=== PATIENT | female | born 1955 | race Caucasian/White ===

== ENCOUNTER 2019-11-25 15:51 | Outpatient (REF) | payer MEDICAID, SELFPAY ==
--- NOTE | 2019-11-25 | US_ITS ---
EXAMINATION: US THYROID CLINICAL INFORMATION: Nontoxic single thyroid nodule. COMPARISON: Ultrasound soft tissue head/neck thyroid dated 11/13/2018 and 09/05/2016. TECHNIQUE: Linear transducer shankar-scale and color Doppler examination with attention to the region of the thyroid. FINDINGS: SIZE: Measurements of the thyroid lobes and nodules are given in sagittal, anteroposterior and transverse dimensions respectively. Right Thyroid Lobe: 2.8 x 1.8 x 1.4 cm, volume 3.7 mL. Previously 3.2 x 1.9 x 1.2 cm, volume 3.9 mL. Parenchyma: The gland echotexture is heterogeneous. Thyroid vascularity is normal. Left Thyroid Lobe: 3.1 x 1.5 x 1.6 cm, volume 3.9 mL. Previously 3.2 x 1.4 x 1.2 cm, volume 2.9 mL. Parenchyma: The gland echotexture is heterogeneous. Thyroid vascularity is normal. Isthmus: 0.6 cm in maximum AP dimension. Previously 0.6 cm. RIGHT THYROID LOBE: No nodules. ISTHMUS: There is 1 nodule seen. 1. Location: Mid isthmus. Size: 0.7 x 0.5 x 0.7 cm. Previous: 0.7 x 0.7 x 0.6 cm. Nodule characteristics: Heterogeneous, irregular shaped with intranodular flow. LEFT THYROID LOBE: No nodules. NODES: No lymphadenopathy is seen in the tissue surrounding the thyroid gland. IMPRESSION: Heterogenous irregular-shaped subcentimeter nodule in the isthmus. The rest of the thyroid ultrasound is unremarkable.
== END 2019-11-25 15:52 | disposition home or self-care (01) ==
LOC: HO.US 15:51
PROVIDERS: Visit Provider Emergency Medicine
DX: E04.1 Nontoxic single thyroid nodule (principal)
CPT/HCPCS: 76536

== ENCOUNTER 2019-12-23 13:51 | Outpatient (REF) | payer MEDICAID, SELFPAY ==
--- NOTE | 2019-12-23 13:58 | XR_ITS ---
EXAMINATION: XR LUMBOSACRAL SPINE CLINICAL INFORMATION: Lumbago with sciatica, right side. COMPARISON: Radiographs lumbar spine 08/30/2018 TECHNIQUE: Three views of the lumbosacral spine. FINDINGS: There is normal lumbar segmentation with 5 nonrib-bearing lumbar vertebrae of normal height and normal lumbar lordosis. There is no lumbar vertebral compression, spondylolisthesis, or destructive process. Accentuated superior endplate concavity T12 is stable. There is scattered multilevel mild lumbar vertebral body spurring again noted. No interval disc narrowing. The SI joints and visualized sacrum are unremarkable. There is a benign calcification again seen left hemipelvis. XR/XR lumbar spine 2-3V IMPRESSION: 1. No acute bony abnormality. 2. Mild superior endplate concavity T12 stable from prior exam 08/30/2018.
== END 2019-12-23 13:52 | disposition home or self-care (01) ==
LOC: HO.XRAY 13:51
PROVIDERS: Absent Provider Emergency Medicine; PCP Emergency Medicine; Referring Provider Emergency Medicine; Visit Provider Nurse Practitioner Family
DX: M54.41 Lumbago with sciatica, right side (principal)
CPT/HCPCS: 72100

== ENCOUNTER → 2019-12-24 13:24 | Outpatient (BNVA) | payer MEDICAID, SELFPAY | PROVIDERS: PCP Emergency Medicine; Visit Provider Nurse Practitioner Family | DX: Z76.89 Persons encountering health services in other specified circumstances (principal) ==

== ENCOUNTER → 2020-01-15 13:27 | Outpatient (BNVA) | payer MEDICAID, SELFPAY | PROVIDERS: Visit Provider Obstetrics & Gynecology | DX: Z76.89 Persons encountering health services in other specified circumstances (principal) ==

== ENCOUNTER 2020-04-16 18:52 | Outpatient (REF) | payer MEDICAID, SELFPAY ==
--- NOTE | ~2020-04-16 | MR_ITS ---
EXAMINATION: MR LUMBAR SPINE WITHOUT CONTRAST CLINICAL INFORMATION: Long history of chronic back pain. COMPARISON: X-ray dated 12/23/2019 TECHNIQUE: MRI of the lumbar spine was obtained using routine sequences without contrast. Slightly limited study with motion artifacts. FINDINGS: VERTEBRAL BODIES AND PARASPINAL STRUCTURES: The marrow signal is within normal limits. There are no compression fractures or subluxations. Superior endplate Schmorl's node deformity evident at the L5 level with mild concavity. No marrow or soft tissue edema is seen. The paraspinal soft tissues appear normal. The imaged bony pelvis is unremarkable. CONUS MEDULLARIS AND CAUDA EQUINA: Normal, terminating at the level of L1-L2. No lower cord signal abnormality is seen. The cauda equina nerve roots are normal. SPINAL LEVELS: L1-L2: No significant disc pathology. Patent central canal and foramina. L2-L3: No disc abnormality. No central canal stenosis or foraminal narrowing. L3-L4: No disc pathology evident. Mild anterior endplate spurring. Patent central canal and foramina. L4-L5: No disc abnormality. Very mild facet arthropathy without foraminal encroachment. L5-S1: No disc abnormality. Very mild facet arthropathy. No central canal stenosis or foraminal narrowing. MR/MR lumbar spine wo con IMPRESSION: Very mild spondylitic changes. No focal disc protrusion, central canal stenosis, or foraminal narrowing.
== END 2020-04-16 18:53 | disposition home or self-care (01) ==
LOC: HO.MRI 18:52
PROVIDERS: Visit Provider Nurse Practitioner Family
DX: G89.29 Other chronic pain (principal); M54.5 Low back pain; Z91.81 History of falling
CPT/HCPCS: 72148

== ENCOUNTER → 2020-06-14 12:20 | Outpatient (BNVA) | payer MEDICAID, SELFPAY | PROVIDERS: PCP Nurse Practitioner Family; Visit Provider Internal Medicine | DX: R07.2 Precordial pain (principal); E11.8 Type 2 diabetes mellitus with unspecified complications; E78.5 Hyperlipidemia, unspecified; Z79.899 Other long term (current) drug therapy | CPT/HCPCS: 93005; 99212 ==

== ENCOUNTER → 2020-06-22 15:17 | Outpatient (BNVA) | payer MEDICAID, SELFPAY | PROVIDERS: PCP Nurse Practitioner Family; Visit Provider Nurse Practitioner Family | DX: R14.0 Abdominal distension (gaseous) (principal); K21.9 Gastro-esophageal reflux disease without esophagitis; K59.00 Constipation, unspecified | CPT/HCPCS: 99212 ==

== ENCOUNTER 2020-06-29 14:00 | Outpatient (RCR) | payer MEDICAID, SELFPAY | END 2020-07-06 08:00 | disposition home or self-care (01) | LOC: HO.PT 14:00 | PROVIDERS: PCP Nurse Practitioner Family; Visit Provider Nurse Practitioner Family | DX: M54.5 Low back pain (principal) | CPT/HCPCS: 97110; 97112; 97162 ==

== ENCOUNTER → 2020-07-26 14:24 | Outpatient (BNVA) | payer MEDICARE, MEDICAID, SELFPAY | PROVIDERS: PCP Nurse Practitioner Family; Visit Provider Nurse Practitioner Family | DX: Z13.89 Encounter for screening for other disorder (principal) | CPT/HCPCS: Q3014 ==

== ENCOUNTER 2020-09-03 13:10 | Outpatient (REF) | payer MEDICARE, MEDICAID, SELFPAY ==
--- NOTE | ~2020-09-03 | MM_ITS ---
EXAMINATION: MM DIAGNOSTIC DIGITAL BREAST TOMOSYNTHESIS, BILATERAL CLINICAL INFORMATION: Due for yearly. Also follow-up probable benign asymmetric density central 3:30 o'clock mid right breast. The lifetime risk of breast cancer based on the Tyrer-Cuzick Model is 5%. COMPARISON: Mammography: 08/22/2019, 11/22/2018, 05/16/2018 (BI-RADS 0), 05/07/2017, 05/02/2016, 03/23/2015; targeted right breast ultrasound 05/22/2018. TECHNIQUE: Digital breast tomosynthesis is performed in both the craniocaudal and mediolateral oblique views along with computer-aided detection (CAD). Synthesized 2D images are generated from the tomosynthesis. FINDINGS: There are scattered areas of fibroglandular density (ACR BI-RADS breast composition Category b). Parenchymal pattern is similar to prior studies. There is no developing density or interval mass or architectural abnormality. No abnormal calcifications. Small asymmetric density for follow-up appears stable since 2016. No increasing size or attenuation. The axilla and skin contours are unremarkable. Results are provided to the patient at time of visit by the technologist. MM/MM tomosynthesis diagnostic BI IMPRESSION: No mammographic evidence of malignancy. ASSESSMENT: BI-RADS 2: Benign RECOMMENDATION: Routine annual mammography screening. This patient's information was entered into a reminder system with a target due date for their next mammogram.
== END 2020-09-03 13:11 | disposition home or self-care (01) ==
LOC: HO.MAMMO 13:10
PROVIDERS: Visit Provider Advanced Practice Midwife
DX: N63.14 Unspecified lump in the right breast, lower inner quadrant (principal)
CPT/HCPCS: 77062; 77066

== ENCOUNTER → 2020-10-28 08:51 | Outpatient (BNVA) | payer OTHER, SELFPAY | PROVIDERS: PCP Internal Medicine; Referring Provider Internal Medicine; Visit Provider Surgery | DX: K62.89 Other specified diseases of anus and rectum (principal) | CPT/HCPCS: 46600; 99202 ==

== ENCOUNTER 2021-03-02 09:04 | Outpatient (REF) | payer OTHER, MEDICAID, SELFPAY ==
[2021-03-04 21:51] LABS: HPV mRNA E6/E7 rflx Not Detected (Not Detected)
== END 2021-03-02 09:05 | disposition home or self-care (01) ==
LOC: HO.LAB 09:04
PROVIDERS: PCP Internal Medicine; Visit Provider Obstetrics & Gynecology
DX: Z01.419 Encounter for gynecological examination (general) (routine) without abnormal findings (principal); N95.1 Menopausal and female climacteric states
CPT/HCPCS: 87624; 88142

== ENCOUNTER 2021-03-16 08:42 | Outpatient (REF) | payer OTHER, MEDICAID, SELFPAY ==
--- NOTE | ~2021-03-16 | MM_ITS ---
EXAMINATION: BONE DENSITOMETRY CLINICAL INDICATION: Osteoporosis. COMPARISON: None (current study represents initial baseline exam). TECHNIQUE: Using a [employer] DXA System (software version: 13.1) manufactured by [employer] to u, dual-energy x-ray absorptiometry was performed of the lumbar spine and left hip. The images are of good technical quality. Summary results are attached. FINDINGS: AP SPINE L1-L4: BMD 0.929 g/cm2, Z-score -0.7, T-score -2.1, osteopenia. LEFT FEMUR, NECK: BMD 0.823 g/cm2, Z-score -0.2, T-score -1.5, osteopenia. LEFT FEMUR, TOTAL: BMD 0.894 g/cm2, Z-score 0.2, T-score -0.9, normal. IDENTIFIED RISK FACTORS: Recurrent falls, glucocorticoids (chronic), menopause. HISTORY OF FRACTURE: None listed. MEDICATIONS: Vitamin D. MM/XR DEXA axial skeleton IMPRESSION: 1. DIAGNOSIS: Osteopenia based on the lowest T-score value of -2.1 in the lumbar spine applying World Health Organization criteria. 2. 10-YEAR FRACTURE RISK PREDICTION, FRAX: Major osteoporotic fracture (clinical spine, forearm, hip or shoulder) 8.0%. Hip fracture 1.0%. 3. Treatment Recommendations: NOF guidelines recommend consideration for treatment in postmenopausal women and men age 50 and older presenting with the following: -A hip or vertebral (clinical or morphometric) fracture. -T-score less than or equal to -2.5 at the femoral neck or spine after appropriate evaluation to exclude secondary causes. -Low bone mass at the hip or spine and a 10-year fracture probability by FRAX of greater than or equal to 3% for hip fracture or greater than or equal to 20% for major osteoporotic fracture based on the [place] adapted WHO algorithm. 4. Other Recommendations: All treatment decisions require clinical judgment and consideration of individual patient factors, including patient preferences, comorbidities, previous drug use, risk factors not captured in the FRAX model (e.g. frailty, falls, vitamin D deficiency, increased bone turnover, interval significant decline in bone density) and possible under or overestimation of fracture risk by FRAX. Additional medical evaluation for secondary cause of low bone mineral density may be appropriate. FUTURE SCAN RECOMMENDATION: People with diagnosed cases of osteoporosis or at high risk for fracture should have regular bone mineral density tests. For patients eligible for Medicare, routine testing is allowed once every 2 years. The testing frequency can be increased to one year for patients who have rapidly progressing disease, those who are receiving or discontinuing medical therapy to restore bone mass, or have additional risk factors.
== END 2021-03-16 08:43 | disposition home or self-care (01) ==
LOC: HO.MAMMO 08:42
PROVIDERS: Visit Provider Obstetrics & Gynecology
DX: Z13.820 Encounter for screening for osteoporosis (principal); N95.1 Menopausal and female climacteric states; Z79.899 Other long term (current) drug therapy
CPT/HCPCS: 77080

== ENCOUNTER 2021-06-02 14:50 | Outpatient (REF) | payer OTHER, MEDICAID, SELFPAY ==
--- NOTE | ~2021-06-02 | XR_ITS ---
EXAMINATION: XR CHEST CLINICAL INFORMATION: Other general symptoms and signs COMPARISON: 07/05/2016 TECHNIQUE: 2 views of the chest were obtained. FINDINGS: The lungs are well expanded. There is no focal consolidation, edema, or effusion. Mild bronchial wall thickening noted. No pneumothorax. The cardiomediastinal silhouette is within normal limits. No acute osseous abnormality. XR/XR chest 2V IMPRESSION: No dense consolidation. Bronchial wall thickening can be seen with a small airways process such as asthma or atypical/viral infection.
== END 2021-06-02 14:51 | disposition home or self-care (01) ==
LOC: HO.XRAY 14:50
PROVIDERS: PCP Internal Medicine; Visit Provider Emergency Medicine
DX: R68.89 Other general symptoms and signs (principal)
CPT/HCPCS: 71046

== ENCOUNTER → 2021-06-15 12:21 | Outpatient (BNVA) | payer OTHER, MEDICAID, SELFPAY | PROVIDERS: PCP Internal Medicine; Referring Provider Internal Medicine; Visit Provider Internal Medicine | DX: R07.2 Precordial pain (principal); E78.5 Hyperlipidemia, unspecified; E11.8 Type 2 diabetes mellitus with unspecified complications | CPT/HCPCS: 93005 ==

== ENCOUNTER 2021-09-06 10:57 | Outpatient (REF) | payer OTHER, MEDICAID, SELFPAY ==
--- NOTE | ~2021-09-06 | MM_ITS ---
EXAMINATION: MM SCREENING DIGITAL BREAST TOMOSYNTHESIS, BILATERAL CLINICAL INFORMATION: Screening. Asymptomatic. The lifetime risk of breast cancer based on the Tyrer-Cuzick Model is 5%. COMPARISON: Mammography: 09/03/2020, 08/22/2019, 11/22/2018, 05/16/2018 TECHNIQUE: Digital breast tomosynthesis is performed in both the craniocaudal and mediolateral oblique views along with computer-aided detection (CAD). Synthesized 2D images are generated from the tomosynthesis. FINDINGS: There are scattered areas of fibroglandular density (ACR BI-RADS breast composition Category b). There are no significant masses, abnormal calcifications, or other abnormalities. There is no developing density or interval architectural changes. No significant change from prior studies. MM/MM tomosynthesis screening BI IMPRESSION: No mammographic evidence of malignancy. ASSESSMENT: BI-RADS 1: Negative RECOMMENDATION: Routine annual mammography screening. This patient's information was entered into a reminder system with a target due date for their next mammogram.
== END 2021-09-06 10:58 | disposition home or self-care (01) ==
LOC: HO.MAMMO 10:57
PROVIDERS: PCP Internal Medicine; Visit Provider Internal Medicine
DX: Z12.31 Encounter for screening mammogram for malignant neoplasm of breast (principal)
CPT/HCPCS: 77063; 77067

== ENCOUNTER 2021-09-11 10:54 | Emergency (ER) | payer OTHER, MEDICAID, SELFPAY ==
[2021-09-11 12:28] VITALS: BP 131/45; PULSE 72; RESP 18; TEMP 36.5; O2SAT 95; BMI 31.5
--- NOTE | 2021-09-11 17:42 | ED.SKABFB ---
HPI - Skin/Abscess/Foreign Bdy General Chief complaint: Skin/Abscess/Foreign Body Stated complaint: rash on R arm Time Seen by Provider: 09/11/21 17:42 History of Present Illness HPI narrative: Patient complains of rash on arms and legs for the past couple days getting more itchy, no trouble breathing no difficulty swallowing no swelling in the throat Related Data Home Medications Medication Instructions Recorded Confirmed amitriptyline 50 mg tablet 50 mg PO BEDTIME 12/24/19 06/15/21 atorvastatin 20 mg tablet 20 mg PO DAILY 12/24/19 06/15/21 buspirone 5 mg tablet 5 mg PO BID 12/24/19 06/15/21 phenyleph-shark liver 1 appl [place] DAILY 10/28/20 06/15/21 [id number] rectal cream cholecalciferol (vitamin D3) 25 25 mcg PO DAILY 06/15/21 06/15/21 mcg (1,000 unit) chewable tablet (Vitamin D3) dapagliflozin 5 mg tablet (Farxiga) 5 mg PO QAM 06/15/21 06/15/21 fluticasone propionate 50 1 - 2 spray intranasal DAILY PRN 06/15/21 06/15/21 mcg/actuation nasal spray,suspension levothyroxine 25 mcg tablet 25 mcg PO DAILY 06/15/21 06/15/21 metformin 500 mg tablet,extended 1,000 mg PO BID 06/15/21 06/15/21 release 24 hr mirtazapine 7.5 mg tablet 7.5 mg PO BEDTIME 06/15/21 06/15/21 pantoprazole 40 mg tablet,delayed 40 mg PO DAILY 06/15/21 06/15/21 release trazodone 50 mg tablet 50 mg PO BEDTIME 06/15/21 06/15/21 venlafaxine 75 mg tablet 75 mg PO DAILY 06/15/21 06/15/21 Previous Rx's Medication Instructions Recorded docusate sodium 100 mg capsule 100 mg PO DAILY 30 days #30 caps 07/26/20 methylcellulose (laxative) 500 mg 500 mg PO DAILY #30 tabs 07/26/20 tablet (Citrucel) simethicone 125 mg capsule 125 mg PO BID-QID PRN abdominal 07/26/20 distention #120 caps hydrocortisone acetate 25 mg 25 mg [place] BID #24 ea 10/28/20 rectal suppository (Anusol-HC) psyllium husk (with sugar) 3.4 1 tbsp PO DAILY #575 grams 10/28/20 gram/12 gram oral powder (Metamucil (with sugar)) hydrocortisone 2.5 % topical cream 1 appl topical BID PRN rash #30 09/11/21 grams loratadine 10 mg tablet (Claritin) 10 mg PO DAILY PRN Itchy rash #10 09/11/21 tabs prednisone 20 mg tablet 40 mg PO DAILY 2 days #4 tabs 09/11/21 Allergies Allergy/AdvReac Type Severity Reaction Status Date / Time aspirin [ASPIRIN] Allergy Mild UPSET Verified 06/15/21 12:47 STOMACH trazodone AdvReac Unknown tiredness Verified 06/15/21 12:47 Review of Systems Review of Systems: Positive for itchy rash on arms and legs Negatives are no fever no chills no dizziness or weakness no fainting no feeling faint no headache no sore throat no difficulty breathing or swallowing no swelling of lips tongue or throat, no wheezing no vomiting Yes all other systems are reviewed and are negative PMFSH Past Medical History Source: nursing notes reviewed Medical History Anal pain Constipation Depression with anxiety Diverticulosis GERD (gastroesophageal reflux disease) Hiatal hernia Hx of thyroid cyst Hypercholesteremia Hypothyroidism Insomnia Internal hemorrhoids Other and unspecified hyperlipidemia Type 2 diabetes mellitus with unspecified complications Surgical History H/O tubal ligation History of appendectomy History of History of colonoscopy Hx of shoulder surgery Family History Family History Father History of heart attack Mother History of heart attack Social History Social History Alcohol intake: never Patient Tobacco Use Status: Never used Tobacco Advance Directives: No Advance Directives Information Provided: No Physical Exam Vital Signs: Vital Signs: Last Vital Signs Temp 97.7 F 09/11/21 12:28 Pulse 72 09/11/21 12:28 Resp 18 09/11/21 12:28 BP 131/45 L 09/11/21 12:28 Pulse Ox 95 09/11/21 12:28 O2 Del Method 09/11/21 12:28 BMI result Body Mass Index 31.5 General appearance comfortable no distress Eyes no redness or discharge The nose no congestion The pharynx is clear with no swelling of lips tongue or uvula no swelling in the throat, mucous membranes moist Neck is supple Chest clear to auscultation bilateral with full symmetric equal breath sounds Heart no murmur Extremities full range of motion x4 Skin there is a raised red rash on both elbows and forearms as well as both lower legs Course Course Course Narrative: Rash may be poison garrison or some other contact dermatitis There is no sign of any dangerous allergic reaction Discharge Plan Discharge Clinical Impression: Contact dermatitis Patient Disposition: Home, Self-Care Additional Instructions: Rash may be from contact with something you are allergic to possibly poison garrison Use medications as directed Follow with her doctor if needed Return any time if worse Prescriptions: New prednisone 20 mg tablet 40 mg PO DAILY 2 Days Qty: 4 0RF hydrocortisone 2.5 % cream 1 appl topical BID PRN (Reason: rash) Qty: 30 0RF loratadine [Claritin] 10 mg tablet 10 mg PO DAILY PRN (Reason: Itchy rash) Qty: 10 0RF No Action phenyleph-shark [id number] Cream 1 appl NJ DAILY hydrocortisone acetate [Anusol-HC] 25 mg suppository 25 mg NJ BID Qty: 24 0RF Metamucil (with sugar) 3.4 gram/12 gram powder 1 tbsp PO DAILY Qty: 575 2RF atorvastatin 20 mg tablet 20 mg PO DAILY amitriptyline 50 mg tablet 50 mg PO BEDTIME buspirone 5 mg tablet 5 mg PO BID Farxiga 5 mg tablet 5 mg PO QAM metformin 500 mg tablet extended release 24 hr 1,000 mg PO BID levothyroxine 25 mcg tablet 25 mcg PO DAILY venlafaxine 75 mg tablet 75 mg PO DAILY fluticasone propionate 50 mcg/actuation spray,suspension 1 - 2 spray intranasal DAILY PRN mirtazapine 7.5 mg tablet 7.5 mg PO BEDTIME pantoprazole 40 mg tablet,delayed release (DR/EC) 40 mg PO DAILY cholecalciferol (vitamin D3) [Vitamin D3] 25 mcg (1,000 unit) tablet,chewable 25 mcg PO DAILY trazodone 50 mg tablet 50 mg PO BEDTIME docusate sodium 100 mg capsule 100 mg PO DAILY 30 Days Qty: 30 1RF Citrucel 500 mg tablet 500 mg PO DAILY Qty: 30 2RF simethicone 125 mg capsule 125 mg PO BID-QID PRN (Reason: abdominal distention) Qty: 120 3RF
== END 2021-09-11 18:11 | disposition home or self-care (01) ==
PROVIDERS: Emergency Provider Student in an Organized Health Care Education/Training Program; PCP Internal Medicine
DX: L25.9 Unspecified contact dermatitis, unspecified cause (principal)
CPT/HCPCS: 99282; 99283

== ENCOUNTER 2022-03-15 10:00 | Outpatient (REF) | payer MEDICARE, SELFPAY ==
[2022-03-15 10:15] LABS: MANUAL DIFF FLAG NO
[2022-03-15 10:43] LABS: Eosinophils Percent Auto 0.2 % (0-4); Hematocrit 39.5 % (37.0-47.0); Hemoglobin 12.8 g/dl (12.0-16.0); Imm Gran Abs Auto 0.02 X10*3/uL (0.00-0.03); Imm Gran Pct Auto 0.3 % (0.0-0.4); Lymphocytes Absolute Auto 2.9 X10*3/uL (1.2-4.9); Mean Corpuscular HGB Conc 32.4 g/dl (31.0-35.0); Mean Corpuscular Hemoglobin 26.6 pg (27.0-33.0); Mean Corpuscular Volume 82.1 fL (80.0-98.0); Mean Platelet Volume 9.2 fL (9.4-12.3); Monocytes Absolute Auto 0.5 X10*3/uL (0.1-1.2); Monocytes Percent Auto 8.4 % (2-11); Neutrophils Absolute Auto 2.8 x10*3/uL (2.0-8.3); Neutrophils Percent Auto 45.1 % (45-73); Platelet Count 286 X10*3/uL (160-400); Red Blood Count 4.81 X10*6/uL (4.20-5.50); Red Cell Distribution Width 12.8 % (11.0-16.0); White Blood Count 6.2 X10*3/uL (4.8-10.8)
[2022-03-15 12:28] LABS: Appearance Urine Clear; Color Urine Yellow; Glucose Urine UA Negative (Negative); Leukocyte Esterase Urine Negative (Negative); Nitrite Urine Negative (Negative); Urine Blood Negative (Negative); Urine Ketones Negative (Negative); Urine Protein Negative (Neg-Trace)
[2022-03-15 13:48] LABS: Creatinine Urine 81.13 mg/dL; Microalbum/Creatinine Ratio Ur 6.1 ug/mg cr
[2022-03-15 14:55] LABS: Alanine Aminotransferase 22 U/L (0-31); Albumin Level 4.3 g/dL (3.5-5.0); Alkaline Phosphatase 82 U/L (39-117); Anion Gap 19 (12-20); Aspartate Amino Transferase 20 U/L (5-31); Bilirubin Total 0.3 mg/dL (0.0-1.0); Blood Urea Nitrogen 16 mg/dL (9-16); Calcium 9.1 mg/dL (8.4-10.2); Carbon Dioxide 20 mmol/L (22-29); Chloride 104 mmol/L (96-108); Cholesterol 140 mg/dL; Estimated Glomerular Filt Rate > 60; Glucose Fasting 127 mg/dL (60-99); HDL Cholesterol 54 mg/dL; LDL Cholesterol Calculated 70 mg/dl; Potassium 4.2 mmol/L (3.3-5.1); Sodium 139 mmol/L (135-145); Total Protein 6.8 g/dL (6.5-8.0); Triglycerides 83 mg/dL
[2022-03-15 15:01] LABS: Free T4 (Free Thyroxine) 0.91 ng/dL (0.71-1.85); Vitamin D 25-OH Total 47.4 ng/mL (>30)
== END 2022-03-15 10:01 | disposition home or self-care (01) ==
LOC: HO.LAB 10:00
PROVIDERS: PCP Internal Medicine; Visit Provider Internal Medicine
DX: E55.9 Vitamin D deficiency, unspecified (principal); R30.0 Dysuria; E03.9 Hypothyroidism, unspecified; E78.00 Pure hypercholesterolemia, unspecified; E11.9 Type 2 diabetes mellitus without complications; I10 Essential (primary) hypertension
CPT/HCPCS: 36415; 80053; 80061; 81003; 82043; 82306; 84439; 84443; 85025

== ENCOUNTER 2022-05-22 15:38 | Outpatient (REF) | payer MEDICARE, SELFPAY ==
[2022-05-22 16:00] LABS: Appearance Urine Clear; Color Urine Yellow; Glucose Urine UA >=1000 mg/dL (Negative); Leukocyte Esterase Urine Negative (Negative); Nitrite Urine Negative (Negative); PH 5.5 (5.0-9.0); Specific Gravity - Urine >= 1.030 (1.005-1.025); UMIC TRIGGER UACC YES; Urine Blood Negative (Negative); Urine Ketones Negative (Negative); Urine Protein Negative (Neg-Trace)
[2022-05-22 16:52] LABS: Bacteria Urine Trace (None Seen); Hyaline Casts Urine 0-2 /LPF (0-2); RBC Urine 0-2 /HPF (0-2); Squamous Epithelial Cell Urine 0-2 /HPF (0-2); WBC Urine 0-5 /HPF (0-5)
== END 2022-05-22 15:39 | disposition home or self-care (01) ==
LOC: HO.LNP 15:38
PROVIDERS: Visit Provider Internal Medicine
DX: R39.9 Unspecified symptoms and signs involving the genitourinary system (principal)
CPT/HCPCS: 81001; 81003

== ENCOUNTER → 2022-05-31 10:21 | Outpatient (BNVA) | payer MEDICARE, SELFPAY | PROVIDERS: PCP Internal Medicine; Visit Provider Obstetrics & Gynecology ==

== ENCOUNTER 2022-06-15 14:20 | Outpatient (REF) | payer MEDICARE, SELFPAY ==
[2022-06-15 16:38] LABS: Urine Cytology See Pathology rpt
== END 2022-06-15 14:21 | disposition home or self-care (01) ==
LOC: HO.LNP 14:20
PROVIDERS: PCP Internal Medicine; Visit Provider Nurse Practitioner Family
DX: R31.29 Other microscopic hematuria (principal); N32.81 Overactive bladder; R35.1 Nocturia; R39.89 Other symptoms and signs involving the genitourinary system; R32 Unspecified urinary incontinence; R30.0 Dysuria
CPT/HCPCS: 51798; 88112; 99202

== ENCOUNTER 2022-07-06 14:53 | Outpatient (REF) | payer MEDICARE, SELFPAY ==
--- NOTE | ~2022-07-06 | US_ITS ---
EXAMINATION: US RETROPERITONEAL LIMITED (RENAL ONLY) CLINICAL INFORMATION: Frequency of micturition. COMPARISON: X-ray abdomen 09/22/2016. TECHNIQUE: Real-time imaging of the kidneys. FINDINGS: RIGHT KIDNEY: 9.6 x 4.1 x 5.2 cm (SAG x AP x TRV). The kidney is normal in size, contour, and echogenicity. Renal cortical thickness is normal. No calculi or focal parenchymal lesions. No hydronephrosis. LEFT KIDNEY: 9.7 x 4.5 x 4.9 cm (SAG x AP x TRV). The kidney is normal in size, contour, and echogenicity. Renal cortical thickness is normal. No calculi or focal parenchymal lesions. No hydronephrosis. US/US renal BI IMPRESSION: Normal renal ultrasound.
[2022-07-06 16:26] LABS: Appearance Urine Clear; Color Urine Yellow; Glucose Urine UA >=1000 mg/dL (Negative); Leukocyte Esterase Urine Negative (Negative); Nitrite Urine Negative (Negative); Specific Gravity - Urine >= 1.030 (1.005-1.025); UMIC TRIGGER UACC YES; Urine Blood Negative (Negative); Urine Ketones Negative (Negative); Urine Protein Negative (Neg-Trace)
[2022-07-06 16:31] LABS: Bacteria Urine None Seen (None Seen); Hyaline Casts Urine 0-2 /LPF (0-2); RBC Urine 0-2 /HPF (0-2); Squamous Epithelial Cell Urine 0-2 /HPF (0-2); WBC Urine 0-5 /HPF (0-5)
[2022-07-06 18:25] LABS: Creatinine Urine 91.55 mg/dL; Microalbumin Urine < 5.0 mg/L
== END 2022-07-06 14:54 | disposition home or self-care (01) ==
LOC: HO.US 14:53
PROVIDERS: Internal Medicine; Visit Provider Nurse Practitioner Family
DX: E11.9 Type 2 diabetes mellitus without complications (principal); R35.0 Frequency of micturition; R31.29 Other microscopic hematuria; R35.1 Nocturia; R39.89 Other symptoms and signs involving the genitourinary system; R30.0 Dysuria
CPT/HCPCS: 76775; 81001; 82043

== ENCOUNTER 2022-08-07 16:11 | Outpatient (REF) | payer MEDICARE, SELFPAY | END 2022-08-07 16:12 | disposition home or self-care (01) | LOC: HO.US 16:11 | PROVIDERS: PCP Internal Medicine; Visit Provider Nurse Practitioner Family | DX: R35.0 Frequency of micturition (principal); R31.29 Other microscopic hematuria; R35.1 Nocturia | CPT/HCPCS: 76857 ==

== ENCOUNTER 2022-08-18 13:27 | Outpatient (AMB) | payer MEDICARE, SELFPAY ==
--- NOTE | 2022-08-18 13:28 | A.OFFVIS_ITS ---
Intake Intake Visit Reasons: Micro hematuria- follow up/US/PVR(SET) Intake Note: Patient is present for follow up urinary incontinence/ultrasound (imaging 07/06 & 08/07) Urology Medications: Oxybutynin Blood Thinner: none PVR: 0ml's Photographic Plate Maker Required: Yes Photographic Plate Maker Name: [email or web address] Accompanied by: Self / Same As Patient Allergies aspirin [ASPIRIN] Allergy (Mild, Verified 08/18/22 14:04) UPSET STOMACH trazodone Adverse Reaction (Unknown, Verified 08/18/22 14:04) tiredness Medication List - Last Reconciled 08/18/22 by RENATO Antunez acetaminophen (Tylenol Extra Strength) 500 mg PO Q6-8H PRN amitriptyline 50 mg PO BEDTIME atorvastatin 20 mg PO DAILY blood sugar diagnostic (FreeStyle Lite Strips) As directed once a day blood sugar diagnostic (OneTouch Ultra Test strips) As directed once a day blood-glucose meter (FreeStyle Lite Meter kit) As directed blood-glucose meter (OneTouch Ultra2 Meter) As directed once a day buspirone 5 mg PO BID cholecalciferol (vitamin D3) (Vitamin D3) 25 mcg PO DAILY clotrimazole-betamethasone 1-0.05 % 1 appl topical BID 5 days dapagliflozin propanediol (Farxiga) 5 mg PO QAM docusate sodium 100 mg PO DAILY 30 days fluticasone propionate 50 mcg/actuation 1 - 2 sprays intranasal DAILY PRN hydrocortisone 2.5% 1 appl topical BID PRN hydrocortisone acetate (Anusol-HC) 25 mg MI BID hydroxyzine pamoate 25 mg PO DAILY PRN ibuprofen 600 mg PO TID PRN 30 days lancets (FreeStyle Lancets) As directed once a day lancets (OneTouch UltraSoft 2 Lancet) As directed levothyroxine 25 mcg PO DAILY loratadine (Claritin) 10 mg PO DAILY PRN melatonin 0 mg PO metformin ER 1,000 mg PO BID mirtazapine 7.5 mg PO BEDTIME oxybutynin chloride ER 10 mg PO DAILY 30 days pantoprazole 40 mg PO DAILY phenyleph-shark yaf-wvoy-oaf 1 appl MI DAILY polyethylene glycol 3350 grams PO psyllium husk (with sugar) 3.4 gram/12 gram (Metamucil (with sugar)) 1 tbsp PO DAILY simethicone 125 mg PO BID-QID PRN simethicone 180 mg PO TID venlafaxine 75 mg PO DAILY venlafaxine ER 75 mg PO DAILY HPI HPI Comments History of Present Illness Details Saadia is a pleasant 67 year old Indonesian speaking patient of Dr. Leonard. She has a past medical history of acquired hypothyroidism, constipation, depression, anxiety, diabetes mellitus, hypercholesterolemia, and vitamin d deficiency. She presents to the office today for follow-up. Of note, patient was seen approximately 2 months ago as a new patient for urinary issues at which time a retroperitoneal ultrasound was ordered and the patient has was started on 10 mg of oxybutynin. Recent retroperitoneal ultrasound results reviewed with the patient today. Bilateral kidneys with no calculi, lesions, and or hydronephrosis noted. The bladder is normal well distended. Prevoid bladder volume is approximately 140 mL. Postvoid bladder volume is approximately 15 mL. When asked she reports some improvement urinary symptoms on 10 mg of oxybutynin daily. She does continue to endorse nocturia up to 4 times per night however does endorse to drinking fluids up unitl/prior to bed. She otherwise denies incontinence, hematuria, foul-smelling urine, changes to urinary stream, flank pain, fever, and or chills. In office urinalysis with microscopic hematuria otherwise within normal limits. Urine cytology from last office visit 06/15/22 negative for high-grade urothelial carcinoma. PVR 0 mL. When asked she reports to be drinking fluids up to/prior to bed. She reports drinking tea at 22:00. Discussed affects of tea/caffeine on urinary symptoms/bladder as well as on nocturia. Discussed limiting fluids 3-4 hours prior to bed to assist with nocturia. Discussed lifestyle modifications up as well as future in office cystoscopy if symptoms persist and/or worsen. [facility] Medical History Acquired hypothyroidism Allergic rhinitis Anal pain Anxiety Constipation Constipation Depression Depression with anxiety Diabetes mellitus Diverticulosis GERD (gastroesophageal reflux disease) Hiatal hernia Hx of thyroid cyst Hypercholesteremia Hypothyroidism Insomnia Insomnia Internal hemorrhoids Internal hemorrhoids Obesity (BMI 30-39.9) Other and unspecified hyperlipidemia Pure hypercholesterolemia Type 2 diabetes mellitus with unspecified complications Vitamin D deficiency Surgical History H/O tubal ligation History of appendectomy History of History of colonoscopy Hx of shoulder surgery Family History Father History of heart attack Mother History of heart attack Sister Breast cancer Social History Housing: Apartment Alcohol intake: never Patient Tobacco Use Status: Never used Tobacco e-Cigarette/Vaping Use: Never Used service: No Cognitive needs: No Hearing needs: No Vision needs: Yes Female Reproductive History Menstrual Age of Menarche: 13 Review of Systems Const Reports as per HPI Eyes Reports no additional complaints ENT Reports no additional complaints Card Reports no additional complaints Resp Reports no additional complaints GI Reports as per HPI Reports as per HPI Neuro Reports no additional complaints Psych Reports as per HPI Endo Reports as per HPI Gatiot/Lymph Reports no additional complaints Aller/Immun Reports no additional complaints Physical Exam Const General: cooperative, healthy appearing, comfortable, no acute distress, well developed, alert and awake Orientation/consciousness: patient oriented x3 Limitations: no limitations HEENT Head: Yes normal to inspection, Yes normocephalic and Yes atraumatic Ears: hearing grossly normal bilaterally Eyes General: appearance normal, both eyes and all related structures Neck Neck: Yes normal visual inspection and Yes trachea midline Chest Chest palpation & inspection: normal inspection of the chest Resp Effort & Inspection: normal respiratory effort and able to speak in complete sentences Cardio Rate: regular rate GI Inspection: Yes normal to inspection General: Yes no CVA tenderness Back/Spine/Pelvis Back: no CVA tenderness Skin General skin exam: no rashes or lesions noted Neuro General: patient oriented x3 Extrem General: Yes normal to inspection Psych Appearance: grossly normal and well kempt Mental Status: mental status grossly normal Speech and movement: Normal speech and movement present and Clear speech present Affect: normal affect Attitude: cooperative Thought process: Normal thought process present Thought content: Normal thought content present Insight: Fair insight present (Psych) Judgement: Fair judgement present (Psych) Office Procedures Post Void Residual Post Residual Void Post Void Residual (PVR): 0 07133-[id number] Void Residual by ultrasound Results AMB Urinalysis, Automated UA Leukoctes 0 Javier/uL Last Edit by Darryl Cerrato on 08/18/22 13:51 UA Nitrite Last Edit by Darryl Cerrato on 08/18/22 13:51 UA Urobilinogen 0.2 mg/dL Last Edit by Chachae Blossom on 08/18/22 13:51 UA Protein 15 mg/dL Last Edit by Darryl Cerrato on 08/18/22 13:51 UA pH 6.0 Last Edit by Darryl Cerrato on 08/18/22 13:51 UA Blood 10 Amor/uL Last Edit by Darryl Cerrato on 08/18/22 13:51 UA Specific Milner 1.025 Last Edit by [employer] Blossom on 08/18/22 13:51 UA Ketone Negative Last Edit by [employer] on 08/18/22 13:51 UA Bilirubin 0 mg/dL Last Edit by Darryl Cerrato on 08/18/22 13:51 UA Glucose 0 mg/dL Last Edit by Darryl Cerrato on 08/18/22 13:51 Results Reviewed Results Reviewed: Laboratory Last Values Urine pH (Auto) 6.0 08/18/22 13:35 Specific Milner (Auto) 1.025 08/18/22 13:35 Urine Protein (Auto) 15 mg/dL 08/18/22 13:35 Glucose (UA)(Auto) 0 mg/dL 08/18/22 13:35 Urine Ketones (Auto) Negative 08/18/22 13:35 Urine Blood (Auto) 10 Amor/uL 08/18/22 13:35 Urine Bilirubin (Auto) 0 mg/dL 08/18/22 13:35 Urine Urobilinogen (Auto) 0.2 mg/dL 08/18/22 13:35 Leukocyte Esterase (Auto) 0 Javier/uL 08/18/22 13:35 Date of Service: 07/06/22 EXAMINATION: US RETROPERITONEAL LIMITED (RENAL ONLY) CLINICAL INFORMATION: Frequency of micturition. COMPARISON: X-ray abdomen 09/22/2016. TECHNIQUE: Real-time imaging of the kidneys.? FINDINGS: RIGHT KIDNEY: 9.6 x 4.1 x 5.2 cm (SAG x AP x TRV). The kidney is normal in size, contour, and echogenicity. Renal cortical thickness is normal. No calculi or focal parenchymal lesions. No hydronephrosis. LEFT KIDNEY: 9.7 x 4.5 x 4.9 cm (SAG x AP x TRV). The kidney is normal in size, contour, and echogenicity. Renal cortical thickness is normal. No calculi or focal parenchymal lesions. No hydronephrosis. IMPRESSION: Normal renal ultrasound. Date of Service: 08/07/22 EXAMINATION: US PELVIS LIMITED (BLADDER) CLINICAL INFORMATION: Microhematuria. COMPARISON: Ultrasound retroperitoneal limited (renal only) 07/06/2022. X-ray abdomen KUB 09/22/2016. TECHNIQUE: Real-time imaging of the bladder. FINDINGS: BLADDER: Well distended and normal. Bilateral ureteral jets are demonstrated. Prevoid bladder volume is 142 mL. Postvoid bladder volume is 14.7 mL. IMPRESSION: Small post void residual. Assessment & Plan Assessment & Plan (1) Microhematuria: Code(s): R31.29 - Other microscopic hematuria (2) Urinary frequency: Code(s): R35.0 - Frequency of micturition (3) Nocturia: Code(s): R35.1 - Nocturia Plan In office urinalysis results reviewed with the patient today Previous urine cytology results reviewed with the patient today; as noted above. Recent retroperitoneal ultrasound results reviewed with the patient today; as noted above. Continue oxybutynin 10 mg daily as discussed and prescribed. Discussed at length importance of limiting fluids 3-4 hours prior to bed to assist with decreasing episodes of nocturia. Discussed near future in office cystoscopy if symptoms persist and/or worsen. Discussed bladder triggers/irritants Discuss trial of Estrace cream Follow-up in 6 months; if not sooner with any questions, concerns, and or issues. Orders: Orders AMB Urinalysis Automated 08/18/22 Z13.9 - Encounter for screening, unspecified AMB Post Void Residual by ultrasound 08/18/22 R35.0 - Frequency of micturition Patient Instructions: The patient had an opportunity to ask questions regarding the treatment plan. All questions were answered. Physical exam, labs, and imaging were discussed and reviewed in detail. As well as risks, benefits, and discussion of treatment choices. No major barriers to understanding were identified. The patient expressed understanding and agreement with the above treatment plan. The patient was made aware they should contact our office by phone for worsening of their current condition, the appearance of new symptoms, or with any questions or concerns. Compliance is encouraged with any medications and follow up testing that is ordered. It is a privilege to be allowed the opportunity to participate in? your urological care.? Again, if you have any questions or concerns If you have any questions or concerns please do not hesitate to contact me. The office is [phone]. This note is constructed using voice recognition software. While every effort has been made to ensure accuracy process chemist errors may have been included. Yours sincerely, RENATO Antunez Coding Level of Care Code Est Pt Level 3 (78763) Diagnoses Microhematuria R31.29 Urinary frequency R35.0 Nocturia R35.1 CPT Codes Post Residual Void - PVR CPT Code: 08306-Rlja Void Residual by ultrasound ([id number])
== END 2022-08-18 14:05 | disposition home or self-care (01) ==
PROVIDERS: PCP Internal Medicine; Visit Provider Nurse Practitioner Family
DX: R31.29 Other microscopic hematuria (principal); R35.0 Frequency of micturition; R35.1 Nocturia
CPT/HCPCS: 99213

== ENCOUNTER → 2022-08-18 13:27 | Outpatient (BNVA) | payer MEDICARE, SELFPAY | PROVIDERS: PCP Internal Medicine; Visit Provider Nurse Practitioner Family | DX: R31.29 Other microscopic hematuria (principal); R35.0 Frequency of micturition; R35.1 Nocturia | CPT/HCPCS: 51798; 99212 ==

== ENCOUNTER 2022-09-12 10:59 | Outpatient (REF) | payer MEDICARE, SELFPAY ==
--- NOTE | ~2022-09-12 | MM_ITS ---
EXAMINATION: MM SCREENING DIGITAL BREAST TOMOSYNTHESIS, BILATERAL CLINICAL INFORMATION: Screening. Asymptomatic. The lifetime risk of breast cancer based on the Tyrer-Cuzick Model is 4.6%. COMPARISON: Mammography: 09/24/2021, 09/03/2020, 08/22/2019, and dating back to 2017. TECHNIQUE: Digital breast tomosynthesis is performed in both the craniocaudal and mediolateral oblique views along with computer-aided detection (CAD). Synthesized 2D images are generated from the tomosynthesis. FINDINGS: There are scattered areas of fibroglandular density (ACR BI-RADS breast composition Category b). There are no suspicious masses, suspicious grouped calcifications, or areas of architectural distortion. The parenchymal pattern is stable from prior exams. There are no skin changes. MM/MM tomosynthesis screening BI IMPRESSION: No mammographic evidence of malignancy. ASSESSMENT: BI-RADS BI-RADS 1 - Negative RECOMMENDATION: Routine annual mammography screening. 1 year F/U This examination should not preclude the clinical evaluation of a suspicious palpable abnormality. This patient's information was entered into a reminder system with a target due date for their next mammogram.
== END 2022-09-12 11:00 | disposition home or self-care (01) ==
LOC: HO.MAMMO 10:59
PROVIDERS: PCP Internal Medicine; Visit Provider Internal Medicine
DX: Z12.31 Encounter for screening mammogram for malignant neoplasm of breast (principal)
CPT/HCPCS: 77063; 77067

== ENCOUNTER → 2022-09-12 11:30 | Outpatient (BNV) | payer MEDICARE, SELFPAY | PROVIDERS: PCP Internal Medicine; Visit Provider Radiology Diagnostic Radiology | DX: Z12.31 Encounter for screening mammogram for malignant neoplasm of breast (principal) | CPT/HCPCS: 77063; 77067 ==

== ENCOUNTER 2022-09-15 15:56 | Outpatient (AMB) | payer MEDICARE, SELFPAY ==
[2022-09-15 15:58] VITALS: BP 118/80; PULSE 78; O2SAT 97
--- NOTE | 2022-09-15 15:58 | A.OFFPC_ITS ---
Vital Signs 09/15/22 15:58 Height 4 ft 11 in Weight 148 lb 8 oz BMI 30.0 BP 118/80 Blood Pressure Location Lt brachial Position Sitting Pulse 78 Pulse Source Pulse Oximeter Pulse Oximetry (%) 97 Oxygen Delivery Method Room Air Intake Visit Reasons: DM, GERD, hyperlipidemia, hypothyroidism Manual Plate Filler Required: No Accompanied by: Self / Same As Patient Allergies aspirin [ASPIRIN] Allergy (Mild, Verified 09/15/22 16:28) UPSET STOMACH trazodone Adverse Reaction (Unknown, Verified 09/15/22 16:28) tiredness Medication List - Last Reconciled 09/15/22 by Ramírez Leonard MD acetaminophen (Tylenol Extra Strength) 500 mg PO Q6-8H PRN amitriptyline 50 mg PO BEDTIME atorvastatin 20 mg PO DAILY [BATH MAT As directed] blood sugar diagnostic (FreeStyle Lite Strips) As directed once a day blood sugar diagnostic (OneTouch Ultra Test strips) As directed once a day blood-glucose meter (FreeStyle Lite Meter kit) As directed blood-glucose meter (iSironaTouch Ultra2 Meter) As directed once a day buspirone 5 mg PO BID cholecalciferol (vitamin D3) (Vitamin D3) 25 mcg PO DAILY clotrimazole-betamethasone 1-0.05 % 1 appl topical BID 5 days dapagliflozin propanediol (Farxiga) 5 mg PO QAM [DISPOSABLE WIPES (3 packages a month) As directed] docusate sodium 100 mg PO DAILY 30 days fluticasone propionate 50 mcg/actuation 1 - 2 sprays intranasal DAILY PRN [HAND HELD SHOWER HEAD As directed] hydrocortisone 2.5% 1 appl topical BID PRN hydrocortisone acetate (Anusol-HC) 25 mg GA BID hydroxyzine pamoate 25 mg PO DAILY PRN ibuprofen 600 mg PO TID PRN 30 days lancets (FreeStyle Lancets) As directed once a day lancets (iSironaTouch UltraSoft 2 Lancet) As directed levothyroxine 25 mcg PO DAILY loratadine (Claritin) 10 mg PO DAILY PRN melatonin 0 mg PO metformin ER 1,000 mg PO BID mirtazapine 7.5 mg PO BEDTIME oxybutynin chloride ER 10 mg PO DAILY 30 days [PANTILINERS (3 / day) As directed] pantoprazole 40 mg PO DAILY phenyleph-shark [id number] 1 appl GA DAILY polyethylene glycol 3350 grams PO psyllium husk (with sugar) 3.4 gram/12 gram (Metamucil (with sugar)) 1 tbsp PO DAILY simethicone 125 mg PO BID-QID PRN simethicone 180 mg PO TID venlafaxine 75 mg PO DAILY venlafaxine ER 75 mg PO DAILY [WASHABLE BED PADS (2 per month) As directed] Tobacco use date assessed: 09/15/22 Fall risk assessment: No Falls in past year Last assessed Fall Risk: 09/15/22 Dental Screening Dental Screen Date: 09/15/22 Did you have a dental visit in the last 12 months?: Yes Did you have a dental problem in the last 6 months where you did not have access to dental care?: No Was dental information given to patient?: Patient has dentist HPI DM, GERD, hyperlipidemia, hypothyroidism HPI Details Patient comes in today for her follow up visit States that she is still experiencing a lot of heartburns often irregardless of whether she is eating/drinking or not; states that her reflux symptoms sometimes go all the way up into her throat Was seen by Dr. Arellano a couple of months ago and she is now scheduled for EGD and colonoscopy with Dr. Arellano on 09/26/22 for further evaluation She denies any headaches or dizziness Denies any exertional chest pains or SOB No nausea/vomiting, no abdominal pains but relates (+) frequent bloating sensation and epigastric discomfort No change in bowel habits noted Patient again did not get her follow up labs done prior to her visit today - states that she got her labs done after we saw her at her last visit but the last time she got some labs done was back in March 2022 Adds that she has a Hx of thyroid nodule and would like to get a follow up US done as she has not had one done in over a year [facility] Medical History Acquired hypothyroidism Allergic rhinitis Anal pain Anxiety Constipation Constipation Depression Depression with anxiety Diabetes mellitus Diverticulosis GERD (gastroesophageal reflux disease) Hiatal hernia Hx of thyroid cyst Hypercholesteremia Hypothyroidism Insomnia Insomnia Internal hemorrhoids Internal hemorrhoids Obesity (BMI 30-39.9) Other and unspecified hyperlipidemia Pure hypercholesterolemia Type 2 diabetes mellitus with unspecified complications Vitamin D deficiency Surgical History H/O tubal ligation History of appendectomy History of History of colonoscopy Hx of shoulder surgery Family History Father History of heart attack Mother History of heart attack Sister Breast cancer Social History Housing: Apartment Alcohol intake: never Patient Tobacco Use Status: Never used Tobacco e-Cigarette/Vaping Use: Never Used service: No Cognitive needs: No Hearing needs: No Vision needs: Yes Female Reproductive History Menstrual Age of Menarche: 13 Questionnaire PHQ-9 Over the last 2 weeks, how often have you been bothered by any of the following problems? 1. Little interest or pleasure in doing things: not at all 2. Feeling down, depressed, or hopeless: not at all 3. Trouble falling or staying asleep, or sleeping too much: not at all 4. Feeling tired or having little energy: not at all 5. Poor appetite or overeating: not at all 6. Feeling bad about yourself - or that you are a failure or have let yourself or your family down: not at all 7. Trouble concentrating on things, such as reading the newspaper or watching television: not at all 8. Moving or speaking so slowly that other people could have noticed. Or the opposite - being so fidgety or restless that you have been moving around a lot more than usual: not at all 9. Thoughts that you would be better off or of hurting yourself in some way: not at all Total score: 0 Depression Screening Interpretation: Negative 46029 - PHQ-9 Billing: Yes Source: Developed by Drs. Francois Rick, Chaya Villareal, Mj He and colleagues, with an educational nereida from [employer]. Thrive Questionnaire Date Thrive assessed: 09/15/22 I am a: Patient What is your living situation today?: I have a steady place to live Within the past 12 months, did the food you bought not last and you didn't have the money to get more?: Never true Within the past 12 months, did you worry whether your food would run out before you got money to buy more?: Never true Do you have trouble paying for medicines?: No Do you have trouble getting transportation to medical appointments?: No Do you have trouble paying your heating and electricity bill?: No Do you have trouble taking care of your child, family member or friend?: No Do you have trouble with day-to-day activities such as bathing, preparing meals, shopping, managing finances, etc.?: No Are you currently unemployed and looking for a job?: No Are you interested in more education?: No Currently or been in a relationship where the following occur: no concerns reported AUDIT C Alcohol Use Questionnaire (AUDIT-C) 1. How often do you have a drink containing alcohol?: Never 2. How many drinks containing alcohol do you have on a typical day when you are drinking?: 1 or 2 3. How often do you have six or more drinks on one occasion?: Never Total Score: 0 Score Reviewed/Action Taken: Yes JAIDA-7 AMB Questionnaire JAIDA-7 Date JAIDA - 7 assessed: 09/15/22 Feeling nervous, anxious, or on edge: 0 = Not at all Not being able to stop or control worryin = Not at all Worrying too much about different things: 0 = Not at all Trouble relaxin = Not at all Being so restless that it is hard to sit still: 0 = Not at all Becoming easily annoyed or irritable: 0 = Not at all Feeling afraid as if something awful might happen: 0 = Not at all Total JAIDA-7 score (0-4 normal; 5-9 mild; 10-14 moderate; 15-21 severe): 0 Source: Developed by Drs. Francois Rick, Chaya Villareal, Mj He and colleagues, with an educational nereida from [employer]. Review of Systems Const Denies chills, Reports fatigue, Denies fever(s) and Denies headache(s) ENT Denies dysphagia, Denies dizziness, Denies otalgia, Denies headache(s), Denies neck pain, Denies odynophagia and Denies sore throat Card Denies chest pain, Denies palpitations and Denies dyspnea Resp Denies cough and Denies dyspnea GI Denies abdominal pain, Reports belching, Reports bloating (frequent abdominal gas), Denies constipation, Denies dysphagia, Reports dyspepsia, Reports heartburn (increasing in frequency), Denies diarrhea, Denies nausea, Denies odynophagia and Denies vomiting Denies urinary frequency, Denies difficulty voiding, Reports nocturia and Denies dysuria Musc Denies neck pain Neuro Denies dizziness and Denies headache(s) Endo Reports fatigue and Denies palpitations Physical exam (Primary Care) Vital Signs: Last Vital Signs Pulse 78 09/15/22 15:58 BP 118/80 09/15/22 15:58 Pulse Ox 97 09/15/22 15:58 Oxygen Delivery Method Room Air 09/15/22 15:58 BMI result Body Mass Index 30.0 Tobacco/Smoking Status: Tobacco use Status Tobacco use date assessed 09/15/22 09/15/22 16:06 Patient Tobacco Use Status Never used Tobacco 09/15/22 16:06 e-Cigarette/Vaping Use Never Used 09/15/22 16:06 PHQ-9: PHQ-9 Score PHQ-9: Total score 0 09/15/22 16:30 Depression Screening Interpretation: Negative Thrive Assessment: Date of Thrive Assessment Date Thrive assessed 09/15/22 09/15/22 16:06 Currently or been in a relationship where the following occur: no concerns reported Const General: no acute distress and alert HENMT Ears: TM's normal bilaterally and EAC's normal Throat: Yes posterior oropharynx normal and Yes tonsils normal (no TP congestion) Neck Neck: Yes no lymphadenopathy and Yes supple Thyroid: solitary palpable nodule on the right (small, non-tender) Resp Auscultation: clear to auscultation bilaterally, no rales and no wheezes Cardio Rate: regular rate Rhythm: regular rhythm Heart sounds: no murmurs GI Palpation (GI): Soft to palpation and nontender Auscultation: normal bowel sounds Skin Rashes: no rashes Extrem General: Yes no clubbing, cyanosis or edema Results AMB Hemoglobin A1c AMB Hemoglobin A1c 7.9 % Last Edit by Sally Arellano on 09/15/22 16:41 Assessment and Plan Assessment & Plan (1) Diabetes mellitus: Code(s): E11.9 - Type 2 diabetes mellitus without complications Qualifiers: Diabetes mellitus type: type 2 Diabetes mellitus longterm insulin use: without longterm use Diabetes mellitus complication status: without complication Qualified Code(s): E11.9 - Type 2 diabetes mellitus without complications Plan: In-office HgbA1c done today is at 7.9% (was at 8.0% a few months ago) - goal is <7.0% Reinforced diabetic diet Continue Metformin ER 1000 mg BID and Farxiga 5 mg Q AM for now Discussed that her recent increased GI symptoms are most likely impacting her diet and in turn keeping her from able to get her diabetes control improved lately but advised that once her GI symptoms are resolved and her diabetes control still does not improve, then we will need to make some changes /adjustments to her current diabetic regimen (2) Pure hypercholesterolemia: Code(s): E78.00 - Pure hypercholesterolemia, unspecified Plan: Was again NOT able to get her follow up labs done prior to her visit today; patient is advised to get these done CHRISTOPH - lab orders are printed out and handed to patient to help REMIND her so she would no longer have any reason to forget to do her labs Reinforced low cholesterol diet Continue Atorvastatin 20 mg QD Will recheck her labs and fasting lipids in 3 months for follow up (3) Acquired hypothyroidism: Code(s): E03.9 - Hypothyroidism, unspecified Plan: Continue Levothyroxine 25 mcg QD Will recheck TFTs CHRISTOPH for follow up (4) Right thyroid nodule: Code(s): E04.1 - Nontoxic single thyroid nodule Plan: Per request, will send her for repeat thyroid US for follow up (was last done in 2019) (5) Vitamin D deficiency: Code(s): E55.9 - Vitamin D deficiency, unspecified Plan: Continue Vitamin D3 1000 units QD Will recheck her Vitamin D level for follow up (6) Constipation: Code(s): K59.00 - Constipation, unspecified Qualifiers: Constipation type: unspecified constipation type Qualified Code(s): K59.00 - Constipation, unspecified Plan: Reinforced increased oral fluids and dietary fiber Continue Citrucel 500 mg QD, Colace 100 mg QD PRN and Metamucil PRN (7) GERD (gastroesophageal reflux disease): Code(s): K21.9 - Gastro-esophageal reflux disease without esophagitis Qualifiers: Esophagitis presence: without esophagitis Qualified Code(s): K21.9 - Gastro-esophageal reflux disease without esophagitis Plan: Patient relates increased GERD symptoms lately - see HPI Reinforced dietary restrictions Continue Pantoprazole 40 mg QD for now She is scheduled for EGD and colonoscopy with Dr. Arellano in a couple of weeks on 09/26/22 for further evaluation of her recent GI symptoms (8) Allergic rhinitis: Code(s): J30.9 - Allergic rhinitis, unspecified Qualifiers: Allergic rhinitis trigger: unspecified Allergic rhinitis seasonality: unspecified Qualified Code(s): J30.9 - Allergic rhinitis, unspecified Plan: Continue Loratadine 10 mg QD PRN and Fluticasone 50 mcg nasal spray QD PRN (9) Internal hemorrhoids: Code(s): K64.8 - Other hemorrhoids Plan: Continue Anusol HC supp 25 mg BID PRN Reminded to take her stool softeners regular to help avoid getting constipated, which can aggravate her hemorrhoids (10) Insomnia: Code(s): G47.00 - Insomnia, unspecified Qualifiers: Insomnia type: unspecified Qualified Code(s): G47.00 - Insomnia, unspecified Plan: Sleep hygiene reinforced Continue Trazodone 50 mg Q HS PRN (11) Anxiety: Code(s): F41.9 - Anxiety disorder, unspecified Plan: Continue Buspirone 5 mg BID; is also on Venlafaxine (12) Depression: Code(s): F32.A - Depression, unspecified Qualifiers: Depression Type: major depressive disorder Major depression recurrence: recurrent Active/Remission status: currently active Major depression episode severity: unspecified Qualified Code(s): F33.9 - Major depressive disorder, recurrent, unspecified Plan: Continue Venlafaxine 75 mg QD, Amitriptyline 50 mg Q HS and Mirtazapine 7.5 mg Q HS Follow up with psychiatry as scheduled (13) Obesity (BMI 30-39.9): Code(s): E66.9 - Obesity, unspecified Plan: Reinforced diet/exercise as tolerated/lose weight Plan Follow up in 3 months Orders: Orders US thyroid Today E04.1 - Nontoxic single thyroid nodule AMB Hemoglobin A1c Today E11.8 - Type 2 diabetes mellitus with unspecified complications Comprehensive [place]. Panel Fast 3 Months E78.00 - Pure hypercholesterolemia, unspecified Hemoglobin A1c 3 Months E11.9 - Type 2 diabetes mellitus without complications Lipid Panel 3 Months E78.00 - Pure hypercholesterolemia, unspecified TSH reflex Free T4 3 Months E78.00 - Pure hypercholesterolemia, unspecified Vitamin D 25-OH Total 3 Months E55.9 - Vitamin D deficiency, unspecified Microalbumin, Random (w Creat) 3 Months E11.9 - Type 2 diabetes mellitus without complications Complete Blood Count Auto Diff 3 Months I10 - Essential (primary) hypertension UA CC w/rflx Micro + Cult 3 Months R30.0 - Dysuria Coding Level of Care Code Est Pt Level 4 (03863) Diagnoses Diabetes mellitus E11.9 Diabetes mellitus type: type 2 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 Diabetes mellitus complication status: without complication Pure hypercholesterolemia E78.00 Acquired hypothyroidism E03.9 Right thyroid nodule E04.1 Vitamin D deficiency E55.9 Constipation K59.00 Constipation type: unspecified constipation type GERD (gastroesophageal reflux disease) K21.9 Esophagitis presence: without esophagitis Allergic rhinitis J30.9 Allergic rhinitis trigger: unspecified Allergic rhinitis seasonality: unspecified Internal hemorrhoids K64.8 Insomnia G47.00 Insomnia type: unspecified Anxiety F41.9 Depression F33.9 Depression Type: major depressive disorder Major depression recurrence: recurrent Active/Remission status: currently active Major depression episode severity: unspecified Obesity (BMI 30-39.9) E66.9
--- OUTSIDE RECORDS SUMMARY | 2022-09-15 15:58 | XMS_ITS ---
Author Name Tan Arellano Jr Address [address] [place] [address] Organization [facility] Address [address] [place] [address] Care Team Providers Care Maintenance Technician 2Nd Shift Name Role Phone Tan Arellano Jr Unavailable [phone] PROBLEMS Type Condition ICD9-CM Code NCL00-YB Code Onset Dates Condition Status SNOMED Code Problem Colon cancer screening Z12.11 Active 287725742 Problem Gastroesophageal reflux disease without esophagitis K21.9 Active 70918259 5 Problem Intestinal gas excretion R14.3 Active [id number] ALLERGIES Substance Reaction Event Type Date Status Aspirin Unknown Drug Allergy Jul, Active ENCOUNTERS Encounter Location Date Diagnosis [facility] [address] [place] [id number] Jul, [facility] [address] [place] [phone] Jul, Gastroesophageal reflux disease without esophagitis K21.9 ; Colon cancer screening Z12.11 and Intestinal gas excretion R14.3 [facility] [address] [place] [phone] June, [facility] [address] [place] [phone] Nov, [facility] [address] [place] [phone] Nov, IMMUNIZATIONS No Known Immunizations SOCIAL HISTORY Qualifiers Date Never Smoker REASON FOR REFERRAL FUNCTIONAL STATUS PLAN OF CARE Activity Details VITAL SIGNS Weight 145 lbs 2022-07-17 Height 60 in 2022-07-17 BMI 28.32 kg/m2 2022-07-17 Temperature 97.8 degrees Fahrenheit Blood pressure systolic 000 mm Hg Blood pressure diastolic 00 mm Hg 2022-07 MEDICATIONS Medication Instructions Dosage Frequency Start Date End Date Duration Status Mirtazapine 7.5 MG 30 Active Levothyroxine Sodium 25 MCG 90 Active OneTouch Delica Plus [id number] - 50 Act tyesha hydrOXYzine HCl 25 MG TAKE 1 TO 2 TABLETS BY MOUTH AT BEDTIME NEEDED for SLEEP 30 Active OneTouch Ultra - TEST BLOOD SUGAR TWICE DAILY 50 Active Ibuprofen 600 MG TAKE 1 TABLET BY MOUTH THREE TIMES DAILY NEEDED FOR PAIN 30 Active D 1000 25 MCG (1000 UT) CHEW AND SWALLOW 1 TABLET BY MOUTH ONCE DAILY Diagnosis Unavailable 90 Active traZODone HCl 50 MG TAKE 1 TABLET BY MOUTH AT BEDTIME 30 Active Dulcolax (colon prep) 5 MG Orally two tablets twice a day for one day take at 3:00 p.m and 7:00p.m. Jul, 1 day Active Simethicone Ultra Strength 180 MG 30 Active MiraLax (colon prep) 8.3 ounce ((238) grams orally begin at 5:00 p.m. the day before the procedure mixed with Gatorade or Crystal Light 14 Jul, 2022 1 day Active Acetaminophen Extra Strength 500 MG 15 Active Venlafaxine HCl ER 75 MG 30 Active metFORMIN HCl ER 500 MG TAKE 2 TABLETS BY MOUTH TWICE DAILY WITH MEALS Diagnosis Unavailable 90 Active Melatonin 5 MG 30 A ctive OneTouch Ultra 2 w/Device USE TEST BLOOD SUGAR ONCE DAILY DIRECTED Diagnosis Unavailable 28 Active Atorvastatin Calcium 20 MG 90 Active Pantoprazole Sodium 40 MG TAKE 1 TABLET BY MOUTH EVERY DAY 90 Active hydrOXYzine Pamoate 25 MG 30 Active MiraLax (colon prep) 17 GM/SCOOP Orally begin at 5:00 p.m. the day before the procedure mixed with Gatorade or Crystal Light Jul, 1 day Active Clotrimazole-Bet amethasone 1-0.05 % 14 Active PROCEDURES Procedure Date Ordered Result Body Site DOC RSN FOR NOT SCREEN/REC F/U HBP July 17, 2022 Pt scrn tbco id as non user July 17, 2022 DOC MEDS VERIFIED W/PT OR RE July 17, 2022 COLORECTAL CA SCREEN DOC REV July 17, 2022 RESULTS No Results REASON FOR VISIT gerd,screening, bowel prep, Patient presents today for gas, gerd, new [employer] [place], Patient presents today for GERD, Dr. Lopez in not in network for her ins. Insurance Providers Health Insurance Type Health Plan Insurance Address Health Plan Insurance Phone Health Plan Insurance Name Health Plan Coverage Dates Member ID Patient Relationship to Subscriber Patient Address Patient Phone Patient Name Patient Date of Subscriber ID Subscriber Name Subscriber Date of Group No [facility] [address] [address] [facility] [address] [facility] self ANA LISBET [id number] MEDICAID OF [facility] [address] [facility] [id number] MEDICAID OF [facility] ANA LISBET [id number] MEDICARE OF [place] [address] [facility] [address] MEDICARE OF [facility] ANA LISBET [id number] [facility] [place] [address] Attn Claims Angelina VARGAS [id number] [facility] [place] self ANA LISBET [id number]
== END 2022-09-15 16:40 | disposition home or self-care (01) ==
LOC: HO.HMGH 15:56
PROVIDERS: PCP Internal Medicine; Visit Provider Internal Medicine
DX: E11.9 Type 2 diabetes mellitus without complications (principal); E03.9 Hypothyroidism, unspecified; E04.1 Nontoxic single thyroid nodule; E55.9 Vitamin D deficiency, unspecified; E78.00 Pure hypercholesterolemia, unspecified; K59.00 Constipation, unspecified; K21.9 Gastro-esophageal reflux disease without esophagitis; J30.9 Allergic rhinitis, unspecified; K64.8 Other hemorrhoids; G47.00 Insomnia, unspecified; F41.9 Anxiety disorder, unspecified; F33.9 Major depressive disorder, recurrent, unspecified
CPT/HCPCS: 83036; 99214

== ENCOUNTER 2022-09-19 09:59 | Outpatient (REF) | payer MEDICARE, SELFPAY ==
[2022-09-19 10:11] LABS: MANUAL DIFF FLAG NO
[2022-09-19 10:19] LABS: Basophils Percent Auto 0.2 % (0-2); Eosinophils Percent Auto 0.2 % (0-4); Hematocrit 40.3 % (37.0-47.0); Hemoglobin 13.1 g/dl (12.0-16.0); Imm Gran Abs Auto 0.01 X10*3/uL (0.00-0.03); Imm Gran Pct Auto 0.2 % (0.0-0.4); Lymphocytes Absolute Auto 2.6 X10*3/uL (1.2-4.9); Lymphocytes Percent Auto 47.3 % (20-40); Mean Corpuscular HGB Conc 32.5 g/dl (31.0-35.0); Mean Corpuscular Hemoglobin 26.6 pg (27.0-33.0); Mean Corpuscular Volume 81.7 fL (80.0-98.0); Mean Platelet Volume 9.3 fL (9.4-12.3); Monocytes Absolute Auto 0.5 X10*3/uL (0.1-1.2); Monocytes Percent Auto 8.6 % (2-11); Neutrophils Absolute Auto 2.4 x10*3/uL (2.0-8.3); Neutrophils Percent Auto 43.5 % (45-73); Platelet Count 251 X10*3/uL (160-400); Red Blood Count 4.93 X10*6/uL (4.20-5.50); Red Cell Distribution Width 12.8 % (11.0-16.0); White Blood Count 5.5 X10*3/uL (4.8-10.8)
[2022-09-19 10:28] LABS: Estimated Average Glucose 169 mg/dL; Hemoglobin A1c % 7.5 %
[2022-09-19 11:03] LABS: Alanine Aminotransferase 24 U/L (0-31); Albumin Level 4.4 g/dL (3.5-5.0); Alkaline Phosphatase 67 U/L (39-117); Anion Gap 13 (12-20); Aspartate Amino Transferase 20 U/L (5-31); Bilirubin Total 0.3 mg/dL (0.0-1.0); Blood Urea Nitrogen 17 mg/dL (9-16); Carbon Dioxide 26 mmol/L (22-29); Chloride 104 mmol/L (96-108); Cholesterol 144 mg/dL; Estimated Glomerular Filt Rate > 60; Glucose Fasting 123 mg/dL (60-99); HDL Cholesterol 56 mg/dL; LDL Cholesterol Calculated 71 mg/dl; Potassium 3.9 mmol/L (3.3-5.1); Sodium 139 mmol/L (135-145); Total Protein 7.4 g/dL (6.5-8.0); Triglycerides 86 mg/dL
[2022-09-19 11:27] LABS: Free T4 (Free Thyroxine) 0.88 ng/dL (0.71-1.85); Vitamin D 25-OH Total 64.2 ng/mL (>30)
== END 2022-09-19 10:00 | disposition home or self-care (01) ==
LOC: HO.LAB 09:59
PROVIDERS: PCP Internal Medicine; Visit Provider Internal Medicine
DX: E03.9 Hypothyroidism, unspecified (principal); E55.9 Vitamin D deficiency, unspecified; I10 Essential (primary) hypertension; E11.9 Type 2 diabetes mellitus without complications; E78.00 Pure hypercholesterolemia, unspecified
CPT/HCPCS: 36415; 80053; 80061; 82306; 83036; 84439; 84443; 85025

== ENCOUNTER 2022-09-21 13:59 | Outpatient (REF) | payer OTHER, SELFPAY ==
--- NOTE | ~2022-09-21 | US_ITS ---
EXAMINATION: US THYROID CLINICAL INFORMATION: Nontoxic single thyroid nodule. COMPARISON: Ultrasound thyroid 11/25/2019 and 11/13/2018. TECHNIQUE: Linear transducer shankar-scale and color Doppler examination with attention to the region of the thyroid. FINDINGS: SIZE: Measurements of the thyroid lobes and nodules are given in sagittal, anteroposterior and transverse dimensions respectively. Right Thyroid Lobe: 3.1 x 2.0 x 1.3 cm, volume 3.9 mL. Previously 2.8 x 1.8 x 1.4 cm, volume 3.7 mL. Parenchyma: The gland echotexture is heterogeneous. Thyroid vascularity is normal. Left Thyroid Lobe: 3.5 x 1.5 x 1.3 cm, volume 3.5 mL. Previously 3.1 x 1.5 x 1.6 cm, volume 3.9 mL. Parenchyma: The gland echotexture is heterogeneous. Thyroid vascularity is normal. Isthmus: 0.5 cm in maximum AP dimension. Previously 0.6 cm. No focal thyroid nodule is seen. NODES: No lymphadenopathy is seen in the tissue surrounding the thyroid gland. US/US thyroid IMPRESSION: 1. There is heterogeneous thyroid echotexture, which can be associated with thyroiditis. 2. No thyroid nodule is presently appreciated.. ACR TI-RADS RECOMMENDATION REFERENCE: Ultrasound-guided fine-needle aspiration, follow up ultrasound, no further followup. * TR1 (0 point) and TR2 (2 points): No FNA or followup * TR3 (3 points): FNA if more than or equal to 2.5 cm in maximum dimension, follow up ultrasound in 1, 3 and 5 years if 1.5 to 2.4 cm in maximum dimension. * TR4 (4-6 points): FNA if more than or equal to 1.5 cm in maximum dimension, follow up ultrasound in 1, 2, 3 and 5 years if 1 to 1.4 cm in maximum dimension. * TR5 (more than or equal to 7 points): FNA if more than or equal to 1 cm in maximum dimension, follow up ultrasound every year for 5 years if 0.5 to 0.9 cm in maximum dimension. * TR3, TR4 or TR5 nodules that are below the size threshold for follow up receive no followup.
== END 2022-09-21 14:00 | disposition home or self-care (01) ==
LOC: HO.US 13:59
PROVIDERS: PCP Internal Medicine; Visit Provider Internal Medicine
DX: E04.1 Nontoxic single thyroid nodule (principal)
CPT/HCPCS: 76536

== ENCOUNTER 2022-12-05 07:08 | Day surgery (SDC) | payer OTHER, SELFPAY ==
--- NOTE | 2022-10-16 11:43 | P.CONAN_ITS ---
HPI - Anesthesia Eval Consult details Narrative: 67yo F for Upper Endoscopy and Colonoscopy [facility] Active Problems Active Problems: All Active Problems (Updated 10/16/22 @ 11:14 by Brittany Rothman, RN) Right thyroid nodule (Acute) Sensation of pressure in bladder area (Acute) Nocturia (Acute) Microhematuria (Acute) Urinary frequency (Acute) Colon cancer screening (Acute) Skin candidiasis (Acute) Urine incontinence (Acute) Depression (Acute) GERD (gastroesophageal reflux disease) (Acute) Abdominal bloating (Acute) Menopausal state (Acute) Precordial chest pain (Acute) Well woman exam (Acute) Obesity (BMI 30-39.9) (Acute) Anxiety (Acute) Insomnia (Acute) Internal hemorrhoids (Acute) Allergic rhinitis (Acute) Constipation (Acute) Vitamin D deficiency (Acute) Acquired hypothyroidism (Acute) Pure hypercholesterolemia (Acute) Diabetes mellitus (Acute) Anal pain (Acute) Other and unspecified hyperlipidemia (Acute) Type 2 diabetes mellitus with unspecified complications (Acute) Past Medical History Medical History (Updated 10/16/22 @ 11:14 by Brittany Rothman RN) Obesity (BMI 30-39.9) Anxiety Insomnia Internal hemorrhoids Allergic rhinitis Constipation Vitamin D deficiency Acquired hypothyroidism Pure hypercholesterolemia Anal pain Other and unspecified hyperlipidemia Type 2 diabetes mellitus with unspecified complications Hx of thyroid cyst Hiatal hernia Diverticulosis Depression with anxiety Hypothyroidism GERD (gastroesophageal reflux disease) Family History Family History Father History of heart attack Mother History of heart attack Sister Breast cancer Surgical History Surgical History H/O tubal ligation History of History of appendectomy Hx of shoulder surgery History of colonoscopy Social History Social History Housing: Apartment Alcohol intake: never Patient Tobacco Use Status: Never used Tobacco e-Cigarette/Vaping Use: Never Used service: No Cognitive needs: No Hearing needs: No Vision needs: Yes Meds Allergies Allergy/AdvReac Type Severity Reaction Status Date / Time aspirin [ASPIRIN] Allergy Mild UPSET Verified 09/15/22 16:28 STOMACH trazodone AdvReac Unknown tiredness Verified 09/15/22 16:28 Home Medications Medication Instructions Recorded Confirmed Last Taken Type atorvastatin 20 mg tablet 20 mg PO DAILY 12/24/19 09/15/22 Unknown History phenyleph-shark liver 1 appl [place] DAILY 10/28/20 09/15/22 Unknown History [id number] rectal cream cholecalciferol (vitamin D3) 25 25 mcg PO DAILY 06/15/21 09/15/22 Unknown History mcg (1,000 unit) chewable tablet (Vitamin D3) fluticasone propionate 50 1 - 2 spray intranasal DAILY PRN 06/15/21 09/15/22 Unknown History mcg/actuation nasal spray,suspension levothyroxine 25 mcg tablet 25 mcg PO DAILY 06/15/21 09/15/22 Unknown History metformin 500 mg tablet,extended 1,000 mg PO BID 06/15/21 09/15/22 Unknown History release 24 hr mirtazapine 7.5 mg tablet 7.5 mg PO BEDTIME 06/15/21 09/15/22 Unknown History hydroxyzine pamoate 25 mg capsule 25 mg PO BEDTIME PRN Insomnia 08/18/22 09/15/22 Unknown History melatonin 5 mg tablet 0 mg PO 08/18/22 09/15/22 Unknown History polyethylene glycol 3350 17 g PO 08/18/22 09/15/22 Unknown History gram/dose oral powder simethicone 180 mg capsule 180 mg PO TID 08/18/22 09/15/22 Unknown History venlafaxine 75 mg capsule,extended 75 mg PO DAILY 08/18/22 09/15/22 Unknown History release 24 hr Exam Exam Date and Time: October 16, 2022 1143 Pertinent Lab Results Pertinent Lab Results: Laboratory Tests 09/19/22 10:10 WBC 5.5 Hgb 13.1 Hct 40.3 Plt Count 251 Sodium 139 Potassium 3.9 Chloride 104 Carbon Dioxide 26 BUN 17 H Creatinine 0.78 Assessment and Plan Assessment Anesthesia Assessment: Chart Reviewed
[2022-12-01 09:52] VITALS: BMI 30.1
[2022-12-05 07:30] VITALS: BP 121/58; PULSE 69; RESP 17; TEMP 36.4; O2SAT 97; BMI 29.1
[2022-12-05 07:41] LABS: Glucose, Whole Blood 139 mg/dL (60-115)
[2022-12-05] MEDS: Lactated Ringers 1,000 ML 100 ML IVCONT (07:48)
--- NOTE | 2022-12-05 08:13 | P.HPSUR_ITS ---
Pre-Procedural Eval Section A Date of Service: 12/05/22 Section B Chief Complaint: reflux disease,screening Details of Present Illness: see H&P no changes Relevant Family History (Specify if Yes): No Relevant Social History: None Present Medications: see Short Stay Collaborative assessment Medical History: No relevant PMH History of Previous Operations: No relevant previous surgery Allergies: Allergies Allergy/AdvReac Type Severity Reaction Status Date / Time aspirin [ASPIRIN] Allergy Mild UPSET Verified 09/15/22 16:28 STOMACH trazodone AdvReac Intermediate tiredness Verified 12/01/22 09:52 Review of Systems Sugical H&P ROS: Negative: Constitution, Cardiovascular, Respiratory, Neurological, Psychiatric, Hem-Onc, Allergic/Immunologic, Gastrointestinal, Genitourinary, Musculoskeletal, Integumentary, Endocrine and Eyes/E ars/Nose/Throat Exam Surgical H&P Exam: Normal: HEENT, Normal: Heart, Normal: Lungs, Normal: Extremities, Normal: Abdomen, Normal: Skin and Normal: Neurological Plan Diagnosis/Plan: Unchanged I have reviewed the history and physical and performed a pertinent physical examination on my patient. No changes have occurred unless specified. Time Spent With Patient Time: Total time managing care of this patient today ____ minutes.
--- NOTE | 2022-12-05 08:25 | P.CONAN_ITS ---
Documented by User: Yi Shrestha NP 12/04/22 09:37 HPI - Anesthesia Eval Consult details Narrative: 67yo F for Upper Endoscopy and Colonoscopy PMF Active Problems Active Problems: All Active Problems (Updated 10/16/22 @ 11:14 by Brittany Rothman, RN) Right thyroid nodule (Acute) Sensation of pressure in bladder area (Acute) Nocturia (Acute) Microhematuria (Acute) Urinary frequency (Acute) Colon cancer screening (Acute) Skin candidiasis (Acute) Urine incontinence (Acute) Depression (Acute) GERD (gastroesophageal reflux disease) (Acute) Abdominal bloating (Acute) Menopausal state (Acute) Precordial chest pain (Acute) Well woman exam (Acute) Obesity (BMI 30-39.9) (Acute) Anxiety (Acute) Insomnia (Acute) Internal hemorrhoids (Acute) Allergic rhinitis (Acute) Constipation (Acute) Vitamin D deficiency (Acute) Acquired hypothyroidism (Acute) Pure hypercholesterolemia (Acute) Diabetes mellitus (Acute) Anal pain (Acute) Other and unspecified hyperlipidemia (Acute) Type 2 diabetes mellitus with unspecified complications (Acute) Past Medical History Medical History (Updated 10/16/22 @ 11:14 by Brittany Rothman, RADHA) Obesity (BMI 30-39.9) Anxiety Insomnia Internal hemorrhoids Allergic rhinitis Constipation Vitamin D deficiency Acquired hypothyroidism Pure hypercholesterolemia Anal pain Other and unspecified hyperlipidemia Type 2 diabetes mellitus with unspecified complications Hx of thyroid cyst Hiatal hernia Diverticulosis Depression with anxiety Hypothyroidism GERD (gastroesophageal reflux disease) Family History Family History Father History of heart attack Mother History of heart attack Sister Breast cancer Surgical History Surgical History H/O tubal ligation History of History of appendectomy Hx of shoulder surgery History of colonoscopy Social History Social History Housing: Apartment Alcohol intake: never Patient Tobacco Use Status: Never used Tobacco e-Cigarette/Vaping Use: Never Used Use of substances other than those prescribed or required for medical reasons: No Are you DNR?: No Advance Directives: No Advance Directives Information Provided: Yes Recently lost weight without trying: No Nutrition Risks: No Nutritional Risk Patient : No service: No Cognitive needs: No Hearing needs: No Vision needs: Yes Meds Allergies Allergy/AdvReac Type Severity Reaction Status Date / Time aspirin [ASPIRIN] Allergy Mild UPSET Verified 09/15/22 16:28 STOMACH trazodone AdvReac Intermediate tiredness Verified 12/01/22 09:52 Home Medications Medication Instructions Recorded Confirmed Last Taken Type atorvastatin 20 mg tablet 20 mg PO DAILY 12/24/19 12/01/22 Unknown History phenyleph-shark liver 1 appl [place] DAILY 10/28/20 12/01/22 Unknown History [id number]-[id number]-[id number] rectal cream cholecalciferol (vitamin D3) 25 25 mcg PO DAILY 06/15/21 12/01/22 Unknown History mcg (1,000 unit) chewable tablet (Vitamin D3) fluticasone propionate 50 1 - 2 spray intranasal DAILY PRN 06/15/21 12/01/22 Unknown History mcg/actuation nasal Nasal Congestion spray,suspension levothyroxine 25 mcg tablet 25 mcg PO DAILY 06/15/21 12/01/22 Unknown History mirtazapine 7.5 mg tablet 7.5 mg PO BEDTIME 06/15/21 12/01/22 Unknown History hydroxyzine pamoate 25 mg capsule 25 mg PO BEDTIME PRN Insomnia 08/18/22 12/01/22 Unknown History melatonin 5 mg tablet 5 mg PO BEDTIME 08/18/22 12/01/22 Unknown History polyethylene glycol 3350 17 17 g PO DAILY 08/18/22 12/01/22 Unknown History gram/dose oral powder simethicone 180 mg capsule 180 mg PO TID 08/18/22 12/01/22 Unknown History venlafaxine 75 mg capsule,extended 75 mg PO DAILY 08/18/22 12/01/22 Unknown History release 24 hr amitriptyline 50 mg tablet 50 mg PO BEDTIME 12/01/22 12/01/22 Unknown History dapagliflozin propanediol 5 mg 5 mg PO QAM 12/01/22 12/01/22 Unknown History tablet (Farxiga) Exam Exam Date and Time: December 04, 2022 0936 Height,Weight and Vital Signs: Height 4 ft 11 in Weight 67.585 kg Pertinent Lab Results Pertinent Lab Results: Laboratory Tests 09/19/22 10:10 WBC 5.5 Hgb 13.1 Hct 40.3 Plt Count 251 Sodium 139 Potassium 3.9 Chloride 104 Carbon Dioxide 26 BUN 17 H Creatinine 0.78 Assessment and Plan Assessment Anesthesia Assessment: Chart Reviewed Documented by User: Brittany Cid DO 12/05/22 08:26 [facility] Past Medical History Medical History (Updated 10/16/22 @ 11:14 by Brittany Rothman RN) Obesity (BMI 30-39.9) Anxiety Insomnia Internal hemorrhoids Allergic rhinitis Constipation Vitamin D deficiency Acquired hypothyroidism Pure hypercholesterolemia Anal pain Other and unspecified hyperlipidemia Type 2 diabetes mellitus with unspecified complications Hx of thyroid cyst Hiatal hernia Diverticulosis Depression with anxiety Hypothyroidism GERD (gastroesophageal reflux disease) Family History Family History Father History of heart attack Mother History of heart attack Sister Breast cancer Surgical History Surgical History H/O tubal ligation History of History of appendectomy Hx of shoulder surgery History of colonoscopy History of Problems with Anesthesia: No Social History Social History Housing: Apartment Alcohol intake: never Patient Tobacco Use Status: Never used Tobacco e-Cigarette/Vaping Use: Never Used Use of substances other than those prescribed or required for medical reasons: No Are you DNR?: No Advance Directives: No Advance Directives Information Provided: Yes Recently lost weight without trying: No Nutrition Risks: No Nutritional Risk Patient : No service: No Cognitive needs: No Hearing needs: No Vision needs: Yes Meds Allergies Allergy/AdvReac Type Severity Reaction Status Date / Time aspirin [ASPIRIN] Allergy Mild UPSET Verified 09/15/22 16:28 STOMACH trazodone AdvReac Intermediate tiredness Verified 12/01/22 09:52 Home Medications Medication Instructions Recorded Confirmed Last Taken Type atorvastatin 20 mg tablet 20 mg PO DAILY 12/24/19 12/01/22 Unknown History phenyleph-shark liver 1 appl [place] DAILY 10/28/20 12/01/22 Unknown History lgo-caxvro-rts rectal cream cholecalciferol (vitamin D3) 25 25 mcg PO DAILY 06/15/21 12/01/22 Unknown History mcg (1,000 unit) chewable tablet (Vitamin D3) fluticasone propionate 50 1 - 2 spray intranasal DAILY PRN 06/15/21 12/01/22 Unk nown History mcg/actuation nasal Nasal Congestion spray,suspension levothyroxine 25 mcg tablet 25 mcg PO DAILY 06/15/21 12/01/22 Unknown History mirtazapine 7.5 mg tablet 7.5 mg PO BEDTIME 06/15/21 12/01/22 Unknown History hydroxyzine pamoate 25 mg capsule 25 mg PO BEDTIME PRN Insomnia 08/18/22 12/01/22 Unknown History melatonin 5 mg tablet 5 mg PO BEDTIME 08/18/22 12/01/22 Unknown History polyethylene glycol 3350 17 17 g PO DAILY 08/18/22 12/01/22 Unknown History gram/dose oral powder simethicone 180 mg capsule 180 mg PO TID 08/18/22 12/01/22 Unknown History venlafaxine 75 mg capsule,extended 75 mg PO DAILY 08/18/22 12/01/22 Unknown History release 24 hr amitriptyline 50 mg tablet 50 mg PO BEDTIME 12/01/22 12/01/22 Unknown History dapagliflozin propanediol 5 mg 5 mg PO QAM 12/01/22 12/01/22 Unknown History tablet (Farxiga) Exam Exam Date and Time: December 05, 2022 0820 Height,Weight and Vital Signs: Height 4 ft 11 in Weight 67.585 kg Vital Signs Temperature 97.6 F 12/05/22 07:30 Pulse Rate 69 12/05/22 07:30 Respiratory Rate 17 12/05/22 07:30 Blood Pressure 121/58 L 12/05/22 07:30 Pulse Oximetry 97 12/05/22 07:30 Oxygen Delivery Method Room Air 12/05/22 07:30 Temperature 97.6 F 12/05/22 07:30 Pulse Rate 69 12/05/22 07:30 Respiratory Rate 17 12/05/22 07:30 Blood Pressure 121/58 L 12/05/22 07:30 Pulse Oximetry 97 12/05/22 07:30 Oxygen Delivery Method Room Air 12/05/22 07:30 Airway Mallampati Class: II TM Dist: <=3cm Neck ROM: Full Partial: Upper Heart: S1S2 Lungs: CTAB Assessment and Plan Assessment Anesthesia Assessment: Anesthesia Plan Discussed and Chart Reviewed Final Anesthetic Review History of Problems with Anesthesia: No NPO: Yes ASA Class: II Final Preanesthetic Review: No Changes in Pt Med Stat, Meds/Allgs Chart Reviewed, Consent Obtained/Reviewed and Anes Risks/Benef Reviewed Patient Risk: Low Procedure Risk: Low Anesthetic Plan Anesthetic Plan: MAC: and Agree w/ Assess. and Plan Disposition: Standard PACU
[2022-12-05 09:05] VITALS: BP 160/78; PULSE 95; RESP 23; TEMP 36.7; O2SAT 96
[2022-12-05 09:20] VITALS: BP 117/74; PULSE 73; RESP 16; TEMP 36.7; O2SAT 96
--- NOTE | 2022-12-05 09:35 | OP_ITS ---
DATE OF SERVICE: 12/05/2022 SURGEON: Tan Arellano MD INDICATIONS: 1. Gastroesophageal reflux disease. 2. Colon cancer screening. PREOPERATIVE DIAGNOSIS: POSTOPERATIVE DIAGNOSIS: PROCEDURE PERFORMED: Upper endoscopy with biopsy, colonoscopy to the terminal ileum. ESTIMATED BLOOD LOSS: COMPLICATIONS: ANESTHESIA: Monitored anesthesia care. ASSISTANTS: SPECIMENS: DESCRIPTION OF PROCEDURE: A history and physical was performed. The risks and benefits of the procedure were explained to the patient. Informed consent was obtained. The patient was placed in the left lateral decubitus position. The Olympus video gastroscope was introduced into the esophagus, stomach, and duodenum. Examination was performed. The scope was removed. She tolerated the procedure well, and was repositioned for colonoscopy. Digital rectal exam was performed and was found to be normal. The Olympus pediatric video colonoscope was introduced into the rectum and advanced to the cecum. The cecum was identified by transillumination, palpation, and identification of ileocecal valve. Examination was performed. The scope was removed. She tolerated both procedures well and was returned to the recovery area in stable condition. FINDINGS: Upper endoscopy: 1. Esophagus: The esophagus was normal. There was no esophagitis. The EG junction was slightly irregular. This was biopsied. 2. Stomach: The stomach showed no evidence of masses or ulcers. The antrum was nodular. This was biopsied. 3. Duodenum: The bulb and second portion were normal. Random second portion biopsies were obtained. Colonoscopy: The terminal ileum was normal. The visualized colonic mucosa was normal. The quality of the prep was good. No polyps were identified. There was scattered diverticulosis throughout the colon. Retroflexed examination was normal. IMPRESSION: 1. Gastroesophageal reflux disease. 2. Normal upper endoscopy. 3. Normal colonoscopy. RECOMMENDATION: 1. Follow up the biopsy results. 2. Repeat colonoscopy is recommended in 10 years for average risk individuals. MD LIZETH Stephens/[place]ON[place] / [id number]
== END 2022-12-05 10:25 | disposition home or self-care (01) ==
PROVIDERS: PCP Internal Medicine; Visit Provider Internal Medicine Gastroenterology
PROC: (CPT 43239; principal; 2022-12-05 08:10)
DX: Z12.11 Encounter for screening for malignant neoplasm of colon (principal); K57.30 Diverticulosis of large intestine without perforation or abscess without bleeding; R14.3 Flatulence; K21.9 Gastro-esophageal reflux disease without esophagitis; E03.9 Hypothyroidism, unspecified; J30.9 Allergic rhinitis, unspecified; F41.8 Other specified anxiety disorders; E78.5 Hyperlipidemia, unspecified; E55.9 Vitamin D deficiency, unspecified; E11.9 Type 2 diabetes mellitus without complications; Z79.84 Long term (current) use of oral hypoglycemic drugs; Z79.1 Long term (current) use of non-steroidal anti-inflammatories (NSAID); Z79.51 Long term (current) use of inhaled steroids; Z79.899 Other long term (current) drug therapy; Z88.8 Allergy status to other drugs, medicaments and biological substances
CPT/HCPCS: 43239; G0121; 82947; 88305; 88342; J2371

== ENCOUNTER 2022-12-18 09:54 | Outpatient (AMB) | payer MEDICARE, SELFPAY ==
[2022-12-18 09:58] VITALS: BP 118/80; PULSE 73; O2SAT 96; BMI 30.1
--- NOTE | 2022-12-18 09:58 | A.OFFPC_ITS ---
Vital Signs 12/18/22 09:58 Height 4 ft 11 in Weight 149 lb 4 oz BMI 30.1 BP 118/80 Blood Pressure Location Lt brachial Position Sitting Pulse 73 Pulse Source Pulse Oximeter Pulse Oximetry (%) 96 Oxygen Delivery Method Room Air Intake Visit Reasons: DM, GERD, hyperlipidemia, thyroid nodule Account Administrator Required: No Accompanied by: Self / Same As Patient Allergies aspirin [ASPIRIN] Allergy (Mild, Verified 12/18/22 11:06) UPSET STOMACH trazodone Adverse Reaction (Intermediate, Verified 12/18/22 11:06) tiredness Medication List - Last Reconciled 12/18/22 by Ramírez Leonard MD acetaminophen (Tylenol Extra Strength) 500 mg PO Q6-8H PRN amitriptyline 50 mg PO BEDTIME atorvastatin 20 mg PO DAILY [BATH MAT As directed] blood sugar diagnostic (FreeStyle Lite Strips) As directed once a day blood sugar diagnostic (OneTouch Ultra Test strips) As directed once a day blood-glucose meter (FreeStyle Lite Meter kit) As directed blood-glucose meter (OneTouch Ultra2 Meter) As directed once a day cholecalciferol (vitamin D3) (Vitamin D3) 25 mcg PO DAILY clotrimazole-betamethasone 1-0.05 % 1 appl topical BID 5 days dapagliflozin propanediol (Farxiga) 5 mg PO QAM [DISPOSABLE WIPES (3 packages a month) As directed] fluticasone propionate 50 mcg/actuation 1 - 2 sprays intranasal DAILY PRN [HAND HELD SHOWER HEAD As directed] hydrocortisone 2.5% 1 appl topical BID PRN hydrocortisone acetate (Anusol-HC) 25 mg [place] BID hydroxyzine pamoate 25 mg PO BEDTIME PRN ibuprofen 600 mg PO TID PRN 30 days lancets (FreeStyle Lancets) As directed once a day lancets (OneTouch UltraSoft 2 Lancet) As directed levothyroxine 25 mcg PO DAILY loratadine (Claritin) 10 mg PO DAILY PRN melatonin 5 mg PO BEDTIME metformin ER 1,000 mg (2 x 500 mg) PO BID 30 days mirtazapine 7.5 mg PO BEDTIME oxybutynin chloride ER 10 mg PO DAILY 30 days [PANTILINERS (3 / day) As directed] pantoprazole 40 mg PO DAILY phenyleph-shark [id number] 1 appl [place] DAILY polyethylene glycol 3350 17 grams PO DAILY psyllium husk (with sugar) 3.4 gram/12 gram (Metamucil (with sugar)) 1 tbsp PO DAILY simethicone 180 mg PO TID venlafaxine ER 75 mg PO DAILY [WASHABLE BED PADS (2 per month) As directed] Tobacco use date assessed: 12/18/22 Fall risk assessment: No Falls in past year Last assessed Fall Risk: 12/18/22 Dental Screening Dental Screen Date: 12/18/22 Did you have a dental visit in the last 12 months?: Yes Did you have a dental problem in the last 6 months where you did not have access to dental care?: No Was dental information given to patient?: Patient has dentist HPI DM, GERD, hyperlipidemia, thyroid nodule HPI Details Patient comes in today for her follow up visit States that she feels okay She denies any headaches or dizziness Denies any chest pains, no SOB No nausea/vomiting, no abdominal pain No change in bowel habits noted States that she has been experiencing increased pain over the lateral side of her right foot for at least a couple of weeks now and that the pain feels worse when she is walking and putting her weight on her feet Does not recall any recent injury or trauma to her right foot Had her repeat colonoscopy with Dr. Arellano done a couple of weeks ago; also had EGD done - was advised that she will need repeat colonoscopy in 10 years (2032) Was again NOT able to get her follow up labs done prior to her visit today although she did get her labs done back in September 2022 AFTER her last appointment [facility] Medical History Obesity (BMI 30-39.9) Anxiety Insomnia Internal hemorrhoids Allergic rhinitis Constipation Vitamin D deficiency Acquired hypothyroidism Pure hypercholesterolemia Anal pain Other and unspecified hyperlipidemia Type 2 diabetes mellitus with unspecified complications Hx of thyroid cyst Hiatal hernia Diverticulosis Depression with anxiety Hypothyroidism GERD (gastroesophageal reflux disease) Surgical History H/O tubal ligation History of History of appendectomy Hx of shoulder surgery History of colonoscopy Family History Father History of heart attack Mother History of heart attack Sister Breast cancer Social History Housing: Apartment Alcohol intake: never Patient Tobacco Use Status: Never used Tobacco e-Cigarette/Vaping Use: Never Used service: No Cognitive needs: No Hearing needs: No Vision needs: Yes Female Reproductive History Menstrual Age of Menarche: 13 Questionnaire PHQ-9 Over the last 2 weeks, how often have you been bothered by any of the following problems? 1. Little interest or pleasure in doing things: not at all 2. Feeling down, depressed, or hopeless: not at all 3. Trouble falling or staying asleep, or sleeping too much: not at all 4. Feeling tired or having little energy: not at all 5. Poor appetite or overeating: not at all 6. Feeling bad about yourself - or that you are a failure or have let yourself or your family down: not at all 7. Trouble concentrating on things, such as reading the newspaper or watching television: not at all 8. Moving or speaking so slowly that other people could have noticed. Or the opposite - being so fidgety or restless that you have been moving around a lot more than usual: not at all 9. Thoughts that you would be better off or of hurting yourself in some way: not at all Total score: 0 Depression Screening Interpretation: Negative Depression Screening Done: Yes 60265 - PHQ-9 Billing: Yes Source: Developed by Drs. Francois Rick, Chaya Villareal, Mj He and colleagues, with an educational nereida from [employer]. Thrive Questionnaire Date Thrive assessed: 12/18/22 I am a: Patient What is your living situation today?: I have a steady place to live Within the past 12 months, did the food you bought not last and you didn't have the money to get more?: Never true Within the past 12 months, did you worry whether your food would run out before you got money to buy more?: Never true Do you have trouble paying for medicines?: No Do you have trouble getting transportation to medical appointments?: No Do you have trouble paying your heating and electricity bill?: No Do you have trouble taking care of your child, family member or friend?: No Do you have trouble with day-to-day activities such as bathing, preparing meals, shopping, managing finances, etc.?: No Are you currently unemployed and looking for a job?: No Are you interested in more education?: No Please select the resources that you would like help with: None Currently or been in a relationship where the following occur: no concerns reported AUDIT C Alcohol Use Questionnaire (AUDIT-C) 1. How often do you have a drink containing alcohol?: Never 2. How many drinks containing alcohol do you have on a typical day when you are drinking?: 1 or 2 3. How often do you have six or more drinks on one occasion?: Never Total Score: 0 Score Reviewed/Action Taken: Yes JAIDA-7 AMB Questionnaire JAIDA-7 Date JAIDA - 7 assessed: 12/18/22 Feeling nervous, anxious, or on edge: 0 = Not at all Not being able to stop or control worryin = Not at all Worrying too much about different things: 0 = Not at all Trouble relaxin = Not at all Being so restless that it is hard to sit still: 0 = Not at all Becoming easily annoyed or irritable: 0 = Not at all Feeling afraid as if something awful might happen: 0 = Not at all Total JAIDA-7 score (0-4 normal; 5-9 mild; 10-14 moderate; 15-21 severe): 0 Source: Developed by Drs. Francois Rick, Chaya Villareal, Mj He and colleagues, with an educational nereida from [employer]. Review of Systems Const Denies fatigue, Denies fever(s) and Denies headache(s) ENT Denies dysphagia, Denies dizziness, Denies otalgia, Denies headache(s), Denies neck pain, Denies odynophagia and Denies sore throat Card Denies chest pain, Denies palpitations and Denies dyspnea Resp Denies chest congestion, Denies cough and Denies dyspnea GI Denies abdominal pain, Denies constipation, Denies dysphagia, Reports heartburn (occasionally), Denies diarrhea, Denies nausea, Denies odynophagia and Denies vomiting Denies urinary frequency, Denies difficulty voiding, Reports nocturia, Denies dysuria and Denies urinary urgency Musc Details: (+) right foot pain - see HPI Denies neck pain Skin/Breast Denies rash Neuro Denies dizziness and Denies headache(s) Endo Denies fatigue and Denies palpitations Physical exam (Primary Care) Vital Signs: Last Vital Signs Pulse 73 12/18/22 09:58 BP 118/80 12/18/22 09:58 Pulse Ox 96 12/18/22 09:58 Oxygen Delivery Method Room Air 12/18/22 09:58 BMI result Body Mass Index 30.1 Tobacco/Smoking Status: Tobacco use Status Tobacco use date assessed 12/18/22 12/18/22 09:59 Patient Tobacco Use Status Never used Tobacco 12/18/22 09:59 e-Cigarette/Vaping Use Never Used 12/18/22 09:59 PHQ-9: PHQ-9 Score PHQ-9: Total score 0 12/18/22 10:35 Depression Screening Interpretation: Negative Thrive Assessment: Date of Thrive Assessment Date Thrive assessed 12/18/22 12/18/22 09:59 Currently or been in a relationship where the following occur: no concerns reported Const General: no acute distress and alert HENMT Ears: TM's normal bilaterally and EAC's normal Throat: Yes posterior oropharynx normal and Yes tonsils normal (no TP congestion) Neck Neck: Yes no lymphadenopathy and Yes supple Thyroid: solitary palpable nodule on the right (small, non-tender) Resp Auscultation: clear to auscultation bilaterally, no rales and no wheezes Cardio Rate: regular rate Rhythm: regular rhythm Heart sounds: no murmurs GI Palpation (GI): Soft to palpation and nontender Auscultation: normal bowel sounds Back/Spine/Pelvis Thoracic/Lumbar Spine: No lumbar spinal tenderness Skin Rashes: no rashes Extrem General: Yes no clubbing, cyanosis or edema Right lower extremity: foot Details: tenderness Location: of the lateral foot Results AMB Hemoglobin A1c AMB Hemoglobin A1c 8.0 % Last Edit by Sally Arellano on 12/18/22 10:37 Results Reviewed Results Reviewed: Laboratory Last Values Hgb A1c (Clinic) 8.0 % (4.0-6.0) H 12/18/22 10:36 Laboratory Tests 09/19/22 09/19/22 12/18/22 10:10 10:10 10:36 WBC 5.5 Hgb 13.1 Hct 40.3 Plt Count 251 Sodium 139 Potassium 3.9 Creatinine 0.78 Estimated GFR > 60 Hgb A1c (Clinic) 8.0 H Hemoglobin A1c % 7.5 Calcium 9.0 AST 20 ALT 24 Triglycerides 86 Cholesterol 144 LDL Cholesterol, Calc 71 HDL Cholesterol 56 25-OH Vitamin D Total 64.2 TSH 3.70 Free T4 0.88 Assessment and Plan Assessment & Plan (1) Diabetes mellitus: Code(s): E11.9 - Type 2 diabetes mellitus without complications Qualifiers: Diabetes mellitus type: type 2 Diabetes mellitus correction insulin use: without correction use Diabetes mellitus complication status: without complication Qualified Code(s): E11.9 - Type 2 diabetes mellitus without complications Plan: In-office HgbA1c done today is at 8.0% (was at 7.9% a few months ago) - goal is <7.0% Reinforced diabetic diet - admits that she still eats a lot of rice in her diet Continue Metformin ER 1000 mg BID and Farxiga 5 mg Q AM - states that she was also out of Farxiga for a couple of weeks and just got back on that recently Have advised that IF her numbers do not improve much over the next few months, we will need to consider increasing the dose of her Farxiga and also start her additionally on more meds for her diabetes as necessary OR refer her again to endocrinology for further evaluation and management Patient currently does not appear to be motivated enough in trying to do better to improve her health - will refer her to dietitian for nutrition counseling and help (2) Pure hypercholesterolemia: Code(s): E78.00 - Pure hypercholesterolemia, unspecified Plan: She is again NOT able to get her follow up labs done prior to her visit today (even though we made a point of printing out her lab orders 3 months ago and indicated on the orders in [place] that she needs to get these done before her appointment and handed the orders to patient to help remind her about this, which apparently was pointless and was an exercise in futility), but she states that she did get her previous labs done back in September 2022 a few days after her last appt Reinforced low cholesterol diet Continue Atorvastatin 20 mg QD Will recheck her labs and fasting lipids in 3 months for follow up - have again IMPLORED patient to get these done BEFORE she comes in for her next appointment (3) Acquired hypothyroidism: Code(s): E03.9 - Hypothyroidism, unspecified Plan: Continue Levothyroxine 25 mcg QD Will continue to monitor her TFTs regularly (4) Right thyroid nodule: Code(s): E04.1 - Nontoxic single thyroid nodule Plan: Per request, she was sent for repeat thyroid US for follow up (was last done in 2019) - US was done back in September 2022, which revealed NO thyroid nodule (5) Vitamin D deficiency: Code(s): E55.9 - Vitamin D deficiency, unspecified Plan: Continue Vitamin D3 1000 units QD (6) Constipation: Code(s): K59.00 - Constipation, unspecified Qualifiers: Constipation type: unspecified constipation type Qualified Code(s): K59.00 - Constipation, unspecified Plan: Reinforced increased oral fluids and dietary fiber Continue Citrucel 500 mg QD, Colace 100 mg QD PRN and Metamucil PRN (7) GERD (gastroesophageal reflux disease): Code(s): K21.9 - Gastro-esophageal reflux disease without esophagitis Qualifiers: Esophagitis presence: without esophagitis Qualified Code(s): K21.9 - Gastro-esophageal reflux disease without esophagitis Plan: Reinforced dietary restrictions Continue Pantoprazole 40 mg QD EGD done a couple of weeks ago revealed (+) moderate reactive changes in the gastric antral mucosa with minimal chronic inactive gastritis; she was negative for H. pylori, intestinal metaplasia and dysplasia (8) Allergic rhinitis: Code(s): J30.9 - Allergic rhinitis, unspecified Qualifiers: Allergic rhinitis trigger: unspecified Allergic rhinitis seasonality: unspecified Qualified Code(s): J30.9 - Allergic rhinitis, unspecified Plan: Continue Loratadine 10 mg QD PRN and Fluticasone 50 mcg nasal spray QD PRN (9) Right foot pain: Code(s): M79.671 - Pain in right foot Plan: Will send her for x-rays of the right foot for further evaluation (10) Internal hemorrhoids: Code(s): K64.8 - Other hemorrhoids Plan: Continue Anusol HC supp 25 mg BID PRN Reminded to take her stool softeners regular to help avoid getting constipated, which can aggravate her hemorrhoids (11) Insomnia: Code(s): G47.00 - Insomnia, unspecified Qualifiers: Insomnia type: unspecified Qualified Code(s): G47.00 - Insomnia, unspecified Plan: Sleep hygiene reinforced Continue Trazodone 50 mg Q HS PRN (12) Anxiety: Code(s): F41.9 - Anxiety disorder, unspecified Plan: Continue Buspirone 5 mg BID; is also on Venlafaxine (13) Depression: Code(s): F32.A - Depression, unspecified Qualifiers: Depression Type: major depressive disorder Major depression recurrence: recurrent Active/Remission status: currently active Major depression episode severity: unspecified Qualified Code(s): F33.9 - Major depressive disorder, recurrent, unspecified Plan: Continue Venlafaxine 75 mg QD, Amitriptyline 50 mg Q HS and Mirtazapine 7.5 mg Q HS Follow up with psychiatry as scheduled (14) Obesity (BMI 30-39.9): Code(s): E66.9 - Obesity, unspecified Plan: Reinforced diet/exercise as tolerated/lose weight Plan Declined flu vaccine today Follow up in 3 months Orders: Orders AMB Hemoglobin A1c Today Z13.9 - Encounter for screening, unspecified XR foot RT min 3V Today M79.671 - Pain in right foot Free T4 (Free Thyroxine) 3 Months E03.9 - Hypothyroidism, unspecified UA CC w/rflx Micro + Cult 3 Months R30.0 - Dysuria Complete Blood Count Auto Diff 3 Months I10 - Essential (primary) hypertension Lipid Panel 3 Months E78.00 - Pure hypercholesterolemia, unspecified Comprehensive [place]. Panel Fast 3 Months E78.00 - Pure hypercholesterolemia, unspecified Microalbumin, Random (w Creat) 3 Months E11.9 - Type 2 diabetes mellitus without complications Hemoglobin A1c 3 Months E11.9 - Type 2 diabetes mellitus without complications Thyroid Stimulating Hormone 3 Months E03.9 - Hypothyroidism, unspecified Vitamin D 25-OH Total 3 Months E55.9 - Vitamin D deficiency, unspecified Referrals Nutrition/Dietitian Referral E11.9 - Type 2 diabetes mellitus without complications, E78.00 - Pure hypercholesterolemia, unspecified Medications: Changed From dapagliflozin propanediol (Farxiga) 5 mg PO QAM To Farxiga (dapagliflozin propanediol) 5 mg PO QAM 90 days 90 tabs 1RF NS Coding Level of Care Code Est Pt Level 4 (87278) Diagnoses Type 2 diabetes mellitus without complication, without long-term current use of insulin E11.9 Diabetes mellitus type: type 2 Diabetes mellitus correction insulin use: without correction use Diabetes mellitus complication status: without complication Pure hypercholesterolemia E78.00 Acquired hypothyroidism E03.9 Right thyroid nodule E04.1 Vitamin D deficiency E55.9 Constipation, unspecified constipation type K59.00 Constipation type: unspecified constipation type Gastroesophageal reflux disease without esophagitis K21.9 Esophagitis presence: without esophagitis Allergic rhinitis, unspecified seasonality, unspecified trigger J30.9 Allergic rhinitis trigger: unspecified Allergic rhinitis seasonality: unspecified Right foot pain M79.671 Internal hemorrhoids K64.8 Insomnia, unspecified type G47.00 Insomnia type: unspecified Anxiety F41.9 Episode of recurrent major depressive disorder, unspecified depression episode severity F33.9 Depression Type: major depressive disorder Major depression recurrence: recurrent Active/Remission status: currently active Major depression episode severity: unspecified Obesity (BMI 30-39.9) E66.9
== END 2022-12-18 11:31 | disposition home or self-care (01) ==
PROVIDERS: PCP Internal Medicine; Visit Provider Internal Medicine
DX: E11.9 Type 2 diabetes mellitus without complications (principal)
CPT/HCPCS: 83036; 99214

== ENCOUNTER 2023-01-19 14:07 | Outpatient (AMB) | payer OTHER, SELFPAY ==
[2023-01-19 14:13] VITALS: BP 110/58; PULSE 72; BMI 29.9
--- NOTE | 2023-01-19 14:13 | A.OFFVIS_ITS ---
Intake Vital Signs 01/19/23 14:13 Height 4 ft 11 in Weight 148 lb 2.41 oz BMI 29.9 BP 110/58 L Blood Pressure Location Lt brachial Position Sitting Pulse 72 Intake Visit Reasons: overdue follow up Intake Note: f/up pt been feeling palpitations Development Coordinator Required: Yes Development Coordinator Name: Mirtha [id number] Accompanied by: Self / Same As Patient Allergies aspirin [ASPIRIN] Allergy (Mild, Verified 01/19/23 14:26) UPSET STOMACH trazodone Adverse Reaction (Intermediate, Verified 01/19/23 14:26) tiredness Medication List - Last Reconciled 01/19/23 by Kristal Steele NP acetaminophen (Tylenol Extra Strength) 500 mg PO Q6-8H PRN amitriptyline 50 mg PO BEDTIME atorvastatin 20 mg PO DAILY [BATH MAT As directed] blood sugar diagnostic (FreeStyle Lite Strips) As directed once a day blood sugar diagnostic (OneTouch Ultra Test strips) As directed once a day blood-glucose meter (FreeStyle Lite Meter kit) As directed blood-glucose meter (OneTouch Ultra2 Meter) As directed once a day cholecalciferol (vitamin D3) (Vitamin D3) 25 mcg PO DAILY [DISPOSABLE WIPES (3 packages a month) As directed] [HAND HELD SHOWER HEAD As directed] hydrocortisone 2.5% 1 appl topical BID PRN ibuprofen 600 mg PO TID PRN 30 days lancets (FreeStyle Lancets) As directed once a day lancets (OneTouch UltraSoft 2 Lancet) As directed levothyroxine 25 mcg PO DAILY metformin ER 1,000 mg (2 x 500 mg) PO BID 30 days [PANTILINERS (3 / day) As directed] pantoprazole 40 mg PO DAILY simethicone 180 mg PO TID venlafaxine ER 75 mg PO DAILY [WASHABLE BED PADS (2 per month) As directed] HPI HPI Comments History of Present Illness Details 67-year-old female presents today for a follow-up. 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 She states she gets a stabbing pain in her chest that makes it difficult to swallow, short of breath, and she becomes dizzy. She notices it most at night.She had a GI work-up and the provider encouraged her to come here for further work-up. She has a medical history of type two diabetes and hypercholesterolemia. [facility] Medical History Obesity (BMI 30-39.9) Anxiety Insomnia Internal hemorrhoids Allergic rhinitis Constipation Vitamin D deficiency Acquired hypothyroidism Pure hypercholesterolemia Anal pain Other and unspecified hyperlipidemia Type 2 diabetes mellitus with unspecified complications Hx of thyroid cyst Hiatal hernia Diverticulosis Depression with anxiety Hypothyroidism GERD (gastroesophageal reflux disease) Surgical History H/O tubal ligation History of History of appendectomy Hx of shoulder surgery History of colonoscopy Family History Father History of heart attack Mother History of heart attack Sister Breast cancer Social History Housing: Apartment Alcohol intake: never Patient Tobacco Use Status: Never used Tobacco e-Cigarette/Vaping Use: Never Used service: No Cognitive needs: No Hearing needs: No Vision needs: Yes Female Reproductive History Menstrual Age of Menarche: 13 Physical Exam Vital Signs: Last Vital Signs Pulse 72 01/19/23 14:13 BP 110/58 L 01/19/23 14:13 BMI result Body Mass Index 29.9 Const General: healthy appearing and no acute distress Orientation/consciousness: patient oriented x3 HEENT Head: Yes normal to inspection Eyes General: appearance normal, both eyes and all related structures Neck Neck: Yes normal visual inspection Chest Chest palpation & inspection: normal inspection of the chest Resp Effort & Inspection: normal respiratory effort Auscultation: clear to auscultation bilaterally Cardio Jugular venous distension: no JVD Palpation: normal PMI Rate: regular rate Rhythm: regular rhythm Heart sounds: S1 normal heart sound present, S2 normal heart sound present, no click, no gallops, no murmurs and no rubs GI Inspection: Yes normal to inspection Palpation (GI): Soft to palpation Skin General skin exam: no rashes or lesions noted Neuro General: patient oriented x3 Extrem General: Yes normal to inspection Psych Appearance: grossly normal Office Procedures EKG Details: EKG today normal sinus rhythm. rate 72 bpm. QRS 86ms. QTc 448ms. [id number], Complete Assessment & Plan Assessment & Plan (1) Type 2 diabetes mellitus with unspecified complications: Code(s): E11.8 - Type 2 diabetes mellitus with unspecified complications (2) Chest pain: Code(s): R07.9 - Chest pain, unspecified (3) Family history of heart attack: Code(s): Z82.49 - Family history of ischemic heart disease and other diseases of the circulatory system Plan Will get echocardiogram and stress test due to risk factors such as diabetes, hypercholesterolemia, and family history of heart attack in both parents. ED care if needed for symptoms. Will follow-up with Dr. Mcgovern. Orders: Orders NM cardiolite stress test Today R07.9 - Chest pain, unspecified CA echo stress exercise Today R07.9 - Chest pain, unspecified, Z82.49 - Family history of ischemic heart disease and other diseases of the circulatory system CA echo transthoracic complete Today R07.9 - Chest pain, unspecified, Z82.49 - Family history of ischemic heart disease and other diseases of the circulatory system Coding Level of Care Code Est Pt Level 3 (64226) Diagnoses Type 2 diabetes mellitus with unspecified complications E11.8 Chest pain R07.9 Family history of heart attack Z82.49 CPT Codes EKG - CPT: [id number], Complete ([id number])
== END 2023-01-19 14:54 | disposition home or self-care (01) ==
PROVIDERS: PCP Internal Medicine; Visit Provider Nurse Practitioner
DX: E11.8 Type 2 diabetes mellitus with unspecified complications (principal); R07.9 Chest pain, unspecified; Z82.49 Family history of ischemic heart disease and other diseases of the circulatory system
CPT/HCPCS: 93010; 99213

== ENCOUNTER → 2023-01-19 14:07 | Outpatient (BNVA) | payer OTHER, SELFPAY | PROVIDERS: PCP Internal Medicine; Visit Provider Nurse Practitioner | DX: E11.8 Type 2 diabetes mellitus with unspecified complications (principal); R07.9 Chest pain, unspecified; Z82.49 Family history of ischemic heart disease and other diseases of the circulatory system | CPT/HCPCS: 93005; 99212 ==

== ENCOUNTER → 2023-03-13 08:00 | Outpatient (REF) | payer OTHER, SELFPAY ==
--- NOTE | ~2023-03-13 | NM_ITS ---
Lexiscan Myocardial perfusion study Indication: Chest pain, assess for coronary disease and ischemia Technique: The patient was brought in for a Lexiscan perfusion study on 03/13/2023 and was injected 0.4 mg of Lexiscan intravenously. Within a minute of this injection 25 mCi of sestamibi was given intravenously. Images were obtained using the SPECT gamma camera interlaced with the gating device. Images were obtained in supine position. Resting perfusion study was performed on 03/14/2023. Patient was administered 25 mCi of sestamibi intravenously at rest. Images were then obtained in supine position. Images were processed with the software and compared side to side in short axis, horizontal long axis and vertical long axis views. Total DLP 77mGy-cm. Findings: Raw acquisition reviewed. The stress perfusion study showed no significant perfusion abnormality. Both uncorrected as well as CT attenuation corrected images were reviewed. The gated study shows normal LV systolic function with calculated LVEF of 53%. Visually appears higher. LV cavity is normal in size. The gated study shows normal wall thickening and contraction of segments. Resting study shows no significant perfusion abnormality. Gating at rest reveals normal wall motion with ejection fraction at 72%. The findings are consistent with no clear evidence of any ischemia or infarction. NM/NM cardiolite stress test Impression: 1. Myocardial perfusion imaging study shows normal myocardial perfusion. 2. Gated LVEF is 72% during rest; appears similar during stress. 3. Transient ischemic dilatation not present. EKG component of the test reported separately.
--- NOTE | 2023-03-13 08:03 | CA_ITS ---
Acquisition Time: 2023-03-13 09:08:09 Total Exercise Time: 00:06:45 Test Indications: CP Medications: SEE H Protocol: TERA Max HR: 120 BPM 78% of Pred: 153 BPM Max BP: 150/060 mmHG Max Work Load: 7.9 METS Exercise stress test exercise 6 min 45 sec of Tera proptocol achieving 78% MPHR with request to stop due to it beng too fast and fatigued, without anginal symptoms, with isolated PACs, with normotensive response to exercise, withdownsloping leads 1, 2, V3-V6. Test changed to Lexiscan injection due to unable to achieve target heart rate due to fatigue, Pharmacoloigical strss test with Lexiscan injection while sitting and kicking her legs, without angnial symptoms, without arrhythmias, with normotensive response to injection, with downsloping leads 1, 2, V3-V6. Aminophylline 75mg IVP given to reverse Lexiscan. Nuclear images pending. Test reviewed with Dr. Mcgovern. Referred By: Kristal Steele Overread By: Kristal Steele
--- NOTE | 2023-03-13 08:03 | CA_ITS ---
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 The calculated ejection fraction is 65% by biplane method. - No obvious valvular pathology seen on this study. Findings Left Ventricle Normal left ventricular cavity size. There is normal left ventricular wall thickness. The left ventricular systolic function is normal. The calculated ejection fraction is 65% by biplane method. There is no evidence of regional wall motion abnormalities. Diastolic function is normal for age. Right Ventricle Normal right ventricular cavity size and systolic function. Atria Both atria are normal in size. Aortic Valve There is a normal trileaflet aortic valve. There is no aortic valve stenosis. There is no aortic valve regurgitation. Mitral Valve The mitral valve appears normal. There is no mitral valve regurgitation. There is no mitral valve stenosis. Pulmonic Valve The pulmonic valve is likely normal. Tricuspid Valve Normal tricuspid valve structure. There is trace tricuspid valve regurgitation. There is no evidence of pulmonary hypertension. Great Vessels The asc aorta is normal in size. Venous The inferior vena cava is normal in size and collapses greater than 50% with inspiration. Pericardium/Pleural There is no evidence of pericardial effusion. Prior Study Comparison No significant change compared to prior study dated: 01/12/2017. Recommendations, Care & Conclusions No obvious valvular pathology seen on this study. Measurements 2D Linear Measurements IVSd: 0.84 0.6-0.9/0.6-1.0 cm LVIDd: 4.30 3.9-5.3/4.2-5.9 cm LVIDd Index: 2.61 2.4-3.2/2.2-3.1 cm/m2 LVIDs: 2.48 2.0-3.6 cm LVPWd: 0.84 0.7-1.1 cm Ao Root: 2.80 2.1-3.5 cm LA Diam: 3.30 2.7-3.8/3.0-4.0 cm LAIDs Index: 2.00 1.5-2.3 cm/m2 LV Mass: 138.82 67-162/88-224 g LV Mass Index: 84.13 43-95/49-115 g/m2 LVOT Diam: 2.00 3.0+(-)1.3 cm 2D Systolic Function EF 4C: 62.60 >55% EF 2C: 63.60 >55% EF BiP: 64.50 >55% Mitral Valve MV Pk E: 0.76 MV PK A: 0.76 MV Decel Time: 183.00 E/A: 1.00 E'Lateral: 10.10 E'Medial: 5.11 E/E' Med: 14.90 E/E' Lat: 7.60 PHT: 54.00 MVA PHT: 4.07 Decel [place]: 4.17 Aortic Valve AoV Pk Stas: 1.58 AoV Mn Stas: 1.06 AoV VTI: 0.43 AoV Pk Grad: 10.00 Aov Mn Grad: 5.00 REGI Cont.VTI: 1.91 LVOT LVOT Pk Stas: 1.11 LVOT Mn Stas: 0.66 LVOT VTI: 0.26 LVOT Pk Grad: 5.00 LVOT Mn Grad: 2.00 LVOT Diam: 2.00 LVOT Area: 3.14 Diastolic Function MV Pk E: 0.76 MV Pk A: 0.76 E/A: 1.00 E'Medial: 5.11 E/E' Med: 14.90 E' Laterial: 10.10 E/E' Lat: 7.60 Right Ventricle TAPSE (mm): 30.00 TVS' Stas: 12.00 Tricuspid Valve TR Pk Stas: 2.09 TR Pk Grad: 17.00 RA Press: 3.00 RVSP: 20.00 Great Vessels Aorta Ao Root-2D: 2.80 2.0-3.7 cm Ao Asc: 2.80 2.1-3.4 cm Pulmonary Valve PV Pk Stas: 1.05 Peak PV Grad: 4.00 Updated in Other Vendor System with Status of Final Nick Mcgovern MD electronically signed on 03/15/2023 10:05:23 AM with status of Final
== END ==
LOC: HO.CARD 08:00
PROVIDERS: PCP Internal Medicine; Visit Provider Nurse Practitioner
DX: R07.9 Chest pain, unspecified (principal); Z82.49 Family history of ischemic heart disease and other diseases of the circulatory system
CPT/HCPCS: 78452; 93017; 93306; A9500; J0280; J2785

== ENCOUNTER → 2023-03-13 09:36 | Outpatient (BNV) | payer OTHER, SELFPAY | PROVIDERS: PCP Internal Medicine; Visit Provider Internal Medicine | DX: R07.9 Chest pain, unspecified (principal) | CPT/HCPCS: 78452; 93016; 93018; 93306 ==

== ENCOUNTER 2023-03-16 07:57 | Outpatient (REF) | payer OTHER, SELFPAY ==
[2023-03-16 08:09] LABS: MANUAL DIFF FLAG NO
[2023-03-16 08:37] LABS: Eosinophils Percent Auto 0.2 % (0-4); Hematocrit 41.1 % (37.0-47.0); Hemoglobin 13.4 g/dl (12.0-16.0); Imm Gran Abs Auto 0.01 X10*3/uL (0.00-0.03); Imm Gran Pct Auto 0.2 % (0.0-0.4); Lymphocytes Absolute Auto 2.9 X10*3/uL (1.2-4.9); Lymphocytes Percent Auto 48.8 % (20-40); Mean Corpuscular HGB Conc 32.6 g/dl (31.0-35.0); Mean Corpuscular Hemoglobin 26.7 pg (27.0-33.0); Mean Platelet Volume 9.3 fL (9.4-12.3); Monocytes Absolute Auto 0.5 X10*3/uL (0.1-1.2); Monocytes Percent Auto 8.3 % (2-11); Neutrophils Absolute Auto 2.5 x10*3/uL (2.0-8.3); Neutrophils Percent Auto 42.5 % (45-73); Platelet Count 252 X10*3/uL (160-400); Red Blood Count 5.01 X10*6/uL (4.20-5.50); Red Cell Distribution Width 13.2 % (11.0-16.0); White Blood Count 5.9 X10*3/uL (4.8-10.8)
[2023-03-16 08:46] LABS: Appearance Urine Clear; Color Urine Yellow; Glucose Urine UA Negative (Negative); Leukocyte Esterase Urine Trace (Negative); Nitrite Urine Negative (Negative); PH 5.5 (5.0-9.0); UMIC TRIGGER UACC YES; Urine Blood Negative (Negative); Urine Ketones Negative (Negative); Urine Protein Negative (Neg-Trace)
[2023-03-16 08:51] LABS: Bacteria Urine None Seen (None Seen); Hyaline Casts Urine 0-2 /LPF (0-2); RBC Urine 0-2 /HPF (0-2); WBC Urine 0-5 /HPF (0-5)
[2023-03-16 09:04] LABS: Estimated Average Glucose 146 mg/dL; Hemoglobin A1c % 6.7 % (<6.0)
[2023-03-16 09:12] LABS: Creatinine Urine 114.23 mg/dL; Microalbum/Creatinine Ratio Ur 6.1 ug/mg cr (<30)
[2023-03-16 09:18] LABS: Alanine Aminotransferase 19 U/L (0-31); Albumin Level 4.4 g/dL (3.5-5.0); Alkaline Phosphatase 79 U/L (39-117); Anion Gap 13 (12-20); Aspartate Amino Transferase 18 U/L (5-31); Bilirubin Total 0.2 mg/dL (0.0-1.0); Blood Urea Nitrogen 17 mg/dL (9-16); Calcium 9.3 mg/dL (8.4-10.2); Carbon Dioxide 26 mmol/L (22-29); Chloride 105 mmol/L (96-108); Cholesterol 140 mg/dL (<200); Estimated Glomerular Filt Rate > 60; Glucose Fasting 111 mg/dL (60-99); HDL Cholesterol 65 mg/dL (>40); LDL Cholesterol Calculated 64 mg/dL (<100); Potassium 4.4 mmol/L (3.3-5.1); Sodium 140 mmol/L (135-145); Total Protein 7.2 g/dL (6.5-8.0); Triglycerides 59 mg/dL (<150)
[2023-03-16 09:34] LABS: Free T4 (Free Thyroxine) 0.99 ng/dL (0.71-1.85); TSH reflex Free T4 4.21 uIU/mL (0.32-4.0); Thyroid Stimulating Hormone 4.21 uIU/mL (0.32-4.0); Vitamin D 25-OH Total 49.1 ng/mL (>30)
== END 2023-03-16 07:58 | disposition home or self-care (01) ==
LOC: HO.LAB 07:57
PROVIDERS: PCP Internal Medicine; Visit Provider Internal Medicine
DX: E11.9 Type 2 diabetes mellitus without complications (principal); I10 Essential (primary) hypertension; E78.00 Pure hypercholesterolemia, unspecified; R30.0 Dysuria; R39.9 Unspecified symptoms and signs involving the genitourinary system; E55.9 Vitamin D deficiency, unspecified
CPT/HCPCS: 36415; 80053; 80061; 81001; 82043; 82306; 82570; 83036; 84439; 84443; 85025

== ENCOUNTER 2023-03-20 13:53 | Outpatient (AMB) | payer OTHER, SELFPAY ==
[2023-03-20 13:55] VITALS: BP 102/64; PULSE 80; O2SAT 96; BMI 29.0
--- NOTE | 2023-03-20 13:55 | A.OFFPC_ITS ---
Vital Signs 03/20/23 13:55 Height 4 ft 11 in Weight 143 lb 6 oz BMI 29.0 BP 102/64 Blood Pressure Location Lt brachial Position Sitting Pulse 80 Pulse Source Pulse Oximeter Pulse Oximetry (%) 96 Oxygen Delivery Method Room Air Intake Visit Reasons: 3mth f/u Lab Associate Required: No Accompanied by: Self / Same As Patient Allergies aspirin [ASPIRIN] Allergy (Mild, Verified 03/20/23 14:31) UPSET STOMACH trazodone Adverse Reaction (Intermediate, Verified 03/20/23 14:31) tiredness Medication List - Last Reconciled 03/20/23 by Ramírez Leonard MD acetaminophen (Tylenol Extra Strength) 500 mg PO Q6-8H PRN amitriptyline 50 mg PO BEDTIME atorvastatin 20 mg PO DAILY [BATH MAT As directed] blood sugar diagnostic (FreeStyle Lite Strips) As directed once a day blood sugar diagnostic (OneTouch Ultra Test strips) As directed once a day blood-glucose meter (FreeStyle Lite Meter kit) As directed blood-glucose meter (OneTouch Ultra2 Meter) As directed once a day cholecalciferol (vitamin D3) (Vitamin D3) 25 mcg PO DAILY [DISPOSABLE WIPES (3 packages a month) As directed] [HAND HELD SHOWER HEAD As directed] hydrocortisone 2.5% 1 appl topical BID PRN ibuprofen 600 mg PO TID PRN 30 days lancets (FreeStyle Lancets) As directed once a day lancets (OneTouch UltraSoft 2 Lancet) As directed levothyroxine 25 mcg PO DAILY metformin ER 1,000 mg (2 x 500 mg) PO BID 30 days [PANTILINERS (3 / day) As directed] pantoprazole 40 mg PO DAILY simethicone 180 mg PO TID venlafaxine ER 75 mg PO DAILY [WASHABLE BED PADS (2 per month) As directed] Tobacco use date assessed: 03/20/23 Fall risk assessment: No Falls in past year Last assessed Fall Risk: 03/20/23 Dental Screening Dental Screen Date: 03/20/23 Did you have a dental visit in the last 12 months?: Yes Did you have a dental problem in the last 6 months where you did not have access to dental care?: No Was dental information given to patient?: Patient has dentist HPI 3mth f/u HPI Details Patient comes in today for her follow up visit States that she feels okay She denies any headaches or dizziness Denies any chest pains, no SOB No nausea/vomiting, no abdominal pain No change in bowel habits noted Adds that she has a raised skin lesion on her right cheek that she has had for years now and would like to have it removed - lesion is not itchy or painful Had her follow up labs finally done a few days ago - to discuss her results [facility] Medical History Overweight (BMI 25.0-29.9) Obesity (BMI 30-39.9) Anxiety Insomnia Internal hemorrhoids Allergic rhinitis Constipation Vitamin D deficiency Acquired hypothyroidism Pure hypercholesterolemia Anal pain Other and unspecified hyperlipidemia Type 2 diabetes mellitus with unspecified complications Hx of thyroid cyst Hiatal hernia Diverticulosis Depression with anxiety Hypothyroidism GERD (gastroesophageal reflux disease) Surgical History H/O tubal ligation History of History of appendectomy Hx of shoulder surgery History of colonoscopy Family History Father History of heart attack Mother History of heart attack Sister Breast cancer Social History Housing: Apartment Alcohol intake: never Patient Tobacco Use Status: Never used Tobacco e-Cigarette/Vaping Use: Never Used service: No Cognitive needs: No Hearing needs: No Vision needs: Yes Female Reproductive History Menstrual Age of Menarche: 13 Questionnaire PHQ-9 Over the last 2 weeks, how often have you been bothered by any of the following problems? 1. Little interest or pleasure in doing things: not at all 2. Feeling down, depressed, or hopeless: not at all 3. Trouble falling or staying asleep, or sleeping too much: not at all 4. Feeling tired or having little energy: not at all 5. Poor appetite or overeating: not at all 6. Feeling bad about yourself - or that you are a failure or have let yourself or your family down: not at all 7. Trouble concentrating on things, such as reading the newspaper or watching television: not at all 8. Moving or speaking so slowly that other people could have noticed. Or the opposite - being so fidgety or restless that you have been moving around a lot more than usual: not at all 9. Thoughts that you would be better off or of hurting yourself in some way: not at all Total score: 0 Depression Screening Interpretation: Negative Depression Screening Done: Yes 01100 - PHQ-9 Billing: Yes Source: Developed by Drs. Francois Rick, Chaya Villareal, Mj He and colleagues, with an educational nereida from [employer]. Thrive Questionnaire Date Thrive assessed: 03/20/23 I am a: Patient What is your living situation today?: I have a steady place to live Within the past 12 months, did the food you bought not last and you didn't have the money to get more?: Never true Within the past 12 months, did you worry whether your food would run out before you got money to buy more?: Never true Do you have trouble paying for medicines?: No Do you have trouble getting transportation to medical appointments?: No Do you have trouble paying your heating and electricity bill?: No Do you have trouble taking care of your child, family member or friend?: No Do you have trouble with day-to-day activities such as bathing, preparing meals, shopping, managing finances, etc.?: No Are you currently unemployed and looking for a job?: No Are you interested in more education?: No Please select the resources that you would like help with: None Currently or been in a relationship where the following occur: no concerns reported THRIVE Score: 0 AUDIT C Alcohol Use Questionnaire (AUDIT-C) 1. How often do you have a drink containing alcohol?: Never 2. How many drinks containing alcohol do you have on a typical day when you are drinking?: 1 or 2 3. How often do you have six or more drinks on one occasion?: Never Total Score: 0 Score Reviewed/Action Taken: Yes JAIDA-7 AMB Questionnaire JAIDA-7 Date JAIDA - 7 assessed: 03/20/23 Feeling nervous, anxious, or on edge: 0 = Not at all Not being able to stop or control worryin = Not at all Worrying too much about different things: 0 = Not at all Trouble relaxin = Not at all Being so restless that it is hard to sit still: 0 = Not at all Becoming easily annoyed or irritable: 0 = Not at all Feeling afraid as if something awful might happen: 0 = Not at all Total JAIDA-7 score (0-4 normal; 5-9 mild; 10-14 moderate; 15-21 severe): 0 Source: Developed by Drs. Francois Rick, Chaya Villareal, Mj He and colleagues, with an educational nereida from [employer]. Review of Systems Const Denies fatigue, Denies fever(s) and Denies headache(s) ENT Denies dysphagia, Denies dizziness, Denies otalgia, Denies headache(s), Denies neck pain, Denies odynophagia and Denies sore throat Card Denies chest pain, Denies palpitations and Denies dyspnea Resp Denies chest congestion, Denies cough and Denies dyspnea GI Denies abdominal pain, Denies constipation, Denies dysphagia, Reports heartburn (occasionally), Denies diarrhea, Denies nausea, Denies odynophagia and Denies vomiting Denies urinary frequency, Denies difficulty voiding, Reports nocturia, Denies dysuria and Denies urinary urgency Musc Denies neck pain Skin/Breast Details: (+) raised skin lesion on the face Denies rash Neuro Denies dizziness and Denies headache(s) Endo Denies fatigue and Denies palpitations Physical exam (Primary Care) Vital Signs: Last Vital Signs Pulse 80 03/20/23 13:55 BP 102/64 03/20/23 13:55 Pulse Ox 96 03/20/23 13:55 Oxygen Delivery Method Room Air 03/20/23 13:55 BMI result Body Mass Index 29.0 Tobacco/Smoking Status: Tobacco use Status Tobacco use date assessed 03/20/23 03/20/23 13:59 Patient Tobacco Use Status Never used Tobacco 03/20/23 13:59 e-Cigarette/Vaping Use Never Used 03/20/23 13:59 PHQ-9: PHQ-9 Score PHQ-9: Total score 0 03/20/23 14:34 Depression Screening Interpretation: Negative Thrive Assessment: Date of Thrive Assessment Date Thrive assessed 03/20/23 03/20/23 13:59 Currently or been in a relationship where the following occur: no concerns reported Const General: no acute distress and alert HENMT Ears: TM's normal bilaterally and EAC's normal Throat: Yes posterior oropharynx normal and Yes tonsils normal (no TP congestion) Neck Neck: Yes no lymphadenopathy and Yes supple Thyroid: solitary palpable nodule on the right (small, non-tender) Resp Auscultation: clear to auscultation bilaterally, no rales and no wheezes Cardio Rate: regular rate Rhythm: regular rhythm Heart sounds: no murmurs GI Palpation (GI): Soft to palpation and nontender Auscultation: normal bowel sounds Back/Spine/Pelvis Thoracic/Lumbar Spine: No lumbar spinal tenderness Skin Other: (+) small, raised skin lesion on the right side of the face/cheek Rashes: no rashes Extrem General: Yes no clubbing, cyanosis or edema Results Reviewed Results Reviewed: Laboratory Tests 12/18/22 03/16/23 03/16/23 10:36 08:06 08:06 WBC Hgb Hct Plt Count Sodium Potassium Creatinine Estimated GFR Fasting Glucose Hgb A1c (Clinic) 8.0 H Hemoglobin A1c % Calcium AST ALT Albumin Triglycerides Cholesterol LDL Cholesterol, Calc HDL Cholesterol 25-OH Vitamin D Total TSH Free T4 Ur Specific [place] 1.020 Urine Protein Negative Urine Glucose (UA) Negative Urine Blood Negative Urine Nitrite Negative Ur Leukocyte Esterase Trace H Microalb/Creat Ratio 6.1 03/16/23 03/16/23 08:07 08:07 WBC 5.9 Hgb 13.4 Hct 41.1 Plt Count 252 Sodium 140 Potassium 4.4 Creatinine 0.78 Estimated GFR > 60 Fasting Glucose 111 H Hgb A1c (Clinic) Hemoglobin A1c % 6.7 H Calcium 9.3 AST 18 ALT 19 Albumin 4.4 Triglycerides 59 Cholesterol 140 LDL Cholesterol, Calc 64 HDL Cholesterol 65 25-OH Vitamin D Total 49.1 TSH 4.21 H Free T4 0.99 Ur Specific [place] Urine Protein Urine Glucose (UA) Urine Blood Urine Nitrite Ur Leukocyte Esterase Microalb/Creat Ratio Assessment and Plan Assessment & Plan (1) Diabetes mellitus: Code(s): E11.9 - Type 2 diabetes mellitus without complications Qualifiers: Diabetes mellitus complication status: without complication Diabetes mellitus alf insulin use: without alf use Diabetes mellitus type: type 2 Qualified Code(s): E11.9 - Type 2 diabetes mellitus without complications Plan: HgbA1c was at 6.7% on her labs done a few days ago iIn-office HgbA1c was at 8.0% a few months ago) - goal is <7.0% Reinforced diabetic diet Continue Metformin ER 1000 mg BID; she was also supposed to be on Farxiga 5 mg Q AM but her prescription log shows that this has not been refilled in a while now so it is unclear at this time if patient is still taking this - have advised her to bring in all of her meds with her at her next visit for us to review and update her med list properly Follow up with discharge coordinator as scheduled (2) Pure hypercholesterolemia: Code(s): E78.00 - Pure hypercholesterolemia, unspecified Plan: Results of her labs done a few days ago reviewed and discussed with patient Reinforced low cholesterol diet Continue Atorvastatin 20 mg QD Will recheck her labs and fasting lipids in 3 months for follow up (3) Acquired hypothyroidism: Code(s): E03.9 - Hypothyroidism, unspecified Plan: Continue Levothyroxine 25 mcg QD Will continue to monitor her TFTs regularly (4) Right thyroid nodule: Code(s): E04.1 - Nontoxic single thyroid nodule Plan: Repeat thyroid US was done last year in September 2022, which revealed NO thyroid nodule (5) Vitamin D deficiency: Code(s): E55.9 - Vitamin D deficiency, unspecified Plan: Continue Vitamin D3 1000 units QD (6) GERD (gastroesophageal reflux disease): Code(s): K21.9 - Gastro-esophageal reflux disease without esophagitis Qualifiers: Esophagitis presence: without esophagitis Qualified Code(s): K21.9 - Gastro-esophageal reflux disease without esophagitis Plan: Reinforced dietary restrictions Continue Pantoprazole 40 mg QD EGD done a few months ago revealed (+) moderate reactive changes in the gastric antral mucosa with minimal chronic inactive gastritis; she was negative for H. pylori, intestinal metaplasia and dysplasia (7) Constipation: Code(s): K59.00 - Constipation, unspecified Qualifiers: Constipation type: unspecified constipation type Qualified Code(s): K59.00 - Constipation, unspecified Plan: Reinforced increased oral fluids and dietary fiber Continue Citrucel 500 mg QD, Colace 100 mg QD PRN and Metamucil PRN (8) Allergic rhinitis: Code(s): J30.9 - Allergic rhinitis, unspecified Qualifiers: Allergic rhinitis seasonality: unspecified Allergic rhinitis trigger: unspecified Qualified Code(s): J30.9 - Allergic rhinitis, unspecified Plan: Continue Loratadine 10 mg QD PRN and Fluticasone 50 mcg nasal spray QD PRN (9) Skin lesion of face: Code(s): L98.9 - Disorder of the skin and subcutaneous tissue, unspecified Plan: Per request, will refer her to dermatology for further evaluation and consideration for excision of the raised skin lesion on her face/cheek (10) Insomnia: Code(s): G47.00 - Insomnia, unspecified Qualifiers: Insomnia type: unspecified Qualified Code(s): G47.00 - Insomnia, unspecified Plan: Sleep hygiene reinforced Continue Amitriptyline 50 mg Q HS PRN (has taken Trazodone in the past) (11) Anxiety: Code(s): F41.9 - Anxiety disorder, unspecified Plan: Continue Venlafaxine 75 mg QD (12) Depression: Code(s): F32.A - Depression, unspecified Qualifiers: Active/Remission status: currently active Depression Type: major depressive disorder Major depression episode severity: unspecified Major depression recurrence: recurrent Qualified Code(s): F33.9 - Major depressive disorder, recurrent, unspecified Plan: Continue Venlafaxine 75 mg QD and Amitriptyline 50 mg Q HS; she was also on Mirtazapine 7.5 mg Q HS in the past but appears to have self-discontinued this some time ago Follow up with psychiatry as scheduled (13) Overweight (BMI 25.0-29.9): Code(s): E66.3 - Overweight Plan: Reinforced diet/exercise as tolerated/lose weight Plan Follow up in 3 months Orders: Orders Hemoglobin A1c 06/16/23 E11.9 - Type 2 diabetes mellitus without complications Complete Blood Count Auto Diff 06/16/23 D64.9 - Anemia, unspecified Comprehensive [place]. Panel Fast 06/16/23 E78.00 - Pure hypercholesterolemia, unspecified Free T4 (Free Thyroxine) 06/16/23 E03.9 - Hypothyroidism, unspecified Microalbumin, Random (w Creat) 06/16/23 E11.9 - Type 2 diabetes mellitus without complications Thyroid Stimulating Hormone 06/16/23 E03.9 - Hypothyroidism, unspecified UA CC w/rflx Micro + Cult 06/16/23 R30.0 - Dysuria Vitamin D 25-OH Total 06/16/23 E55.9 - Vitamin D deficiency, unspecified Lipid Panel 06/16/23 E78.00 - Pure hypercholesterolemia, unspecified Referrals Dermatology Referral L98.9 - Disorder of the skin and subcutaneous tissue, unspecified Coding Level of Care Code Est Pt Level 4 (76420) Diagnoses Type 2 diabetes mellitus without complication, without long-term current use of insulin E11.9 Diabetes mellitus complication status: without complication Diabetes mellitus alf insulin use: without long term care administrator use Diabetes mellitus type: type 2 Pure hypercholesterolemia E78.00 Acquired hypothyroidism E03.9 Right thyroid nodule E04.1 Vitamin D deficiency E55.9 Gastroesophageal reflux disease without esophagitis K21.9 Esophagitis presence: without esophagitis Constipation, unspecified constipation type K59.00 Constipation type: unspecified constipation type Allergic rhinitis, unspecified seasonality, unspecified trigger J30.9 Allergic rhinitis seasonality: unspecified Allergic rhinitis trigger: unspecified Skin lesion of face L98.9 Insomnia, unspecified type G47.00 Insomnia type: unspecified Anxiety F41.9 Episode of recurrent major depressive disorder, unspecified depression episode severity F33.9 Active/Remission status: currently active Depression Type: major depressive disorder Major depression episode severity: unspecified Major depression recurrence: recurrent Overweight (BMI 25.0-29.9) E66.3
== END 2023-03-20 14:37 | disposition home or self-care (01) ==
PROVIDERS: PCP Internal Medicine; Visit Provider Internal Medicine
DX: E11.9 Type 2 diabetes mellitus without complications (principal); F33.9 Major depressive disorder, recurrent, unspecified; E78.00 Pure hypercholesterolemia, unspecified; E03.9 Hypothyroidism, unspecified; E04.1 Nontoxic single thyroid nodule; E55.9 Vitamin D deficiency, unspecified; K21.9 Gastro-esophageal reflux disease without esophagitis; K59.00 Constipation, unspecified; J30.9 Allergic rhinitis, unspecified; L98.9 Disorder of the skin and subcutaneous tissue, unspecified; G47.00 Insomnia, unspecified; F41.9 Anxiety disorder, unspecified
CPT/HCPCS: 99214

== ENCOUNTER 2023-03-22 14:06 | Outpatient (AMB) | payer OTHER, SELFPAY ==
[2023-03-22 14:09] VITALS: BP 120/72; PULSE 76; BMI 29.1
--- NOTE | 2023-03-22 14:09 | MHC.OFFVIS ---
Intake Vital Signs 03/22/23 14:09 Height 4 ft 11 in Weight 144 lb 2.917 oz BMI 29.1 BP 120/72 Blood Pressure Location Lt brachial Position Sitting Pulse 76 Pulse Source Pulse Oximeter Intake Visit Reasons: follow up testing Intake Note: pt its its the office today for a f/up after testing echo/ stress/ pt state that she its doing fine. Customer Success Representative Required: Yes Customer Success Representative Name: Hina [email or web address] Accompanied by: Self / Same As Patient Allergies aspirin [ASPIRIN] Allergy (Mild, Verified 03/20/23 14:31) UPSET STOMACH trazodone Adverse Reaction (Intermediate, Verified 03/20/23 14:31) tiredness Medication List - Last Reconciled 03/22/23 by Kristal Steele NP acetaminophen (Tylenol Extra Strength) 500 mg PO Q6-8H PRN amitriptyline 50 mg PO BEDTIME atorvastatin 20 mg PO DAILY [BATH MAT As directed] blood sugar diagnostic (FreeStyle Lite Strips) As directed once a day blood sugar diagnostic (OneTouch Ultra Test strips) As directed once a day blood-glucose meter (FreeStyle Lite Meter kit) As directed blood-glucose meter (OneTouch Ultra2 Meter) As directed once a day cholecalciferol (vitamin D3) (Vitamin D3) 25 mcg PO DAILY [DISPOSABLE WIPES (3 packages a month) As directed] [HAND HELD SHOWER HEAD As directed] hydrocortisone 2.5% 1 appl topical BID PRN ibuprofen 600 mg PO TID PRN 30 days lancets (FreeStyle Lancets) As directed once a day lancets (OneTouch UltraSoft 2 Lancet) As directed levothyroxine 25 mcg PO DAILY metformin ER 1,000 mg (2 x 500 mg) PO BID 30 days [PANTILINERS (3 / day) As directed] pantoprazole 40 mg PO DAILY simethicone 180 mg PO TID venlafaxine ER 75 mg PO DAILY [WASHABLE BED PADS (2 per month) As directed] HPI HPI Comments History of Present Illness Details 67-year-old female presents today for a follow-up after testin. Certified delivery and installation subcontractor used. She states the stabbing pain in her chest has resolved but she still has difficulty to swallow sometimes. She notices it most at night. She has a medical history of type two diabetes and hypercholesterolemia. [facility] Medical History Obesity (BMI 30-39.9) Anxiety Insomnia Internal hemorrhoids Allergic rhinitis Constipation Vitamin D deficiency Acquired hypothyroidism Pure hypercholesterolemia Anal pain Other and unspecified hyperlipidemia Type 2 diabetes mellitus with unspecified complications Hx of thyroid cyst Hiatal hernia Diverticulosis Depression with anxiety Hypothyroidism GERD (gastroesophageal reflux disease) Surgical History H/O tubal ligation History of History of appendectomy Hx of shoulder surgery History of colonoscopy Family History Father History of heart attack Mother History of heart attack Sister Breast cancer Social History Housing: Apartment Alcohol intake: never Patient Tobacco Use Status: Never used Tobacco e-Cigarette/Vaping Use: Never Used service: No Cognitive needs: No Hearing needs: No Vision needs: Yes Female Reproductive History Menstrual Age of Menarche: 13 Review of Systems Const Denies chills, Denies fatigue, Denies fever(s), Denies frequent falls, Denies weakness, Denies weight gain and Denies weight loss ENT Denies dizziness Card Denies chest pain, Denies leg edema, Denies lightheadedness, Denies palpitations, Denies dyspnea and Denies dyspnea on exertion Resp Denies cough, Denies dyspnea and Denies dyspnea on exertion GI Denies hematochezia Musc Denies abnormal gait, Denies muscle weakness, Denies numbness, Denies radiating pain into limb and Denies tingling Neuro Denies abnormal gait, Denies dizziness, Denies frequent falls, Denies numbness, Denies tingling and Denies weakness Endo Denies fatigue and Denies palpitations Physical Exam Vital Signs: Last Vital Signs Pulse 76 03/22/23 14:09 BP 120/72 03/22/23 14:09 BMI result Body Mass Index 29.1 Const General: healthy appearing and no acute distress Orientation/consciousness: patient oriented x3 HEENT Head: Yes normal to inspection Eyes General: appearance normal, both eyes and all related structures Neck Neck: Yes normal visual inspection Chest Chest palpation & inspection: normal inspection of the chest Resp Effort & Inspection: normal respiratory effort Auscultation: clear to auscultation bilaterally Cardio Jugular venous distension: no JVD Palpation: normal PMI Rate: regular rate Rhythm: regular rhythm Heart sounds: S1 normal heart sound present, S2 normal heart sound present, no click, no gallops, no murmurs and no rubs GI Inspection: Yes normal to inspection Palpation (GI): Soft to palpation Skin General skin exam: no rashes or lesions noted Neuro General: patient oriented x3 Extrem General: Yes normal to inspection Psych Appearance: grossly normal Results Reviewed Results Reviewed: NM/NM cardiolite stress test Impression: 1. Myocardial perfusion imaging study shows normal myocardial perfusion. 2. Gated LVEF is 72% during rest; appears similar during stress. 3. Transient ischemic dilatation not present. Assessment & Plan Assessment & Plan (1) Chest pain: Code(s): R07.9 - Chest pain, unspecified Plan: Myocardial testing showed normal perfusion. Stabbing chest pain has resolved since last appointment. Echocardiogram showed EF 65%, with no significant changes from 2017 study. (2) Difficulty swallowing: Code(s): R13.10 - Dysphagia, unspecified Plan: She is going to talk to her PCP regarding difficulty swallowing symptoms. Coding Level of Care Code Est Pt Level 3 (96747) Diagnoses Chest pain R07.9 Difficulty swallowing R13.10
== END 2023-03-22 14:35 | disposition home or self-care (01) ==
PROVIDERS: PCP Internal Medicine; Visit Provider Nurse Practitioner
DX: R07.9 Chest pain, unspecified (principal); R13.10 Dysphagia, unspecified
CPT/HCPCS: 99213

== ENCOUNTER → 2023-03-22 14:06 | Outpatient (BNVA) | payer OTHER, SELFPAY | PROVIDERS: PCP Internal Medicine; Visit Provider Nurse Practitioner | DX: R07.9 Chest pain, unspecified (principal); R13.10 Dysphagia, unspecified | CPT/HCPCS: 99212 ==

== ENCOUNTER 2023-04-25 11:27 | Outpatient (REF) | payer OTHER, SELFPAY ==
[2023-04-25 11:50] LABS: MANUAL DIFF FLAG NO
[2023-04-25 12:35] LABS: Eosinophils Percent Auto 0.2 % (0-4); Hematocrit 38.6 % (37.0-47.0); Hemoglobin 12.5 g/dl (12.0-16.0); Imm Gran Abs Auto 0.01 X10*3/uL (0.00-0.03); Imm Gran Pct Auto 0.2 % (0.0-0.4); Lymphocytes Absolute Auto 2.5 X10*3/uL (1.2-4.9); Mean Corpuscular HGB Conc 32.4 g/dl (31.0-35.0); Mean Corpuscular Hemoglobin 26.9 pg (27.0-33.0); Mean Platelet Volume 9.3 fL (9.4-12.3); Monocytes Absolute Auto 0.4 X10*3/uL (0.1-1.2); Monocytes Percent Auto 7.1 % (2-11); Neutrophils Absolute Auto 2.3 x10*3/uL (2.0-8.3); Neutrophils Percent Auto 44.5 % (45-73); Platelet Count 244 X10*3/uL (160-400); Red Blood Count 4.65 X10*6/uL (4.20-5.50); White Blood Count 5.1 X10*3/uL (4.8-10.8)
[2023-04-25 12:43] LABS: Estimated Average Glucose 146 mg/dL; Hemoglobin A1c % 6.7 % (<6.0)
[2023-04-25 13:03] LABS: Appearance Urine Clear; Color Urine Yellow; Glucose Urine UA Negative (Negative); Leukocyte Esterase Urine Negative (Negative); Nitrite Urine Negative (Negative); Urine Blood Negative (Negative); Urine Ketones Negative (Negative); Urine Protein Negative (Neg-Trace)
[2023-04-25 13:25] LABS: Alanine Aminotransferase 20 U/L (0-31); Albumin Level 4.2 g/dL (3.5-5.0); Alkaline Phosphatase 64 U/L (39-117); Anion Gap 14 (12-20); Aspartate Amino Transferase 22 U/L (5-31); Bilirubin Total 0.2 mg/dL (0.0-1.0); Blood Urea Nitrogen 17 mg/dL (9-16); Calcium 9.1 mg/dL (8.4-10.2); Carbon Dioxide 25 mmol/L (22-29); Chloride 106 mmol/L (96-108); Cholesterol 146 mg/dL (<200); Estimated Glomerular Filt Rate > 60; Glucose Fasting 117 mg/dL (60-99); HDL Cholesterol 61 mg/dL (>40); LDL Cholesterol Calculated 59 mg/dL (<100); Potassium 4.4 mmol/L (3.3-5.1); Sodium 141 mmol/L (135-145); Total Protein 7.2 g/dL (6.5-8.0); Triglycerides 130 mg/dL (<150)
[2023-04-25 13:34] LABS: Syphilis Screen Nonreactive (Nonreactive)
[2023-04-25 13:35] LABS: Microalbumin Urine < 5.0 mg/L
[2023-04-25 13:38] LABS: HBS Num1 > 1000.00 mIU/mL (0-7.99); HBc Num1 5.14 S/CO (0.00-0.79); HBsAGNum1 0.32 S/CO (0.00-0.99); HIV AB/AG Nonreactive (Nonreactive); HIV Num 1 0.08 S/CO (0.00-0.99); Hepatitis B Surface Antigen Negative (Negative); ~Hepatitis B Surface Antibody REACTIVE (Nonreactive); ~Hepatitis C Antibody Nonreactive (Nonreactive)
[2023-04-25 13:42] LABS: Vitamin D 25-OH Total 44.3 ng/mL (>30)
[2023-04-25 14:48] LABS: HBc Num2 5.07 S/CO; HBc Num3 4.86 S/CO; Hepatitis B Core Antibody Reactive (Nonreactive)
== END 2023-04-25 11:28 | disposition home or self-care (01) ==
LOC: HO.LAB 11:27
PROVIDERS: PCP Internal Medicine; Visit Provider Internal Medicine
DX: Z11.4 Encounter for screening for human immunodeficiency virus [HIV] (principal); I10 Essential (primary) hypertension; E78.00 Pure hypercholesterolemia, unspecified; E11.9 Type 2 diabetes mellitus without complications; E55.9 Vitamin D deficiency, unspecified; R30.0 Dysuria; Z20.2 Contact with and (suspected) exposure to infections with a predominantly sexual mode of transmission
CPT/HCPCS: 36415; 80053; 80061; 81003; 82043; 82306; 82570; 83036; 85025; 86704; 86706; 86780; 86803; 87340; 87389

== ENCOUNTER 2023-06-20 10:39 | Outpatient (REF) | payer OTHER, SELFPAY ==
[2023-06-20 11:04] LABS: MANUAL DIFF FLAG NO
[2023-06-20 11:15] LABS: Eosinophils Percent Auto 0.2 % (0-4); Hematocrit 40.2 % (37.0-47.0); Hemoglobin 13.1 g/dl (12.0-16.0); Imm Gran Abs Auto 0.01 X10*3/uL (0.00-0.03); Imm Gran Pct Auto 0.2 % (0.0-0.4); Lymphocytes Absolute Auto 2.4 X10*3/uL (1.2-4.9); Lymphocytes Percent Auto 44.5 % (20-40); Mean Corpuscular HGB Conc 32.6 g/dl (31.0-35.0); Mean Corpuscular Hemoglobin 26.7 pg (27.0-33.0); Mean Platelet Volume 9.1 fL (9.4-12.3); Monocytes Absolute Auto 0.4 X10*3/uL (0.1-1.2); Monocytes Percent Auto 7.7 % (2-11); Neutrophils Absolute Auto 2.5 x10*3/uL (2.0-8.3); Neutrophils Percent Auto 47.4 % (45-73); Platelet Count 246 X10*3/uL (160-400); Red Cell Distribution Width 13.6 % (11.0-16.0); White Blood Count 5.3 X10*3/uL (4.8-10.8)
[2023-06-20 11:22] LABS: Estimated Average Glucose 151 mg/dL; Hemoglobin A1c % 6.9 % (<6.0)
[2023-06-20 11:39] LABS: Appearance Urine Clear; Color Urine Yellow; Glucose Urine UA Negative (Negative); Leukocyte Esterase Urine Negative (Negative); Nitrite Urine Negative (Negative); PH 6.5 (5.0-9.0); Urine Blood Negative (Negative); Urine Ketones Negative (Negative); Urine Protein Negative (Neg-Trace)
[2023-06-20 12:05] LABS: Alanine Aminotransferase 18 U/L (0-31); Albumin Level 4.3 g/dL (3.5-5.0); Alkaline Phosphatase 64 U/L (39-117); Anion Gap 15 (12-20); Aspartate Amino Transferase 16 U/L (5-31); Bilirubin Total 0.3 mg/dL (0.0-1.0); Blood Urea Nitrogen 14 mg/dL (9-16); Calcium 9.3 mg/dL (8.4-10.2); Carbon Dioxide 25 mmol/L (22-29); Chloride 104 mmol/L (96-108); Cholesterol 154 mg/dL (<200); Estimated Glomerular Filt Rate > 60; Glucose Fasting 116 mg/dL (60-99); HDL Cholesterol 67 mg/dL (>40); LDL Cholesterol Calculated 72 mg/dL (<100); Sodium 140 mmol/L (135-145); Total Protein 7.1 g/dL (6.5-8.0); Triglycerides 78 mg/dL (<150)
[2023-06-20 12:17] LABS: Creatinine Urine 113.18 mg/dL; Microalbum/Creatinine Ratio Ur 6.1 ug/mg cr (<30)
[2023-06-20 12:30] LABS: Free T4 (Free Thyroxine) 0.91 ng/dL (0.71-1.85)
== END 2023-06-20 10:40 | disposition home or self-care (01) ==
LOC: HO.LAB 10:39
PROVIDERS: PCP Internal Medicine; Visit Provider Internal Medicine
DX: R30.0 Dysuria (principal); D64.9 Anemia, unspecified; E78.00 Pure hypercholesterolemia, unspecified; E03.9 Hypothyroidism, unspecified; E11.9 Type 2 diabetes mellitus without complications; E55.9 Vitamin D deficiency, unspecified
CPT/HCPCS: 36415; 80053; 80061; 81003; 82043; 82306; 82570; 83036; 84439; 84443; 85025

== ENCOUNTER 2023-06-22 14:51 | Outpatient (AMB) | payer OTHER, SELFPAY ==
[2023-06-22 14:53] VITALS: BP 130/76; PULSE 67; O2SAT 98; BMI 29.3
--- NOTE | 2023-06-22 14:53 | MHC.PC.OV ---
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 Tape Control Required: Yes Riveting Machine Operator Tape Control Language: Tajik Buyer Assistant: Not Required per policy Accompanied by: Self / Same As Patient Allergies aspirin [ASPIRIN] Allergy (Mild, Verified 06/22/23 15:34) UPSET STOMACH trazodone Adverse Reaction (Intermediate, Verified 06/22/23 15:34) tiredness Medication List - Last Reconciled 06/22/23 by Ramírez Leonard MD acetaminophen (Tylenol Extra Strength) 500 mg PO Q6-8H PRN amitriptyline 50 mg PO BEDTIME atorvastatin 20 mg PO DAILY [BATH MAT As directed] blood sugar diagnostic (FreeStyle Lite Strips) As directed once a day blood sugar diagnostic (OneTouch Ultra Test strips) As directed once a day blood-glucose meter (FreeStyle Lite Meter kit) As directed blood-glucose meter (OneTouch Ultra2 Meter) As directed once a day cholecalciferol (vitamin D3) (Vitamin D3) 25 mcg PO DAILY [DISPOSABLE WIPES (3 packages a month) As directed] [HAND HELD SHOWER HEAD As directed] hydrocortisone 2.5% 1 appl topical BID PRN ibuprofen 600 mg PO TID PRN 30 days lancets (FreeStyle Lancets) As directed once a day lancets (OneTouch UltraSoft 2 Lancet) As directed levothyroxine 25 mcg PO DAILY metformin ER 1,000 mg (2 x 500 mg) PO BID 30 days [PANTILINERS (3 / day) As directed] pantoprazole 40 mg PO DAILY simethicone 180 mg PO TID venlafaxine ER 75 mg PO DAILY [WASHABLE BED PADS (2 per month) As directed] Tobacco use date assessed: 03/20/23 Fall risk assessment: No Falls in past year Last assessed Fall Risk: 06/22/23 Dental Screening Dental Screen Date: 03/20/23 HPI 3mth f/u HPI Details Patient comes in today for her follow up visit States that she feels okay but has been experiencing recurrent pain and spasms over the middle of her back for the past couple of weeks now Recalls that she was lifting something heavy a couple of week ago just before her back pain started acting up and thinks that she may have hurt her back in the process She denies any headaches or dizziness Denies any chest pains, no SOB No nausea/vomiting, no abdominal pain No change in bowel habits noted Had her follow up labs done a couple of days ago - to discuss her results [facility] Medical History Overweight (BMI 25.0-29.9) Obesity (BMI 30-39.9) Anxiety Insomnia Internal hemorrhoids Allergic rhinitis Constipation Vitamin D deficiency Acquired hypothyroidism Pure hypercholesterolemia Anal pain Other and unspecified hyperlipidemia Type 2 diabetes mellitus with unspecified complications Hx of thyroid cyst Hiatal hernia Diverticulosis Depression with anxiety Hypothyroidism GERD (gastroesophageal reflux disease) Surgical History H/O tubal ligation History of History of appendectomy Hx of shoulder surgery History of colonoscopy Family History Father History of heart attack Mother History of heart attack Sister Breast cancer Social History Housing: Apartment Alcohol intake: never Patient Tobacco Use Status: Never used Tobacco e-Cigarette/Vaping Use: Never Used service: No Cognitive needs: No Hearing needs: No Vision needs: Yes Female Reproductive History Menstrual Age of Menarche: 13 Questionnaire Thrive Questionnaire Date Thrive assessed: 03/20/23 JAIDA-7 AMB Questionnaire JAIDA-7 Date JAIDA - 7 assessed: 03/20/23 Source: Developed by Drs. Francois Rick, Chaya Villareal, Mj He and colleagues, with an educational nereiad from [employer]. Review of Systems Const Denies fatigue, Denies fever(s) and Denies headache(s) ENT Denies dysphagia, Denies dizziness, Denies otalgia, Denies headache(s), Denies neck pain, Denies odynophagia and Denies sore throat Card Denies chest pain, Denies rapid heart rate, Denies palpitations and Denies dyspnea Resp Denies chest congestion, Denies cough and Denies dyspnea GI Denies abdominal pain, Denies constipation, Denies dysphagia, Denies diarrhea, Denies nausea, Denies odynophagia and Denies vomiting Denies urinary frequency, Reports nocturia, Denies dysuria and Denies urinary urgency Musc Reports back pain (over the mid-thoracic area (see HPI)) and Denies neck pain Skin/Breast Denies rash Neuro Denies dizziness and Denies headache(s) Endo Denies fatigue and Denies palpitations Physical exam (Primary Care) Vital Signs: Last Vital Signs Pulse 67 06/22/23 14:53 BP 130/76 06/22/23 14:53 Pulse Ox 98 06/22/23 14:53 Oxygen Delivery Method Room Air 06/22/23 14:53 BMI result Body Mass Index 29.3 Tobacco/Smoking Status: Tobacco use Status Tobacco use date assessed 03/20/23 06/22/23 14:53 Patient Tobacco Use Status Never used Tobacco 06/22/23 14:53 e-Cigarette/Vaping Use Never Used 06/22/23 14:53 Thrive Assessment: Date of Thrive Assessment Date Thrive assessed 03/20/23 06/22/23 14:53 Const General: no acute distress and alert HENMT Ears: TM's normal bilaterally and EAC's normal Throat: Yes posterior oropharynx normal and Yes tonsils normal (no TP congestion) Neck Neck: Yes no lymphadenopathy and Yes supple Thyroid: Thyroid normal Resp Auscultation: clear to auscultation bilaterally, no rales and no wheezes Cardio Rate: regular rate Rhythm: regular rhythm Heart sounds: no murmurs GI Palpation (GI): Soft to palpation and nontender Auscultation: normal bowel sounds General: Yes no CVA tenderness Back/Spine/Pelvis Back: no CVA tenderness Thoracic/Lumbar Spine: paraspinal muscle tenderness bilaterally in the mid thoracic and in the lower thoracic and No lumbar spinal tenderness Skin Rashes: no rashes Extrem General: Yes no clubbing, cyanosis or edema Results Reviewed Results Reviewed: Laboratory Tests 06/20/23 06/20/23 11:02 11:03 WBC 5.3 Hgb 13.1 Hct 40.2 Plt Count 246 Sodium 140 Potassium 4.0 Creatinine 0.68 Estimated GFR > 60 Fasting Glucose 116 H Hemoglobin A1c % 6.9 H Calcium 9.3 AST 16 ALT 18 Triglycerides 78 Cholesterol 154 LDL Cholesterol, Calc 72 HDL Cholesterol 67 25-OH Vitamin D Total 48.0 TSH 1.90 Free T4 0.91 Ur Specific [place] 1.020 Urine Protein Negative Urine Glucose (UA) Negative Urine Blood Negative Urine Nitrite Negative Ur Leukocyte Esterase Negative Assessment and Plan Assessment & Plan (1) Diabetes mellitus: Code(s): E11.9 - Type 2 diabetes mellitus without complications Qualifiers: Diabetes mellitus type: type 2 Diabetes mellitus jail insulin use: without jail use Diabetes mellitus complication status: without complication Qualified Code(s): E11.9 - Type 2 diabetes mellitus without complications Plan: Her HgbA1c was at 6.9% on her labs done a couple of days ago (was at 6.7% a few months ago) - goal is <7.0% Reinforced diabetic diet Continue Metformin ER 1000 mg BID; she was also supposed to be on Farxiga 5 mg Q AM but her prescription log shows that this has not been refilled in a while now so it is unclear at this time if patient is still taking this - have advised her to bring in all of her meds with her at her next visit for us to review and update her med list properly Follow up with shredding machine operator as scheduled (2) Pure hypercholesterolemia: Code(s): E78.00 - Pure hypercholesterolemia, unspecified Plan: Results of her labs done a couple of days ago reviewed and discussed with patient Reinforced low cholesterol diet Continue Atorvastatin 20 mg QD Will recheck her labs and fasting lipids in 3 months for follow up (3) Acquired hypothyroidism: Code(s): E03.9 - Hypothyroidism, unspecified Plan: Her TFTs were normal on her recent labs Continue Levothyroxine 25 mcg QD Will continue to monitor her TFTs regularly (4) Vitamin D deficiency: Code(s): E55.9 - Vitamin D deficiency, unspecified Plan: Continue Vitamin D3 1000 units QD (5) GERD (gastroesophageal reflux disease): Code(s): K21.9 - Gastro-esophageal reflux disease without esophagitis Qualifiers: Esophagitis presence: without esophagitis Qualified Code(s): K21.9 - Gastro-esophageal reflux disease without esophagitis Plan: Reinforced dietary restrictions Continue Pantoprazole 40 mg QD EGD done last year revealed (+) moderate reactive changes in the gastric antral mucosa with minimal chronic inactive gastritis; she was negative for H. pylori, intestinal metaplasia and dysplasia (6) Constipation: Code(s): K59.00 - Constipation, unspecified Qualifiers: Constipation type: unspecified constipation type Qualified Code(s): K59.00 - Constipation, unspecified Plan: Reinforced increased oral fluids and dietary fiber Continue Citrucel 500 mg QD, Colace 100 mg QD PRN and Metamucil PRN (7) Allergic rhinitis: Code(s): J30.9 - Allergic rhinitis, unspecified Qualifiers: Allergic rhinitis trigger: unspecified Allergic rhinitis seasonality: unspecified Qualified Code(s): J30.9 - Allergic rhinitis, unspecified Plan: Continue Loratadine 10 mg QD PRN and Fluticasone 50 mcg nasal spray QD PRN (8) Midline thoracic back pain: Code(s): M54.6 - Pain in thoracic spine Qualifiers: Chronicity: acute Qualified Code(s): M54.6 - Pain in thoracic spine Plan: Discussed that this is likely due to thoracic myofascial strain, based on her history/narrative - will refer her to physical therapy for further evaluation and management (9) Insomnia: Code(s): G47.00 - Insomnia, unspecified Qualifiers: Insomnia type: unspecified Qualified Code(s): G47.00 - Insomnia, unspecified Plan: Sleep hygiene reinforced Continue Amitriptyline 50 mg Q HS PRN (has taken Trazodone in the past) (10) Anxiety: Code(s): F41.9 - Anxiety disorder, unspecified Plan: Continue Venlafaxine 75 mg QD (11) Depression: Code(s): F32.A - Depression, unspecified Qualifiers: Depression Type: major depressive disorder Major depression recurrence: recurrent Active/Remission status: currently active Major depression episode severity: unspecified Qualified Code(s): F33.9 - Major depressive disorder, recurrent, unspecified Plan: Continue Venlafaxine 75 mg QD and Amitriptyline 50 mg Q HS; she was also on Mirtazapine 7.5 mg Q HS in the past but appears to have self-discontinued this some time ago Follow up with psychiatry as scheduled (12) Overweight (BMI 25.0-29.9): Code(s): E66.3 - Overweight Plan: Reinforced diet/exercise as tolerated/lose weight Plan Follow up in 3 months Orders: Orders Complete Blood Count Auto Diff 3 Months D64.9 - Anemia, unspecified Free T4 (Free Thyroxine) 3 Months E03.9 - Hypothyroidism, unspecified Vitamin D 25-OH Total 3 Months E55.9 - Vitamin D deficiency, unspecified Microalbumin, Random (w Creat) 3 Months E11.9 - Type 2 diabetes mellitus without complications UA CC w/rflx Micro + Cult 3 Months R30.0 - Dysuria Hemoglobin A1c 3 Months E11.9 - Type 2 diabetes mellitus without complications PT Evaluation and Treatment Today M54.6 - Pain in thoracic spine Comprehensive [place]. Panel Fast 3 Months E78.00 - Pure hypercholesterolemia, unspecified Lipid Panel 3 Months E78.00 - Pure hypercholesterolemia, unspecified Thyroid Stimulating Hormone 3 Months E03.9 - Hypothyroidism, unspecified Vitamin B12 and Folate 3 Months E53.8 - Deficiency of other specified B group vitamins Coding Level of Care Code Est Pt Level 4 (55567) Diagnoses Type 2 diabetes mellitus without complication, without long-term current use of insulin E11.9 Diabetes mellitus type: type 2 Diabetes mellitus jail insulin use: without watermaster use Diabetes mellitus complication status: without complication Pure hypercholesterolemia E78.00 Acquired hypothyroidism E03.9 Vitamin D deficiency E55.9 Gastroesophageal reflux disease without esophagitis K21.9 Esophagitis presence: without esophagitis Constipation, unspecified constipation type K59.00 Constipation type: unspecified constipation type Allergic rhinitis, unspecified seasonality, unspecified trigger J30.9 Allergic rhinitis trigger: unspecified Allergic rhinitis seasonality: unspecified Acute midline thoracic back pain M54.6 Chronicity: acute Insomnia, unspecified type G47.00 Insomnia type: unspecified Anxiety F41.9 Episode of recurrent major depressive disorder, unspecified depression episode severity F33.9 Depression Type: major depressive disorder Major depression recurrence: recurrent Active/Remission status: currently active Major depression episode severity: unspecified Overweight (BMI 25.0-29.9) E66.3
== END 2023-06-22 15:43 | disposition home or self-care (01) ==
PROVIDERS: PCP Internal Medicine; Visit Provider Internal Medicine
DX: E11.9 Type 2 diabetes mellitus without complications (principal); F33.9 Major depressive disorder, recurrent, unspecified; E78.00 Pure hypercholesterolemia, unspecified; E03.9 Hypothyroidism, unspecified; E55.9 Vitamin D deficiency, unspecified; K21.9 Gastro-esophageal reflux disease without esophagitis; K59.00 Constipation, unspecified; J30.9 Allergic rhinitis, unspecified; M54.6 Pain in thoracic spine; G47.00 Insomnia, unspecified; F41.9 Anxiety disorder, unspecified; E66.3 Overweight
CPT/HCPCS: 99214

== ENCOUNTER 2023-07-25 15:28 | Outpatient (AMB) | payer OTHER, SELFPAY ==
[2023-07-25 15:49] VITALS: BP 122/74; BMI 28.9
--- NOTE | 2023-07-25 15:49 | A.OFFVIS_ITS ---
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 No complaints. Last Pap/HPV was negative in 02/26, previous co testing was negative in 2017 with the patient does not have any history of abnormal Pap smears last 25 years Last Mammogram was BI-RADS 1 in 09/27 Last Colonoscopy was in 12/05, the recommendation was to repeat in 10 years Last DEXA scan was in 03/29 was in the low risk category with no evidence of osteoporosis PFSH Medical History Overweight (BMI 25.0-29.9) Obesity (BMI 30-39.9) Anxiety Insomnia Internal hemorrhoids Allergic rhinitis Constipation Vitamin D deficiency Acquired hypothyroidism Pure hypercholesterolemia Anal pain Other and unspecified hyperlipidemia Type 2 diabetes mellitus with unspecified complications Hx of thyroid cyst Hiatal hernia Diverticulosis Depression with anxiety Hypothyroidism GERD (gastroesophageal reflux disease) Surgical History H/O tubal ligation History of History of appendectomy Hx of shoulder surgery History of colonoscopy Family History Father History of heart attack Mother History of heart attack Sister Breast cancer Social History Housing: Apartment Alcohol intake: never Patient Tobacco Use Status: Never used Tobacco e-Cigarette/Vaping Use: Never Used service: No Cognitive needs: No Hearing needs: No Vision needs: Yes Female Reproductive History Menstrual Age of Menarche: 13 Menopause type: natural Total pregnancies: 4 Full term: 3 Number of Living Children: 3 Ab spontaneous: 1 Date of last pap smear: 03/03/21 Date of Mammogram: 09/12/22 Review of Systems Const All systems reviewed & are unremarkable except as noted in HPI and below Card Reports as per HPI Resp Reports as per HPI GI Reports as per HPI and Reports no additional complaints Reports as per HPI Physical Exam Vital Signs: Last Vital Signs BP 122/74 07/25/23 15:49 BMI result Body Mass Index 28.9 Const General: cooperative, healthy appearing and comfortable Chest Chest palpation & inspection: normal inspection of the chest and normal palpation of entire chest wall Breast/axilla inspection: normal inspection of the breasts and normal inspection of the axillae Breast/axilla palpation: normal palpation of the breasts, normal palpation of the axillae and no axillary lymphadenopathy Resp Effort & Inspection: normal respiratory effort Auscultation: clear to auscultation bilaterally Percussion: percussion normal Cardio Palpation: normal PMI Rate: regular rate Rhythm: regular rhythm Heart sounds: no murmurs and no rubs Peripheral pulses: Peripheral pulses 2+ throughout GI Inspection: Yes normal to inspection Palpation (GI): Soft to palpation, nontender, no guarding, not rigid and No hepatosplenomegaly present Percussion: Yes normal to percussion Auscultation: normal bowel sounds Rectal Exam - Female: deferred General: Yes bladder normal to palpation External Female Exam: No lesion Speculum Exam - Vagina: normal appearance of the vagina, normal palpation, normal vaginal discharge and not erythematous Speculum Exam - Cervix: normal appearance of the cervix and normal palpation Bimanual exam- vagina & uterus: normal bimanual exam, normal palpation, uterine size normal, bladder normal to palpation, consistency normal and normal palpation Bimanual Exam- Adnexa, other: normal adnexae, no masses and no tenderness Assessment & Plan Assessment & Plan (1) Well woman exam: Code(s): Z01.419 - Encounter for gynecological examination (general) (routine) without abnormal findings Category: Medical Plan: Co testing not indicated since the patient 's age is above 65 with no history of abnormal Pap smears last 25 years. Counseled the patient about the recommended dietary allowance of 1200 mg of Calcium & 800 IU of vitamin D. Mammogram ordered. Will order DEXA scan . The patient was instructed to perform monthly self-breast exams and to schedule a 2 week DEXA scan follow-up appointment and an annual exam in a year; All questions answered and the patient verbalized understanding. Orders: Orders MM tomosynthesis screening BI Today Z12.31 - Encounter for screening mammogram for malignant neoplasm of breast XR DEXA axial skeleton Today Z78.0 - Asymptomatic menopausal state Coding Level of Care Code Est Pt Prev Care >65y(61529) Diagnoses Well woman exam Z01.419
== END 2023-07-25 16:18 | disposition home or self-care (01) ==
LOC: HO.HWS 15:28
PROVIDERS: PCP Internal Medicine; Visit Provider Obstetrics & Gynecology
DX: Z01.419 Encounter for gynecological examination (general) (routine) without abnormal findings (principal)
CPT/HCPCS: 99397

== ENCOUNTER → 2023-07-25 15:28 | Outpatient (BNVA) | payer OTHER, SELFPAY | PROVIDERS: PCP Internal Medicine; Visit Provider Obstetrics & Gynecology ==

== ENCOUNTER → 2023-09-14 13:00 | Outpatient (BNV) | payer OTHER, SELFPAY | PROVIDERS: PCP Internal Medicine; Visit Provider Radiology Diagnostic Radiology | DX: Z12.31 Encounter for screening mammogram for malignant neoplasm of breast (principal) | CPT/HCPCS: 77063; 77067 ==

== ENCOUNTER 2023-09-14 13:16 | Outpatient (REF) | payer OTHER, SELFPAY ==
--- NOTE | ~2023-09-14 | MM_ITS ---
EXAMINATION: BONE DENSITOMETRY CLINICAL INDICATION: Menopause. COMPARISON: Baseline BD dated 03/16/2021. TECHNIQUE: Using a [employer] DXA System (software version: 13.1) manufactured by [employer], dual-energy x-ray absorptiometry was performed of the lumbar spine and left hip. The images are of good technical quality. Summary results are attached. FINDINGS: LEFT FEMUR, NECK: Current: BMD 0.915 g/cm2, Z-score 0.6, T-score -0.9, normal. Baseline: BMD 0.823 g/cm2. LEFT FEMUR, TOTAL: Current: BMD 0.953 g/cm2, Z-score 0.8, T-score -0.4, normal, 6.6% increase from baseline (<5% change is not significant). Baseline: BMD 0.894 g/cm2. AP SPINE L1-L4: Current: BMD 0.912 g/cm2, Z-score -0.8, T-score -2.2, osteopenia, 1.8% decrease from baseline (<5% change is not significant). Baseline: BMD 0.829 g/cm2. IDENTIFIED RISK FACTORS: Menopause, secondary osteoporosis (hyperthyroidism). HISTORY OF FRACTURE: None listed. MEDICATIONS: Calcium, vitamin D. MM/XR DEXA axial skeleton IMPRESSION: 1. DIAGNOSIS: Osteopenia based on the lowest T-score value of -2.2 in the lumbar spine applying World Health Organization criteria. 2. 10-YEAR FRACTURE RISK PREDICTION, FRAX: Major osteoporotic fracture (clinical spine, forearm, hip or shoulder) 4.5%. Hip fracture 0.4%. 3. Treatment Recommendations: NOF guidelines recommend consideration for treatment in postmenopausal women and men age 50 and older presenting with the following: -A hip or vertebral (clinical or morphometric) fracture. -T-score less than or equal to -2.5 at the femoral neck or spine after appropriate evaluation to exclude secondary causes. -Low bone mass at the hip or spine and a 10-year fracture probability by FRAX of greater than or equal to 3% for hip fracture or greater than or equal to 20% for major osteoporotic fracture based on the [place] adapted WHO algorithm. 4. Other Recommendations: All treatment decisions require clinical judgment and consideration of individual patient factors, including patient preferences, comorbidities, previous drug use, risk factors not captured in the FRAX model (e.g. frailty, falls, vitamin D deficiency, increased bone turnover, interval significant decline in bone density) and possible under or overestimation of fracture risk by FRAX. Additional medical evaluation for secondary cause of low bone mineral density may be appropriate. FUTURE SCAN RECOMMENDATION: People with diagnosed cases of osteoporosis or at high risk for fracture should have regular bone mineral density tests. For patients eligible for Medicare, routine testing is allowed once every 2 years. The testing frequency can be increased to one year for patients who have rapidly progressing disease, those who are receiving or discontinuing medical therapy to restore bone mass, or have additional risk factors.
--- NOTE | ~2023-09-14 | MM_ITS ---
EXAMINATION: MM SCREENING DIGITAL BREAST TOMOSYNTHESIS, BILATERAL CLINICAL INFORMATION: Screening. Asymptomatic. COMPARISON: Mammography: This study is compared with prior exams dating back to 2020. TECHNIQUE: Digital breast tomosynthesis is performed in both the craniocaudal and mediolateral oblique views along with computer-aided detection (CAD). Direct 2-D images of each breast in the standard screening projections are also obtained. FINDINGS: There are scattered areas of fibroglandular density (ACR BI-RADS breast composition Category b). There are no significant masses, abnormal calcifications, or other abnormalities. MM/MM tomosynthesis screening BI IMPRESSION: No mammographic evidence of malignancy. ASSESSMENT: BI-RADS BI-RADS 1 - Negative RECOMMENDATION: Routine annual mammography screening. 1 year F/U This examination should not preclude the clinical evaluation of a suspicious palpable abnormality. This patient's information was entered into a reminder system with a target due date for their next mammogram. Electronically signed by: Laly García MD 10/11/2023 12:26 PM EDT
== END 2023-09-14 13:17 | disposition home or self-care (01) ==
LOC: HO.MAMMO 13:16
PROVIDERS: PCP Internal Medicine; Visit Provider Obstetrics & Gynecology
DX: Z12.31 Encounter for screening mammogram for malignant neoplasm of breast (principal); Z13.820 Encounter for screening for osteoporosis; Z78.0 Asymptomatic menopausal state
CPT/HCPCS: 77063; 77067; 77080

== ENCOUNTER 2023-10-03 12:57 | Outpatient (AMB) | payer OTHER, SELFPAY ==
--- NOTE | 2023-10-03 13:02 | AM.OFFWIN_ITS ---
Intake Vital Signs 10/03/23 13:03 Height 4 ft 11 in Weight 146 lb 2 oz BMI 29.5 BP 112/64 Blood Pressure Location Lt brachial Position Sitting Pulse 82 Pulse Source Pulse Oximeter Temp 98.4 F Temp Source Oral Pulse Oximetry (%) 98 Oxygen Delivery Method Room Air Intake Visit Reasons: ep body chills and sleeping well Intake Note: Pt presents to the office today for c/o body chills and not sleeping well x3 weeks. Patient Tobacco Use Status: Never used Tobacco Allergies aspirin [ASPIRIN] Allergy (Mild, Verified 10/03/23 13:06) UPSET STOMACH trazodone Adverse Reaction (Intermediate, Verified 10/03/23 13:06) tiredness HPI ep body chills and sleeping well HPI Details This note is constructed using voice recognition software. While every effort has been made to ensure accuracy, scout executive errors may have been included. The patient is a 68 year old female who presents to the clinic today with chills and difficulty sleeping for the past 3 weeks. She reports an extensive history of hypothyroidism, and when she had medication is needed adjustment in the past, she had very similar symptoms. She tried to get an appointment with the primary but was unable to get 1, and is requesting that we obtain labs today. She denies fever, any URI symptoms, or any other changes to her daily routine. [facility] Medical History Overweight (BMI 25.0-29.9) Obesity (BMI 30-39.9) Anxiety Insomnia Internal hemorrhoids Allergic rhinitis Constipation Vitamin D deficiency Acquired hypothyroidism Pure hypercholesterolemia Anal pain Other and unspecified hyperlipidemia Type 2 diabetes mellitus with unspecified complications Hx of thyroid cyst Hiatal hernia Diverticulosis Depression with anxiety Hypothyroidism GERD (gastroesophageal reflux disease) Surgical History H/O tubal ligation History of History of appendectomy Hx of shoulder surgery History of colonoscopy Family History Father History of heart attack Mother History of heart attack Sister Breast cancer Social History Housing: Apartment Alcohol intake: never Patient Tobacco Use Status: Never used Tobacco e-Cigarette/Vaping Use: Never Used service: No Cognitive needs: No Hearing needs: No Vision needs: Yes Female Reproductive History Menstrual Age of Menarche: 13 Review of Systems Const All systems reviewed & are unremarkable except as noted in HPI and below Physical Exam Vital Signs: Last Vital Signs Temp 98.4 F 10/03/23 13:03 Pulse 82 10/03/23 13:03 BP 112/64 10/03/23 13:03 Pulse Ox 98 10/03/23 13:03 Oxygen Delivery Method Room Air 10/03/23 13:03 BMI result Body Mass Index 29.5 Const General: cooperative, healthy appearing, comfortable, no acute distress and alert Orientation/consciousness: patient oriented x3 Limitations: no limitations HEENT Head: Yes normal to inspection and Yes normocephalic Ears: hearing grossly normal bilaterally General nose exam: Normal external nose present Face and sinus: Yes normal facial exam and Yes sinuses nontender Mouth: Normal oral and palatal mucosa present and tongue normal Teeth and gingiva: dentition normal Throat: Yes posterior oropharynx normal Eyes General: appearance normal, both eyes and all related structures Neck Neck: Yes normal visual inspection, Yes full ROM and Yes no lymphadenopathy Resp Effort & Inspection: normal respiratory effort and able to speak in complete sentences Auscultation: clear to auscultation bilaterally Cardio Jugular venous distension: no JVD Palpation: normal PMI Rate: regular rate Heart sounds: S1 normal heart sound present, S2 normal heart sound present, no click, no gallops, no murmurs and no rubs Skin General skin exam: no rashes or lesions noted, elasticity normal and turgor normal Neuro General: patient oriented x3 Extrem General: Yes normal to inspection, Yes full ROM, Yes capillary refill normal and Yes normal exam except as noted Psych Appearance: grossly normal Mental Status: mental status grossly normal Speech and movement: Normal speech and movement present Affect: normal affect Assessment & Plan Assessment & Plan (1) Acquired hypothyroidism: Code(s): E03.9 - Hypothyroidism, unspecified Plan: Labs ordered for evaluation of level thyroid, CC and primary care provider for medication adjustment. Symptoms likely related to thyroid. (2) Chills (without fever): Code(s): R68.83 - Chills (without fever) Plan: Reassuring physical examination today, no obvious etiology other than involvement with thyroid. Advised patient to follow up with any worsening or failure to resolve. Plan See above for full details and plan. Orders: Orders TSH reflex Free T4 Today E03.9 - Hypothyroidism, unspecified Coding Level of Care Code Est Pt Level 4 (09699) Diagnoses Acquired hypothyroidism E03.9 Chills (without fever) R68.83
[2023-10-03 13:03] VITALS: BP 112/64; PULSE 82; TEMP 36.9; O2SAT 98; BMI 29.5
== END 2023-10-03 13:31 | disposition home or self-care (01) ==
PROVIDERS: PCP Internal Medicine; Visit Provider Registered Nurse
DX: E03.9 Hypothyroidism, unspecified (principal); R68.83 Chills (without fever)
CPT/HCPCS: 99214

== ENCOUNTER 2023-10-03 13:32 | Outpatient (REF) | payer OTHER, SELFPAY ==
[2023-10-03 16:52] LABS: TSH reflex Free T4 1.69 uIU/mL (0.32-4.0)
== END 2023-10-03 13:33 | disposition home or self-care (01) ==
LOC: HO.HMGCLDS 13:32
PROVIDERS: PCP Internal Medicine; Visit Provider Registered Nurse
DX: E03.9 Hypothyroidism, unspecified (principal)
CPT/HCPCS: 36415; 84443

== ENCOUNTER 2023-10-15 08:26 | Outpatient (REF) | payer OTHER, SELFPAY ==
[2023-10-15 09:00] LABS: MANUAL DIFF FLAG NO
[2023-10-15 09:35] LABS: Eosinophils Percent Auto 0.2 % (0-4); Hematocrit 39.1 % (37.0-47.0); Imm Gran Abs Auto 0.01 X10*3/uL (0.00-0.03); Imm Gran Pct Auto 0.2 % (0.0-0.4); Lymphocytes Absolute Auto 2.5 X10*3/uL (1.2-4.9); Lymphocytes Percent Auto 46.7 % (20-40); Mean Corpuscular HGB Conc 33.2 g/dl (31.0-35.0); Mean Corpuscular Volume 81.1 fL (80.0-98.0); Mean Platelet Volume 9.2 fL (9.4-12.3); Monocytes Absolute Auto 0.5 X10*3/uL (0.1-1.2); Monocytes Percent Auto 9.5 % (2-11); Neutrophils Absolute Auto 2.3 x10*3/uL (2.0-8.3); Neutrophils Percent Auto 43.4 % (45-73); Platelet Count 243 X10*3/uL (160-400); Red Blood Count 4.82 X10*6/uL (4.20-5.50); Red Cell Distribution Width 13.4 % (11.0-16.0); White Blood Count 5.4 X10*3/uL (4.8-10.8)
[2023-10-15 09:39] LABS: Estimated Average Glucose 160 mg/dL; Hemoglobin A1c % 7.2 % (<6.0)
[2023-10-15 09:45] LABS: Appearance Urine Clear; Color Urine Yellow; Glucose Urine UA Negative (Negative); Leukocyte Esterase Urine Negative (Negative); Nitrite Urine Negative (Negative); PH 7.5 (5.0-9.0); Urine Blood Negative (Negative); Urine Ketones Negative (Negative); Urine Protein Negative (Neg-Trace)
[2023-10-15 10:12] LABS: Alanine Aminotransferase 21 U/L (0-31); Albumin Level 4.4 g/dL (3.5-5.0); Alkaline Phosphatase 68 U/L (39-117); Anion Gap 15 (12-20); Aspartate Amino Transferase 18 U/L (5-31); Bilirubin Total 0.3 mg/dL (0.0-1.0); Blood Urea Nitrogen 14 mg/dL (9-16); Calcium 9.4 mg/dL (8.4-10.2); Carbon Dioxide 27 mmol/L (22-29); Chloride 104 mmol/L (96-108); Cholesterol 163 mg/dL (<200); Estimated Glomerular Filt Rate > 60; Glucose Fasting 130 mg/dL (60-99); HDL Cholesterol 63 mg/dL (>40); LDL Cholesterol Calculated 82 mg/dL (<100); Potassium 4.1 mmol/L (3.3-5.1); Sodium 142 mmol/L (135-145); Total Protein 7.3 g/dL (6.5-8.0); Triglycerides 92 mg/dL (<150)
[2023-10-15 10:18] LABS: Free T4 (Free Thyroxine) 0.89 ng/dL (0.71-1.85); Thyroid Stimulating Hormone 3.62 uIU/mL (0.32-4.0); Vitamin D 25-OH Total 72.7 ng/mL (>30)
[2023-10-15 10:44] LABS: Folate 10.8 ng/mL (> or = 4.0); Vitamin B12 605 pg/mL (200-900)
[2023-10-15 11:02] LABS: Microalbumin Urine < 5.0 mg/L
== END 2023-10-15 08:27 | disposition home or self-care (01) ==
LOC: HO.LAB 08:26
PROVIDERS: PCP Internal Medicine; Visit Provider Internal Medicine
DX: D64.9 Anemia, unspecified (principal); E03.9 Hypothyroidism, unspecified; E11.9 Type 2 diabetes mellitus without complications; R30.0 Dysuria; E78.00 Pure hypercholesterolemia, unspecified; E53.8 Deficiency of other specified B group vitamins; E55.9 Vitamin D deficiency, unspecified
CPT/HCPCS: 36415; 80053; 80061; 81003; 82043; 82306; 82570; 82607; 82746; 83036; 84439; 84443; 85025

== ENCOUNTER 2023-10-19 14:38 | Outpatient (AMB) | payer OTHER, SELFPAY ==
[2023-10-19 14:41] VITALS: BP 112/68; PULSE 77; O2SAT 96; BMI 29.2
--- NOTE | 2023-10-19 14:41 | A.OFFPC_ITS ---
Vital Signs 10/19/23 14:41 Height 4 ft 11 in Weight 144 lb 6 oz BMI 29.2 BP 112/68 Blood Pressure Location Lt brachial Position Sitting Pulse 77 Pulse Source Pulse Oximeter Pulse Oximetry (%) 96 Oxygen Delivery Method Room Air Intake Visit Reasons: hyperlipidemia, hypothyroidism, DM Hypo Splasher Required: No Accompanied by: Self / Same As Patient Allergies aspirin [ASPIRIN] Allergy (Mild, Verified 10/20/23 05:22) UPSET STOMACH trazodone Adverse Reaction (Intermediate, Verified 10/20/23 05:22) tiredness Medication List - Last Reconciled 10/20/23 by Ramírez Leonard MD acetaminophen (Tylenol Extra Strength) 500 mg PO Q6-8H PRN amitriptyline 50 mg PO BEDTIME atorvastatin 20 mg PO DAILY [BATH MAT As directed] blood sugar diagnostic (FreeStyle Lite Strips) As directed once a day blood sugar diagnostic (OneTouch Ultra Test strips) As directed once a day blood-glucose meter (FreeStyle Lite Meter kit) As directed blood-glucose meter (OneTouch Ultra2 Meter) As directed once a day cholecalciferol (vitamin D3) (Vitamin D3) 25 mcg PO DAILY [DISPOSABLE WIPES (3 packages a month) As directed] [HAND HELD SHOWER HEAD As directed] hydrocortisone 2.5% 1 appl topical BID PRN ibuprofen 600 mg PO TID PRN 30 days lancets (FreeStyle Lancets) As directed once a day lancets (OneTouch UltraSoft 2 Lancet) As directed levothyroxine 25 mcg PO DAILY metformin ER 1,000 mg (2 x 500 mg) PO BID 30 days [PANTILINERS (3 / day) As directed] pantoprazole 40 mg PO DAILY simethicone 180 mg PO TID venlafaxine ER 75 mg PO DAILY [WASHABLE BED PADS (2 per month) As directed] Tobacco use date assessed: 10/19/23 Fall risk assessment: No Falls in past year Last assessed Fall Risk: 10/19/23 Dental Screening Dental Screen Date: 10/19/23 Did you have a dental visit in the last 12 months?: Yes Did you have a dental problem in the last 6 months where you did not have access to dental care?: No Was dental information given to patient?: Patient has dentist HPI hyperlipidemia, hypothyroidism, DM HPI Details Patient comes in today for her follow up visit States that she has been throwing up after eating occasionally lately She denies any nausea or abdominal pain States that she is still experiencing the recurrent pain and spasms over the middle of her back that she had at her last visit She was referred to physical therapy back then but states that she was never contacted to schedule her therapy Adds that she has been experiencing frequent irritation over her vaginal as well as over her perianal areas lately She denies any vaginal discharge Denies any diarrhea, constipation or change in her bowel habits lately She denies any fever, headaches or dizziness Denies any chest pains, no SOB She had her follow up labs done a few days ago - to discuss her results [facility] Medical History Overweight (BMI 25.0-29.9) Obesity (BMI 30-39.9) Anxiety Insomnia Internal hemorrhoids Allergic rhinitis Constipation Vitamin D deficiency Acquired hypothyroidism Pure hypercholesterolemia Anal pain Other and unspecified hyperlipidemia Type 2 diabetes mellitus with unspecified complications Hx of thyroid cyst Hiatal hernia Diverticulosis Depression with anxiety Hypothyroidism GERD (gastroesophageal reflux disease) Surgical History H/O tubal ligation History of History of appendectomy Hx of shoulder surgery History of colonoscopy Family History Father History of heart attack Mother History of heart attack Sister Breast cancer Social History Housing: Apartment Alcohol intake: never Patient Tobacco Use Status: Never used Tobacco e-Cigarette/Vaping Use: Never Used service: No Cognitive needs: No Hearing needs: No Vision needs: Yes Female Reproductive History Menstrual Age of Menarche: 13 Questionnaire PHQ-9 Over the last 2 weeks, how often have you been bothered by any of the following problems? 1. Little interest or pleasure in doing things: not at all 2. Feeling down, depressed, or hopeless: not at all 3. Trouble falling or staying asleep, or sleeping too much: not at all 4. Feeling tired or having little energy: not at all 5. Poor appetite or overeating: not at all 6. Feeling bad about yourself - or that you are a failure or have let yourself or your family down: not at all 7. Trouble concentrating on things, such as reading the newspaper or watching television: not at all 8. Moving or speaking so slowly that other people could have noticed. Or the opposite - being so fidgety or restless that you have been moving around a lot more than usual: not at all 9. Thoughts that you would be better off or of hurting yourself in some way: not at all Total score: 0 Depression Screening Interpretation: Negative Depression Screening Done: Yes 80807 - PHQ-9 Billing: Yes Source: Developed by Drs. Francois Rick, Chaya Villareal, Mj He and colleagues, with an educational nereida from [employer]. Thrive Questionnaire Date Thrive assessed: 10/19/23 I am a: Patient What is your living situation today?: I have a steady place to live Within the past 12 months, did the food you bought not last and you didn't have the money to get more?: Never true Within the past 12 months, did you worry whether your food would run out before you got money to buy more?: Never true Do you have trouble paying for medicines?: No Do you have trouble getting transportation to medical appointments?: No Do you have trouble paying your heating and electricity bill?: No Do you have trouble taking care of your child, family member or friend?: No Do you have trouble with day-to-day activities such as bathing, preparing meals, shopping, managing finances, etc.?: No Are you currently unemployed and looking for a job?: No Are you interested in more education?: No Please select the resources that you would like help with: None Currently or been in a relationship where the following occur: No concerns reported THRIVE Score: 0 AUDIT C Alcohol Use Questionnaire (AUDIT-C) 1. How often do you have a drink containing alcohol?: Never 2. How many drinks containing alcohol do you have on a typical day when you are drinking?: 1 or 2 3. How often do you have six or more drinks on one occasion?: Never Total Score: 0 Score Reviewed/Action Taken: Yes JAIDA-7 AMB Questionnaire JAIDA-7 Date JAIDA - 7 assessed: 10/19/23 Feeling nervous, anxious, or on edge: 0 = Not at all Not being able to stop or control worryin = Not at all Worrying too much about different things: 0 = Not at all Trouble relaxin = Not at all Being so restless that it is hard to sit still: 0 = Not at all Becoming easily annoyed or irritable: 0 = Not at all Feeling afraid as if something awful might happen: 0 = Not at all Total JAIDA-7 score (0-4 normal; 5-9 mild; 10-14 moderate; 15-21 severe): 0 Source: Developed by Drs. Francois Rick, Chaya Villareal, Mj He and colleagues, with an educational nereida from [employer]. Review of Systems Const Denies chills, Denies fatigue, Denies fever(s) and Denies headache(s) ENT Denies dysphagia, Denies dizziness, Denies otalgia, Denies headache(s), Denies n edmundo pain, Denies odynophagia and Denies sore throat Card Denies chest pain, Denies rapid heart rate, Denies palpitations and Denies dyspnea Resp Denies chest congestion, Denies cough and Denies dyspnea GI Details: c/o perianal irritation/itching lately Denies abdominal pain, Denies constipation, Denies dysphagia, Denies heartburn, Denies diarrhea, Denies nausea, Denies odynophagia and Reports vomiting (occasionally, usually occurring after she eats) Denies urinary frequency, Reports nocturia, Denies dysuria, Denies urinary urgency, Denies vaginal discharge and Reports vaginal pruritus (irritation) Musc Reports back pain (over the mid-thoracic area ) and Denies neck pain Skin/Breast Denies rash Neuro Denies dizziness and Denies headache(s) Endo Denies fatigue and Denies palpitations Physical exam (Primary Care) Vital Signs: Last Vital Signs Pulse 77 10/19/23 14:41 BP 112/68 10/19/23 14:41 Pulse Ox 96 10/19/23 14:41 Oxygen Delivery Method Room Air 10/19/23 14:41 BMI result Body Mass Index 29.2 Tobacco/Smoking Status: Tobacco use Status Tobacco use date assessed 10/19/23 10/19/23 14:42 Patient Tobacco Use Status Never used Tobacco 10/19/23 14:42 e-Cigarette/Vaping Use Never Used 10/19/23 14:42 PHQ-9: PHQ-9 Score PHQ-9: Total score 0 10/20/23 05:24 Depression Screening Interpretation: Negative Thrive Assessment: Date of Thrive Assessment Date Thrive assessed 10/19/23 10/19/23 14:42 Currently or been in a relationship where the following occur: No concerns reported Const General: no acute distress and alert HENMT Ears: TM's normal bilaterally and EAC's normal Throat: Yes posterior oropharynx normal and Yes tonsils normal (no TP congestion) Neck Neck: Yes no lymphadenopathy and Yes supple Thyroid: Thyroid normal Resp Auscultation: clear to auscultation bilaterally, no rales and no wheezes Cardio Rate: regular rate Rhythm: regular rhythm Heart sounds: no murmurs GI Palpation (GI): Soft to palpation and nontender Auscultation: normal bowel sounds General: Yes no CVA tenderness Back/Spine/Pelvis Back: no CVA tenderness Thoracic/Lumbar Spine: paraspinal muscle tenderness bilaterally in the mid thoracic and in the lower thoracic and No lumbar spinal tenderness Skin Rashes: no rashes Extrem General: Yes no clubbing, cyanosis or edema Results Reviewed Results Reviewed: Laboratory Tests 10/15/23 10/15/23 08:59 09:00 WBC 5.4 Hgb 13.0 Hct 39.1 Plt Count 243 Sodium 142 Potassium 4.1 Creatinine 0.71 Estimated GFR > 60 Fasting Glucose 130 H Hemoglobin A1c % 7.2 H Calcium 9.4 AST 18 ALT 21 Triglycerides 92 Cholesterol 163 LDL Cholesterol, Calc 82 HDL Cholesterol 63 Vitamin B12 605 25-OH Vitamin D Total 72.7 TSH 3.62 Free T4 0.89 Ur Specific [place] 1.020 Urine Protein Negative Urine Glucose (UA) Negative Urine Blood Negative Urine Nitrite Negative Ur Leukocyte Esterase Negative Microalb/Creat Ratio TNP Assessment and Plan Assessment & Plan (1) Diabetes mellitus: Code(s): E11.9 - Type 2 diabetes mellitus without complications Qualifiers: Diabetes mellitus complication status: without complication Diabetes mellitus [facility] insulin use: without center aisle cashier use Diabetes mellitus type: type 2 Qualified Code(s): E11.9 - Type 2 diabetes mellitus without complications Plan: Her HgbA1c was at 7.2% on her labs done a few days ago (was previously at 6.9% a few months ago) - goal is <7.0% Reinforced diabetic diet Continue Metformin ER 1000 mg BID; she was also supposed to be on Farxiga 5 mg Q AM but her prescription log shows that this has not been refilled in a while now so it is likely that patient has not been taking this Have advised patient that her HgbA1c has been steadily rising over the past year (she was at 6.7% back in March 2023) and that if this continues at her next visit, we will need to make some changes or adjustments to her diabetes medications then Follow up with liquid compounder as scheduled (2) Pure hypercholesterolemia: Code(s): E78.00 - Pure hypercholesterolemia, unspecified Plan: Results of her labs done a few days ago reviewed and discussed with patient - she is advised that her cholesterol levels remain at goal but they have also increased slightly from previous Reinforced low cholesterol diet Continue Atorvastatin 20 mg QD Will recheck her labs and fasting lipids in 3 months for follow up (3) Acquired hypothyroidism: Code(s): E03.9 - Hypothyroidism, unspecified Plan: Her TFTs remained normal on her recent labs Continue Levothyroxine 25 mcg QD Will continue to monitor her TFTs regularly (4) Vitamin D deficiency: Code(s): E55.9 - Vitamin D deficiency, unspecified Plan: Continue Vitamin D3 1000 units QD (5) GERD (gastroesophageal reflux disease): Code(s): K21.9 - Gastro-esophageal reflux disease without esophagitis Qualifiers: Esophagitis presence: without esophagitis Qualified Code(s): K21.9 - Gastro-esophageal reflux disease without esophagitis Plan: Reinforced dietary restrictions Continue Pantoprazole 40 mg QD EGD done last year revealed (+) moderate reactive changes in the gastric antral mucosa with minimal chronic inactive gastritis; she was negative for H. pylori, intestinal metaplasia and dysplasia (6) Postprandial vomiting: Code(s): R11.10 - Vomiting, unspecified Plan: We have advised her that if she continues to throw up postprandially for no apparent reason, she should reach out to GI for further evaluation and management For now, will send her for abdominal US for further evaluation (7) Constipation: Code(s): K59.00 - Constipation, unspecified Qualifiers: Constipation type: unspecified constipation type Qualified Code(s): K59.00 - Constipation, unspecified Plan: Reinforced increased oral fluids and dietary fiber Continue Citrucel 500 mg QD, Colace 100 mg QD PRN and Metamucil PRN (8) Allergic rhinitis: Code(s): J30.9 - Allergic rhinitis, unspecified Qualifiers: Allergic rhinitis seasonality: unspecified Allergic rhinitis trigger: unspecified Qualified Code(s): J30.9 - Allergic rhinitis, unspecified Plan: Continue Loratadine 10 mg QD PRN and Fluticasone 50 mcg nasal spray QD PRN (9) Midline thoracic back pain: Code(s): M54.6 - Pain in thoracic spine Qualifiers: Chronicity: acute Qualified Code(s): M54.6 - Pain in thoracic spine Plan: Discussed again that this is likely due to thoracic myofascial strain Will refer her again to physical therapy for further evaluation and management - patient claimed that she was never contacted to schedule her treatment sessions when she was referred to PT at her last visit (10) Vaginal irritation: Code(s): N89.8 - Other specified noninflammatory disorders of vagina Plan: Have advised patient to reach out to her transverse abdominal muscle surgeon regarding this issue - suspect atrophic vaginitis as a possible reason, if she does not have any vaginal irritation or infection going on at this time (11) Insomnia: Code(s): G47.00 - Insomnia, unspecified Qualifiers: Insomnia type: unspecified Qualified Code(s): G47.00 - Insomnia, unspecified Plan: Sleep hygiene reinforced Continue Amitriptyline 50 mg Q HS PRN (has taken Trazodone in the past) (12) Anxiety: Code(s): F41.9 - Anxiety disorder, unspecified Plan: Continue Venlafaxine 75 mg QD (13) Depression: Code(s): F32.A - Depression, unspecified Qualifiers: Active/Remission status: currently active Depression Type: major depressive disorder Major depression episode severity: unspecified Major depression recurrence: recurrent Qualified Code(s): F33.9 - Major depressive disorder, recurrent, unspecified Plan: Continue Venlafaxine 75 mg QD and Amitriptyline 50 mg Q HS; she was also on Mirtazapine 7.5 mg Q HS in the past but appears to have self-discontinued this some time ago Follow up with psychiatry as scheduled (14) Overweight (BMI 25.0-29.9): Code(s): E66.3 - Overweight Plan: Reinforced diet/exercise as tolerated/lose weight Plan Follow up in 3 months Orders: Orders PT Evaluation and Treatment 10/19/23 M54.6 - Pain in thoracic spine US abdomen complete 10/19/23 R11.10 - Vomiting, unspecified Hemoglobin A1c 3 Months E11.9 - Type 2 diabetes mellitus without complications Complete Blood Count Auto Diff 3 Months D64.9 - Anemia, unspecified Lipid Panel 3 Months E78.00 - Pure hypercholesterolemia, unspecified Thyroid Stimulating Hormone 3 Months E03.9 - Hypothyroidism, unspecified Microalbumin, Random (w Creat) 3 Months E11.9 - Type 2 diabetes mellitus without complications Vitamin B12 and Folate 3 Months E53.8 - Deficiency of other specified B group vitamins Comprehensive [place]. Panel Fast 3 Months E78.00 - Pure hypercholesterolemia, unspecified Free T4 (Free Thyroxine) 3 Months E03.9 - Hypothyroidism, unspecified UA CC w/rflx Micro + Cult 3 Months R30.0 - Dysuria Vitamin D 25-OH Total 3 Months E55.9 - Vitamin D deficiency, unspecified Coding Level of Care Code Est Pt Level 4 (04012) Complex EM visit Add On G2211 Diagnoses Type 2 diabetes mellitus without complication, without long-term current use of insulin E11.9 Diabetes mellitus complication status: without complication Diabetes mellitus center aisle cashier insulin use: without [facility] use Diabetes mellitus type: type 2 Pure hypercholesterolemia E78.00 Acquired hypothyroidism E03.9 Vitamin D deficiency E55.9 Gastroesophageal reflux disease without esophagitis K21.9 Esophagitis presence: without esophagitis Postprandial vomiting R11.10 Constipation, unspecified constipation type K59.00 Constipation type: unspecified constipation type Allergic rhinitis, unspecified seasonality, unspecified trigger J30.9 Allergic rhinitis seasonality: unspecified Allergic rhinitis trigger: unspecified Acute midline thoracic back pain M54.6 Chronicity: acute Vaginal irritation N89.8 Insomnia, unspecified type G47.00 Insomnia type: unspecified Anxiety F41.9 Episode of recurrent major depressive disorder, unspecified depression episode severity F33.9 Active/Remission status: currently active Depression Type: major depressive disorder Major depression episode severity: unspecified Major depression recurrence: recurrent Overweight (BMI 25.0-29.9) E66.3
== END 2023-10-19 15:31 | disposition home or self-care (01) ==
PROVIDERS: PCP Internal Medicine; Visit Provider Internal Medicine
DX: E11.9 Type 2 diabetes mellitus without complications (principal); F33.9 Major depressive disorder, recurrent, unspecified; E78.00 Pure hypercholesterolemia, unspecified; E03.9 Hypothyroidism, unspecified; E55.9 Vitamin D deficiency, unspecified; K21.9 Gastro-esophageal reflux disease without esophagitis; R11.10 Vomiting, unspecified; K59.00 Constipation, unspecified; J30.9 Allergic rhinitis, unspecified; M54.6 Pain in thoracic spine; N89.8 Other specified noninflammatory disorders of vagina; G47.00 Insomnia, unspecified
CPT/HCPCS: 99214; G2211

== ENCOUNTER 2023-10-29 15:50 | Outpatient (AMB) | payer OTHER, SELFPAY ==
[2023-10-29 15:53] VITALS: BMI 28.9
--- NOTE | 2023-10-29 15:53 | A.OFFVIS_ITS ---
Vital Signs 10/29/23 15:53 Height 4 ft 11 in Weight 143 lb 4.807 oz BMI 28.9 Intake Visit Reasons: DEXA follow up Site Inspector Required: Yes Site Inspector Language: Mechanist Services: Site Inspector Present (in person) Information Interpreted: non-clinical & clinical Accompanied by: Self / Same As Patient Allergies aspirin [ASPIRIN] Allergy (Mild, Verified 10/29/23 15:54) UPSET STOMACH trazodone Adverse Reaction (Intermediate, Verified 10/29/23 15:54) tiredness Post menopausal: Yes HPI Comments Details: The patient is presenting for follow up regarding DEXA scan results. T score @ spine and femoral Neck respectively were=-2.2 /-0.9 and 10 year FRAX risk = 4.5/0.4 % for severe osteoporosis and fracture. The patient is complaining of itching around the inguinal area is recurrent for yeast infection PFSH Medical History Overweight (BMI 25.0-29.9) Obesity (BMI 30-39.9) Anxiety Insomnia Internal hemorrhoids Allergic rhinitis Constipation Vitamin D deficiency Acquired hypothyroidism Pure hypercholesterolemia Anal pain Other and unspecified hyperlipidemia Type 2 diabetes mellitus with unspecified complications Hx of thyroid cyst Hiatal hernia Diverticulosis Depression with anxiety Hypothyroidism GERD (gastroesophageal reflux disease) Surgical History H/O tubal ligation History of History of appendectomy Hx of shoulder surgery History of colonoscopy Family History Father History of heart attack Mother History of heart attack Sister Breast cancer Social History Housing: Apartment Alcohol intake: never Patient Tobacco Use Status: Never used Tobacco e-Cigarette/Vaping Use: Never Used service: No Cognitive needs: No Hearing needs: No Vision needs: Yes Female Reproductive History Menstrual Age of Menarche: 13 Review of Systems Const All systems reviewed & are unremarkable except as noted in HPI and below Reports as per HPI and Reports no additional complaints GI Reports no additional complaints Reports no additional complaints Physical Exam Vital Signs: BMI result Body Mass Index 28.9 Assessment & Plan Assessment & Plan (1) Osteopenia: Code(s): M85.80 - Other specified disorders of bone density and structure, unspecified site Category: Medical Plan: Discussed with the patient the DEXA results and FRAX risk. FRAX risk and T score showed no evidence of osteoporosis. Discussed with the patient all the options for osteoporosis prevention including lifestyle modifications including Ca+D supplements 1200 mg po qd/800 MIU, Weight bearing exercises and proteine supplements. The patient verbalized understanding and agreed plan will repeat DEXA in 2 years. (2) Skin candidiasis: Code(s): B37.2 - Candidiasis of skin and nail Category: Medical Plan: The patient was instructed to keep the area dry, use hair blower after showering, use baby powder without Talc and Desitin cream in addition to a pplying lotrisone cream BID x5 days Medications: New clotrimazole-betamethasone 1-0.05 % 1 appl topical BID 5 days 45 grams 0RF Coding Level of Care Code Est Pt Level 3 (12307) Diagnoses Osteopenia M85.80 Skin candidiasis B37.2
== END 2023-10-29 16:05 | disposition home or self-care (01) ==
LOC: HO.HWS 15:50
PROVIDERS: PCP Internal Medicine; Visit Provider Obstetrics & Gynecology
DX: M85.80 Other specified disorders of bone density and structure, unspecified site (principal); B37.2 Candidiasis of skin and nail
CPT/HCPCS: 99213

== ENCOUNTER → 2023-10-29 15:50 | Outpatient (BNVA) | payer OTHER, SELFPAY | PROVIDERS: PCP Internal Medicine; Visit Provider Obstetrics & Gynecology | DX: M85.80 Other specified disorders of bone density and structure, unspecified site (principal); B37.2 Candidiasis of skin and nail | CPT/HCPCS: 99212 ==

== ENCOUNTER 2023-11-14 08:58 | Outpatient (REF) | payer OTHER, SELFPAY ==
--- NOTE | ~2023-11-14 | US_ITS ---
EXAMINATION: US ABDOMEN COMPLETE CLINICAL INFORMATION: Vomiting, unspecified. COMPARISON: Renal ultrasound 07/06/2022. TECHNIQUE: Real-time imaging of the abdominal viscera. FINDINGS: PANCREAS: The visualized portion of the pancreas head and body are normal, portion of the pancreatic body and tail, not visualized are obscured by bowel gas. ABDOMINAL AORTA: The proximal, mid, and distal segments are normal in caliber. INFERIOR VENA CAVA: Visualized portions are normal. LIVER: The liver is normal in size. The liver contour is normal. No focal hepatic lesion. There is no intrahepatic biliary duct dilatation seen. GALLBLADDER: Normal. The gallbladder is physiologically distended without evidence of stones, sludge, polyps, wall thickening or pericholecystic fluid. COMMON BILE DUCT: Normal in caliber measuring 0.3 cm in diameter. RIGHT KIDNEY: Normal. No hydronephrosis. No renal calculi or focal parenchymal lesions. The kidney measures 9.7 cm in maximum dimension. LEFT KIDNEY: No hydronephrosis or renal calculi. The kidney measures 9.5 cm in maximum dimension. Cyst with peripheral calcification 9 mm, no solid component. These commonly benign, no follow-up imaging is indicated. SPLEEN: Normal. The spleen measures 8.5 cm in maximum dimension. FREE FLUID: None. US/US abdomen complete IMPRESSION: 1. No ultrasound evidence of gallbladder disease or gallstones. 2. No ultrasound explanation for patient's pain symptoms. 3. Cyst with peripheral calcification left kidney 9 mm, commonly benign, no follow-up imaging is indicated. Electronically signed by: Tiffany Orr MD 12/23/2023 06:42 PM [facility]
== END 2023-11-14 08:59 | disposition home or self-care (01) ==
LOC: HO.US 08:58
PROVIDERS: PCP Internal Medicine; Visit Provider Internal Medicine
DX: R11.10 Vomiting, unspecified (principal)
CPT/HCPCS: 76700

== ENCOUNTER 2024-01-23 09:59 | Outpatient (REF) | payer OTHER, SELFPAY ==
--- OUTSIDE RECORDS SUMMARY | 2024-01-23 10:04 | XMS_ITS ---
Author Organization [facility] Address [address] [place] [address] Care Team Providers Care Dean Of Instruction Name Role Phone Horacio PARK, [place] Primary Care Provider Tan Robbins Jr Unavailable REASON FOR VISIT screening,gerd PROBLEMS Problem Type ICD Code Onset Dates Problem Status W/U Status Risk SNOMED Code Notes Problem GERD (gastroesop hageal reflux disease) (K21.9) Active confirmed Gastroesophagea l reflux disease ([id number]) Encounters Encounter Location Date Provider Diagnosis [facility] [place] Outpatient [address], [place] [id number] 12/05/2022 Tan Arellano Jr Encounter for screening colonoscopy Z12.11 and GERD (gastroesophageal reflux disease) K21.9 ASSESSMENTS Encounter Date Diagnosis Assessment Notes Treatment Notes Treatment Clinical Notes 12/05/2022 Encounter for screening colonoscopy (ICD-10 - Z12.11) 12/05/2022 GERD (gastroesophageal reflux disease) (ICD-10 - K21.9) PLAN OF TREATMENT No Information
--- OUTSIDE RECORDS SUMMARY | 2024-01-23 10:04 | XMS_ITS | Patient Health Record ---
Author Organization [facility] Address [address] [place] [address] Care Team Providers Care Laborer Operator Name Role Phone Mita Leonard MDh Primary Care Provider Tan Robbins Jr Unavailable [phone] ALLERGIES Allergen (clinical drug ingredient) Drug/Non Drug Allergy documented on EMR Reaction Allergy Type Onset Date Status aspirin Aspirin Unknown Drug Allergy Active REASON FOR REFERRAL No Information MEDICATIONS Medication SIG (Take, Route, Frequency, Duration) Notes Start Date End Date Status OneTouch Ultra - TEST BLOOD SUGAR TWI CE DAILY In Vitro for 50 Active hydrOXYzine Pamoate 25 MG Oral for 30 Active Mirtazapine 7.5 MG Oral for 30 Active Levothyroxine Sodium 25 MCG Oral for 90 Active Simethicone Ultra Strength 180 MG Oral for 30 Active Ibuprofen 600 MG TAKE 1 TABLET BY ABDIAS TH THREE TIMES DAILY NEEDED FOR PAIN Oral for 30 Active Atorvastatin Calcium 20 MG Oral for 90 Active metFORMIN HCl ER 500 MG TAKE 2 TABLETS B Y MOUTH TWICE DAILY WITH MEALS Diagnosis Unavailable Oral for 90 Active Acetaminophen Extra Strength 500 MG Oral for 15 Active traZODone HCl 50 MG TAKE 1 TABLET BY ABDIAS TH AT BEDTIME Oral for 30 Active Venlafaxine HCl ER 75 MG Oral for 30 Active hydrOXYzine HCl 25 MG TAKE 1 TO 2 TABLET S BY MOUTH AT BEDTIME NEEDED for SLEEP Oral for 30 Active MiraLax (colon prep) 8.3 ounce ((238) grams mixed with Gatorade or Crystal Light orally begin at 5:00 p.m. the day before the procedure for 1 day 07/19/2022 Active Melatonin 5 MG Oral for 30 Act tyesha Pantoprazole Sodium 40 MG TAKE 1 TABLET BY MOUTH EVERY DAY Oral for 90 Active OneTouch Delica Plus [id number] - for 50 Active Dulcolax (colon prep) 5 MG take at 3:00 p.m and 7:00p.m. Orally two tablets twice a day for one day for 1 day 07/19/2022 Active MiraLax (colon prep) 17 GM/SCOOP mixed with Gatorade or Crystal Light Orally begin at 5:00 p.m. the day before the procedure for 1 day 07/17/2022 Active D 1000 25 MCG (1000 UT) CHEW AND SWALLOW 1 TABLET BY MOUTH ONCE DAILY Diagnosis Unavailable Oral for 90 Active OneTouch Ultra 2 w/Device USE TEST BLOOD SUGAR ONCE DAILY DIRECTED Diagnosis Unavailable for 28 Active Clotrimazole-Betamethasone 1-0.05 % External for 14 Active IMMUNIZATIONS Vaccine Route Administration Date Status Comme nts Influenza Unknown 07/17/2022 Refused SOCIAL HISTORY Tobacco Use: Social History Observation Description Date Details (start date - stop date) Never Smoker NA - NA Sex Assigned At : Social History Observation Description Sex Assigned At Unknown Tobacco Use/Smoking Question Answer Notes Patient is a nonsmoker Alcohol Screen Question Answer Notes Did you have a drink containing alcohol in the p ast year? No Points 0 Interpretation Negative PROBLEMS Problem Type ICD Code Onset Dates Problem Status W/U Status Risk SNOMED Code Notes Problem Gastroesophageal reflux disease without esophagitis (K21.9) Active confirmed 935667218 Problem Colon cancer screening (Z12.11) Active confirmed 376672940 Problem Intestinal gas excretion (R14.3) Active confirmed 120035269 Problem GERD (gastroesophageal reflux disease) (K21.9) Active confirmed Gastroesophagea l reflux disease (763054915) PLAN OF TREATMENT Future Test Test Name Order Date UPPER GI ENDOSCOPY 07/17/2022 COLONOSCOPY 07/17/2022 Insurance Providers Payer Name Payer Address Payer Phone Subscriber Number Group Number Insured Name Patient Relationship to Insured Coverage Start Date Coverage End Date [facility] [address] Attn Claims ALICIA Alfaro [id number] [phone] [id number] ANA FRAUSTO Self - patient is the insured MEDICAID OF [employer] [address] [place] [phone] [id number] LISBET, ANA Self - patient is the insured MEDICAL (GENERAL) HISTORY Medical History History ICD Code Hypothyroidism allergic rhinitis Anxiety/depression Diabetes mellitus type 2 diverticulosis gerd Hyperlipidemia vitamin d deficiency Surgical History Surgery Date(Month/Year) section/tubal ligation appendectomy shoulder surgery
--- OUTSIDE RECORDS SUMMARY | 2024-01-23 10:04 | XMS_ITS ---
Author Organization [facility] Address [address] [place] [address] Care Team Providers Care Auth Specialist Name Role Phone Horacio PARK, [place] Primary Care Provider Carmen Arellano Jr, Tan Unavailable [phone] REASON FOR VISIT pathology Encounters Encounter Location Date Provider Diagnosis [facility] [address] [place] [id number] 12/07/2022 Tan Arellano Jr PLAN OF TREATMENT No Information
--- OUTSIDE RECORDS SUMMARY | 2024-01-23 10:04 | XMS_ITS ---
Author Organization [facility] Address [address] [place] [address] Care Team Providers Care Target Developer Name Role Phone Horacio PARK, [place] Primary Care Provider Tan Robbins Jr Unavailable REASON FOR VISIT gerd,screening Encounters Encounter Location Date Provider Diagnosis [facility] [address] [place], [place] [phone] 10/17/2022 Tan Arellano Jr PLAN OF TREATMENT No Information
[2024-01-23 10:19] LABS: MANUAL DIFF FLAG NO
[2024-01-23 10:51] LABS: Eosinophils Percent Auto 0.2 % (0-4); Hematocrit 38.7 % (37.0-47.0); Hemoglobin 12.8 g/dl (12.0-16.0); Imm Gran Abs Auto 0.02 X10*3/uL (0.00-0.03); Imm Gran Pct Auto 0.4 % (0.0-0.4); Lymphocytes Absolute Auto 2.4 X10*3/uL (1.2-4.9); Lymphocytes Percent Auto 45.8 % (20-40); Mean Corpuscular HGB Conc 33.1 g/dl (31.0-35.0); Mean Corpuscular Hemoglobin 27.1 pg (27.0-33.0); Mean Corpuscular Volume 81.8 fL (80.0-98.0); Mean Platelet Volume 9.4 fL (9.4-12.3); Monocytes Absolute Auto 0.5 X10*3/uL (0.1-1.2); Monocytes Percent Auto 8.5 % (2-11); Neutrophils Absolute Auto 2.4 x10*3/uL (2.0-8.3); Neutrophils Percent Auto 45.1 % (45-73); Platelet Count 257 X10*3/uL (160-400); Red Blood Count 4.73 X10*6/uL (4.20-5.50); Red Cell Distribution Width 13.2 % (11.0-16.0); White Blood Count 5.3 X10*3/uL (4.8-10.8)
[2024-01-23 11:02] LABS: Estimated Average Glucose 166 mg/dL; Hemoglobin A1C 185.8984 umol/L; Hemoglobin A1c % 7.4 % (<6.0); Total Hemoglobin (HGBA1C) 3239.7329 umol/L
[2024-01-23 11:03] LABS: Appearance Urine Clear; Color Urine Yellow; Glucose Urine UA Negative (Negative); Leukocyte Esterase Urine Negative (Negative); Nitrite Urine Negative (Negative); PH 6.5 (5.0-9.0); Urine Blood Negative (Negative); Urine Ketones Negative (Negative); Urine Protein Negative (Neg-Trace)
[2024-01-23 11:32] LABS: Alanine Aminotransferase 23 U/L (0-31); Albumin Level 4.5 g/dL (3.5-5.0); Alkaline Phosphatase 59 U/L (39-117); Anion Gap 10 (12-20); Aspartate Amino Transferase 22 U/L (5-31); Bilirubin Total 0.3 mg/dL (0.0-1.0); Blood Urea Nitrogen 19 mg/dL (9-16); Calcium 8.4 mg/dL (8.4-10.2); Carbon Dioxide 30 mmol/L (22-29); Chloride 105 mmol/L (96-108); Cholesterol 133 mg/dL (<200); Estimated Glomerular Filt Rate > 60; Glucose Fasting 115 mg/dL (60-99); HDL Cholesterol 60 mg/dL (>40); LDL Cholesterol Calculated 60 mg/dL (<100); Potassium 3.8 mmol/L (3.3-5.1); Sodium 141 mmol/L (135-145); Total Protein 7.5 g/dL (6.5-8.0); Triglycerides 66 mg/dL (<150)
[2024-01-23 11:33] LABS: Creatinine Urine 93.64 mg/dL; Microalbumin Urine < 5.0 mg/L
[2024-01-23 11:51] LABS: Free T4 (Free Thyroxine) 1.09 ng/dL (0.71-1.85); Thyroid Stimulating Hormone 2.95 uIU/mL (0.32-4.0); Vitamin D 25-OH Total 76.2 ng/mL (>30)
[2024-01-23 11:55] LABS: Folate 12.8 ng/mL (> or = 4.0); Vitamin B12 743 pg/mL (200-900)
== END 2024-01-23 10:00 | disposition home or self-care (01) ==
LOC: HO.LAB 09:59
PROVIDERS: PCP Internal Medicine; Visit Provider Internal Medicine
DX: D64.9 Anemia, unspecified (principal); E11.9 Type 2 diabetes mellitus without complications; E53.8 Deficiency of other specified B group vitamins; E78.00 Pure hypercholesterolemia, unspecified; R30.0 Dysuria; E55.9 Vitamin D deficiency, unspecified; E03.9 Hypothyroidism, unspecified
CPT/HCPCS: 36415; 80053; 80061; 81003; 82043; 82306; 82570; 82607; 82746; 83036; 84439; 84443; 85025

== ENCOUNTER 2024-01-25 14:43 | Outpatient (AMB) | payer OTHER, SELFPAY ==
--- NOTE | 2024-01-25 14:45 | MHC.PC.OV ---
Vital Signs 01/25/24 14:46 Height 4 ft 11 in Weight 149 lb 2 oz BMI 30.1 BP 120/62 Blood Pressure Location Lt brachial Position Sitting Pulse 82 Pulse Source Pulse Oximeter Pulse Oximetry (%) 98 Oxygen Delivery Method Room Air Intake Visit Reasons: 3 month f/u Program Therapist Required: No Accompanied by: Self / Same As Patient Allergies aspirin [ASPIRIN] Allergy (Mild, Verified 01/25/24 15:07) UPSET STOMACH trazodone Adverse Reaction (Intermediate, Verified 01/25/24 15:07) tiredness Medication List - Last Reconciled 01/25/24 by Ramírez Leonard MD acetaminophen (Tylenol Extra Strength) 500 mg PO Q6-8H PRN amitriptyline 50 mg PO BEDTIME atorvastatin 20 mg PO DAILY [BATH MAT As directed] blood sugar diagnostic (FreeStyle Lite Strips) As directed once a day blood sugar diagnostic (OneTouch Ultra Test strips) As directed once a day blood-glucose meter (FreeStyle Lite Meter kit) As directed blood-glucose meter (OneTouch Ultra2 Meter) As directed once a day cholecalciferol (vitamin D3) (Vitamin D3) 25 mcg PO DAILY clotrimazole-betamethasone 1-0.05 % 1 appl topical BID 5 days [DISPOSABLE WIPES (3 packages a month) As directed] [HAND HELD SHOWER HEAD As directed] hydrocortisone 2.5% 1 appl topical BID PRN ibuprofen 600 mg PO TID PRN 30 days lancets (FreeStyle Lancets) As directed once a day lancets (OneTouch UltraSoft 2 Lancet) As directed levothyroxine 25 mcg PO DAILY metformin ER 1,000 mg (2 x 500 mg) PO BID 30 days [PANTILINERS (3 / day) As directed] pantoprazole 40 mg PO DAILY simethicone 180 mg PO TID venlafaxine ER 75 mg PO DAILY [WASHABLE BED PADS (2 per month) As directed] Tobacco use date assessed: 01/25/24 Fall risk assessment: No Falls in past year Last assessed Fall Risk: 01/25/24 Dental Screening Dental Screen Date: 01/25/24 Did you have a dental visit in the last 12 months?: No Did you have a dental problem in the last 6 months where you did not have access to dental care?: No Was dental information given to patient?: No HPI 3 month f/u HPI Details Patient comes in today for her follow up visit States that she currently feels okay She denies any headaches or dizziness Denies any chest pains, no SOB No nausea/vomiting, no abdominal pain No change in bowel habits noted Thinks she needs all of her Rx refilled She had her follow up labs done a couple of days ago - to discuss her results [facility] Medical History (Updated 01/25/24 @ 15:13 by Ramírez Leonard MD) Obesity (BMI 30-39.9) Anxiety Insomnia Internal hemorrhoids Allergic rhinitis Constipation Vitamin D deficiency Acquired hypothyroidism Pure hypercholesterolemia Anal pain Type 2 diabetes mellitus with unspecified complications Hx of thyroid cyst Hiatal hernia Diverticulosis Depression with anxiety Hypothyroidism GERD (gastroesophageal reflux disease) Surgical History H/O tubal ligation History of History of appendectomy Hx of shoulder surgery History of colonoscopy Family History Father History of heart attack Mother History of heart attack Sister Breast cancer Social History Housing: Apartment Alcohol intake: never Patient Tobacco Use Status: Never used Tobacco e-Cigarette/Vaping Use: Never Used service: No Cognitive needs: No Hearing needs: No Vision needs: Yes Female Reproductive History Menstrual Age of Menarche: 13 Questionnaire PHQ-9 Over the last 2 weeks, how often have you been bothered by any of the following problems? 1. Little interest or pleasure in doing things: not at all 2. Feeling down, depressed, or hopeless: not at all 3. Trouble falling or staying asleep, or sleeping too much: not at all 4. Feeling tired or having little energy: not at all 5. Poor appetite or overeating: not at all 6. Feeling bad about yourself - or that you are a failure or have let yourself or your family down: not at all 7. Trouble concentrating on things, such as reading the newspaper or watching television: not at all 8. Moving or speaking so slowly that other people could have noticed. Or the opposite - being so fidgety or restless that you have been moving around a lot more than usual: not at all 9. Thoughts that you would be better off or of hurting yourself in some way: not at all Total score: 0 Depression Screening Interpretation: Negative Depression Screening Done: Yes 13684 - PHQ-9 Billing: Yes Source: Developed by Drs. Francois Rick, Chaya Villareal, Mj He and colleagues, with an educational nereida from [employer]. Thrive Questionnaire Date Thrive assessed: 01/25/24 I am a: Patient What is your living situation today?: I have a steady place to live Within the past 12 months, did the food you bought not last and you didn't have the money to get more?: Never true Within the past 12 months, did you worry whether your food would run out before you got money to buy more?: Never true Do you have trouble paying for medicines?: No Do you have trouble getting transportation to medical appointments?: No Do you have trouble paying your heating and electricity bill?: No Do you have trouble taking care of your child, family member or friend?: No Do you have trouble with day-to-day activities such as bathing, preparing meals, shopping, managing finances, etc.?: No Are you currently unemployed and looking for a job?: No Are you interested in more education?: No Please select the resources that you would like help with: None Currently or been in a relationship where the following occur: No concerns reported THRIVE Score: 0 AUDIT C Alcohol Use Questionnaire (AUDIT-C) 1. How often do you have a drink containing alcohol?: Never 2. How many drinks containing alcohol do you have on a typical day when you are drinking?: 1 or 2 3. How often do you have six or more drinks on one occasion?: Never Total Score: 0 Score Reviewed/Action Taken: Yes JAIDA-7 AMB Questionnaire JAIDA-7 Date JAIDA - 7 assessed: 01/25/24 Feeling nervous, anxious, or on edge: 0 = Not at all Not being able to stop or control worryin = Not at all Worrying too much about different things: 0 = Not at all Trouble relaxin = Not at all Being so restless that it is hard to sit still: 0 = Not at all Becoming easily annoyed or irritable: 0 = Not at all Feeling afraid as if something awful might happen: 0 = Not at all Total JAIDA-7 score (0-4 normal; 5-9 mild; 10-14 moderate; 15-21 severe): 0 Source: Developed by Drs. Francois Rick, Chaya Villareal, Mj He and colleagues, with an educational nereida from [employer]. Review of Systems Const Denies chills, Denies fatigue, Denies fever(s) and Denies headache(s) ENT Denies dysphagia, Denies dizziness, Denies otalgia, Denies headache(s), Denies neck pain, Denies odynophagia and Denies sore throat Card Denies chest pain, Denies rapid heart rate, Denies palpitations and Denies dyspnea Resp Denies chest congestion, Denies cough and Denies dyspnea GI Denies abdominal pain, Denies constipation, Denies dysphagia, Denies heartburn, Denies diarrhea, Denies nausea, Denies odynophagia and Denies vomiting Denies urinary frequency, Reports nocturia, Denies dysuria and Denies urinary urgency Musc Denies back pain and Denies neck pain Skin/Breast Denies rash Neuro Denies dizziness and Denies headache(s) Endo Denies fatigue and Denies palpitations Physical exam (Primary Care) Vital Signs: Last Vital Signs Pulse 82 01/25/24 14:46 BP 120/62 01/25/24 14:46 Pulse Ox 98 01/25/24 14:46 Oxygen Delivery Method Room Air 01/25/24 14:46 BMI result Body Mass Index 30.1 Tobacco/Smoking Status: Tobacco use Status Tobacco use date assessed 01/25/24 01/25/24 14:51 Patient Tobacco Use Status Never used Tobacco 01/25/24 14:51 e-Cigarette/Vaping Use Never Used 01/25/24 14:51 PHQ-9: PHQ-9 Score PHQ-9: Total score 0 01/25/24 15:14 Depression Screening Interpretation: Negative Thrive Assessment: Date of Thrive Assessment Date Thrive assessed 01/25/24 01/25/24 14:51 Currently or been in a relationship where the following occur: No concerns reported Const General: no acute distress and alert HENMT Ears: TM's normal bilaterally and EAC's normal Throat: Yes posterior oropharynx normal and Yes tonsils normal (no TP congestion) Neck Neck: Yes supple and No lymphadenopathy Thyroid: Thyroid normal Resp Auscultation: clear to auscultation bilaterally, no rales and no wheezes Cardio Rate: regular rate Rhythm: regular rhythm Heart sounds: no murmurs GI Palpation (GI): Soft to palpation and nontender Auscultation: normal bowel sounds General: Yes no CVA tenderness Back/Spine/Pelvis Back: no CVA tenderness Thoracic/Lumbar Spine: No lumbar spinal tenderness Skin Rashes: no rashes Extrem General: Yes no clubbing, cyanosis or edema Results Reviewed Results Reviewed: Laboratory Tests 01/23/24 01/23/24 10:09 10:11 WBC 5.3 Hgb 12.8 Hct 38.7 Plt Count 257 Sodium 141 Potassium 3.8 Creatinine 0.63 Estimated GFR > 60 Fasting Glucose 115 H Hemoglobin A1c % 7.4 H Calcium 8.4 D AST 22 ALT 23 Triglycerides 66 Cholesterol 133 LDL Cholesterol, Calc 60 HDL Cholesterol 60 Vitamin B12 743 25-OH Vitamin D Total 76.2 TSH 2.95 Free T4 1.09 Ur Specific [place] 1.020 Urine Protein Negative Urine Glucose (UA) Negative Urine Blood Negative Urine Nitrite Negative Ur Leukocyte Esterase Negative Coding Level of Care Code Est Pt Level 4 (68118) Complex EM visit Add On G2211 Diagnoses Type 2 diabetes mellitus without complication, without long-term current use of insulin E11.9 Diabetes mellitus complication status: without complication Diabetes mellitus emt intermediate insulin use: without emt intermediate use Diabetes mellitus type: type 2 Pure hypercholesterolemia E78.00 Acquired hypothyroidism E03.9 Vitamin D deficiency E55.9 Gastroesophageal reflux disease without esophagitis K21.9 Esophagitis presence: without esophagitis Constipation, unspecified constipation type K59.00 Constipation type: unspecified constipation type Allergic rhinitis, unspecified seasonality, unspecified trigger J30.9 Allergic rhinitis seasonality: unspecified Allergic rhinitis trigger: unspecified Insomnia, unspecified type G47.00 Insomnia type: unspecified Anxiety F41.9 Episode of recurrent major depressive disorder, unspecified depression episode severity F33.9 Active/Remission status: currently active Depression Type: major depressive disorder Major depression episode severity: unspecified Major depression recurrence: recurrent Overweight (BMI 25.0-29.9) E66.3 Additional Codes PHQ-9 - 36680 - PHQ-9 Billing: Yes ([id number]) Assessment & Plan Assessment & Plan (1) Diabetes mellitus: Code(s): E11.9 - Type 2 diabetes mellitus without complications Category: Medical Qualifiers: Diabetes mellitus complication status: without complication Diabetes mellitus chcf insulin use: without chcf use Diabetes mellitus type: type 2 Qualified Code(s): E11.9 - Type 2 diabetes mellitus without complications Plan: Her HgbA1c was at 7.4% on her labs done a couple of days ago (was previously at 7.2% a few months ago) - goal is <7.0% Reinforced diabetic diet Continue Metformin ER 1000 mg BID; she was also supposed to be on Farxiga 5 mg Q AM but her prescription log shows that this has not been refilled in a while now so it is likely that patient has not been taking this Have advised patient again that her HgbA1c has been steadily rising over the past year (she was at 6.7% back in March 2023) and that if this continues at her next visit, we will really need to make some changes or adjustments to her diabetes medications then Follow up with die maker trim as scheduled (2) Pure hypercholesterolemia: Code(s): E78.00 - Pure hypercholesterolemia, unspecified Category: Medical Plan: Results of her labs done a couple of days ago reviewed and discussed with patient - her cholesterol levels remain at goal Reinforced low cholesterol diet Continue Atorvastatin 20 mg QD Will recheck her labs and fasting lipids in 3 months for follow up (3) Acquired hypothyroidism: Code(s): E03.9 - Hypothyroidism, unspecified Category: Medical Plan: Her TFTs remained normal on her recent labs Continue Levothyroxine 25 mcg QD Will continue to monitor her TFTs regularly (4) Vitamin D deficiency: Code(s): E55.9 - Vitamin D deficiency, unspecified Category: Medical Plan: Continue Vitamin D3 1000 units QD (5) GERD (gastroesophageal reflux disease): Code(s): K21.9 - Gastro-esophageal reflux disease without esophagitis Category: Medical Qualifiers: Esophagitis presence: without esophagitis Qualified Code(s): K21.9 - Gastro-esophageal reflux disease without esophagitis Plan: Reinforced dietary restrictions Continue Pantoprazole 40 mg QD EGD done last year revealed (+) moderate reactive changes in the gastric antral mucosa with minimal chronic inactive gastritis; she was negative for H. pylori, intestinal metaplasia and dysplasia (6) Constipation: Code(s): K59.00 - Constipation, unspecified Category: Medical Qualifiers: Constipation type: unspecified constipation type Qualified Code(s): K59.00 - Constipation, unspecified Plan: Reinforced again on increased oral fluids and dietary fiber Continue Citrucel 500 mg QD, Colace 100 mg QD PRN and Metamucil PRN (7) Allergic rhinitis: Code(s): J30.9 - Allergic rhinitis, unspecified Category: Medical Qualifiers: Allergic rhinitis seasonality: unspecified Allergic rhinitis trigger: unspecified Qualified Code(s): J30.9 - Allergic rhinitis, unspecified Plan: Continue Loratadine 10 mg QD PRN and Fluticasone 50 mcg nasal spray QD PRN (8) Insomnia: Code(s): G47.00 - Insomnia, unspecified Category: Medical Qualifiers: Insomnia type: unspecified Qualified Code(s): G47.00 - Insomnia, unspecified Plan: Sleep hygiene again reinforced Continue Amitriptyline 50 mg Q HS PRN (has taken Trazodone in the past) (9) Anxiety: Code(s): F41.9 - Anxiety disorder, unspecified Category: Medical Plan: Continue Venlafaxine 75 mg QD (10) Depression: Code(s): F32.A - Depression, unspecified Category: Medical Qualifiers: Active/Remission status: currently active Depression Type: major depressive disorder Major depression episode severity: unspecified Major depression recurrence: recurrent Qualified Code(s): F33.9 - Major depressive disorder, recurrent, unspecified Plan: Continue Venlafaxine 75 mg QD and Amitriptyline 50 mg Q HS; she was also on Mirtazapine 7.5 mg Q HS in the past but appears to have self-discontinued this some time ago Follow up with psychiatry as scheduled (11) Overweight (BMI 25.0-29.9): Code(s): E66.3 - Overweight Category: Medical Plan: Reinforced diet/exercise as tolerated/lose weight Plan Follow up in 3 months Orders: Orders Comprehensive Marshall. Panel Fast 3 Months E78.00 - Pure hypercholesterolemia, unspecified Lipid Panel 3 Months E78.00 - Pure hypercholesterolemia, unspecified Hemoglobin A1c 3 Months E11.9 - Type 2 diabetes mellitus without complications TSH reflex Free T4 3 Months E78.00 - Pure hypercholesterolemia, unspecified UA CC w/rflx Micro + Cult 3 Months R30.0 - Dysuria Complete Blood Count Auto Diff 3 Months D64.9 - Anemia, unspecified Microalbumin, Random (w Creat) 3 Months E11.9 - Type 2 diabetes mellitus without complications
--- OUTSIDE RECORDS SUMMARY | 2024-01-25 14:45 | XMS_ITS ---
Author Organization [facility] Address [address] [place] [address] Care Team Providers Care Retread Supervisor Name Role Phone Horacio PARK, [place] Primary Care Provider Tan Robbins Jr Unavailable REASON FOR VISIT screening,gerd PROBLEMS Problem Type ICD Code Onset Dates Problem Status W/U Status Risk SNOMED Code Notes Problem GERD (gastroesop hageal reflux disease) (K21.9) Active confirmed Gastroesophagea l reflux disease (242556454) Encounters Encounter Location Date Provider Diagnosis [facility] [place] [address] [place], [place] [phone] 12/05/2022 Tan Arellano Jr Encounter for screening colonoscopy Z12.11 and GERD (gastroesophageal reflux disease) K21.9 ASSESSMENTS Encounter Date Diagnosis Assessment Notes Treatment Notes Treatment Clinical Notes 12/05/2022 Encounter for screening colonoscopy (ICD-10 - Z12.11) 12/05/2022 GERD (gastroesophageal reflux disease) (ICD-10 - K21.9) PLAN OF TREATMENT No Information
--- OUTSIDE RECORDS SUMMARY | 2024-01-25 14:45 | XMS_ITS ---
Author Organization [facility] Address [address] [place] [address] Care Team Providers Care Cosmetic Sales Advisor Name Role Phone Horacio PARK, [place] Primary Care Provider Tan Robbins Jr Unavailable [phone] REASON FOR VISIT gerd,screening Encounters Encounter Location Date Provider Diagnosis [facility] [place] Out[place] [address] [place], [place] [phone] 10/17/2022 Tan Arellano Jr PLAN OF TREATMENT No Information
--- OUTSIDE RECORDS SUMMARY | 2024-01-25 14:45 | XMS_ITS | Patient Health Record ---
Author Organization [facility] Address [address] [place] [address] Care Team Providers Care Psychometrist Name Role Phone Mita Leonard MDh Primary Care Provider Tan Robbins Jr Unavailable [phone] ALLERGIES Allergen (clinical drug ingredient) Drug/Non [...] Oral for 90 Active OneTouch Delica Plus [id number] - for 50 Active Dulcolax (colon prep) [...] reflux disease without esophagitis (K21.9) Active confirmed 488556463 Problem Colon cancer screening (Z12.11) Active confirmed 218146096 Problem Intestinal gas excretion (R14.3) Active confirmed 476573483 Problem GERD (gastroesophageal reflux disease) (K21.9) Active confirmed Gastroesophagea l reflux disease (863266047) PLAN OF TREATMENT Future Test Test Name Order Date UPPER GI ENDOSCOPY 07/17/2022 COLONOSCOPY 07/17/2022 Insurance Providers Payer Name Payer Address Payer Phone Subscriber Number Group Number Insured Name Patient Relationship to Insured Coverage Start Date Coverage End Date [facility] [address] Attn Claims ALICIA Alfaro [id number] ANA FRAUSTO Self - patient is the insured MEDICAID OF [employer] [address] [place] [phone] [id number] LISBET, ANA Self - patient is the insured MEDICAL (GENERAL) HISTORY Medical History History ICD Code Hypothyroidism allergic rhinitis Anxiety/depression Diabetes mellitus type 2 diverticulosis gerd Hyperlipidemia vitamin d deficiency Surgical History Surgery Date(Month/Year) section/tubal ligation appendectomy shoulder surgery
[2024-01-25 14:46] VITALS: BP 120/62; PULSE 82; O2SAT 98; BMI 30.1
== END 2024-01-25 15:25 | disposition home or self-care (01) ==
LOC: HO.HMCH 14:43
PROVIDERS: PCP Internal Medicine; Visit Provider Internal Medicine
DX: E11.9 Type 2 diabetes mellitus without complications (principal); F33.9 Major depressive disorder, recurrent, unspecified; E78.00 Pure hypercholesterolemia, unspecified; F41.9 Anxiety disorder, unspecified; E03.9 Hypothyroidism, unspecified; E55.9 Vitamin D deficiency, unspecified; K21.9 Gastro-esophageal reflux disease without esophagitis; K59.00 Constipation, unspecified; J30.9 Allergic rhinitis, unspecified; G47.00 Insomnia, unspecified; E66.3 Overweight

== ENCOUNTER → 2024-01-25 14:43 | Outpatient (BNVA) | payer OTHER, SELFPAY | PROVIDERS: PCP Internal Medicine; Visit Provider Internal Medicine | DX: E11.9 Type 2 diabetes mellitus without complications (principal); E78.00 Pure hypercholesterolemia, unspecified; E03.9 Hypothyroidism, unspecified; E55.9 Vitamin D deficiency, unspecified; K21.9 Gastro-esophageal reflux disease without esophagitis; K59.00 Constipation, unspecified; J30.9 Allergic rhinitis, unspecified; G47.00 Insomnia, unspecified; F41.9 Anxiety disorder, unspecified; F33.9 Major depressive disorder, recurrent, unspecified; E66.3 Overweight | CPT/HCPCS: 96127; 99212 ==

== ENCOUNTER 2024-04-21 07:19 | Outpatient (REF) | payer OTHER, SELFPAY ==
[2024-04-21 07:33] LABS: MANUAL DIFF FLAG NO
[2024-04-21 07:45] LABS: Basophils Percent Auto 0.2 % (0-2); Eosinophils Percent Auto 0.2 % (0-4); Hematocrit 38.7 % (37.0-47.0); Hemoglobin 12.6 g/dl (12.0-16.0); Imm Gran Abs Auto 0.01 X10*3/uL (0.00-0.03); Imm Gran Pct Auto 0.2 % (0.0-0.4); Lymphocytes Absolute Auto 2.5 X10*3/uL (1.2-4.9); Lymphocytes Percent Auto 46.3 % (20-40); Mean Corpuscular HGB Conc 32.6 g/dl (31.0-35.0); Mean Corpuscular Hemoglobin 26.6 pg (27.0-33.0); Mean Corpuscular Volume 81.6 fL (80.0-98.0); Mean Platelet Volume 9.1 fL (9.4-12.3); Monocytes Absolute Auto 0.5 X10*3/uL (0.1-1.2); Monocytes Percent Auto 9.4 % (2-11); Neutrophils Absolute Auto 2.4 x10*3/uL (2.0-8.3); Neutrophils Percent Auto 43.7 % (45-73); Platelet Count 266 X10*3/uL (160-400); Red Blood Count 4.74 X10*6/uL (4.20-5.50); Red Cell Distribution Width 13.2 % (11.0-16.0); White Blood Count 5.4 X10*3/uL (4.8-10.8)
[2024-04-21 07:55] LABS: Estimated Average Glucose 148 mg/dL; Hemoglobin A1c % 6.8 % (<6.0); Total Hemoglobin (HGBA1C) 3318.2555 umol/L
[2024-04-21 08:07] LABS: Appearance Urine Clear; Color Urine Yellow; Glucose Urine UA Negative (Negative); Leukocyte Esterase Urine Trace (Negative); Nitrite Urine Negative (Negative); UMIC TRIGGER UACC YES; Urine Blood Negative (Negative); Urine Ketones Negative (Negative); Urine Protein Negative (Neg-Trace)
[2024-04-21 08:15] LABS: Bacteria Urine Trace (None Seen); Hyaline Casts Urine 0-2 /LPF (0-2); RBC Urine 0-2 /HPF (0-2); Squamous Epithelial Cell Urine 0-2 /HPF (0-2); WBC Urine 0-5 /HPF (0-5)
[2024-04-21 09:48] LABS: Creatinine Urine 119.61 mg/dL
[2024-04-21 10:05] LABS: Alanine Aminotransferase 18 U/L (0-31); Albumin Level 4.4 g/dL (3.5-5.0); Alkaline Phosphatase 67 U/L (39-117); Anion Gap 13 (12-20); Aspartate Amino Transferase 19 U/L (5-31); Bilirubin Total 0.2 mg/dL (0.0-1.0); Blood Urea Nitrogen 14 mg/dL (9-16); Calcium 9.3 mg/dL (8.4-10.2); Carbon Dioxide 26 mmol/L (22-29); Chloride 107 mmol/L (96-108); Cholesterol 145 mg/dL (<200); Estimated Glomerular Filt Rate > 60; Glucose Fasting 106 mg/dL (60-99); HDL Cholesterol 64 mg/dL (>40); LDL Cholesterol Calculated 70 mg/dL (<100); Sodium 142 mmol/L (135-145); TSH reflex Free T4 3.67 uIU/mL (0.32-4.0); Total Protein 7.6 g/dL (6.5-8.0); Triglycerides 59 mg/dL (<150)
== END 2024-04-21 07:20 | disposition home or self-care (01) ==
LOC: HO.LAB 07:19
PROVIDERS: PCP Internal Medicine; Visit Provider Internal Medicine
DX: E78.00 Pure hypercholesterolemia, unspecified (principal); E11.9 Type 2 diabetes mellitus without complications; D64.9 Anemia, unspecified; R30.0 Dysuria
CPT/HCPCS: 36415; 80053; 80061; 81001; 81003; 82043; 82570; 83036; 84443; 85025

== ENCOUNTER 2024-04-25 15:59 | Outpatient (AMB) | payer OTHER, SELFPAY ==
[2024-04-25 16:10] VITALS: BP 120/78; PULSE 87; O2SAT 97; BMI 29.9
--- NOTE | 2024-04-25 16:10 | A.OFFPC_ITS ---
Vital Signs 04/25/24 16:10 Height 4 ft 11 in Weight 148 lb BMI 29.9 BP 120/78 Blood Pressure Location Lt brachial Position Sitting Pulse 87 Pulse Source Pulse Oximeter Pulse Oximetry (%) 97 Oxygen Delivery Method Room Air Intake Visit Reasons: 3mth f/u Wildlife Protector Required: No Accompanied by: Self / Same As Patient Allergies aspirin [ASPIRIN] Allergy (Mild, Verified 04/25/24 16:33) UPSET STOMACH trazodone Adverse Reaction (Intermediate, Verified 04/25/24 16:33) tiredness Medication List - Last Reconciled 04/25/24 by Ramírez Leonard MD acetaminophen (Tylenol Extra Strength) 500 mg PO Q6-8H PRN amitriptyline 50 mg PO BEDTIME atorvastatin 20 mg PO DAILY [BATH MAT As directed] blood sugar diagnostic (FreeStyle Lite Strips) As directed once a day blood sugar diagnostic (OneTouch Ultra Test strips) As directed once a day blood-glucose meter (FreeStyle Lite Meter kit) As directed blood-glucose meter (OneTouch Ultra2 Meter) As directed once a day cholecalciferol (vitamin D3) (Vitamin D3) 25 mcg PO DAILY clotrimazole-betamethasone 1-0.05 % 1 appl topical BID 5 days [DISPOSABLE WIPES (3 packages a month) As directed] [HAND HELD SHOWER HEAD As directed] hydrocortisone 2.5% 1 appl topical BID PRN ibuprofen 600 mg PO TID PRN 30 days lancets (FreeStyle Lancets) As directed once a day lancets (OneTouch UltraSoft 2 Lancet) As directed levothyroxine 25 mcg PO DAILY metformin ER 1,000 mg (2 x 500 mg) PO BID 30 days [PANTILINERS (3 / day) As directed] pantoprazole 40 mg PO DAILY simethicone 180 mg PO TID venlafaxine ER 75 mg PO DAILY [WASHABLE BED PADS (2 per month) As directed] Tobacco use date assessed: 04/25/24 Fall risk assessment: No Falls in past year Last assessed Fall Risk: 04/25/24 Dental Screening Dental Screen Date: 04/25/24 Did you have a dental visit in the last 12 months?: Yes Did you have a dental problem in the last 6 months where you did not have access to dental care?: No Was dental information given to patient?: Patient has dentist HPI 3mth f/u HPI Details Patient comes in today for her follow up visit States that she feels okay She denies any headaches or dizziness Denies any chest pains, no SOB No nausea/vomiting, no abdominal pain No change in bowel habits noted Needs a couple of her Rx refilled She had her follow up labs done a few days ago - to discuss her results [facility] Medical History Obesity (BMI 30-39.9) Anxiety Insomnia Internal hemorrhoids Allergic rhinitis Constipation Vitamin D deficiency Acquired hypothyroidism Pure hypercholesterolemia Anal pain Type 2 diabetes mellitus with unspecified complications Hx of thyroid cyst Hiatal hernia Diverticulosis Depression with anxiety Hypothyroidism GERD (gastroesophageal reflux disease) Surgical History H/O tubal ligation History of History of appendectomy Hx of shoulder surgery History of colonoscopy Family History Father History of heart attack Mother History of heart attack Sister Breast cancer Social History Housing: Apartment Alcohol intake: never Patient Tobacco Use Status: Never used Tobacco e-Cigarette/Vaping Use: Never Used service: No Cognitive needs: No Hearing needs: No Vision needs: Yes Female Reproductive History Menstrual Age of Menarche: 13 Questionnaire PHQ-9 Over the last 2 weeks, how often have you been bothered by any of the following problems? 1. Little interest or pleasure in doing things: not at all 2. Feeling down, depressed, or hopeless: not at all 3. Trouble falling or staying asleep, or sleeping too much: not at all 4. Feeling tired or having little energy: not at all 5. Poor appetite or overeating: not at all 6. Feeling bad about yourself - or that you are a failure or have let yourself or your family down: not at all 7. Trouble concentrating on things, such as reading the newspaper or watching television: not at all 8. Moving or speaking so slowly that other people could have noticed. Or the opposite - being so fidgety or restless that you have been moving around a lot more than usual: not at all 9. Thoughts that you would be better off or of hurting yourself in some way: not at all Total score: 0 Depression Screening Interpretation: Negative Depression Screening Done: Yes 25004 - PHQ-9 Billing: Yes Source: Developed by Drs. Francois Rick, Chaya Villareal, Mj He and colleagues, with an educational nereida from [employer]. Thrive Questionnaire Date Thrive assessed: 04/25/24 I am a: Patient What is your living situation today?: I have a steady place to live Within the past 12 months, did the food you bought not last and you didn't have the money to get more?: Never true Within the past 12 months, did you worry whether your food would run out before you got money to buy more?: Never true Do you have trouble paying for medicines?: No Do you have trouble getting transportation to medical appointments?: No Do you have trouble paying your heating and electricity bill?: No Do you have trouble taking care of your child, family member or friend?: No Do you have trouble with day-to-day activities such as bathing, preparing meals, shopping, managing finances, etc.?: No Are you currently unemployed and looking for a job?: No Are you interested in more education?: No Please select the resources that you would like help with: None Currently or been in a relationship where the following occur: No concerns reported THRIVE Score: 0 AUDIT C Alcohol Use Questionnaire (AUDIT-C) 1. How often do you have a drink containing alcohol?: Never 2. How many drinks containing alcohol do you have on a typical day when you are drinking?: 1 or 2 3. How often do you have six or more drinks on one occasion?: Never Total Score: 0 Score Reviewed/Action Taken: Yes JAIDA-7 AMB Questionnaire JAIDA-7 Date JAIDA - 7 assessed: 04/25/24 Feeling nervous, anxious, or on edge: 0 = Not at all Not being able to stop or control worryin = Not at all Worrying too much about different things: 0 = Not at all Trouble relaxin = Not at all Being so restless that it is hard to sit still: 0 = Not at all Becoming easily annoyed or irritable: 0 = Not at all Feeling afraid as if something awful might happen: 0 = Not at all Total JAIDA-7 score (0-4 normal; 5-9 mild; 10-14 moderate; 15-21 severe): 0 Source: Developed by Drs. Francois Rick, Chaya Villareal, Mj mohr nd colleagues, with an educational nereida from [employer]. Review of Systems Const Denies chills, Denies fatigue, Denies fever(s) and Denies headache(s) ENT Denies dysphagia, Denies dizziness, Denies otalgia, Denies headache(s), Denies neck pain, Denies odynophagia and Denies sore throat Card Denies chest pain, Denies rapid heart rate, Denies palpitations and Denies dyspnea Resp Denies chest congestion, Denies cough and Denies dyspnea GI Denies abdominal pain, Denies constipation, Denies dysphagia, Denies heartburn, Denies diarrhea, Denies nausea, Denies odynophagia and Denies vomiting Denies urinary frequency, Reports nocturia, Denies dysuria and Denies urinary urgency Musc Denies back pain and Denies neck pain Skin/Breast Denies rash Neuro Denies dizziness and Denies headache(s) Endo Denies fatigue and Denies palpitations Physical exam (Primary Care) Vital Signs: Last Vital Signs Pulse 87 04/25/24 16:10 BP 120/78 04/25/24 16:10 Pulse Ox 97 04/25/24 16:10 Oxygen Delivery Method Room Air 04/25/24 16:10 BMI result Body Mass Index 29.9 Tobacco/Smoking Status: Tobacco use Status Tobacco use date assessed 04/25/24 04/25/24 16:15 Patient Tobacco Use Status Never used Tobacco 04/25/24 16:15 e-Cigarette/Vaping Use Never Used 04/25/24 16:15 PHQ-9: PHQ-9 Score PHQ-9: Total score 0 04/25/24 16:36 Depression Screening Interpretation: Negative Thrive Assessment: Date of Thrive Assessment Date Thrive assessed 04/25/24 04/25/24 16:15 Currently or been in a relationship where the following occur: No concerns reported Const General: no acute distress and alert HENMT Ears: TM's normal bilaterally and EAC's normal Throat: Yes posterior oropharynx normal and Yes tonsils normal (no TP congestion) Neck Neck: Yes supple and No lymphadenopathy Thyroid: Thyroid normal Resp Auscultation: clear to auscultation bilaterally, no rales and no wheezes Cardio Rate: regular rate Rhythm: regular rhythm Heart sounds: no murmurs GI Palpation (GI): Soft to palpation and nontender Auscultation: normal bowel sounds General: Yes no CVA tenderness Back/Spine/Pelvis Back: no CVA tenderness Thoracic/Lumbar Spine: No lumbar spinal tenderness Skin Rashes: no rashes Extrem General: Yes no clubbing, cyanosis or edema Results Reviewed Results Reviewed: Laboratory Tests 04/21/24 04/21/24 07:27 07:32 WBC 5.4 Hgb 12.6 Hct 38.7 Plt Count 266 Sodium 142 Potassium 4.0 Creatinine 0.70 Estimated GFR > 60 Fasting Glucose 106 H Hemoglobin A1c % 6.8 H Calcium 9.3 D AST 19 ALT 18 Triglycerides 59 Cholesterol 145 LDL Cholesterol, Calc 70 HDL Cholesterol 64 TSH 3.67 Ur Specific [place] 1.020 Urine Protein Negative Urine Glucose (UA) Negative Urine Blood Negative Urine Nitrite Negative Ur Leukocyte Esterase Trace H Microalb/Creat Ratio 5.0 Coding Level of Care Code Est Pt Level 4 (50275) Complex EM visit Add On G2211 Diagnoses Type 2 diabetes mellitus without complication, without long-term current use of insulin E11.9 Diabetes mellitus type: type 2 Diabetes 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 insulin use: without dedicated intermodal truck driver use Diabetes mellitus complication status: without complication Pure hypercholesterolemia E78.00 Acquired hypothyroidism E03.9 Vitamin D deficiency E55.9 Gastroesophageal reflux disease without esophagitis K21.9 Esophagitis presence: without esophagitis Constipation, unspecified constipation type K59.00 Constipation type: unspecified constipation type Allergic rhinitis, unspecified seasonality, unspecified trigger J30.9 Allergic rhinitis trigger: unspecified Allergic rhinitis seasonality: unspecified Insomnia, unspecified type G47.00 Insomnia type: unspecified Anxiety F41.9 Episode of recurrent major depressive disorder, unspecified depression episode severity F33.9 Depression Type: major depressive disorder Major depression recurrence: recurrent Active/Remission status: currently active Major depression episode severity: unspecified Overweight (BMI 25.0-29.9) E66.3 Additional Codes PHQ-9 - 68056 - PHQ-9 Billing: Yes ([id number]) Assessment & Plan Assessment & Plan (1) Diabetes mellitus: Code(s): E11.9 - Type 2 diabetes mellitus without complications Category: Medical Qualifiers: Diabetes mellitus type: type 2 Diabetes mellitus longterm insulin use: without dedicated intermodal truck driver use Diabetes mellitus complication status: without complication Qualified Code(s): E11.9 - Type 2 diabetes mellitus without complications Plan: Her HgbA1c was at 6.8% on her labs done a few days ago (was previously at 7.4% a few months ago) - goal is <7.0% Reinforced diabetic diet Continue Metformin ER 1000 mg BID; she was also supposed to be on Farxiga 5 mg Q AM but her prescription log shows that this has not been refilled in a while now so it is likely that patient has not been taking this over the past year or so As she has been able to get her HgbA1c back down from previous, will hold off on making any changes to her medications at this time and keep her on monotherapy with Metformin ER for now Follow up with milling planer operator as scheduled (2) Pure hypercholesterolemia: Code(s): E78.00 - Pure hypercholesterolemia, unspecified Category: Medical Plan: Results of her labs done a few days ago reviewed and discussed with patient Reinforced low cholesterol diet Continue Atorvastatin 20 mg QD Will recheck her labs and fasting lipids in 4 months for follow up (3) Acquired hypothyroidism: Code(s): E03.9 - Hypothyroidism, unspecified Category: Medical Plan: Her TFTs remained normal on her recent labs Continue Levothyroxine 25 mcg QD - Rx refilled Will continue to monitor her TFTs regularly (4) Vitamin D deficiency: Code(s): E55.9 - Vitamin D deficiency, unspecified Category: Medical Plan: Continue Vitamin D3 1000 units QD (5) GERD (gastroesophageal reflux disease): Code(s): K21.9 - Gastro-esophageal reflux disease without esophagitis Category: Medical Qualifiers: Esophagitis presence: without esophagitis Qualified Code(s): K21.9 - Gastro-esophageal reflux disease without esophagitis Plan: Reinforced dietary restrictions Continue Pantoprazole 40 mg QD - Rx refilled EGD done a couple of years ago revealed (+) moderate reactive changes in the gastric antral mucosa with minimal chronic inactive gastritis; she was negative for H. pylori, intestinal metaplasia and dysplasia (6) Constipation: Code(s): K59.00 - Constipation, unspecified Category: Medical Qualifiers: Constipation type: unspecified constipation type Qualified Code(s): K59.00 - Constipation, unspecified Plan: Reinforced again on increased oral fluids and dietary fiber Continue Citrucel 500 mg QD, Colace 100 mg QD PRN and Metamucil PRN (7) Allergic rhinitis: Code(s): J30.9 - Allergic rhinitis, unspecified Category: Medical Qualifiers: Allergic rhinitis trigger: unspecified Allergic rhinitis seasonality: unspecified Qualified Code(s): J30.9 - Allergic rhinitis, unspecified Plan: Continue Loratadine 10 mg QD PRN and Fluticasone 50 mcg nasal spray QD PRN (8) Insomnia: Code(s): G47.00 - Insomnia, unspecified Category: Medical Qualifiers: Insomnia type: unspecified Qualified Code(s): G47.00 - Insomnia, unspecified Plan: Sleep hygiene reinforced Continue Amitriptyline 50 mg Q HS PRN (has taken Trazodone in the past) (9) Anxiety: Code(s): F41.9 - Anxiety disorder, unspecified Category: Medical Plan: Continue Venlafaxine 75 mg QD (10) Depression: Code(s): F32.A - Depression, unspecified Category: Medical Qualifiers: Depression Type: major depressive disorder Major depression recurrence: recurrent Active/Remission status: currently active Major depression episode severity: unspecified Qualified Code(s): F33.9 - Major depressive disorder, recurrent, unspecified Plan: Continue Venlafaxine 75 mg QD and Amitriptyline 50 mg Q HS; she was also on Mirtazapine 7.5 mg Q HS in the past but appears to have self-discontinued this some time ago Follow up with psychiatry as scheduled (11) Overweight (BMI 25.0-29.9): Code(s): E66.3 - Overweight Category: Medical Plan: Reinforced diet/exercise as tolerated/lose weight Plan Follow up in 4 months Orders: Orders Complete Blood Count Auto Diff 4 Months D64.9 - Anemia, unspecified Comprehensive [place]. Panel Fast 4 Months E78.00 - Pure hypercholesterolemia, unspecified UA CC w/rflx Micro + Cult 4 Months R30.0 - Dysuria Hemoglobin A1c 4 Months E11.9 - Type 2 diabetes mellitus without complications Lipid Panel 4 Months E78.00 - Pure hypercholesterolemia, unspecified Free T4 (Free Thyroxine) 4 Months E03.9 - Hypothyroidism, unspecified Microalbumin, Random (w Creat) 4 Months E11.9 - Type 2 diabetes mellitus without complications Vitamin D 25-OH Total 4 Months E55.9 - Vitamin D deficiency, unspecified Thyroid Stimulating Hormone 4 Months E03.9 - Hypothyroidism, unspecified Medications: Changed From levothyroxine 25 mcg PO DAILY To levothyroxine 25 mcg PO DAILY 90 days 90 tabs 0RF Refilled pantoprazole 40 mg PO DAILY 90 tabs 1RF
== END 2024-04-25 16:39 | disposition home or self-care (01) ==
PROVIDERS: PCP Internal Medicine; Visit Provider Internal Medicine
DX: E11.9 Type 2 diabetes mellitus without complications (principal); F33.9 Major depressive disorder, recurrent, unspecified; E78.00 Pure hypercholesterolemia, unspecified; E03.9 Hypothyroidism, unspecified; E55.9 Vitamin D deficiency, unspecified; K21.9 Gastro-esophageal reflux disease without esophagitis; K59.00 Constipation, unspecified; J30.9 Allergic rhinitis, unspecified; G47.00 Insomnia, unspecified; F41.9 Anxiety disorder, unspecified; E66.3 Overweight

== ENCOUNTER → 2024-04-25 15:59 | Outpatient (BNVA) | payer OTHER, SELFPAY | PROVIDERS: PCP Internal Medicine; Visit Provider Internal Medicine | DX: E11.9 Type 2 diabetes mellitus without complications (principal); E78.00 Pure hypercholesterolemia, unspecified; E03.9 Hypothyroidism, unspecified; E55.9 Vitamin D deficiency, unspecified; J30.9 Allergic rhinitis, unspecified; K21.9 Gastro-esophageal reflux disease without esophagitis; G47.00 Insomnia, unspecified; F41.9 Anxiety disorder, unspecified; F33.9 Major depressive disorder, recurrent, unspecified | CPT/HCPCS: 96127; 99212 ==

== ENCOUNTER 2024-05-13 14:23 | Outpatient (AMB) | payer OTHER, SELFPAY ==
--- NOTE | 2024-05-13 14:32 | A.OFFVIS_ITS ---
Vital Signs 05/13/24 14:33 Height 4 ft 11 in Weight 143 lb 4.807 oz BMI 28.9 BP 120/78 Blood Pressure Location Lt brachial Position Sitting Pulse 91 Pulse Source Monitor Intake Visit Reasons: r/s 03/20/24 1 yr followup w/ekg Vice President For Instruction Required: Yes Vice President For Instruction Name: CLAUDIA [id number] Allergies aspirin [ASPIRIN] Allergy (Mild, Verified 04/25/24 16:33) UPSET STOMACH trazodone Adverse Reaction (Intermediate, Verified 04/25/24 16:33) tiredness Medication List - Last Reconciled 05/13/24 by Nick Mcgovern MD acetaminophen (Tylenol Extra Strength) 500 mg PO Q6-8H PRN amitriptyline 50 mg PO BEDTIME atorvastatin 20 mg PO DAILY [BATH MAT As directed] blood sugar diagnostic (FreeStyle Lite Strips) As directed once a day blood sugar diagnostic (OneTouch Ultra Test strips) As directed once a day blood-glucose meter (FreeStyle Lite Meter kit) As directed blood-glucose meter (OneTouch Ultra2 Meter) As directed once a day cholecalciferol (vitamin D3) (Vitamin D3) 25 mcg PO DAILY clotrimazole-betamethasone 1-0.05 % 1 appl topical BID 5 days [DISPOSABLE WIPES (3 packages a month) As directed] [HAND HELD SHOWER HEAD As directed] hydrocortisone 2.5% 1 appl topical BID PRN ibuprofen 600 mg PO TID PRN 30 days lancets (FreeStyle Lancets) As directed once a day lancets (OneTouch UltraSoft 2 Lancet) As directed levothyroxine 25 mcg PO DAILY 90 days metformin ER 1,000 mg (2 x 500 mg) PO BID 30 days [PANTILINERS (3 / day) As directed] pantoprazole 40 mg PO DAILY simethicone 180 mg PO TID venlafaxine ER 75 mg PO DAILY [WASHABLE BED PADS (2 per month) As directed] HPI Comments Details: Saadia returns for follow-up regarding chest pains. In the past, thought to be possibly reflux disease. She still describes somewhat of reflux sounding symptoms where she gets a gaseous sensation in the substernal area. It can happen any time, with or without exertion. She has a history of type 2 diabetes and dyslipidemia. No documented coronary disease or any other cardiac issues. PFSH Medical History Obesity (BMI 30-39.9) Anxiety Insomnia Internal hemorrhoids Allergic rhinitis Constipation Vitamin D deficiency Acquired hypothyroidism Pure hypercholesterolemia Anal pain Type 2 diabetes mellitus with unspecified complications Hx of thyroid cyst Hiatal hernia Diverticulosis Depression with anxiety Hypothyroidism GERD (gastroesophageal reflux disease) Surgical History H/O tubal ligation History of History of appendectomy Hx of shoulder surgery History of colonoscopy Family History Father History of heart attack Mother History of heart attack Sister Breast cancer Social History Housing: Apartment Alcohol intake: never Patient Tobacco Use Status: Never used Tobacco e-Cigarette/Vaping Use: Never Used service: No Cognitive needs: No Hearing needs: No Vision needs: Yes Female Reproductive History Menstrual Age of Menarche: 13 Review of Systems Const Denies weakness ENT Denies dizziness Card Denies chest pain, Denies chest pain with activity, Denies syncope, Denies rapid heart rate, Denies pedal edema, Denies edema, Denies leg edema, Denies lightheadedness, Denies palpitations, Denies dyspnea, Denies dyspnea on exertion and Denies orthopnea Resp Denies cough, Denies dyspnea and Denies dyspnea on exertion GI Denies hematochezia and Denies change in stool character Musc Denies abnormal gait, Denies muscle cramps, Denies muscle weakness, Denies numbness, Denies radiating pain into limb and Denies tingling Neuro Denies abnormal gait, Denies dizziness, Denies syncope, Denies numbness, Denies tingling and Denies weakness Endo Denies palpitations Physical Exam Vital Signs: Last Vital Signs Pulse 91 05/13/24 14:33 BP 120/78 05/13/24 14:33 BMI result Body Mass Index 28.9 Const General: comfortable and no acute distress Orientation/consciousness: patient oriented x3 HEENT Other: Unremarkable Head: Yes normal to inspection Neck Neck: Yes normal visual inspection Chest Chest palpation & inspection: normal inspection of the chest Resp Auscultation: clear to auscultation bilaterally Cardio Palpation: normal PMI Heart sounds: S1 normal heart sound present, S2 normal heart sound present, no gallops, no murmurs and no rubs GI Palpation (GI): Soft to palpation Back/Spine/Pelvis Other: unremarkable Skin General skin exam: no rashes or lesions noted Neuro General: patient oriented x3 Extrem General: Yes normal to inspection Psych Mental Status: mental status grossly normal Office Procedures EKG Details: EKG with underlying sinus rhythm at 91/Min; rightward axis; cannot exclude old septal infarct; [place] [id number], Complete Assessment & Plan Assessment & Plan (1) Precordial chest pain: Code(s): R07.2 - Precordial pain Category: Medical (2) Diabetes mellitus: Code(s): E11.9 - Type 2 diabetes mellitus without complications Category: Medical Qualifiers: Diabetes mellitus type: type 2 Diabetes mellitus senior living insulin use: without intermediate accountant use Diabetes mellitus complication status: without complication Qualified Code(s): E11.9 - Type 2 diabetes mellitus without complications (3) Other and unspecified hyperlipidemia: Code(s): E78.5 - Hyperlipidemia, unspecified Category: Medical Plan Cardiac studies reviewed. Echocardiogram with LVEF of 65%. No wall motion abnormalities and otherwise unremarkable. In the stress test, it seems she exercise for 7.9 METS. She did not reach target heart rate and it seems that she was switched to Lexiscan. During both exercise portion as well as Lexiscan, she did have ST segment downsloping in the EKG portion but no chest pain. Perfusion was unremarkable. Overall, chest pain possibly GI in nature less likely cardiac. To clarify this definitively, we will get a coronary CTA as she had some EKG changes during the exercise portion. Discussed with patient and she is agreeable. Discussed using self pay representative. Orders: Orders CT Cardiac Coronary Angio Today I25.10 - Atherosclerotic heart disease of [place] coronary artery without angina pectoris Coding Level of Care Code Est Pt Level 4 (88280) Complex EM visit Add On G2211 Diagnoses Precordial chest pain R07.2 Type 2 diabetes mellitus without complication, without long-term current use of insulin E11.9 Diabetes mellitus type: type 2 Diabetes mellitus senior living insulin use: without intermediate accountant use Diabetes mellitus complication status: without complication Other and unspecified hyperlipidemia E78.5 CPT Codes EKG - CPT: 94320-[id number], Complete ([id number])
[2024-05-13 14:33] VITALS: BP 120/78; PULSE 91; BMI 28.9
--- OUTSIDE RECORDS SUMMARY | 2024-05-13 17:31 | XMS_ITS | Patient Health Record ---
Author Organization [facility] Address [address] [place] [address] Care Team Providers Care Retoucher Photoengraving Name Role Phone Mita Leonard MDh Primary Care Provider Tan Robbins Jr Unavailable [phone] Allergies Allergen (clinical drug ingredient) Drug/Non Drug Allergy documented on EMR Reaction Allergy Type Onset Date Status aspirin Aspirin Unknown Drug Allergy Active Reason For Referral No Information Medications Medication SIG (Take, Route, Frequency, Duration) Notes [...] Oral for 90 Active OneTouch Delica Plus [id number] - for 50 Active Dulcolax (colon prep) [...] Clotrimazole-Betamethasone 1-0.05 % External for 14 Active Immunizations Vaccine Route Administration Date Status Comme nts Influenza Unknown 07/17/2022 Refused Social History Tobacco Use: Social History Observation Description Date Details (start date - stop date) Never Smoker NA - NA Tobacco Use/Smoking Question Answer Notes Patient is a nonsmoker Alcohol Screen Question Answer Notes Did you have a drink containing alcohol in the p ast year? No Points 0 Interpretation Negative Problems Problem Type SNOMED Code ICD Code Onset Dates Problem Status W/U Status Risk Notes Problem 282343148 Colon cancer screening (Z12.11) Active confirmed Problem 879050415 Gastroesophageal reflux disease without esophagitis (K21.9) Active confirmed Problem Gastroesophageal reflux disease (886000156) GERD (gastroesophageal reflux disease) (K21.9) Active confirmed Problem 637384070 Intestinal gas excretion (R14.3) Active confirmed Plan Of Treatment Future Test Test Name Order Date UPPER GI ENDOSCOPY 07/17/2022 COLONOSCOPY 07/17/2022 Insurance Providers Payer Name Payer Address Payer Phone Subscriber Number Group Number Insured Name Patient Relationship to Insured Coverage Start Date Coverage End Date [facility] [address] Attn Claims ALICIA Alfaro [id number] ANA FRAUSTO Self - patient is the insured MEDICAID OF [employer] [address] [place] [phone] [id number] ANA FRAUSTO Self - patient is the insured Medical (General) History Medical History History ICD Code Hypothyroidism allergic rhinitis Anxiety/depression Diabetes mellitus type 2 diverticulosis gerd Hyperlipidemia vitamin d deficiency Surgical History Surgery Date(Month/Year) section/tubal ligation appendectomy shoulder surgery
--- OUTSIDE RECORDS SUMMARY | 2024-05-13 17:31 | XMS_ITS ---
Author Organization [facility] Address [address] [place] [address] Care Team Providers Care Zoo Keeper Name Role Phone Horacio PARK, [place] Primary Care Provider Carmen Arellano Jr, Tan Yousif REASON FOR VISIT pathology Encounters Encounter Location Date Provider Diagnosis [facility] [address] [place] [address] 12/07/2022 Tan Arellano Jr Plan Of Treatment No Information Progress Notes * NAIMA FRAUTSOADOB:[birth year] (67 yo F)Acc No.[id number]:12/07/2022 Patient:?ANA FRAUSTO :1955???Age:67 Y???Sex:Female Address:[address] [place] [address], [place], [address] * true * Date:? Generated for Tei sada/Mallika/eTransmitting on:?05/13/2024 05:30 PM EDT
--- OUTSIDE RECORDS SUMMARY | 2024-05-13 17:31 | XMS_ITS ---
Author Organization [facility] Address [address] [place] [address] Care Team Providers Care Junction Maker Name Role Phone Horacio PARK, [place] Primary Care Provider Carmen Arellano Jr, Tan Yousif REASON FOR VISIT screening,gerd Problems Problem Type SNOMED Code ICD Code Onset Dates Problem Status W/U Status Risk Notes Problem Gastroesophageal reflux disease (520732853) GERD (gastroeso phageal reflux disease) (K21.9) Active confirmed Encounters Encounter Location Date Provider Diagnosis [facility] [address] [place] [id number] 12/05/2022 Tan Arellano Jr Encounter for screening colonoscopy Z12.11 and GERD (gastroesophageal reflux disease) K21.9 Assessments Encounter Date Diagnosis (ICD Code) Assessment Notes Treatment Notes Treatment Clinical Notes Section Notes 12/05/2022 Encounter for screening colonoscopy (ICD-10 - Z12.11) 12/05/2022 GERD (gastroesophagea l reflux disease) (ICD-10 - K21.9) Plan Of Treatment No Information Progress Notes * NAIMA FRAUSTOADOB:[birth year] (68 yo F)Acc No.[id number]:12/05/2022 EGD and COL/MAC Patient:?ANA FRAUSTO Provider:?Tan Arellano MD :1955???Age:67 Y???Sex:Female D ate:12/05/2022 Address:[address] [place] [address] Pcp:Ramírez Leonard MD Subjective: * Chief Complaints: * ???1. Screening,gerd. * Medical History:? Objective: * Vitals:? Assessment: * Assessment: 1.?Encounter for screening c olonoscopy - Z12.11 (Primary)???2.?GERD (gastroesophageal reflux disease) - K21.9??? Plan: * Treatment: * Procedure Codes:?77552 DIAGN OSTIC COLONOSCOPY, 05155 UPPER GI ENDOSCOPY, BIOPSY * * The named appointment provid er may or may not be the originator of this progress note, and it is not deemed complete until electronically signed by the appointment provider. Sign off status: Pending * Provider:?Tan Arellano MD Date:?1 Generated for Trey tomlin/Mallika/Davidsmitting on:?05/13/2024 05:31 PM EDT
== END 2024-05-13 15:06 | disposition home or self-care (01) ==
LOC: HO.HCS 14:24
PROVIDERS: PCP Internal Medicine; Visit Provider Internal Medicine
DX: R07.2 Precordial pain (principal); E11.9 Type 2 diabetes mellitus without complications; E78.5 Hyperlipidemia, unspecified
CPT/HCPCS: 93010; 99214; G2211

== ENCOUNTER → 2024-05-13 14:23 | Outpatient (BNVA) | payer OTHER, SELFPAY | PROVIDERS: PCP Internal Medicine; Visit Provider Internal Medicine | DX: R07.2 Precordial pain (principal); E78.5 Hyperlipidemia, unspecified; E11.9 Type 2 diabetes mellitus without complications; R94.31 Abnormal electrocardiogram [ECG] [EKG] | CPT/HCPCS: 93005; 99212 ==

== ENCOUNTER 2024-08-04 07:11 | Outpatient (REF) | payer OTHER, SELFPAY ==
--- OUTSIDE RECORDS SUMMARY | 2024-08-04 07:13 | XMS_ITS | Encounter Summary ---
Author Organization [employer] Address [address] [facility] [address] [place] [address] Care Team Providers Care Tester Compressed Gases Name Role Phone Lina Ni MD Primary Care Provide r Encounter Details Date Type Department Care Team (Latest Contact Info) Description 01/05/2021 Abstract [facility] Dental, Provider, DDS Social History Tobacco Use Types Packs/Day Years Used Date Smoking Tobacco: Never Assessed Comments Unknown Sex and Gender Information Value Date Recorded Sex Assigned at Female 12/05/2021 10:29 AM EDT Legal Sex Female 10:29 AM EDT Gender Identity Female 12/05/2021 10:29 AM EDT Sexual Orientation Straight 12/05/2021 10 :29 AM EDT documented as of this encounter Plan of Treatment Not on file documented as of this encounter Visit Diagnoses Not on filedocumented in this encounter Care Teams Tester Compressed Gases Relationship Specialty Start Date End Date Lina Ni MD [address] [place] [address] PCP - General Family Medicine 09/29/20 03/05/23 documented as of this encounter
[2024-08-04 08:32] LABS: Anion Gap 13 (12-20); Blood Urea Nitrogen 16 mg/dL (9-16); Calcium 9.2 mg/dL (8.4-10.2); Carbon Dioxide 24 mmol/L (22-29); Chloride 107 mmol/L (96-108); Estimated Glomerular Filt Rate > 60; Glucose Fasting 123 mg/dL (60-99); Potassium 4.1 mmol/L (3.3-5.1); Sodium 140 mmol/L (135-145)
== END 2024-08-04 07:12 | disposition home or self-care (01) ==
LOC: HO.LAB 07:11
PROVIDERS: PCP Internal Medicine; Visit Provider Internal Medicine
DX: R07.9 Chest pain, unspecified (principal); Z82.49 Family history of ischemic heart disease and other diseases of the circulatory system
CPT/HCPCS: 36415; 80048

== ENCOUNTER 2024-08-27 06:55 | Outpatient (REF) | payer OTHER, SELFPAY ==
[2024-08-27 07:09] LABS: MANUAL DIFF FLAG NO
[2024-08-27 08:07] LABS: Hematocrit 37.9 % (37.0-47.0); Hemoglobin 12.8 g/dl (12.0-16.0); Imm Gran Abs Auto 0.01 X10*3/uL (0.00-0.03); Imm Gran Pct Auto 0.2 % (0.0-0.4); Lymphocytes Absolute Auto 3.1 X10*3/uL (1.2-4.9); Mean Corpuscular HGB Conc 33.8 g/dl (31.0-35.0); Mean Corpuscular Hemoglobin 26.8 pg (27.0-33.0); Mean Corpuscular Volume 79.5 fL (80.0-98.0); NRBC Abs Auto 0.000 X10*3/uL (0.0-0.012); NRBC Pct Auto 0.0 /100WBC (0.0-0.2); Platelet Count 262 X10*3/uL (160-400); Red Blood Count 4.77 X10*6/uL (4.20-5.50); White Blood Count 5.9 X10*3/uL (4.8-10.8)
[2024-08-27 08:18] LABS: Hemoglobin A1C 179.6333 umol/L; Total Hemoglobin (HGBA1C) 3318.3897 umol/L
[2024-08-27 08:38] LABS: Alanine Aminotransferase 24 U/L (0-31); Albumin Level 4.6 g/dL (3.5-5.0); Alkaline Phosphatase 66 U/L (39-117); Anion Gap 14 (12-20); Aspartate Amino Transferase 23 U/L (5-31); Blood Urea Nitrogen 16 mg/dL (9-16); Calcium 8.7 mg/dL (8.4-10.2); Carbon Dioxide 24 mmol/L (22-29); Chloride 106 mmol/L (96-108); Cholesterol 194 mg/dL (<200); Estimated Glomerular Filt Rate > 60; HDL Cholesterol 69 mg/dL (>40); Potassium 4.0 mmol/L (3.3-5.1); Sodium 140 mmol/L (135-145); Total Protein 7.2 g/dL (6.5-8.0); Triglycerides 105 mg/dL (<150)
[2024-08-27 09:01] LABS: Free T4 (Free Thyroxine) 0.97 ng/dL (0.71-1.85); Thyroid Stimulating Hormone 5.75 uIU/mL (0.32-4.0)
== END 2024-08-27 06:56 | disposition home or self-care (01) ==
LOC: HO.LAB 06:55
PROVIDERS: PCP Internal Medicine; Visit Provider Internal Medicine
DX: E11.9 Type 2 diabetes mellitus without complications (principal); E78.00 Pure hypercholesterolemia, unspecified; E03.9 Hypothyroidism, unspecified; D64.9 Anemia, unspecified; E55.9 Vitamin D deficiency, unspecified; R30.0 Dysuria
CPT/HCPCS: 36415; 80053; 80061; 82306; 83036; 84439; 84443; 85025

== ENCOUNTER 2024-08-28 08:28 | Outpatient (REF) | payer OTHER, SELFPAY ==
[2024-08-28 08:42] LABS: Appearance Urine Clear; Glucose Urine UA Negative (Negative); PH 5.5 (5.0-9.0); Specific Gravity - Urine 1.015 (1.005-1.025)
--- OUTSIDE RECORDS SUMMARY | 2024-08-28 08:48 | XMS_ITS | Data Portability ---
Author Organization [facility] [email or web address] [facility], [facility] Address [address] [place] [address] Care Team Providers Care Superintendent Production Name Role Phone HIM CCA OTHER Assessment No assessment recorded. Plan of Treatment Reminders Order Date Submit Date Provider Last Modified By Organization Details Last Modified Time Details Appointments None recorded. Lab BMP, serum or plasma 2024 [facility], [address] [place] [address], [id number] 21:48:18 culture, urine 2024 [facility] (Centralized Electronic Ordering - All Locations), Patient Can Go To The Location Of Their Choice, [address] 12:06:39 urinalysis, dipstick 2024 [facility], [address] [place] [address], [id number] 21:48:36 Referral None recorded. Procedures None recorded. Surgeries None recorded. Imaging electrocard iogram 2024 [facility], [address] [place] [address], [id number] 18:19:19 Medication Orders lactated Ringers intravenous solution 2024 025 [facility], [address] [place] [address], [id number], 17:38:59 Cipro 250 mg tablet 2024 025 [facility], [address] [place], [place], [id number], 17:50:59 ciprofloxac in 500 mg tablet 2024 025 [facility], [address] [facility], [place], [place], [id number], 10:15:26 Patient TargetsNo targets recorded. Patient InstructionsNo instructions recorded. Reason for Referral None Reported. Results Created Date Observation Date Name Description Value Unit Range Abnormal Flag Note LastModifiedBy Organization Detail LastModifiedTime 05/22/1905/24/2024 URINE CULTU RE,CO MPREH ENSIV E urine culture,comp rehensive Final report Not Available [facility] ([facility]) [address] [facility], [place], [address], 05/24/2024 08:10:41 05/22/1905/24/2024 URINE CULTU RE,CO MPREH ENSIV E result 1 COMMEN T No growt h in 36 - 48 hours . Not Available [facility] ([facility]) [address] [facility], [place], [address], 05/24/2024 08:10:41 05/22/1905/21/2024 elect rocar diogr am No observ ation record ed. [address], [phone] 05/21/2024 18:19:18 Result Notes None recorded. Medical Equipment None Reported. Allergies Allergen ID Allergen Name Allergen Category Reaction Reaction Severity Criticality Documentation Date Start Date Code Code System Note Provider Name and Address Organization Details Recorded Time 90247 aspirin medicatio n Not available Not available Not available 05/21/2024 1191 [facility] Not Available [facility] - production 11:06:13 Medications Name Sig Start Date Stop Date Status Note LastModified by Organization Details LastModified Time amoxicillin 500 mg capsule TAKE 1 CAPSULE BY MOUTH THREE TIMES DAILY UNTIL GONE active Not Available Not Available N ot Available acetaminophen 325 mg tablet TAKE 1 TABLET BY MOUTH EVERY 6 HOURS NEEDED FOR PAIN active Not Available Not Available No t Available venlafaxine ER 75 mg capsule,exten ded release 24 hr TAKE 1 CAPSULE BY MOUTH EVERY DAY IN THE MORNING active Not Available Not Available No t Available atorvastatin 20 mg tablet TAKE 1 TABLET BY MOUTH EVERY DAY active Not Available Not Available No t Available ciprofloxacin 500 mg tablet TAKE 1 TABLET BY MOUTH EVERY TWELVE HOURS FOR 7 DAYS active Not Available Not Available No t Available acetaminophen 500 mg tablet TAKE 1 TABLET BY MOUTH EVERY 6 TO 8 HOURS NEEDED FOR PAIN OR FEVER active Not Available Not Available No t Available lorazepam 0.5 mg tablet TAKE 1 TABLET BY MOUTH ONCE 30 MINUTES BEFORE YOUR PROCEDURE NEEDED FOR ANXIETY, MAY REPEAT ONCE IN 10 TO 15 MINUTES NEEDED active Not Available Not Available No t Available Synthroid 25 mcg tablet TAKE 1 TABLET BY MOUTH EVERY DAY active Not Available Not Available No t Available pantoprazole 40 mg tablet,delaye d release TAKE 1 TABLET BY MOUTH EVERY DAY active Not Available Not Available No t Available clotrimazole- betamethasone 1 %-0.05 % topical cream APPLY TO THE AFFECTED AREA(S) TOPICALLY TWICE DAILY FOR 5 DAYS active Not Available Not Available No t Available metformin ER 500 mg tablet,extend ed release 24 hr TAKE 2 TABLETS BY MOUTH TWICE DAILY active Not Available Not Available No t Available hydroxyzine pamoate 25 mg capsule TAKE 1 CAPSULE BY MOUTH EVERY DAY AT BEDTIME NEEDED active Not Available Not Available No t Available Gas Relief (simethicone) 180 mg capsule TAKE 1 CAPSULE BY MOUTH THREE TIMES DAILY active Not Available Not Available No t Available OneTouch Ultra2 Meter USE TEST BLOOD SUGAR ONCE DAILY DIRECTED active Not Available Not Available No t Available Vitals Date Recorded Oxygen saturation Oxygen saturation in Arterial blood by Pulse oximetry Heart rate Body height Body weight Respiratory rate Body temperature Systolic And Diastolic Provider Name and Address Organization Details Last Updated DateTime 5 99 % 99 % 71 /min 157.48 cm 83504.8 g 14 /min 98.4 [degF] 112/68 mm[Hg] Not Available [facility] - production 17:48:15 Social History None recorded. Functional Status None recorded. Mental Status None recorded. Family History Nothing Reported. Medical History No medical history recorded. Gynecological HistoryNo gynecological history recorded. Obstetrics History GPAL:G 0 P 0 0 0 0 Past Encounters Encounter ID Performer Location Encounter Start Date Encounter Closed Date Diagnosis/Indication Diagnosis SNOMED-CT Code Diagnosis ICD10 Code Diagnosis Note [id number] JUAN CARLOS COATES MD Main - [facility] [address] [place] [phone] 05/21/2024 16:42:51 05/21/2024 21:10:25 Urinary symptoms 083817878 R39.9 Evaluation in the field was performed by my kettle girl colleague, as noted above, I provided real-time direction and supervisio n for this visit. The evaluation revealed 68-year-ol d female with a history of type 2 diabetes mellitus and depression presents with symptoms suggestive of a urinary tract infection . She reports a 3-day history of increased urinary frequency, decreased urine output, a sensation of incomplete bladder emptying, and lower back pain, left flank pain . She denies fevers, nausea and vomiting. No known history of recurrent UTIs. She does not recall the last time she was treated for a UTI. [place] Islander interprete r was used to communicat e with the patient Vital Signs: Blood pressure: 112/ 68. HR 71, RR 14, SpO2 99%, Room Air at RestTemper atures 98.4 FPhysical Exam:AAO, NAD. Lungs clear to auscultati on bilaterall y.Abdomen soft NTND . Left CVA tenderness ,Urinalysi s:Positive for leukocyte esteraseNe gative for nitrites, blood, or ketonesBMP : Na 141, K 4.1, Cl 105, CO3 23.8, BUN 19, Creat 0.6, Gluc 180, iCa 1.04, L.Acid 2.76, CrCl 112ECG: QYc 439 msAllergie s: Reviewed Impression :Symptoms consistent with a possible urinary tract infection in the setting of diabetes mellitus. Physical exam notable for CVA tenderness , suggesting possible upper urinary tract involvemen t (e.g., pyelonephr itis). UA supports inflammati on but is nonspecifi c. Plan:-Lact ated Ringer s 1000 mL administer ed for hydration. -Patient was started on Ciprofloxa alexis 500 mg orally twice daily for 7 days; first dose administer ed by paramedics .-Urine culture to be sent to [facility]; results will be monitored and antibiotic therapy adjusted as needed based on sensitivit ies.-Patie nt encouraged to increase oral fluid intake.-Ad vised to follow up with primary care provider within 48 72 hours or sooner if symptoms worsen.-Re d flags reviewed with the patient, including fever, chills, worsening flank pain, nausea, vomiting, hematuria, or any other concerning symptoms. Patient advised to seek immediate medical attention if any of these occur. Primary care, consider__ _ Dispositio n: We discussed the diagnostic uncertaint y of home visits and the risk associated with this. In this case, the patient and I felt this to be an acceptable and reasonable amount of risk given the benefit of avoiding an ED visit. We discussed the need to seek care urgently/e mergently in the setting of any new or worsening serious symptoms, particular ly fever, chills, worsening flank pain, nausea, vomiting, hematuria, or any other concerning symptoms. Health Concerns Section Related Observation LastModified by Organization Detai ls LastModified Time None Recorded Concern Status LastModified by Organization Details LastModified Time None Recorded Advance Directives Directive None Recorded Payers Insurance Date Sequence Insurance Name Policy Number Policy Cutler Covered Member ID Cutler Member ID Guarantor Name 05/21/2024 1 [facility] - DOS ON OR AFTER 2022 - DUAL ELIGIBLE - LONG TERM OPTIONS AND ONE CARE (MEDICARE REPLACEMENT/ADV ANTAGE - HMO) Saadia Barker [id number] Saadia Barker Notes Date Note Type Note Provider Name and Address Organization Details Recorded Time 05/21/2024 text/html ROS as noted in the [facility] Nurse Triage Notes (Patsy Cummings): Reason For Request: Patient thinks she has a UTI. back pain. Patient Reports: Painful urination; Frequent and increased urination with flank pain; Painful urination with or without fever; Inability to fully empty bladder Denies: Unable to void greater than 5 hours Erection that will not go away after 2 hours Fall or trauma that results in urinary incontinence in the setting of pain Fall or injury that results in incontinence in the absence of pain Lower back pain either unilateral or bilateral, unable to void, painful urination -hematuria Chief Complaints: Urinary Symptoms PMH: Diabetes Mellitus Type 2, Depression PMH Reviewed at 05/21/2024 - 11:06 Allergies Reviewed at 05/21/2024 - 11:06 Pain Assessment: Level 7 out of 10 Comments: 68 y.o female complains of Urinary Symptoms Call completed with interpreter deaf. She has been having pain in her back to her legs. She stated it is on both sides of her back, 7/10 pain level. She has not had falls. She has increased urgency and frequency. She does have odor and painful urination . she does have chills , unsure about fever, no nausea or vomiting. She does have DM2 she has not checked today , yesterday was baseline 150 I provided information on the mobile health provider response time and advised the patient and/or caregiver to monitor reported signs and symptoms. I discussed the warning signs of when to seek emergency care. [facility] Organization Information for [facility] [employer] Legal Name: [facility] Transportation Address: [address] [place] [address], [place] [address], Ancillary Specialist: Miles Muhammad MD [place] No.: [id number] [facility] POC Test Results from [facility] Urine Dipstick (16:46:06) Urine leukocytes: ++ JAKE Urine nitrites: - NIT Urine urobilinogen: 0.2 URO Urine protein: - PRO Urine pH: 5.0 pH Urine blood: - BLO Urine specific gravity: 1.005 SG Urine ketones: - KET Urine bilirubin: - EDU Urine glucose: - GLU epoc (17:27:23) pH: 7.416 pH units pCO2: 38.3 mmHg pO2: 49.9 mmHg Na: 141 mmol/L K: 4.4 mmol/L iCa: 1.04 mmol/L Cl: 105 mmol/L TCO2: 23.8 mEq/L Hct: 39 % Hb: 13.2 g/dL Glu: 180 mg/dL Lac: 2.76 mmol/L Cr: 0.64 mg/dL BUN: 19 mg/dL A mmol/L HCO3: 24.6 mmol/L EKG (17:44:39) EKG test performed. Attachments uploaded as part of this test result can be found under Documents section. .................... .................... .................... .................... .................... .................... .................... . [facility] Note From [facility]: Patient alert and oriented complaints of urinary complaints, increased frequency, pressure painful urination times three days. Patient complains of left CVA tenderness. Increase on urination. Patient denies nausea vomiting diarrhea or any other pain or complaints. Patient pink warm and dry secondary exam unremarkable. Lung sounds clear negative increase breathing positive sentence, abdomen, soft, nontender, extremities, unremarkable, positive CVA tenderness on left. [facility] orders EPOC, LR1 L IV, Cipro 500 mg PO now and will prescribe more to patient s local pharmacy. Patient advised to use Tylenol as needed. Medication administered as ordered without complication using five rights. Patient report she feels a little better after fluid administration. Red flags patient education discussed. Patient demonstrates understanding of care and plan. Culture to [facility]. [facility] Lab Orders: BMP, serum or plasma: Performed culture, urine: Performed urinalysis, dipstick: Performed [facility] Medication Orders: lactated Ringers intravenous solution: Administered Cipro 250 mg tablet: Administered .................... .................... .................... .................... .................... .................... .................... . [facility] Consulted: Juan Carlos Coates .................... .................... .................... .................... .................... .................... .................... . Disposition: Wesley COATES MD [address] [facility],[address], [place], [address], Front Desk [employer] - [employer] 05/21/2024 20:14:15 OBGyn Episode No OBEpisode recorded.
--- OUTSIDE RECORDS SUMMARY | 2024-08-28 08:48 | XMS_ITS | Patient Health Record ---
Author Organization [facility] Address [address] [place] [address] Care Team Providers Care Scaffold Erector Name Role Phone Mita Leonard MDh Primary Care Provider Tan Robbins Jr Unavailable Allergies Allergen (clinical drug ingredient) Drug/Non Drug [...] Oral for 90 Active OneTouch Delica Plus [id number] - for 50 Active Dulcolax (colon prep) [...] Problem Status W/U Status Risk Notes Problem 390870609 Colon cancer screening (Z12.11) Active confirmed Problem 938641184 Gastroesophageal reflux disease without esophagitis (K21.9) Active confirmed Problem GERD (gastroesophageal reflux disease) (K21.9) Active confirmed Problem 780030089 Intestinal gas excretion (R14.3) Active confirmed Plan Of Treatment Future Test Test Name Order Date UPPER GI ENDOSCOPY 07/17/2022 COLONOSCOPY 07/17/2022 Insurance Providers Payer Name Payer Address Payer Phone Subscriber Number Group Number Insured Name Patient Relationship to Insured Coverage Start Date Coverage End Date [facility] [address] Attn Claims ALICIA Alfaro [id number] [phone] [id number] ANA FRAUSTO Self - patient is the insured MEDICAID OF [facility] [address] [place] [address] [phone] [id number] ANA FRAUSTO Self - patient is the insured Medical (General) History Medical History History ICD Code Hypothyroidism allergic rhinitis Anxiety/depression Diabetes mellitus type 2 diverticulosis gerd Hyperlipidemia vitamin d deficiency Surgical History Surgery Date(Month/Year) section/tubal ligation appendectomy shoulder surgery
== END 2024-08-28 08:29 | disposition home or self-care (01) ==
LOC: HO.LNP 08:28
PROVIDERS: Visit Provider Internal Medicine
DX: E11.9 Type 2 diabetes mellitus without complications (principal); R30.0 Dysuria
CPT/HCPCS: 81003; 82043; 82570

== ENCOUNTER 2024-08-29 16:21 | Outpatient (AMB) | payer OTHER, SELFPAY ==
--- OUTSIDE RECORDS SUMMARY | 2024-08-29 16:23 | XMS_ITS | Patient Health Record ---
Author Organization [facility] Address [address] [place] [address] Care Team Providers Care Room Cleaner Name Role Phone Mita Leonard MDh Primary [...] Oral for 90 Active OneTouch Delica Plus [id number] - for 50 Active Dulcolax (colon prep) [...] Problem Status W/U Status Risk Notes Problem 309201734 Colon cancer screening (Z12.11) Active confirmed Problem 636757524 Gastroesophageal reflux disease without esophagitis (K21.9) Active confirmed Problem Gastroesophageal reflux disease (488184509) GERD (gastroesophageal reflux disease) (K21.9) Active confirmed Problem 344146072 Intestinal gas excretion (R14.3) Active confirmed Plan Of Treatment Future Test Test Name Order Date UPPER GI ENDOSCOPY 07/17/2022 COLONOSCOPY 07/17/2022 Insurance Providers Payer Name Payer Address Payer Phone Subscriber Number Group Number Insured Name Patient Relationship to Insured Coverage Start Date Coverage End Date [facility] [address] Attn Claims ALICIA Alfaro [id number] ANA FRAUSTO Self - patient is the insured [facility] [address] [place] [phone] [id number] ANA FRAUSTO Self - patient is the insured Medical (General) History Medical History History ICD Code Hypothyroidism allergic rhinitis Anxiety/depression Diabetes mellitus type 2 diverticulosis gerd Hyperlipidemia vitamin d deficiency Surgical History Surgery Date(Month/Year) section/tubal ligation appendectomy shoulder surgery
--- OUTSIDE RECORDS SUMMARY | 2024-08-29 16:23 | XMS_ITS | Data Portability ---
Author Organization [facility] [employer] [facility], [facility] Medical [facility] Address [address] [place] [phone] Care Team Providers Care Daycare Manager Name Role Phone HIM CCA OTHER Assessment No assessment recorded. Plan of Treatment Reminders Order Date Submit Date Provider Last Modified By Organization Details Last Modified Time Details Appointments None recorded. Lab BMP, serum or plasma 2024 [facility], [address] [place] [address], [id number] 21:48:18 culture, urine 2024 [facility] (Centralized Electronic Ordering - All Locations), Patient Can Go To The Location Of Their Choice, [id number] 12:06:39 urinalysis, dipstick 2024 [facility], [address] [place] [address], [id number] 21:48:36 Referral None recorded. Procedures None recorded. Surgeries None recorded. Imaging electrocard iogram 2024 [facility], [address] [place] [address], [id number] 18:19:19 Medication Orders lactated Ringers intravenous solution 2024 025 [facility], [address] [place] [address], [id number], 17:38:59 Cipro 250 mg tablet 2024 025 [facility], [address] [place], [place], [id number], 17:50:59 ciprofloxac in 500 mg tablet 2024 025 [facility], [address] [facility], [place], [place], [id number], 10:15:26 Patient TargetsNo targets recorded. Patient InstructionsNo instructions recorded. Reason for Referral None Reported. Results Created Date Observation Date Name Description Value Unit Range Abnormal Flag Note LastModifiedBy Organization Detail LastModifiedTime 05/22/1905/24/2024 URINE CULTU RE,CO MPREH ENSIV E urine culture,comp rehensive Final report Not Available [facility] ([facility]) [address] [facility], [place], [address], 05/24/2024 08:10:41 05/22/1905/24/2024 URINE CULTU RE,CO MPREH ENSIV E result 1 COMMEN T No growt h in 36 - 48 hours . Not Available [facility] ([facility]) [address] [facility], [place], [address], 05/24/2024 08:10:41 05/22/1905/21/2024 elect rocar diogr am No observ ation record ed. [address], [phone] 05/21/2024 18:19:18 Result Notes None recorded. Medical Equipment None Reported. Allergies Allergen ID Allergen Name Allergen Category Reaction Reaction Severity Criticality Documentation Date Start Date Code Code System Note Provider Name and Address Organization Details Recorded Time 02600 aspirin medicatio n Not available Not available [...] % 99 % 71 /min 157.48 cm 96538.8 g 14 /min 98.4 [degF] 112/68 mm[Hg] Not Available [employer] - production 17:48:15 Social History None recorded. Functional Status None recorded. Mental Status None recorded. Family History Nothing Reported. Medical History No medical history recorded. Gynecological HistoryNo gynecological history recorded. Obstetrics History GPAL:G 0 P 0 0 0 0 Past Encounters Encounter ID Performer Location Encounter Start Date Encounter Closed Date Diagnosis/Indication Diagnosis SNOMED-CT Code Diagnosis ICD10 Code Diagnosis Note [id number] JUAN CARLOS COATES MD Main - [facility] [address] [place] [phone] 05/21/2024 16:42:51 05/21/2024 21:10:25 Urinary symptoms 106124429 R39.9 Evaluation in the field was performed by my companion colleague, as noted above, I provided real-time [...] time she was treated for a UTI. 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 She has been having pain in her [...] signs of when to seek emergency care. International Logistics Manager Organization Information for Omkar Juan Reocar Legal Name: [facility] Transportation Address: [address] [place] [address], [place] [address], Pants Closer: Miles Muhammad MD [place] No.: [id number] International Logistics Manager POC Test Results from Omkar Juan Urine [...] .................... .................... .................... .................... .................... .................... . International Logistics Manager Note From Omkar Juan: Patient alert and [...] extremities, unremarkable, positive CVA tenderness on left. [facility] orders EPOC, LR1 L IV, Cipro 500 mg PO now and will prescribe more to patient s local pharmacy. Patient advised to use Tylenol as needed. Medication administered as ordered without complication using five rights. Patient report she feels a little better after fluid administration. Red flags patient education discussed. Patient demonstrates understanding of care and plan. Culture to [facility]. [facility] Lab Orders: BMP, serum or plasma: Performed culture, urine: Performed urinalysis, dipstick: Performed [facility] Medication Orders: lactated Ringers intravenous solution: Administered Cipro 250 mg tablet: Administered .................... .................... .................... .................... .................... .................... .................... . [facility] Consulted: Juan Carlos Coates .................... .................... .................... .................... .................... .................... .................... . Disposition: Wesley COATES MD [address] [facility],[address], [place], [phone], [employer] 05/21/2024 20:14:15 OBGyn Episode No OBEpisode recorded.
--- NOTE | 2024-08-29 16:26 | MHC.PC.OV ---
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: No Accompanied by: Self / Same As Patient Allergies aspirin (ASPIRIN) Allergy (Mild, Verified 08/29/24 17:07) UPSET STOMACH trazodone Adverse Reaction (Intermediate, Verified 08/29/24 17:07) tiredness Medication List - Last Reconciled 08/29/24 by Ramírez Leonard MD acetaminophen (Tylenol Extra Strength) 500 mg PO Q6-8H PRN amitriptyline 50 mg PO BEDTIME atorvastatin 20 mg PO DAILY [BATH MAT As directed] blood sugar diagnostic (FreeStyle Lite Strips) As directed once a day blood sugar diagnostic (OneTouch Ultra Test strips) As directed once a day blood-glucose meter (FreeStyle Lite Meter kit) As directed blood-glucose meter (OneTouch Ultra2 Meter) As directed once a day cholecalciferol (vitamin D3) (Vitamin D3) 25 mcg PO DAILY clotrimazole-betamethasone 1-0.05 % 1 appl topical BID 5 days [DISPOSABLE WIPES (3 packages a month) As directed] [HAND HELD SHOWER HEAD As directed] hydrocortisone 2.5% 1 appl topical BID PRN ibuprofen 600 mg PO TID PRN 30 days lancets (FreeStyle Lancets) As directed once a day lancets (OneTouch UltraSoft 2 Lancet) As directed lorazepam Take 1 tablet 30 minutes before procedure as needed for anxiety. May repeat x 1 dose after 10 to 15 minutes if needed. 1 day metformin ER 1,000 mg (2 x 500 mg) PO BID [PANTILINERS (3 / day) As directed] pantoprazole 40 mg PO DAILY simethicone 180 mg PO TID Synthroid (levothyroxine) 25 mcg PO DAILY 90 days NS venlafaxine ER 75 mg PO DAILY [WASHABLE BED PADS (2 per month) As directed] Tobacco use date assessed: 08/29/24 Fall risk assessment: No Falls in past year Last assessed Fall Risk: 08/29/24 Dental Screening Dental Screen Date: 08/29/24 Did you have a dental visit in the last 12 months?: Yes Did you have a dental problem in the last 6 months where you did not have access to dental care?: No Was dental information given to patient?: Patient has dentist HPI 4mth f/u HPI Details Patient comes in today for her follow-up visit States that she feels okay She denies any headaches or dizziness Denies any chest pains, no shortness of breath No nausea/vomiting, no abdominal pain No change in bowel habits noted She had her follow-up labs done a couple of days ago - to discuss her results [facility] Medical History Obesity (BMI 30-39.9) Anxiety Insomnia Internal hemorrhoids Allergic rhinitis Constipation Vitamin D deficiency Acquired hypothyroidism Pure hypercholesterolemia Anal pain Type 2 diabetes mellitus with unspecified complications Hx of thyroid cyst Hiatal hernia Diverticulosis Depression with anxiety Hypothyroidism GERD (gastroesophageal reflux disease) Surgical History H/O tubal ligation History of History of appendectomy Hx of shoulder surgery History of colonoscopy Family History Father History of heart attack Mother History of heart attack Sister Breast cancer Social History Housing: Apartment Alcohol intake: never Patient Tobacco Use Status: Never used Tobacco e-Cigarette/Vaping Use: Never Used service: No Cognitive needs: No Hearing needs: No Vision needs: Yes Female Reproductive History Menstrual Age of Menarche: 13 Questionnaire PHQ-9 Over the last 2 weeks, how often have you been bothered by any of the following problems? 1. Little interest or pleasure in doing things: not at all 2. Feeling down, depressed, or hopeless: not at all 3. Trouble falling or staying asleep, or sleeping too much: not at all 4. Feeling tired or having little energy: not at all 5. Poor appetite or overeating: not at all 6. Feeling bad about yourself - or that you are a failure or have let yourself or your family down: not at all 7. Trouble concentrating on things, such as reading the newspaper or watching television: not at all 8. Moving or speaking so slowly that other people could have noticed. Or the opposite - being so fidgety or restless that you have been moving around a lot more than usual: not at all 9. Thoughts that you would be better off or of hurting yourself in some way: not at all Total score: 0 Depression Screening Interpretation: Negative Depression Screening Done: Yes 63344 - PHQ-9 Billing: Yes Source: Developed by Drs. Francois Rick, Chaya Villareal, Mj He and colleagues, with an educational nereida from [employer]. Thrive Questionnaire Date Thrive assessed: 08/29/24 I am a: Patient What is your living situation today?: I have a steady place to live Within the past 12 months, did the food you bought not last and you didn't have the money to get more?: Never true Within the past 12 months, did you worry whether your food would run out before you got money to buy more?: Never true Do you have trouble paying for medicines?: No Do you have trouble getting transportation to medical appointments?: No Do you have trouble paying your heating and electricity bill?: No Do you have trouble taking care of your child, family member or friend?: No Do you have trouble with day-to-day activities such as bathing, preparing meals, shopping, managing finances, etc.?: No Are you currently unemployed and looking for a job?: No Are you interested in more education?: No Please select the resources that you would like help with: None Currently or been in a relationship where the following occur: No concerns reported THRIVE Score: 0 AUDIT C Alcohol Use Questionnaire (AUDIT-C) 1. How often do you have a drink containing alcohol?: Never 3. How often do you have six or more drinks on one occasion?: Never Total Score: 0 Score Reviewed/Action Taken: Yes JAIDA-7 AMB Questionnaire JAIDA-7 Date JAIDA - 7 assessed: 08/29/24 Feeling nervous, anxious, or on edge: 0 = Not at all Not being able to stop or control worryin = Not at all Worrying too much about different things: 0 = Not at all Trouble relaxin = Not at all Being so restless that it is hard to sit still: 0 = Not at all Becoming easily annoyed or irritable: 0 = Not at all Feeling afraid as if something awful might happen: 0 = Not at all Total JAIDA-7 score (0-4 normal; 5-9 mild; 10-14 moderate; 15-21 severe): 0 Source: Developed by Drs. Francois Rick, Chaya Villareal, Mj He and colleagues, with an educational nereida from [employer]. Review of Systems Const Denies chills, Denies fatigue, Denies fever(s) and Denies headache(s) ENT Denies dysphagia, Denies dizziness, Denies otalgia, Denies headache(s), Denies neck pain, Denies odynophagia and Denies sore throat Card Denies chest pain, Denies rapid heart rate, Denies palpitations and Denies dyspnea Resp Denies chest congestion, Denies cough and Denies dyspnea GI Denies abdominal pain, Denies constipation, Denies dysphagia, Denies heartburn, Denies diarrhea, Denies nausea, Denies odynophagia and Denies vomiting Denies urinary frequency, Reports nocturia, Denies dysuria and Denies urinary urgency Musc Denies back pain and Denies neck pain Skin/Breast Denies rash Neuro Denies dizziness and Denies headache(s) Endo Denies fatigue and Denies palpitations Physical exam (Primary Care) Vital Signs: Last Vital Signs Pulse 77 08/29/24 16:27 BP 110/68 08/29/24 16:27 Pulse Ox 96 08/29/24 16:27 Oxygen Delivery Method Room Air 08/29/24 16:27 BMI result Body Mass Index 29.6 Tobacco/Smoking Status: Tobacco use Status Tobacco use date assessed 08/29/24 08/29/24 16:31 Patient Tobacco Use Status Never used Tobacco 08/29/24 16:31 e-Cigarette/Vaping Use Never Used 08/29/24 16:31 PHQ-9: PHQ-9 Score PHQ-9: Total score 0 08/29/24 17:15 Depression Screening Interpretation: Negative Thrive Assessment: Date of Thrive Assessment Date Thrive assessed 08/29/24 08/29/24 16:31 Currently or been in a relationship where the following occur: No concerns reported Const General: no acute distress and alert HENMT Ears: TM's normal bilaterally and EAC's normal Throat: Yes posterior oropharynx normal and Yes tonsils normal (no TP congestion) Neck Neck: Yes supple and No lymphadenopathy Thyroid: Thyroid normal Resp Auscultation: clear to auscultation bilaterally, no rales and no wheezes Cardio Rate: regular rate Rhythm: regular rhythm Heart sounds: no murmurs GI Palpation (GI): Soft to palpation and nontender Auscultation: normal bowel sounds General: Yes no CVA tenderness Back/Spine/Pelvis Back: no CVA tenderness Thoracic/Lumbar Spine: No lumbar spinal tenderness Skin Rashes: no rashes Extrem General: Yes no clubbing, cyanosis or edema Results Reviewed Results Reviewed: Laboratory Tests 08/27/24 08/28/24 07:08 07:30 WBC 5.9 Hgb 12.8 Hct 37.9 Plt Count 262 Sodium 140 Potassium 4.0 Creatinine 0.62 Estimated GFR > 60 Fasting Glucose 121 H Hemoglobin A1c % 7.1 H Calcium 8.7 AST 23 ALT 24 Triglycerides 105 Cholesterol 194 LDL Cholesterol, Calc 104 H HDL Cholesterol 69 25-OH Vitamin D Total 80.9 TSH 5.75 H Free T4 0.97 Ur Specific [place] 1.015 Urine Protein Negative Urine Glucose (UA) Negative Urine Blood Negative Urine Nitrite Negative Ur Leukocyte Esterase Negative Coding Level of Care Code Est Pt Level 4 (87180) Complex EM visit Add On G2211 Diagnoses Type 2 diabetes mellitus without complication, without long-term current use of insulin E11.9 Diabetes mellitus complication status: without complication Diabetes mellitus manager intermediate insulin use: without manager intermediate use Diabetes mellitus type: type 2 Pure hypercholesterolemia E78.00 Acquired hypothyroidism E03.9 Vitamin D deficiency E55.9 Gastroesophageal reflux disease without esophagitis K21.9 Esophagitis presence: without esophagitis Constipation, unspecified constipation type K59.00 Constipation type: unspecified constipation type Allergic rhinitis, unspecified seasonality, unspecified trigger J30.9 Allergic rhinitis seasonality: unspecified Allergic rhinitis trigger: unspecified Insomnia, unspecified type G47.00 Insomnia type: unspecified Anxiety F41.9 Episode of recurrent major depressive disorder, unspecified depression episode severity F33.9 Active/Remission status: currently active Depression Type: major depressive disorder Major depression episode severity: unspecified Major depression recurrence: recurrent Overweight (BMI 25.0-29.9) E66.3 Additional Codes PHQ-9 - 16518 - PHQ-9 Billing: Yes ([id number]) Assessment & Plan Assessment & Plan (1) Diabetes mellitus: Code(s): E11.9 - Type 2 diabetes mellitus without complications Category: Medical Qualifiers: Diabetes mellitus complication status: without complication Diabetes mellitus manager intermediate insulin use: without custodial use Diabetes mellitus type: type 2 Qualified Code(s): E11.9 - Type 2 diabetes mellitus without complications Plan: Her HgbA1c was at 7.1% on her labs done a couple of days ago (was previously at 6.8% a few months ago) - goal is <7.0% Reinforced diabetic diet Continue Metformin ER 1000 mg BID; she was also supposed to be on Farxiga 5 mg Q AM but her prescription log shows that this has not been refilled in a while now so it is likely that patient has not been taking this over the past year or so As she has been able to get her HgbA1c back down from previous, we held off on making any changes to her medications at her last visit and kept her on monotherapy with Metformin ER Follow up with consumer electronics merchandiser as scheduled (2) Pure hypercholesterolemia: Code(s): E78.00 - Pure hypercholesterolemia, unspecified Category: Medical Plan: Results of her labs done a couple of days ago reviewed and discussed with patient -have cautioned patient that her cholesterol levels, including her LDL cholesterol, have increased significantly from previous Reinforced low cholesterol diet Continue Atorvastatin 20 mg QD for now Will recheck her labs and fasting lipids in 4 months for follow up - have cautioned patient that if her cholesterol levels do not improve significantly over the next few months, we will need to consider increasing her Atorvastatin dosage at her next follow-up appointment (3) Acquired hypothyroidism: Code(s): E03.9 - Hypothyroidism, unspecified Category: Medical Plan: Her TFTs remained normal on her recent labs Continue Levothyroxine 25 mcg QD Will continue to monitor her TFTs regularly (4) Vitamin D deficiency: Code(s): E55.9 - Vitamin D deficiency, unspecified Category: Medical Plan: Continue Vitamin D3 1000 units QD (5) GERD (gastroesophageal reflux disease): Code(s): K21.9 - Gastro-esophageal reflux disease without esophagitis Category: Medical Qualifiers: Esophagitis presence: without esophagitis Qualified Code(s): K21.9 - Gastro-esophageal reflux disease without esophagitis Plan: EGD done a couple of years ago revealed (+) moderate reactive changes in the gastric antral mucosa with minimal chronic inactive gastritis; she was negative for H. pylori, intestinal metaplasia and dysplasia Reinforced dietary restrictions Continue Pantoprazole 40 mg QD (6) Constipation: Code(s): K59.00 - Constipation, unspecified Category: Medical Qualifiers: Constipation type: unspecified constipation type Qualified Code(s): K59.00 - Constipation, unspecified Plan: Reinforced again increased oral fluids and dietary fiber Continue Citrucel 500 mg QD, Colace 100 mg QD PRN and Metamucil PRN (7) Allergic rhinitis: Code(s): J30.9 - Allergic rhinitis, unspecified Category: Medical Qualifiers: Allergic rhinitis seasonality: unspecified Allergic rhinitis trigger: unspecified Qualified Code(s): J30.9 - Allergic rhinitis, unspecified Plan: Continue Loratadine 10 mg QD PRN and Fluticasone 50 mcg nasal spray QD PRN (8) Insomnia: Code(s): G47.00 - Insomnia, unspecified Category: Medical Qualifiers: Insomnia type: unspecified Qualified Code(s): G47.00 - Insomnia, unspecified Plan: Sleep hygiene reinforced Continue Amitriptyline 50 mg Q HS PRN (she has taken Trazodone in the past) (9) Anxiety: Code(s): F41.9 - Anxiety disorder, unspecified Category: Medical Plan: Continue Venlafaxine 75 mg QD (10) Depression: Code(s): F32.A - Depression, unspecified Category: Medical Qualifiers: Active/Remission status: currently active Depression Type: major depressive disorder Major depression episode severity: unspecified Major depression recurrence: recurrent Qualified Code(s): F33.9 - Major depressive disorder, recurrent, unspecified Plan: Continue Venlafaxine 75 mg QD and Amitriptyline 50 mg Q HS; she was also on Mirtazapine 7.5 mg Q HS in the past but appears to have self-discontinued this some time ago Follow up with psychiatry as scheduled (11) Overweight (BMI 25.0-29.9): Code(s): E66.3 - Overweight Category: Medical Plan: Reinforced diet/exercise as tolerated/lose weight Plan Follow up in 4 months Orders: Orders Hemoglobin A1c 4 Months E11.9 - Type 2 diabetes mellitus without complications Comprehensive [place]. Panel Fast 4 Months E78.00 - Pure hypercholesterolemia, unspecified Lipid Panel 4 Months E78.00 - Pure hypercholesterolemia, unspecified Microalbumin, Random (w Creat) 4 Months E11.9 - Type 2 diabetes mellitus without complications Free T4 (Free Thyroxine) 4 Months E03.9 - Hypothyroidism, unspecified, R79.89 - Other specified abnormal findings of blood chemistry Thyroid Stimulating Hormone 4 Months E03.9 - Hypothyroidism, unspecified, R79.89 - Other specified abnormal findings of blood chemistry UA CC w/rflx Micro + Cult 4 Months R30.0 - Dysuria Vitamin B12 and Folate 4 Months E53.8 - Deficiency of other specified B group vitamins Vitamin D 25-OH Total 4 Months E55.9 - Vitamin D deficiency, unspecified Complete Blood Count Auto Diff 4 Months D64.9 - Anemia, unspecified
[2024-08-29 16:27] VITALS: BP 110/68; PULSE 77; O2SAT 96; BMI 29.6
== END 2024-08-29 17:16 | disposition home or self-care (01) ==
PROVIDERS: PCP Internal Medicine; Visit Provider Internal Medicine
DX: E11.9 Type 2 diabetes mellitus without complications (principal); E78.00 Pure hypercholesterolemia, unspecified; E03.9 Hypothyroidism, unspecified; E55.9 Vitamin D deficiency, unspecified; K21.9 Gastro-esophageal reflux disease without esophagitis; K59.00 Constipation, unspecified; J30.9 Allergic rhinitis, unspecified; G47.00 Insomnia, unspecified; F41.9 Anxiety disorder, unspecified; F33.9 Major depressive disorder, recurrent, unspecified; E66.3 Overweight

== ENCOUNTER → 2024-08-29 16:21 | Outpatient (BNVA) | payer OTHER, SELFPAY | PROVIDERS: PCP Internal Medicine; Visit Provider Internal Medicine | DX: I10 Essential (primary) hypertension (principal); E11.9 Type 2 diabetes mellitus without complications; E78.00 Pure hypercholesterolemia, unspecified; E03.9 Hypothyroidism, unspecified; E55.9 Vitamin D deficiency, unspecified; K21.9 Gastro-esophageal reflux disease without esophagitis; K59.00 Constipation, unspecified; J30.9 Allergic rhinitis, unspecified; G47.00 Insomnia, unspecified; F41.9 Anxiety disorder, unspecified; F33.9 Major depressive disorder, recurrent, unspecified; E66.3 Overweight | CPT/HCPCS: 96127; 99212 ==

== ENCOUNTER 2024-09-17 14:37 | Outpatient (AMB) | payer OTHER, SELFPAY ==
--- NOTE | 2024-09-17 14:40 | A.OFFVIS_ITS ---
Vital Signs 09/17/24 14:41 Height 4 ft 11 in Weight 147 lb 11.355 oz BMI 29.8 BP 114/56 L Blood Pressure Location Lt brachial Position Sitting Pulse 79 Pulse Source Pulse Oximeter Intake Visit Reasons: r/s-f/up cta HS Statistics Professor Required: Yes Statistics Professor Name: Edie/ Leon [id number] Wafer Abrading Machine Tender: Wafer Abrading Machine Tender Present Accompanied by: Daughter Allergies aspirin (ASPIRIN) Allergy (Mild, Verified 08/29/24 17:07) UPSET STOMACH trazodone Adverse Reaction (Intermediate, Verified 08/29/24 17:07) tiredness Medication List - Last Reconciled 09/17/24 by Kota Contreras NP acetaminophen (Tylenol Extra Strength) 500 mg PO Q6-8H PRN amitriptyline 50 mg PO BEDTIME atorvastatin 20 mg PO DAILY [BATH MAT As directed] blood sugar diagnostic (FreeStyle Lite Strips) As directed once a day blood sugar diagnostic (OneTouch Ultra Test strips) As directed once a day blood-glucose meter (FreeStyle Lite Meter kit) As directed blood-glucose meter (OneTouch Ultra2 Meter) As directed once a day cholecalciferol (vitamin D3) (Vitamin D3) 25 mcg PO DAILY clotrimazole-betamethasone 1-0.05 % 1 appl topical BID 5 days [DISPOSABLE WIPES (3 packages a month) As directed] [HAND HELD SHOWER HEAD As directed] hydrocortisone 2.5% 1 appl topical BID PRN ibuprofen 600 mg PO TID PRN 30 days lancets (FreeStyle Lancets) As directed once a day lancets (OneTouch UltraSoft 2 Lancet) As directed lorazepam Take 1 tablet 30 minutes before procedure as needed for anxiety. May repeat x 1 dose after 10 to 15 minutes if needed. 1 day metformin ER 1,000 mg (2 x 500 mg) PO BID [PANTILINERS (3 / day) As directed] pantoprazole 40 mg PO DAILY simethicone 180 mg PO TID Synthroid (levothyroxine) 25 mcg PO DAILY 90 days NS venlafaxine ER 75 mg PO DAILY [WASHABLE BED PADS (2 per month) As directed] HPI Comments Details: This is a 69-year-old female patient coming in for a follow-up visit. A assembly riveter was used throughout the visit. Patient was previously seen in the office for chest pain for which patient was undergo coronary CTA. Patient was seen in the office about 3 years ago for chest discomfort which was deemed to be related to GI. Today, patient is reporting feeling well overall without any cardiac symptoms of exertional chest pain, shortness of breath, palpitations, dizziness, orthopnea, PND, leg edema, presyncope or syncope. Patient stating compliance with all her medications. [facility] Medical History Obesity (BMI 30-39.9) Anxiety Insomnia Internal hemorrhoids Allergic rhinitis Constipation Vitamin D deficiency Acquired hypothyroidism Pure hypercholesterolemia Anal pain Type 2 diabetes mellitus with unspecified complications Hx of thyroid cyst Hiatal hernia Diverticulosis Depression with anxiety Hypothyroidism GERD (gastroesophageal reflux disease) Surgical History H/O tubal ligation History of History of appendectomy Hx of shoulder surgery History of colonoscopy Family History Father History of heart attack Mother History of heart attack Sister Breast cancer Social History Housing: Apartment Alcohol intake: never Patient Tobacco Use Status: Never used Tobacco e-Cigarette/Vaping Use: Never Used service: No Cognitive needs: No Hearing needs: No Vision needs: Yes Female Reproductive History Menstrual Age of Menarche: 13 Review of Systems Const Denies daytime sleepiness, Denies difficulty sleeping, Denies snoring, Denies stops breathing during sleep and Denies weakness Card Denies chest pain, Denies rapid heart rate, Denies irregular heart rhythm, Denies claudication, Denies leg edema, Denies lightheadedness, Denies palpitations, Denies dyspnea, Denies dyspnea on exertion, Denies orthopnea, Denies paroxysmal nocturnal dyspnea and Denies slow heart rate Resp Denies cough, Denies dyspnea, Denies dyspnea on exertion and Denies snoring GI Reports no additional complaints, Denies hematochezia, Denies change in stool character and Denies dyspepsia Musc Denies abnormal gait, Denies muscle weakness and Denies numbness Neuro Denies abnormal gait, Denies numbness and Denies weakness Endo Denies palpitations Physical Exam Vital Signs: Last Vital Signs Pulse 79 09/17/24 14:41 BP 114/56 L 09/17/24 14:41 BMI result Body Mass Index 29.8 Const General: cooperative, healthy appearing, comfortable and no acute distress Orientation/consciousness: patient oriented x3 HEENT Head: Yes normal to inspection Neck Neck: Yes normal visual inspection, Yes trachea midline and Yes supple Chest Chest palpation & inspection: normal inspection of the chest Resp Effort & Inspection: normal respiratory effort Auscultation: clear to auscultation bilaterally, no crackles, no rales, no rhonchi and no wheezes Cardio Jugular venous distension: no JVD Palpation: normal PMI Rate: regular rate Rhythm: regular rhythm Heart sounds: S1 normal heart sound present, S2 normal heart sound present, no click, no gallops, no murmurs and no rubs Peripheral pulses: Peripheral pulses 2+ throughout GI Inspection: Yes normal to inspection Palpation (GI): Soft to palpation Auscultation: normal bowel sounds Skin General skin exam: no rashes or lesions noted Neuro General: patient oriented x3 Extrem General: Yes normal to inspection, No no pedal edema and No calf tenderness Psych Appearance: grossly normal Mental Status: mental status grossly normal Speech and movement: Normal speech and movement present Assessment & Plan Assessment & Plan (1) Precordial chest pain: Code(s): R07.2 - Precordial pain Category: Medical Plan: 08/07/2024-patient underwent coronary CTA that showed minimal stenosis of the proximal LAD. It also showed a patulous esophagus. Given above findings and resolution of her symptoms, no further testing indicated at this time from cardiac perspective. Four the patulous esophagus, we will refer patient out to Gastroenterology. Patient seems to have seen Gastroenterology here about few years ago but would like to be referred out to [facility] in [place]. We will fax over the referral today's note and the coronary CTA to the office. (2) Other and unspecified hyperlipidemia: Code(s): E78.5 - Hyperlipidemia, unspecified Category: Medical Plan: Continue statin therapy with an LDL goal closer to 70s. (3) Diabetes mellitus: Code(s): E11.9 - Type 2 diabetes mellitus without complications Category: Medical Qualifiers: Diabetes mellitus type: type 2 Diabetes mellitus nursing home insulin use: without ocean transportation intermediary use Diabetes mellitus complication status: without complication Qualified Code(s): E11.9 - Type 2 diabetes mellitus without complications Plan: Continue aggressive diabetes management with an A1c goal less than 7%. Advised heart healthy diet, regular exercise, med compliance, and management of vascular risk factors. Patient will follow-up on an as-needed basis. In the interim, patient will call the office with any concerns or change in symptoms. This note was generated using voice recognition software. While every effort has been made to ensure accuracy and proper member certification manager, there may be occasional errors that could affect the content or meaning of the described symptoms. Orders: Referrals Gastroenterology Referral K22.4 - Dyskinesia of esophagus Coding Level of Care Code Est Pt Level 4 (02513) Complex EM visit Add On G2211 Diagnoses Precordial chest pain R07.2 Other and unspecified hyperlipidemia E78.5 Type 2 diabetes mellitus without complication, without long-term current use of insulin E11.9 Diabetes mellitus type: type 2 Diabetes mellitus ocean transportation intermediary insulin use: without nursing home use Diabetes mellitus complication status: without complication Time Spent (min) 31 Comment Time spent in reviewing the chart, test results, assessment, counseling and documentation.
[2024-09-17 14:41] VITALS: BP 114/56; PULSE 79; BMI 29.8
--- OUTSIDE RECORDS SUMMARY | 2024-09-17 14:46 | XMS_ITS | Patient Health Record ---
Author Organization [facility] Address [address] [place] [address] Care Team Providers Care Billing Clerk Name Role Phone Mita Leonard MDh Primary [...] Oral for 90 Active OneTouch Delica Plus [id number] - for 50 Active Dulcolax (colon prep) [...] Problem Status W/U Status Risk Notes Problem [id number] Colon cancer screening (Z12.11) Active confirmed Problem 755119455 Gastroesophageal reflux disease without esophagitis (K21.9) Active confirmed Problem GERD (gastroesophageal reflux disease) (K21.9) Active confirmed Problem 387746236 Intestinal gas excretion (R14.3) Active confirmed Plan Of Treatment Future Test Test Name Order Date UPPER GI ENDOSCOPY 07/17/2022 COLONOSCOPY 07/17/2022 Insurance Providers Payer Name Payer Address Payer Phone Subscriber Number Group Number Insured Name Patient Relationship to Insured Coverage Start Date Coverage End Date [facility] [address] Attn Claims ALICIA Alfaro [id number] ANA FRAUSTO Self - patient is the insured MEDICAID OF [facility] [address] [place] [phone] [id number] ANA FRAUSTO Self - patient is the insured Medical (General) History Medical History History ICD Code Hypothyroidism allergic rhinitis Anxiety/depression Diabetes mellitus type 2 diverticulosis gerd Hyperlipidemia vitamin d deficiency Surgical History Surgery Date(Month/Year) section/tubal ligation appendectomy shoulder surgery
--- OUTSIDE RECORDS SUMMARY | 2024-09-17 14:46 | XMS_ITS | Encounter Summary ---
Author Organization [employer] Address [address] [facility] [address] [place] [address] Care Team Providers Care Magnetic Resonance Imaging Director Name Role Phone Lina Ni MD Primary Care Provide r Encounter Details Date Type Department Care Team (Latest Contact Info) Description 01/05/2021 Abstract [facility] CONVERSIONS Dental, Provider, DDS Social History Tobacco [...] on filedocumented in this encounter Care Teams Magnetic Resonance Imaging Director Relationship Specialty Start Date End Date Lina Ni MD [address] [place] [address] PCP - General Family Medicine 09/29/20 03/05/23 documented as of this encounter
== END 2024-09-17 15:11 | disposition home or self-care (01) ==
LOC: HO.HCS 14:38
PROVIDERS: PCP Internal Medicine
DX: R07.2 Precordial pain (principal); E78.5 Hyperlipidemia, unspecified; E11.9 Type 2 diabetes mellitus without complications
CPT/HCPCS: 99214; G2211

== ENCOUNTER → 2024-09-17 14:37 | Outpatient (BNVA) | payer OTHER, SELFPAY | PROVIDERS: PCP Internal Medicine | DX: R07.2 Precordial pain (principal); E78.5 Hyperlipidemia, unspecified; E11.9 Type 2 diabetes mellitus without complications; K22.4 Dyskinesia of esophagus | CPT/HCPCS: 99212 ==

== ENCOUNTER 2024-10-30 15:19 | Outpatient (AMB) | payer OTHER, SELFPAY ==
--- NOTE | 2024-10-30 16:01 | MHC.OFFVIS ---
Vital Signs 10/30/24 16:02 Height 4 ft 11 in Weight 147 lb BMI 29.7 Intake Visit Reasons: vaginal itching Hvac Installation Technician Required: Yes Hvac Installation Technician Language: Orderlies Teacher Services: Hvac Installation Technician Present (in person) Hvac Installation Technician Name: Jessie PENN Information Interpreted: non-clinical & clinical Jack Frame Tender: Jack Frame Tender Present (Jessie PENN) Accompanied by: Self / Same As Patient Allergies aspirin (ASPIRIN) Allergy (Mild, Verified 10/30/24 16:03) UPSET STOMACH trazodone Adverse Reaction (Intermediate, Verified 10/30/24 16:03) tiredness Post menopausal: Yes HPI Comments Details: Presenting complaining of bilateral groin itching PFSH Medical History Obesity (BMI 30-39.9) Anxiety Insomnia Internal hemorrhoids Allergic rhinitis Constipation Vitamin D deficiency Acquired hypothyroidism Pure hypercholesterolemia Anal pain Type 2 diabetes mellitus with unspecified complications Hx of thyroid cyst Hiatal hernia Diverticulosis Depression with anxiety Hypothyroidism GERD (gastroesophageal reflux disease) Surgical History H/O tubal ligation History of History of appendectomy Hx of shoulder surgery History of colonoscopy Family History Father History of heart attack Mother History of heart attack Sister Breast cancer Social History Housing: Apartment Alcohol intake: never Patient Tobacco Use Status: Never used Tobacco e-Cigarette/Vaping Use: Never Used service: No Cognitive needs: No Hearing needs: No Vision needs: Yes Female Reproductive History Menstrual Age of Menarche: 13 Review of Systems Const All systems reviewed & are unremarkable except as noted in HPI and below Card Reports as per HPI and Reports no additional complaints Resp Reports as per HPI and Reports no additional complaints GI Reports as per HPI and Reports no additional complaints Reports as per HPI Physical Exam Vital Signs: BMI result Body Mass Index 29.7 Const General: cooperative, healthy appearing and comfortable General: Yes bladder normal to palpation External Female Exam: No lesion Speculum Exam - Vagina: normal appearance of the vagina, normal vaginal discharge and not erythematous Speculum Exam - Cervix: Cervix absent Bimanual exam- vagina & uterus: bladder normal to palpation and uterus absent Bimanual Exam- Adnexa, other: Other (No masses detected) Skin Other: Bilateral groin candidiasis Assessment & Plan Assessment & Plan (1) Skin candidiasis: Code(s): B37.2 - Candidiasis of skin and nail Category: Medical Plan: The patient was instructed to keep the area dry, use hair blower after showering, use baby powder without Talc and Desitin cream in addition to applying lotrisone cream BID x5 days Medications: New clotrimazole-betamethasone 1-0.05 % 1 appl topical BID 45 grams 0RF 5 days Coding Level of Care Code Est Pt Level 3 (40309) Diagnoses Skin candidiasis B37.2
[2024-10-30 16:02] VITALS: BMI 29.7
--- OUTSIDE RECORDS SUMMARY | 2024-10-30 19:27 | XMS_ITS | Encounter Summary ---
Author Organization [employer] Address [address] [facility] 7[address] [place] [address] Care Team Providers Care Drug Discovery Informatics Specialist Name Role Phone Lina Ni MD Primary Care Provide r Encounter Details Date Type Department Care Team (Latest Contact Info) Description 01/05/2021 Abstract [facility] CONVERSIONS Dental, Provider, DDS Social History Tobacco [...] on filedocumented in this encounter Care Teams Drug Discovery Informatics Specialist Relationship Specialty Start Date End Date Lina Ni MD [address] [place] [address] PCP - General Family Medicine 09/29/20 03/05/23 documented as of this encounter
--- OUTSIDE RECORDS SUMMARY | 2024-10-30 19:28 | XMS_ITS | Encounter Summary ---
Author Organization [employer] Address [address] [facility] [address] [place] [address] Care Team Providers Care Md Psychiatry Name Role Phone Lina Ni MD Primary Care Provide r Encounter Details Date Type Department Care Team ([facility] st Contact Info) Description 11/01/2022 Orders Only [facility] [address] [place], [place] [phone] Provider, MD Curtis Social History Tobacco Use Types Packs/Day Years [...] on file documented as of this encounter Procedures Procedure Name Priority Date/Time Associated Diagnosis Comments HM PAP/HPV Routine 03/02/2021 documented in this encounter Results * Hm Pap Smear (03/02/2021) Historical Provider HEALTH MAINTENANCE Final Result documented in this encounter Visit Diagnoses Not on filedocumented in this encounter Care Teams Md Psychiatry Relationship Specialty Start Date End Date Lina Ni MD [address] [place], [place] [phone] PCP - General Family Medicine 09/29/20 03/05/23 documented as of this encounter
--- OUTSIDE RECORDS SUMMARY | 2024-10-30 19:28 | XMS_ITS | Encounter Summary ---
Author Organization [employer] Address [address] [facility] [address] [place] [address] Care Team Providers Care Ell Tutor Name Role Phone Unavailable Primary Care Provider Unavailabl e Reason for Visit * Reason Comments Med Refill Encounter Details Date Type Department Care Team (Late st Contact Info) Description 10/21/2024 Refill [facility] [address] [place] [address] Lina Ni MD [address] [place] [address] Type 2 diabetes mellitus without complications (CMS/HCC) Social History Tobacco Use Types Packs/Day Years Used Date Smoking Tobacco: Never Smokeless Tobacco: Never Comments Unknown Sex and Gender Information Value Date Recorded Sex Assigned at Female 12/05/2021 10:29 AM EDT Legal Sex Female 10:29 AM EDT Gender Identity Female 12/05/2021 10:29 AM EDT Sexual Orientation Straight 12/05/2021 10 :29 AM EDT documented as of this encounter Plan of Treatment Not on file documented as of this encounter Visit Diagnoses Diagnosis Type 2 diabetes mellitus without complications (CMS/HCC) documented in this encounter
--- OUTSIDE RECORDS SUMMARY | 2024-10-30 19:28 | XMS_ITS | Encounter Summary ---
Author Organization [employer] Address [address] [facility] [address] [place] [address] Care Team Providers Care Manufacturing Engineering Technologist Name Role Phone Unavailable Primary Care Provider Unavailabl e Reason for Visit * Reason Comments Med Refill Encounter Details Date Type Department Care Team (Late st Contact Info) Description 08/20/2023 Refill C [facility] [address] [place] [address] Lina Ni MD [address] [place] [address] Dyslipidemia Social History Tobacco Use Types Packs/Day Years [...] as of this encounter Visit Diagnoses Diagnosis Dyslipidemia Other and unspecified hyperlipidemia documented in this encounter
--- OUTSIDE RECORDS SUMMARY | 2024-10-30 19:28 | XMS_ITS | Encounter Summary ---
Author Organization [employer] Address [address] [facility] [address] [place] [address] Care Team Providers Care Referral Nurse Name Role Phone Lina Ni MD Primary Care Provide r Encounter Details Date Type Department Care Team ([facility] st Contact Info) Description 03/09/2022 Orders Only [facility] [address] [place] [address] Porsche Dean LPN Social History Tobacco Use Types Packs/Day Years [...] on filedocumented in this encounter Care Teams Referral Nurse Relationship Specialty Start Date End Date Lina Ni MD [address] [place] [address] PCP - General Family Medicine 09/29/20 03/05/23 documented as of this encounter
--- OUTSIDE RECORDS SUMMARY | 2024-10-30 19:28 | XMS_ITS | Encounter Summary ---
Author Organization [employer] Address [address] [facility] [address] [place] [address] Care Team Providers Care Skein Dyer Name Role Phone Lina Ni MD Primary Care Provide r Encounter Details Date Type Department Care Team (Latest Contact Info) Description 09/16/[address] [facility] CONVERSIONS Dental, Provider, DDS Social History [...] on filedocumented in this encounter Care Teams Skein Dyer Relationship Specialty Start Date End Date Lina Ni MD [address] [place] [address] PCP - General Family Medicine 09/29/20 03/05/23 documented as of this encounter
--- OUTSIDE RECORDS SUMMARY | 2024-10-30 19:28 | XMS_ITS | Encounter Summary ---
Author Organization [employer] Address [address] [facility] [address] [place] [address] Care Team Providers Care Slot Shift Supervisor Name Role Phone Lina Ni MD Primary Care Provide r Encounter Details Date Type Department Care Team (Latest Contact Info) Description 10/31/2019 Abstract [facility] CONVERSIONS Dental, Provider, DDS Social History [...] on filedocumented in this encounter Care Teams Slot Shift Supervisor Relationship Specialty Start Date End Date Lina Ni MD [address] [place] [address] PCP - General Family Medicine 09/29/20 03/05/23 documented as of this encounter
--- OUTSIDE RECORDS SUMMARY | 2024-10-30 19:28 | XMS_ITS | Patient Health Record ---
Author Organization [facility] Address [address] [place] [address] Care Team Providers Care Fractionation Supervisor Name Role Phone Mita Leonard MDh Primary [...] Oral for 90 Active OneTouch Delica Plus [id number] - for 50 Active Dulcolax (colon prep) [...] Problem Status W/U Status Risk Notes Problem [id number] Colon cancer screening (Z12.11) Active confirmed Problem 381747175 Gastroesophageal reflux disease without esophagitis (K21.9) Active confirmed Problem Gastroesophageal reflux disease (917237109) GERD (gastroesophageal reflux disease) (K21.9) Active confirmed Problem 082655802 Intestinal gas excretion (R14.3) Active confirmed Plan Of Treatment Future Test Test Name Order Date UPPER GI ENDOSCOPY 07/17/2022 COLONOSCOPY 07/17/2022 Insurance Providers Payer Name Payer Address Payer Phone Subscriber Number Group Number Insured Name Patient Relationship to Insured Coverage Start Date Coverage End Date [facility] [address] Attn Claims ALICIA Alfaro [id number] ANA FRAUSTO Self - patient is the insured [facility] [address] [place] [phone] [phone] [id number] ANA FRAUSTO Self - patient is the insured Medical (General) History Medical History History ICD Code Hypothyroidism allergic rhinitis Anxiety/depression Diabetes mellitus type 2 diverticulosis gerd Hyperlipidemia vitamin d deficiency Surgical History Surgery Date(Month/Year) section/tubal ligation appendectomy shoulder surgery
--- OUTSIDE RECORDS SUMMARY | 2024-10-30 19:28 | XMS_ITS | Encounter Summary ---
Author Organization [employer] Address [address] [facility] [address] [place] [address] Care Team Providers Care Hair Assistant Name Role Phone Unavailable Primary Care Provider Unavailabl e Reason for Visit * Reason Comments Med Refill Encounter Details Date Type Department Care Team (Late st Contact Info) Description 09/25/2024 Refill C [facility] [address] [place] [address] Lina Ni MD [address] [place] [address] Type 2 diabetes mellitus without complications (CMS/HCC) [...]
--- OUTSIDE RECORDS SUMMARY | 2024-10-30 19:28 | XMS_ITS | Clinical Summary ---
Author Organization [employer] Address [address] [facility] 7t [place] [address] Care Team Providers Care Geology Scientist Name Role Phone Unavailable Primary Care Provider Unavailabl e Allergies Active Allergy Reactions Criticality Noted Date Comments Aspirin 09/06/2018 Other reaction(s): Abdominal bloating Medications acetaminophen (Tylenol) 500 MG tablet Take 1 tablet by mouth in the morning and 1 tablet at noon and 1 tablet in the evening and 1 tablet before bedtime. 05/27/19 22 Active aspirin 81 MG EC tablet Take 1 tablet by mouth in the morning. Active bisacodyl (Dulcolax) 10 MG suppository Insert 10 mg into the rectum if needed. 01/13/20 20 Active fluconazole (Diflucan) 150 MG tablet Take 1 tablet by mouth. 11/09/19 22 Active fluticasone (Flonase Allergy Relief) 50 MCG/ACT nasal spray Administer 1-2 sprays into affected nostril(s) at bed time. 06/03/19 22 Active glucose blood (FREESTYLE LITE) test strip every 12 (twelve) hours. 12/04/19 21 Active glucose blood (OneTouch Ultra) test strip 1 each every 12 (twelve) hours. 08/30/19 22 Active hydrocortisone 2.5 % cream Apply topically every 12 (twelve) hours. 03/15/19 21 Active hydrocortisone (Anusol-HC) 25 MG suppository 1 supp per rectum daily prn hemorrhoids 08/17/19 21 Active lidocaine (Lidoderm) 5 % patch Place 1 patch on the skin at bed time. 11/09/19 22 Active loratadine (Claritin) 10 MG tablet 10 mg. 09/17/19 22 Active nitrofurantoin, macrocrystal-monoh ydrate, (Macrobid) 100 MG capsule Take 1 capsule by mouth every 12 (twelve) hours. 10/07/19 22 Active omeprazole (PriLOSEC) [address] capsule Take 1 capsule by mouth before breakfast, before lunch, and before evening meal. 04/29/19 20 Active sucralfate (Carafate) 1 g tablet Take 1 tablet by mouth every 12 (twelve) hours. 07/08/19 21 Active zoster vaccine-recombinan t adjuvanted (Shingrix) 50 MCG/0.5ML vaccine Inject 0.5 mL into the shoulder, thigh, or buttocks. 10/25/19 19 Active pantoprazole (ProtoNix) 40 MG EC tabletIndications: Acquired hypothyroidism Take 1 tablet by mouth every day 90 tablet 02/09/19 23 Active traZODone (Desyrel) 50 MG tabletIndications: Primary insomnia TAKE 1 TABLET BY MOUTH AT BEDTIME 30 tablet 1 03/09/19 23 Active Cholecalciferol 25 MCG (1000 UT) chewable tabletIndications: Vitamin D deficiency Take 1 tablet by mouth daily 90 tablet 1 04/12/19 23 Active mirtazapine (Remeron) 7.5 MG tabletIndications: Primary insomnia TAKE 1 TABLET BY MOUTH AT BEDTIME 30 tablet 3 06/28/19 23 Active melatonin 5 MG tablet TAKE 2 TABLETS BY MOUTH AT BEDTIME 60 tablet 5 08/31/19 23 Active simethicone (Simethicone Ultra Strength) 180 MG capsule TAKE 1 CAPSULE BY MOUTH THREE TIMES DAILY WITH MEALS NEEDED 90 capsule 09/07/19 23 Active ketotifen (Zaditor) 0.025 % ophthalmic solution PLACE 1 DROP INTO THE AFFECTED EYE(S) TWICE DAILY FOR ITCHING 5 mL 11 10/06/19 23 Active metFORMIN XR (Glucophage-XR) 500 MG 24 hr tabletIndications: Acquired hypothyroidism TAKE 2 TABLETS BY MOUTH TWICE DAILY WITH MEALS 360 tablet 12/05/19 23 Active oxybutynin XL (Ditropan-XL) 10 MG 24 hr tablet Take 10 mg by mouth in the morning. 11/04/19 23 Active Lancets (OneTouch Delica Plus [id number]) [facility] USE TEST BLOOD SUGAR ONCE DAILY DIRECTED 11/22/19 23 Active levothyroxine (Synthroid, Levoxyl) 25 MCG tabletIndications: Acquired hypothyroidism TAKE 1 TABLET BY MOUTH EVERY DAY 90 tablet 02/13/19 24 Active atorvastatin (Lipitor) 20 MG tabletIndications: Dyslipidemia Take 1 tablet (20 mg) by mouth in the morning. 90 tablet 02/13/19 24 Active hydrOXYzine HCl (Atarax) 25 MG tablet TAKE 1 TO 2 TABLETS BY MOUTH AT BEDTIME IF NEEDED FOR SLEEP 30 tablet 04/05/19 24 Active venlafaxine XR (Effexor XR) 75 MG 24 hr capsule 08/20/19 24 Active Active Problems Problem Noted Date Diagnosed Date Acquired hypothyroidism 01/13/2022 Heartburn 01/13/2022 Type 2 diabetes mellitus without complication Tubular adenoma 01/13/2022 Mixed anxiety and depressive disorder 01/13/2022 Thyroid nodule 11/28/2019 Primary insomnia 06/10/2018 Acute hemorrhagic cystitis 01/02/2018 Elevated blood pressure reading 11/22/2017 Impaired fasting glucose 11/22/2017 Stress incontinence of urine 09/26/2017 Vitamin D deficiency 09/11/2017 Lower urinary tract symptoms 08/27/2017 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 Dyslipidemia 03/18/2015 Encounters Date Type Department Care Team Description 10/21/2024 Refill [facility] [address] [place] [address] Lina Ni MD Type 2 diabetes mellitus without complications ([facility]) 10/15/2024 Refill [facility] [address] [place] [address] Lina Ni MD Type 2 diabetes mellitus without complications ([facility]) 09/25/2024 Refill [facility] [address] [place], [place] [phone] Lina Ni MD Type 2 diabetes mellitus without complications ([facility]) 09/23/[address] [facility] [address] [place], [place] [phone] Addie Jackson OD from Last 3 Months Immunizations Immunization Administration Dates Next Due Moderna Covid-19 Vaccine 12+ 07/20/2020,06/12/19 21 Tdap 10/24/2018 Family History Medical History Relation Name Comments Mental illness Father Coronary artery disease Mother Stroke Mother Relation Name Status Comments Father Mother Social History Tobacco Use Types Packs/Day Years Used Date Smoking Tobacco: Never Smokeless Tobacco: Never Tobacco Cessation:Counseling Given: Not Answered Comments Unknown Sex and Gender Information Value Date Recorded Sex Assigned at Female 12/05/2021 10:29 AM EDT Legal Sex Female 10:29 AM EDT Gender Identity Female 12/05/2021 10:29 AM EDT Sexual Orientation Straight 12/05/2021 10 :29 AM EDT Last Filed Vital Signs Vital Sign Reading Time Taken Comments Blood Pressure 122/80 11/04/2021 12:09 AM EDT Pulse 78 11/04/2021 12:09 AM EDT Temperature - - Respiratory Rate - - Oxygen Saturation - - Inhaled Oxygen Concentration - - Weight 68.1 kg (150 lb 3.2 oz) 11/04/2021 12:09 AM EDT Height 152.4 cm (5') 11/04/2021 12:09 AM EDT Body Mass Index 29.33 11/04/2021 12:09 AM EDT Plan of Treatment Health Maintenance Due Date Last Done Comments CT Colonography 1955 Depression Screening 1955 FIT DNA/Cologuard 1955 FIT 1955 FOBT 1955 SDOH Screening 1955 Sigmoidoscopy 1955 Diabetes: Foot Exam 07/08/1965 Alcohol/Substance Use Screening 1967 Hepatitis C Screening 07/08/1973 Pneumococcal Vaccine: 50+ Years (1 of 2 - PCV) 07/08/1974 Zoster Vaccines (1 of 2) 07/08/2005 Diabetes: Hemoglobin A1C 01/05/2022 022, 06/10/2021, 09/27/2020, Additional history exists Diabetes: Urine Protein Screening 03/24/2022 03/24/2021, 06/11/2020 Lipid Panel 03/24/2022 03/24/2021, 050 08/2020, 11/10/2019, Additional history exists Tobacco Screening 08/20/2024 08/21/2023 Mammogram 09/12/2024 09/12/2022, 080 03/2021, 09/06/2021, Additional history exists COVID-19 Vaccine ( - season) 2024 07/20/2020, 06/11/2020 Influenza Vaccine (#1) 2024 12/15/2015 Eye Exam 08/20/2025 08/21/2023, 08/05, 08/21/2023, Additional history exists HPV/Cotest 03/02/2026 03/02/2021, 03/02/2021 Pap Smear 03/02/2026 03/02/2021, 08/23/2016 Colonoscopy 12/06/2027 12/05/2022, 10/30/2017 Colorectal Cancer Screening 12/06/2027 DTaP/Tdap/Td Vaccines (2 - Td or Tdap) 10/24/2028 10/24/2018 RSV Patients and Patients Aged 60 years or older (1 - 1-dose 75+ series) 07/08/2030 HIB Vaccines Aged Out No longer eligi ble based on patient's age to complete this topic HPV Vaccines Aged Out No longer eligi ble based on patient's age to complete this topic Hepatitis A Vaccines Aged Out No long er eligible based on patient's age to complete this topic Hepatitis B Vaccines Aged Out No long er eligible based on patient's age to complete this topic IPV Vaccines Aged Out No longer eligi ble based on patient's age to complete this topic Meningococcal B Vaccine Aged Out No l onger eligible based on patient's age to complete this topic Meningococcal Vaccine Aged Out No yvonne katrin eligible based on patient's age to complete this topic RSV under 20 months Aged Out No longe r eligible based on patient's age to complete this topic Rotavirus Vaccines Aged Out No longer eligible based on patient's age to complete this topic Procedures Procedure Name Priority Date/Time Associated Diagnosis Comments HM COLONOSCOPY Routine 12/05/2022 BI MAMMOGRAM SCREENING TOMOSYNTHESIS BILATERAL Routine 09/12/2022 11:20 AM EDT HEMOGLOBIN A1C Routine 10/06/2021 ALBUMIN, RANDOM URINE W/CREATININE Routine 03/24/2021 9:44 AM EST LIPID PANEL, STANDARD Routine 03/24/2021 9:44 AM EST ZZZ HISTORICAL HPV E6/E7 RFLX FERNANDA 16 18/45 Routine 03/02/2021 12:35 PM EST HM PAP/HPV Routine 03/02/2021 from Last 3 Months or Most Recently Relevant to Health Maintenance Results * Hm Colonoscopy (12/05/2022) Colonoscopy Normal Normal Narrative Anamaria Bruno RN - 12/05/2022 See scanned report Tan Arellano MD HEALTH MAINTENANCE Final Res ult * BI Mammogram Screening Tomosynthesis Bilateral (09/12/2022 11:20 AM EDT) Anatomical Region Laterality Modality Breast Bilateral Mammography 09/12/2022 11:2 0 AM EDT Narrative 10/02/2022 12:57 PM EDT [facility] [address] [place] [address] Mammography Report Signed Patient: Saadia Barker MR#: [id number] : 1955 Acct:[id number] Age/Sex: 67 / F ADM Date: 09/12/22 Loc: HO.MAMMO Attending Dr: Lina Wen MD Ordering Physician: Lina Ni MD Results: 1Negative Date of Service: 09/12/22 Follow Up: 1 Year From Orig ina Mammogram Procedure(s): MM tomosynthesis screening BI Accession Number(s): [id number] cc: Lina Ni MD EXAMINATION: MM SCREENING DIGITAL BREAST TOMOSYNTHESIS, BILATERAL CLINICAL INFORMATION: Screening. Asymptomatic. The lifetime risk of breast cancer based on the Tyrer-Cuzick Model is 4.6%. COMPARISON: Mammography: 09/24/2021, 09/03/2020, 08/22/2019, and dating back to 2017. TECHNIQUE: Digital breast tomosynthesis is performed in both the craniocaudal and mediolateral oblique views along with computer-aided detection (CAD). Synthesized 2D images are generated from the tomosynthesis. FINDINGS: There are scattered areas of fibroglandular density (ACR BI-RADS breast composition Category b). There are no suspicious masses, suspicious grouped calcifications, or areas of architectural distortion. The parenchymal pattern is stable from prior exams. There are no skin changes. MM/MM tomosynthesis screening BI IMPRESSION: No mammographic evidence of malignancy. ASSESSMENT: BI-RADS BI-RADS 1 - Negative RECOMMENDATION: Routine annual mammography screening. 1 year F/U This examination should not preclude the clinical evaluation of a suspicious palpable abnormality. This patient's information was entered into a reminder system with a target due date for their next mammogram. Dictated By: Jj Steele MD Signed By: <Electronically signed by Jj Steele MD in OV> 10/02/22 1254 DD/ 1120 TD/TT: Surgical Supplies Sterilizer: Procedure Note Donotuseinterpreter, [facility] - [facility] [address] [place] [address] Mammography Report Signed Patient: vEelia Barker#: [id number] : 6Acct:[id number] Age/Sex: 67 / FADM Date: 09/12/22 Loc: HO.MAMMO Attending Dr: Lina Wen MD Ordering Physician: Lina Ni MDResults: 1Negative Date of Service: 09/12/22Follow Up: 1 Year From Orig inal Mammogram Procedure(s): MM tomosynthesis screening BI Accession Number(s): [id number] cc: Lina Ni MD EXAMINATION: MM SCREENING DIGITAL BREAST TOMOSYNTHESIS, BILATERAL CLINICAL INFORMATION: Screening. Asymptomatic. The lifetime risk of breast cancer based on the Tyrer-Cuzick Model is 4.6%. COMPARISON: Mammography: 09/24/2021, 09/03/2020, 08/22/2019, and dating back to 2017. TECHNIQUE: Digital breast tomosynthesis is performed in both the craniocaudal and mediolateral oblique views along with computer-aided detection (CAD). Synthesized 2D images are generated from the tomosynthesis. FINDINGS: There are scattered areas of fibroglandular density (ACR BI-RADS breast composition Category b). There are no suspicious masses, suspicious grouped calcifications, or areas of architectural distortion. The parenchymal pattern is stable from prior exams. There are no skin changes. MM/MM tomosynthesis screening BI IMPRESSION: No mammographic evidence of malignancy. ASSESSMENT: BI-RADS BI-RADS 1 - Negative RECOMMENDATION: Routine annual mammography screening. 1 year F/U This examination should not preclude the clinical evaluation of a suspicious palpable abnormality. This patient's information was entered into a reminder system with a target due date for their next mammogram. Dictated By: Jj Steele MD Signed By: <Electronically signed by Jj Steele MD in OV> 10/02/22 1254 DD/ 1120 TD/TT: Surgical Supplies Sterilizer: Result [facility] Lina Wen MD IMG BI PROCEDURES Tj sonya Result - Final * (ABNORMAL) Hemoglobin A1c (10/06/2021) Hemoglobin A1C 7.4(A) 4.0 - 6.0 % Blood Venous blood specimen / Unknown Result [facility] Provider LAB BLOOD ORDERABLES Zaira l Result * ALBUMIN, RANDOM URINE W/CREATININE (03/24/2021 9:44 AM EST) Microalbumin Urine 0.4 See Note: mg/dL [facility] Comment: Reference Range: Reference Range Not established Microalb/Creat Ratio 3 <30 mcg/mg creat [facility] Comment: The ADA defines abnormalities in albumin excretion as follows: Albuminuria Category Result (mcg/mg creatinine) Normal to Mildly increased <30 Moderately increased 30-299 Severely increased > OR = 300 The ADA recommends that at least two of three specimens collected within a 3-6 month period be abnormal before considering a patient to be within a diagnostic category. Creatinine, Urine 121 20 - 275 mg/dL [facility] 03/24/2021 9:44 AM EST Result [facility] Lina Wen MD LAB URINE ORDERABLES Final Result Performing Organization Address [facility] de Phone Number [facility] [address] * LIPID PANEL, STANDARD (03/24/2021 9:44 AM EST) Pathologist [facility] Chol/HDLC Ratio 2.2 <5.0 (calc) [facility] Cholesterol, Total 141 <200 mg/dL [facility] HDL Cholesterol 65 > OR = 50 mg/dL [facility] LDL Cholesterol 58 mg/dL (calc) [facility] Comment: Reference range: <100 Desirable range <100 mg/dL for primary prevention; <70 mg/dL for patients with CHD or diabetic patients with > or = 2 CHD risk factors. LDL-C is now calculated using the Santiago calculation, which is a validated novel method providing better accuracy than the Friedewald equation in the estimation of LDL-C. [place] HENDRICKSON et al. KATERIN. 2013;310(58): 0921-1199 (http://education.[employer]/faq/WPS618) Non-HDL Cholesterol 76 <130 mg/dL (calc) [facility] Comment: For patients with diabetes plus 1 major ASCVD risk factor, treating to a non-HDL-C goal of <100 mg/dL (LDL-C of <70 mg/dL) is considered a therapeutic option. Triglycerides 94 <150 mg/dL [facility] 03/24/2021 9:44 AM EST [facility] Pj Wen MD LAB BLOOD ORDERABLES Final Result Performing Organization Address [facility] Co de Phone Number [facility] [address] [place] [address], * HPV E6/E7 RFLX FERNANDA 16 18/45 (03/02/2021 12:35 PM EST) [facility] HPV mRNA E6/E7 rflx Not Detected Not Detected [facility] Comment: Methodology: Etl Consultant-Mediated Amplification This assay detects E6/E7 viral messenger RNA (mRNA) from 14 high-risk HPV types (16,18,31,33,35,39,45,51,52,56,58,59,66,68). The analytical performance characteristics of this assay have been determined by [employer]. The modifications have not been cleared or approved by the FDA. This assay has been validated pursuant to the CLIA regulations and is used for clinical purposes. For additional information, please refer to http://education.[employer]/faq/LNG650w6 (This link if provided for information/ educational purposes only.) THIS TEST WAS PERFORMED AT: [facility] [address] [place] [address] [address] [address] GISELLE FAITH MD 03/02/2021 12:3 5 PM EST Rajendra Rankin MD HISTORICAL/NON ORDERABLE LABS Fi nal Result [facility] [address] * Hm Pap Smear (03/02/2021) Historical Provider HEALTH MAINTENANCE Final Result from Last 3 Months or Most Recently Relevant to Health Maintenance Insurance [facility] STANDARD [facility] ONE CARE < 65
--- OUTSIDE RECORDS SUMMARY | 2024-10-30 19:28 | XMS_ITS | Encounter Summary ---
Author Organization [facility] Address [address] [facility] 7t [place] [address] Care Team Providers Care National Flatbed Truck Driver Name Role Phone Unavailable Primary Care Provider Unavailabl e Reason for Visit * Reason Comments Med Refill Encounter Details Date Type Department Care Team (Late st Contact Info) Description 10/22/2023 Refill [facility] [address] [place] [address] Lina Ni MD [address] [place] [address] Dyslipidemia Social History Tobacco Use Types Packs/Day [...]
--- OUTSIDE RECORDS SUMMARY | 2024-10-30 19:28 | XMS_ITS | Encounter Summary ---
Author Organization [employer] Address [address] [facility] [address] [place] [address] Care Team Providers Care Vice President Of Software Engineering Name Role Phone Unavailable Primary Care Provider Unavailabl e Reason for Visit * Reason Comments Med Refill Encounter Details Date Type Department Care Team (Late st Contact Info) Description 10/15/2024 Refill [facility] [address] [place] [address] Lina Ni MD [address] [place] [address] Type 2 diabetes mellitus without complications (CMS/HCC) [...]
== END 2024-10-30 16:18 | disposition home or self-care (01) ==
LOC: HO.HWS 15:19
PROVIDERS: PCP Internal Medicine; Visit Provider Obstetrics & Gynecology
DX: B37.2 Candidiasis of skin and nail (principal)
CPT/HCPCS: 99213

== ENCOUNTER → 2024-10-30 15:19 | Outpatient (BNVA) | payer OTHER, SELFPAY | PROVIDERS: PCP Internal Medicine; Visit Provider Obstetrics & Gynecology | DX: B37.2 Candidiasis of skin and nail (principal) | CPT/HCPCS: 99212 ==

== ENCOUNTER 2024-11-03 16:14 | Outpatient (REF) | payer OTHER, SELFPAY ==
--- OUTSIDE RECORDS SUMMARY | 2024-11-03 18:14 | XMS_ITS | Encounter Summary ---
Author Organization [employer] Address [address] [facility] [address] [place] [address] Care Team Providers Care Community Planning Technician Name Role Phone Lina Ni MD Primary Care Provide r Encounter Details Date Type Department Care Team (Latest Contact Info) Description 01/05/2021 Abstract [facility] CONVERSIONS Dental, Provider, DDS Social History [...] on filedocumented in this encounter Care Teams Community Planning Technician Relationship Specialty Start Date End Date Lina Ni MD [address] [place] [address] PCP - General Family Medicine 09/29/20 03/05/23 documented as of this encounter
--- OUTSIDE RECORDS SUMMARY | 2024-11-03 18:14 | XMS_ITS | Encounter Summary ---
Author Organization [employer] Address [address] [facility] [address] [place] [address] Care Team Providers Care Floor Service Worker Spring Name Role Phone Lina Ni MD Primary Care Provide r Encounter Details Date Type Department Care Team ([facility] st Contact Info) Description 03/09/2022 Orders Only [facility] [address] [place] [address] Porsche Dean LPN Social History Tobacco Use [...] on filedocumented in this encounter Care Teams Floor Service Worker Spring Relationship Specialty Start Date End Date Lina Ni MD [address] [place] [address] PCP - General Family Medicine 09/29/20 03/05/23 documented as of this encounter
--- OUTSIDE RECORDS SUMMARY | 2024-11-03 18:14 | XMS_ITS | Encounter Summary ---
Author Organization [employer] Address [address] [facility] 7t [place] [address] Care Team Providers Care Pre Planning Advisor Name Role Phone Unavailable Primary Care Provider Unavailabl e Reason for Visit * Reason Comments Med Refill Encounter Details Date Type Department Care Team (Late st Contact Info) Description 10/21/2024 Refill [facility] [address] [place] [address] Lina Ni MD [address] [place] [address] Type 2 diabetes mellitus without complications (CMS/HCC) [...] Diagnosis Type 2 diabetes mellitus without complications (HCC) documented in this encounter
--- OUTSIDE RECORDS SUMMARY | 2024-11-03 18:14 | XMS_ITS | Encounter Summary ---
Author Organization [employer] Address [address] [facility] [address] [place] [address] Care Team Providers Care Pearl Fisherman Name Role Phone Unavailable Primary Care Provider Unavailabl e Reason for Visit * Reason Comments Med Refill Encounter Details Date Type Department Care Team (Late st Contact Info) Description 08/20/2023 Refill [facility] [address] [place] [address] Lina Ni MD [address] [place] [address] Dyslipidemia Social History Tobacco Use Types Packs/Day [...]
--- OUTSIDE RECORDS SUMMARY | 2024-11-03 18:14 | XMS_ITS | Encounter Summary ---
Author Organization [employer] Address [address] [facility] [address] [place] [address] Care Team Providers Care Making Department Preparer Name Role Phone Lina Ni MD Primary Care Provide r Encounter Details Date Type Department Care Team ([facility] st Contact Info) Description 11/01/2022 Orders Only [facility] [address] [place], [place] [phone] Provider, MD Curtis Social History Tobacco Use [...] on filedocumented in this encounter Care Teams Making Department Preparer Relationship Specialty Start Date End Date Lina Ni MD [address] [place], [place] [phone] PCP - General Family Medicine 09/29/20 03/05/23 documented as of this encounter
--- OUTSIDE RECORDS SUMMARY | 2024-11-03 18:14 | XMS_ITS | Patient Health Record ---
Author Organization [facility] Address [address] [place] [address] Care Team Providers Care Goldsmith Apprentice Name Role Phone Mita Leonard MDh Primary Care Provider Tan Robbins Jr Unavailable [phone] Allergies Allergen (clinical drug ingredient) Drug/Non [...] Oral for 90 Active OneTouch Delica Plus [id number] - for 50 Active Dulcolax (colon prep) [...] Problem Status W/U Status Risk Notes Problem 263227578 Colon cancer screening (Z12.11) Active confirmed Problem 159138284 Gastroesophageal reflux disease without esophagitis (K21.9) Active confirmed Problem Gastroesophageal reflux disease (092645994) GERD (gastroesophageal reflux disease) (K21.9) Active confirmed Problem 624431182 Intestinal gas excretion (R14.3) Active confirmed Plan Of Treatment Future Test Test Name Order Date UPPER GI ENDOSCOPY 07/17/2022 COLONOSCOPY 07/17/2022 Insurance Providers Payer Name Payer Address Payer Phone Subscriber Number Group Number Insured Name Patient Relationship to Insured Coverage Start Date Coverage End Date [facility] [address] Attn Claims ALICIA Alfaro [id number] ANA FRAUSTO Self - patient is the insured [facility] [address] [place] [phone] [id number] ANA FRAUSTO Self - patient is the insured Medical (General) History Medical History History ICD Code Hypothyroidism allergic rhinitis Anxiety/depression Diabetes mellitus type 2 diverticulosis gerd Hyperlipidemia vitamin d deficiency Surgical History Surgery Date(Month/Year) section/tubal ligation appendectomy shoulder surgery
--- OUTSIDE RECORDS SUMMARY | 2024-11-03 18:14 | XMS_ITS | Clinical Summary ---
Author Organization [employer] Address [address] [facility] [address]t [place] [address] Care Team Providers Care Estate Planning Counselor Name Role Phone Unavailable Primary Care Provider [...] 11/04/19 23 Active Lancets (OneTouch Delica Plus [id number]) [facility] BLOOD SUGAR ONCE DAILY DIRECTED [...] Type Department Care Team Description 10/21/2024 Refill [facility]ED[facility] [address] [place] [address] Lina Ni MD Type 2 diabetes mellitus without complications ([facility]/HCC) 10/15/2024 Refill [facility] MED [facility] PEDS [address] [place] [address] Lina Ni MD Type 2 diabetes mellitus without complications ([facility]/HCC) 09/25/2024 Refill [facility] PED[facility] [address] [place], [place] [phone] Lina Ni MD Type 2 diabetes mellitus without complications ([facility]/HCC) 09/23/2024 Telephone [facility] [address] [place], [place] [phone] Addie Jackson OD from Last 3 Months [...] AM EDT Narrative 10/02/2022 12:57 PM EDT [facility] [address] [place] [address] Mammography Report Signed Patient: Saadia Barker MR#: [id number] : 1955 Acct:[id number] Age/Sex: 67 / F ADM Date: 09/12/22 Loc: HO.MAMMO Attending Dr: Lina Wen MD Ordering Physician: Lina Ni MD Results: 1Negative Date of Service: 09/12/22 Follow Up: 1 Year From Orig ina Mammogram Procedure(s): MM tomosynthesis screening BI Accession Number(s): [id number] cc: Lina Ni MD EXAMINATION: MM SCREENING [...] in OV> 10/02/22 1254 DD/ 1120 TD/TT: Spray Applicator: Procedure Note Donotuseinterpreter, Image - 10/02/[facility] [address] [place] [address] Mammography Report Signed Patient: Evelia Barker#: [id number] : 6Acct:[id number] Age/Sex: 67 / FADM Date: 09/12/22 Loc: HO.MAMMO Attending Dr: Lina Wen MD Ordering Physician: Lina Ni MDResults: 1Negative Date of Service: 09/12/22Follow Up: 1 Year From Orig inal Mammogram Procedure(s): MM tomosynthesis screening BI Accession Number(s): [id number] cc: Lina Ni MD EXAMINATION: MM SCREENING [...] in OV> 10/02/22 1254 DD/ 1120 TD/TT: Spray Applicator: Result [facility] Lina Wen MD IMG BI PROCEDURES Tj sonya Result - Final * (ABNORMAL) Hemoglobin A1c (10/06/2021) Hemoglobin A1C 7.4(A) 4.0 - 6.0 % Blood Venous blood specimen / Unknown Result [facility] Provider LAB BLOOD ORDERABLES Zaira l Result [...] LAB SYSTEM 03/24/2021 9:44 AM EST Result [facility] Lina Wen MD LAB URINE ORDERABLES Final Result Performing Organization Address [facility] de Phone Number [facility] [address] * LIPID PANEL, STANDARD (03/24/2021 9:44 AM EST) Pathologist [facility] Chol/HDLC Ratio 2.2 <5.0 (calc) [facility] Cholesterol, Total 141 <200 mg/dL [facility] HDL Cholesterol 65 > OR = 50 mg/dL [facility] LDL Cholesterol 58 mg/dL (calc) [facility] Comment: Reference range: <100 Desirable range <100 mg/dL for primary prevention; <70 mg/dL for patients with CHD or diabetic patients with > or = 2 CHD risk factors. LDL-C is now calculated using the Santiago calculation, which is a validated novel method providing better accuracy than the Friedewald equation in the estimation of LDL-C. [place] HENDRICKSON et al. KATERIN. 2013;310(94): 7941-6244 (http://education.[employer]/faq/MDN710) Non-HDL Cholesterol 76 <130 mg/dL (calc) [facility] Comment: For patients with diabetes plus 1 major ASCVD risk factor, treating to a non-HDL-C goal of <100 mg/dL (LDL-C of <70 mg/dL) is considered a therapeutic option. Triglycerides 94 <150 mg/dL [facility] 03/24/2021 9:44 AM EST [facility] Pj Wen MD LAB BLOOD ORDERABLES Final Result Performing Organization Address [facility] Co de Phone Number [facility] [address] [place] [address], * HPV E6/E7 RFLX FERNANDA 16 18/45 (03/02/2021 12:35 PM EST) [facility] HPV mRNA E6/E7 rflx Not Detected Not Detected [facility] Comment: Methodology: Environmental Field Technician-Mediated Amplification This assay detects E6/E7 viral messenger RNA (mRNA) from 14 high-risk HPV types (16,18,31,33,35,39,45,51,52,56,58,59,66,68). The analytical performance characteristics of this assay have been determined by [employer]. The modifications have not been cleared or approved by the FDA. This assay has been validated pursuant to the CLIA regulations and is used for clinical purposes. For additional information, please refer to http://education.[employer]/faq/LTS200v2 (This link if provided for information/ educational purposes only.) THIS TEST WAS PERFORMED AT: [facility] [address] [place] [address] [address],[place] [address] GISELLE FAITH MD 03/02/2021 12:3 5 PM EST Rajendra Rankin MD HISTORICAL/NON ORDERABLE LABS Fi nal Result [facility] [address] * Hm Pap Smear (03/02/2021) Historical Provider HEALTH MAINTENANCE Final Result from Last 3 Months or Most Recently Relevant to Health Maintenance Insurance [facility] STANDARD [facility] < 65
--- OUTSIDE RECORDS SUMMARY | 2024-11-03 18:14 | XMS_ITS | Encounter Summary ---
Author Organization [employer] Address [address] [facility] 7t [place] [address] Care Team Providers Care Instructor Hairspring Name Role Phone Lina Ni MD Primary Care Provide r Encounter Details Date Type Department Care Team (Latest Contact Info) Description 10/31/2019 Abstract [facility] CONVERSIONS Dental, Provider, DDS Social History [...] on filedocumented in this encounter Care Teams Instructor Hairspring Relationship Specialty Start Date End Date Lina Ni MD [address] [place] [address] PCP - General Family Medicine 09/29/20 03/05/23 documented as of this encounter
--- OUTSIDE RECORDS SUMMARY | 2024-11-03 18:14 | XMS_ITS | Encounter Summary ---
Author Organization [employer] Address [address] [facility] [address] [place] [address] Care Team Providers Care Inpatient Services Director Name Role Phone Unavailable Primary Care Provider Unavailabl e Reason for Visit * Reason Comments Med Refill Encounter Details Date Type Department Care Team (Late st Contact Info) Description 10/15/2024 Refill [facility] [address] [place] [address] Lina Ni MD [address] [place] [address] Type 2 diabetes mellitus without complications (CMS/HCC) [...]
--- OUTSIDE RECORDS SUMMARY | 2024-11-03 18:14 | XMS_ITS | Encounter Summary ---
Author Organization [employer] Address [address] [facility] 7[address] [place] [address] Care Team Providers Care Water Conservationist Name Role Phone Unavailable Primary Care Provider Unavailabl e Reason for Visit * Reason Comments Med Refill Encounter Details Date Type Department Care Team (Late st Contact Info) Description 09/25/2024 Refill [facility] [address] [place] [address] Lina Ni MD [address] [place] [address] Type 2 diabetes mellitus without complications (CMS/HCC) [...]
--- OUTSIDE RECORDS SUMMARY | 2024-11-03 18:14 | XMS_ITS | Encounter Summary ---
Author Organization [employer] Address [address] [facility] 7[address] [place] [address] Care Team Providers Care Stock Checkerer Name Role Phone Lina Ni MD Primary Care Provide r Encounter Details Date Type Department Care Team (Latest Contact Info) Description 09/16/2018 Abstract [facility] CONVERSIONS Dental, Provider, DDS Social History [...] on filedocumented in this encounter Care Teams Stock Checkerer Relationship Specialty Start Date End Date Lina Ni MD [address] [place] [address] PCP - General Family Medicine 09/29/20 03/05/23 documented as of this encounter
--- OUTSIDE RECORDS SUMMARY | 2024-11-03 18:14 | XMS_ITS | Encounter Summary ---
Author Organization [employer] Address [address] [facility] [address] [place] [address] Care Team Providers Care Pyridine Operator Name Role Phone Unavailable Primary Care Provider Unavailabl e Reason for Visit * Reason Comments Med Refill Encounter Details Date Type Department Care Team (Late st Contact Info) Description 10/22/2023 Refill [facility] [address] [place] [address] Lina Ni MD [address] [place] [address] Dyslipidemia Social History Tobacco Use Types Packs/Day [...]
== END 2024-11-03 16:15 | disposition home or self-care (01) ==
LOC: HO.MAMMO 16:14
PROVIDERS: PCP Internal Medicine; Visit Provider Internal Medicine
DX: Z12.31 Encounter for screening mammogram for malignant neoplasm of breast (principal)
CPT/HCPCS: 77063; 77067

== ENCOUNTER → 2024-11-03 16:15 | Outpatient (BNV) | payer OTHER, SELFPAY | PROVIDERS: PCP Internal Medicine; Visit Provider Internal Medicine | DX: Z12.31 Encounter for screening mammogram for malignant neoplasm of breast (principal) | CPT/HCPCS: 77063; 77067 ==

== ENCOUNTER 2024-11-13 11:39 | Outpatient (REF) | payer OTHER, SELFPAY ==
--- NOTE | ~2024-11-13 | XR_ITS ---
EXAMINATION: XR LUMBAR SPINE 2-3 VIEWS HISTORY: M54.50 - Low back pain, unspecified COMPARISON: Comparison is made with the prior examination dated 12/23/2019. FINDINGS: AP, lateral, and coned down views of the lumbar spine are submitted. Osseous mineralization is normal. Five nonrib-bearing lumbar vertebral bodies are identified, maintaining normal height and alignment without evidence of fracture or spondylolisthesis. The intervertebral disc spaces are preserved. Minimal anterior spurring is noted.. The posterior elements are intact. The visualized paraspinal soft tissues are unremarkable. XR/XR lumbar spine 2-3V IMPRESSION: Minimal degenerative changes. Electronically signed by: Francois Jc MD 11/13/2024 01:44 PM EDT
== END 2024-11-13 11:40 | disposition home or self-care (01) ==
LOC: HO.XRAY 11:39
PROVIDERS: PCP Internal Medicine; Visit Provider Internal Medicine
DX: S39.012A Strain of muscle, fascia and tendon of lower back, initial encounter (principal); E11.65 Type 2 diabetes mellitus with hyperglycemia; Z79.84 Long term (current) use of oral hypoglycemic drugs; W01.0XXA Fall on same level from slipping, tripping and stumbling without subsequent striking against object, initial encounter; Y93.9 Activity, unspecified; Y92.9 Unspecified place or not applicable; Y99.9 Unspecified external cause status; Z13.31 Encounter for screening for depression
CPT/HCPCS: 72100; 96127; 99212

== ENCOUNTER 2024-11-13 11:39 | Outpatient (AMB) | payer OTHER, SELFPAY ==
[2024-11-13 11:45] VITALS: BP 114/78; PULSE 77; O2SAT 97; BMI 29.7
--- NOTE | 2024-11-13 11:45 | MHC.PC.OV ---
Vital Signs 11/13/24 11:45 Height 4 ft 11 in Weight 147 lb 2 oz BMI 29.7 BP 114/78 Blood Pressure Location Lt brachial Position Sitting Pulse 77 Pulse Source Pulse Oximeter Pulse Oximetry (%) 97 Oxygen Delivery Method Room Air Intake Visit Reasons: Lower Back Pain-Thyroid Allergies aspirin (ASPIRIN) Allergy (Mild, Verified 11/13/24 11:57) UPSET STOMACH trazodone Adverse Reaction (Intermediate, Verified 11/13/24 11:57) tiredness Medication List - Last Reconciled 11/13/24 by Ramírez Leonard MD acetaminophen (Tylenol Extra Strength) 500 mg PO Q6-8H PRN amitriptyline 50 mg PO BEDTIME atorvastatin 20 mg PO DAILY [BATH MAT As directed] blood sugar diagnostic (FreeStyle Lite Strips) As directed once a day blood sugar diagnostic (OneTouch Ultra Test strips) As directed once a day blood-glucose meter (FreeStyle Lite Meter kit) As directed blood-glucose meter (OneTouch Ultra2 Meter) As directed once a day cholecalciferol (vitamin D3) (Vitamin D3) 25 mcg PO DAILY clotrimazole-betamethasone 1-0.05 % 1 appl topical BID 5 days clotrimazole-betamethasone 1-0.05 % 1 appl topical BID 5 days [DISPOSABLE WIPES (3 packages a month) As directed] [HAND HELD SHOWER HEAD As directed] hydrocortisone 2.5% 1 appl topical BID PRN ibuprofen 600 mg PO TID PRN 30 days lancets (FreeStyle Lancets) As directed once a day lancets (OneTouch UltraSoft 2 Lancet) As directed lorazepam Take 1 tablet 30 minutes before procedure as needed for anxiety. May repeat x 1 dose after 10 to 15 minutes if needed. 1 day metformin ER 1,000 mg (2 x 500 mg) PO BID [PANTILINERS (3 / day) As directed] pantoprazole 40 mg PO DAILY [Shower chair As directed] simethicone 180 mg PO TID Synthroid (levothyroxine) 25 mcg PO DAILY 90 days NS venlafaxine ER 75 mg PO DAILY [WASHABLE BED PADS (2 per month) As directed] Tobacco use date assessed: 08/29/24 Fall risk assessment: No Falls in past year Dental Screening Dental Screen Date: 08/29/24 Did you have a dental visit in the last 12 months?: Yes Did you have a dental problem in the last 6 months where you did not have access to dental care?: No Was dental information given to patient?: Patient has dentist HPI Lower Back Pain-Thyroid HPI Details Patient comes in today complaining of increased pain over her lower back States that she slipped and almost fell last (about a week ago) but was able to grab onto something and kept herself from falling but thinks that she may have hurt her lower back in the process as she has been experiencing increased pain over her left lower back since Would like to get Rx for some Lidocaine patches for her lower back Also needs Rx refill for her alcohol swabs No other acute complaints or symptoms are noted [facility] Medical History Obesity (BMI 30-39.9) Anxiety Insomnia Internal hemorrhoids Allergic rhinitis Constipation Vitamin D deficiency Acquired hypothyroidism Pure hypercholesterolemia Anal pain Type 2 diabetes mellitus with unspecified complications Hx of thyroid cyst Hiatal hernia Diverticulosis Depression with anxiety Hypothyroidism GERD (gastroesophageal reflux disease) Surgical History H/O tubal ligation History of History of appendectomy Hx of shoulder surgery History of colonoscopy Family History Father History of heart attack Mother History of heart attack Sister Breast cancer Social History Housing: Apartment Alcohol intake: never Patient Tobacco Use Status: Never used Tobacco e-Cigarette/Vaping Use: Never Used service: No Cognitive needs: No Hearing needs: No Vision needs: Yes Female Reproductive History Menstrual Age of Menarche: 13 Questionnaire PHQ-9 Over the last 2 weeks, how often have you been bothered by any of the following problems? 1. Little interest or pleasure in doing things: not at all 2. Feeling down, depressed, or hopeless: not at all 3. Trouble falling or staying asleep, or sleeping too much: several days 4. Feeling tired or having little energy: several days 5. Poor appetite or overeating: not at all 6. Feeling bad about yourself - or that you are a failure or have let yourself or your family down: not at all 7. Trouble concentrating on things, such as reading the newspaper or watching television: not at all 8. Moving or speaking so slowly that other people could have noticed. Or the opposite - being so fidgety or restless that you have been moving around a lot more than usual: not at all 9. Thoughts that you would be better off or of hurting yourself in some way: not at all Total score: 2 Depression Screening Interpretation: Negative Depression Screening Done: Yes 65247 - PHQ-9 Billing: Yes Source: Developed by Drs. Francois Rick, Chaya Villareal, Mj He and colleagues, with an educational nereida from [employer]. Thrive Questionnaire Date Thrive assessed: 08/29/24 I am a: Patient What is your living situation today?: I have a steady place to live Within the past 12 months, did the food you bought not last and you didn't have the money to get more?: Never true Within the past 12 months, did you worry whether your food would run out before you got money to buy more?: Never true Do you have trouble paying for medicines?: No Do you have trouble getting transportation to medical appointments?: No Do you have trouble paying your heating and electricity bill?: No Do you have trouble taking care of your child, family member or friend?: No Do you have trouble with day-to-day activities such as bathing, preparing meals, shopping, managing finances, etc.?: No Are you currently unemployed and looking for a job?: No Are you interested in more education?: No Please select the resources that you would like help with: None Currently or been in a relationship where the following occur: No concerns reported THRIVE Score: 0 AUDIT C Alcohol Use Questionnaire (AUDIT-C) 1. How often do you have a drink containing alcohol?: Never 3. How often do you have six or more drinks on one occasion?: Never Total Score: 0 Score Reviewed/Action Taken: Yes JAIDA-7 AMB Questionnaire JAIDA-7 Date JAIDA - 7 assessed: 08/29/24 Feeling nervous, anxious, or on edge: 0 = Not at all Not being able to stop or control worryin = Not at all Worrying too much about different things: 0 = Not at all Trouble relaxin = Not at all Being so restless that it is hard to sit still: 0 = Not at all Becoming easily annoyed or irritable: 0 = Not at all Feeling afraid as if something awful might happen: 0 = Not at all Total JAIDA-7 score (0-4 normal; 5-9 mild; 10-14 moderate; 15-21 severe): 0 Source: Developed by Drs. Francois Rick, Chaya Villareal, Mj He and colleagues, with an educational nereida from [employer]. Review of Systems Const Denies chills, Denies fatigue, Denies fever(s) and Denies headache(s) ENT Denies dysphagia, Denies dizziness, Denies headache(s), Denies neck pain, Denies odynophagia and Denies sore throat Card Denies chest pain, Denies rapid heart rate, Denies palpitations and Denies dyspnea Resp Denies chest congestion, Denies cough and Denies dyspnea GI Denies abdominal pain, Denies constipation, Denies dysphagia, Denies heartburn, Denies diarrhea, Denies nausea, Denies odynophagia and Denies vomiting Denies difficulty voiding and Denies dysuria Musc Reports back pain (increased pain over the left lower back - see HPI) and Denies neck pain Skin/Breast Denies rash Neuro Denies dizziness and Denies headache(s) Endo Denies fatigue and Denies palpitations Physical exam (Primary Care) Vital Signs: Last Vital Signs Pulse 77 11/13/24 11:45 BP 114/78 11/13/24 11:45 Pulse Ox 97 11/13/24 11:45 Oxygen Delivery Method Room Air 11/13/24 11:45 BMI result Body Mass Index 29.7 Tobacco/Smoking Status: Tobacco use Status Tobacco use date assessed 08/29/24 11/13/24 11:49 Patient Tobacco Use Status Never used Tobacco 11/13/24 11:49 e-Cigarette/Vaping Use Never Used 11/13/24 11:49 PHQ-9: PHQ-9 Score PHQ-9: Total score 2 11/13/24 11:59 Depression Screening Interpretation: Negative Thrive Assessment: Date of Thrive Assessment Date Thrive assessed 08/29/24 11/13/24 11:49 Currently or been in a relationship where the following occur: No concerns reported Const General: no acute distress and alert HENMT Throat: Yes posterior oropharynx normal and Yes tonsils normal (no TP congestion) Neck Neck: Yes supple and No lymphadenopathy Thyroid: Thyroid normal Resp Auscultation: clear to auscultation bilaterally, no rales and no wheezes Cardio Rate: regular rate Rhythm: regular rhythm Heart sounds: no murmurs GI Palpation (GI): Soft to palpation and nontender Auscultation: normal bowel sounds General: Yes no CVA tenderness Back/Spine/Pelvis Back: no CVA tenderness Thoracic/Lumbar Spine: paraspinal muscle tenderness on the left in the upper thoracic, in the mid lumbar and in the lower lumbar and lumbar spinal tenderness Skin Rashes: no rashes Extrem General: Yes no clubbing, cyanosis or edema Coding Level of Care Code Est Pt Level 3 (38146) Diagnoses Acute myofascial strain of lumbar region, initial encounter S39.012A Encounter type: initial encounter Additional Codes PHQ-9 - 85340 - PHQ-9 Billing: Yes ([id number]) Assessment & Plan Assessment & Plan (1) Acute lumbar myofascial strain: Code(s): S39.012A - Strain of muscle, fascia and tendon of lower back, initial encounter Category: Medical Qualifiers: Encounter type: initial encounter Qualified Code(s): S39.012A - Strain of muscle, fascia and tendon of lower back, initial encounter Plan: Will send patient for x-rays of the lumbar spine for further evaluation Per request, will start her on Lidocaine 5% patches QD PRN Will also start her on Tizanidine 4 mg TID PRN If her left lower back pain persists or gets worse, will consider referring her for physical therapy evaluation Plan Follow up as scheduled next month Orders: Orders XR lumbar spine 2-3V 11/13/24 M54.50 - Low back pain, unspecified Medications: New tizanidine 4 mg PO Q8H PRN 90 tabs 0RF muscle spasms 30 days alcohol swabs 1 pad topical .QD-BID 200 ea 12RF E11.65 - Type 2 diabetes mellitus with hyperglycemia lidocaine 5% leave on most painful area for up to 12 hrs 1 patch topical DAILY 30 ea 0RF
== END 2024-11-13 12:45 | disposition home or self-care (01) ==
PROVIDERS: PCP Internal Medicine; Visit Provider Internal Medicine
DX: S39.012A Strain of muscle, fascia and tendon of lower back, initial encounter (principal)

== ENCOUNTER → 2024-11-13 12:38 | Outpatient (BNV) | payer OTHER, SELFPAY | PROVIDERS: PCP Internal Medicine; Visit Provider Radiology Diagnostic Radiology | DX: M54.50 Low back pain, unspecified (principal) | CPT/HCPCS: 72100 ==

== ENCOUNTER 2024-12-30 07:12 | Outpatient (REF) | payer OTHER, SELFPAY ==
--- OUTSIDE RECORDS SUMMARY | 2024-12-30 07:15 | XMS_ITS | Encounter Summary ---
Author Organization [employer] Address [address] [facility] [address]t [place] [address] Care Team Providers Care Tube Room Cashier Name Role Phone Unavailable Primary Care Provider Unavailabl e Reason for Visit * Reason Comments Med Refill Encounter Details Date Type Department Care Team (Late st Contact Info) Description 10/21/2024 Refill [facility] [address] [place] [address] Lina Ni MD [address] [place] [address] Type 2 diabetes mellitus without complications (CMS/HCC) [...]
--- OUTSIDE RECORDS SUMMARY | 2024-12-30 07:15 | XMS_ITS | Encounter Summary ---
Author Organization [employer] Address [address] [facility] 7t [place] [address] Care Team Providers Care Booking Clerk Name Role Phone Unavailable Primary Care Provider Unavailabl e Reason for Visit * Reason Comments Med Refill Encounter Details Date Type Department Care Team (Late st Contact Info) Description 10/15/2024 Refill [facility] [address] [place] [address] Lina Ni MD [address] [place] [address] Type 2 diabetes mellitus without complications (CMS/HCC) [...]
--- OUTSIDE RECORDS SUMMARY | 2024-12-30 07:15 | XMS_ITS | Encounter Summary ---
Author Organization [employer] Address [address] [facility] [address]t [place] [address] Care Team Providers Care Line Appliance Assembler Name Role Phone Lina Ni MD Primary Care Provide r Encounter Details Date Type Department Care Team (Latest Contact Info) Description 01/05/2021 Abstract [facility] CONVERSIONS Dental, Provider, DDS Social [...] on filedocumented in this encounter Care Teams Line Appliance Assembler Relationship Specialty Start Date End Date Lina Ni MD [address] [place] [address] PCP - General Family Medicine 09/29/20 03/05/23 documented as of this encounter
--- OUTSIDE RECORDS SUMMARY | 2024-12-30 07:15 | XMS_ITS | Clinical Summary ---
Author Organization [employer] Address [address] [facility] [address] [place] [address] Care Team Providers Care Service Car Driver Name Role Phone Unavailable Primary Care [...] 11/04/19 23 Active Lancets (OneTouch Delica Plus Rcfelt19R) [facility] [place] USE TEST BLOOD SUGAR ONCE DAILY DIRECTED [...] Type Department Care Team Description 10/21/2024 Refill [facility]S [address] [place] [address] Lina Ni MD Type 2 diabetes mellitus without complications ([facility]/HCC) 10/15/2024 Refill [facility] [address] [place] [address] Lina Ni MD Type 2 diabetes mellitus without complications ([facility]/HCC) from Last 3 Months Immunizations Immunization Administration [...] 03/24/2022 03/24/2021, 06/11/2020 Lipid Panel 03/24/2022 03/24/2021, 05/0 08/2020, 11/10/2019, Additional history exists Tobacco Screening 08/20/2024 08/21/2023 Mammogram 09/12/2024 09/12/2022, 08/0 03/2021, 09/06/2021, Additional history exists COVID-19 Vaccine ( season) 2024 07/20/2020, 06/11/2020 Influenza Vaccine (#1) [...] Procedure Name Priority Date/Time Associated Diagnosis Comments COLONOSCOPY Routine 12/05/2022 BI MAMMOGRAM SCREENING TOMOSYNTHESIS [...] Recently Relevant to Health Maintenance Results * Colonoscopy (12/05/2022) Colonoscopy Normal Normal Narrative English Anamaria, RN - 12/05/2022 See scanned report Tan Arellano MD HEALTH MAINTENANCE Final Res ult * BI Mammogram Screening Tomosynthesis Bilateral (09/12/2022 11:20 AM EDT) Anatomical Region Laterality Modality Breast Bilateral Mammography 09/12/2022 11:2 0 AM EDT Narrative 10/02/2022 12:57 PM EDT [facility] [address] [place] [address] Mammography Report Signed Patient: Saadia Barker MR#: [id number] : 1955 Acct:[id number] Age/Sex: 67 / F ADM Date: 09/12/22 Loc: HO.MAMMO Attending Dr: Lina Wen MD Ordering Physician: Lina Ni MD Results: 1Negative Date of Service: 09/12/22 Follow Up: 1 Year From Orig ina Mammogram Procedure(s): MM tomosynthesis screening BI Accession Number(s): [id number] cc: Lina Ni MD EXAMINATION: MM SCREENING [...] in OV> 10/02/22 1254 DD/ 1120 TD/TT: Debt Management Counselor: Procedure Note Donotuseinterpreter, Image - 10/02/20[facility] [address] [place] [address] Mammography Report Signed Patient: Evelia Barker#: [id number] : 6Acct:[id number] Age/Sex: 67 / FADM Date: 09/12/22 Loc: HO.MAMMO Attending Dr: Lina Wen MD Ordering Physician: Lina Ni MDResults: 1Negative Date of Service: 09/12/22Follow Up: 1 Year From Orig inal Mammogram Procedure(s): MM tomosynthesis screening BI Accession Number(s): [id number] cc: Lina Ni MD EXAMINATION: MM SCREENING [...] in OV> 10/02/22 1254 DD/ 1120 TD/TT: Debt Management Counselor: Lina Wen MD IMG BI PROCEDURES Tj sonya Result - Final * (ABNORMAL) Hemoglobin A1c (10/06/2021) Hemoglobin A1C 7.4(A) 4.0 - 6.0 % Blood Venous blood specimen / Unknown [facility] Provider LAB BLOOD ORDERABLES Zaira l Result [...] [facility] 03/24/2021 9:44 AM EST Lina Wen MD LAB URINE ORDERABLES Final Result [facility] [address] * LIPID PANEL, STANDARD (03/24/2021 9:44 AM EST) Chol/HDLC Ratio 2.2 <5.0 (calc) [facility] Cholesterol, Total 141 <200 mg/dL [facility] HDL Cholesterol 65 > OR = 50 mg/dL [facility] LDL Cholesterol 58 mg/dL (calc) [facility] Comment: Reference range: <100 Desirable range <100 mg/dL for primary prevention; <70 mg/dL for patients with CHD or diabetic patients with > or = 2 CHD risk factors. LDL-C is now calculated using the Santiago calculation, which is a validated novel method providing better accuracy than the Friedewald equation in the estimation of LDL-C. [place] HENDRICKSON et al. KATERIN. 2013;310(19): 2014-6069 (http://education.Blinkiverse/faq/SNZ820) Non-HDL Cholesterol 76 <130 mg/dL (calc) [facility] Comment: For patients with diabetes plus 1 major ASCVD risk factor, treating to a non-HDL-C goal of <100 mg/dL (LDL-C of <70 mg/dL) is considered a therapeutic option. Triglycerides 94 <150 mg/dL [facility] 03/24/2021 9:44 AM EST us Lina Wen MD LAB BLOOD ORDERABLES Final Result [facility] [address] * HPV E6/E7 RFLX FERNANDA 16 18/45 (03/02/2021 12:35 PM EST) HPV mRNA E6/E7 rflx Not Detected Not Detected [facility] Comment: Methodology: Cash On Delivery Clerk-Mediated Amplification This assay detects E6/E7 viral messenger RNA (mRNA) from 14 high-risk HPV types (16,18,31,33,35,39,45,51,52,56,58,59,66,68). The analytical performance characteristics of this assay have been determined by [employer]. The modifications have not been cleared or approved by the FDA. This assay has been validated pursuant to the CLIA regulations and is used for clinical purposes. For additional information, please refer to http://education.ProtonMedia/faq/CWV492g9 (This link if provided for information/ educational purposes only.) THIS TEST WAS PERFORMED AT: [facility] [address] [facility] [address],[place] [address] GISELLE FAITH MD 03/02/2021 12:3 5 PM EST Rajendra Rankin MD HISTORICAL/NON ORDERABLE LABS Fi nal Result [facility] [address] * Pap Smear (03/02/2021) Historical Provider HEALTH MAINTENANCE Final Result from Last 3 Months or Most Recently Relevant to Health Maintenance Insurance [facility] STANDARD [facility] ONE CARE < 65 [id number]
--- OUTSIDE RECORDS SUMMARY | 2024-12-30 07:15 | XMS_ITS | Continuity of Care Document ---
Author Organization [facility] Social DJ [facility] [place] [facility] [employer] [facility] Address [address] [place] [address] Care Team Providers Care Custom Shoe Designer And Maker Name Role Phone HIM CCA OTHER Assessment Encounter Date Assessment Date Assessment LastModified by Organization Details LastModified Time 12/16/2024 12/16/2024 I have reviewed and agree with the assessment and plan as documented by the ambulance paramedic. I provided real time medical direction for this encounter and was immediately available to provide additional phone based assistance as needed. History as noted by ambulance paramedic. Pt with history of DM2. She reports that 2 weeks ago she almost fell in her apartment but caught herself with her L arm and prevented the fall. When this occurred, she felt a strain in the L side of her neck with pain and was seen in her primary care doctor's office. She reports that they did xrays and she was prescribed a muscle relaxant that has helped the pain but the pain returns when she is not taking the medication. She has also had some relief with ibuprofen but has not taken this since yesterday. Pt denies any numbness or weakness in the LUE. She denies any DU, or dizziness. No posterior neck pain. On exam, pt's neck has full ROM although it is painful. Pt is noted to have tenderness along the L lateral aspect of the neck and the L trapezius M. with no rash or swelling. Neurovascular ecxam of the LUE is normal. Impression: Pt with what appears to be persistent pain from a L sided neck and trapezius M. strain and spasm from 2 weeks ago. She has no concerning neurovascular symptoms and her neuro vascular exam is normal today. Pt is medicated with toradol 30mg IM now and is told to continue the prescribed muscle relaxant. She is also told to start applying a heating pad several times a day. Discussed with the pt that she would benefit from PT and that she needs to call her doctor tomorrow AM and ask for a referral to PT for further evaluation and management. Pt told to f/u with [facility] or in the ED with any worsening pain or if she develops any DU, dizziness, or arm weakness. All of this is reviewed with the pt with the help of the medic and a phone fur polisher. [facility] Not available 12/16/2024 15:46:52 Plan of Treatment Reminders Order Date Submit Date Provider Last Modified By Organization Details Last Modified Time Details Appointments None recorded. Lab None recorded. Referral None recorded. Procedures None recorded. Surgeries None recorded. Imaging None recorded. Medication Orders ketorolac 30 mg/mL (1 mL) injection solution 2024 025 [facility], [address] [place] [address], [phone], 15:37:00 Patient TargetsNo targets recorded. Patient InstructionsNo instructions recorded. Reason for Referral None Reported. Medical Equipment None Reported. Allergies Allergen ID Allergen Name Allergen Category Reaction Reaction Severity Criticality Documentation Date Start Date Code Code System Note Provider Name and Address Organization Details Recorded Time 00971 aspirin medicatio n Not available Not available Not available 05/21/2024 1191 RxNorm Not Available [facility] - production 11:06:13 98938 aluminum aspirin Not available Not available Not available Not available 12/16/20242018 611 RxNorm Other react ion(s ): Abdom inal bloat ing Not Available [employer] - External Data Service - prod 15:41:35 Medications Name Sig Start Date Stop Date [...] Available No t Available Vitals Date Recorded Body temperature Body weight Heart rate Oxygen saturation Body height Respiratory rate Systolic And Diastolic Provider Name and Address Organization Details Last Updated DateTime 5 98 [degF] 53400.8 g 78 /min 97 % 157.48 cm 14 /min 132/78 mm[Hg] Not Available [facility] - production 5 15:26:31 Social History None recorded. Functional Status None recorded. Mental Status None recorded. Family History Nothing Reported. Medical History No medical history recorded. Gynecological HistoryNo gynecological history recorded. Obstetrics History GPAL:G 0 P 0 0 0 0 Past Encounters Encounter ID Performer Location Encounter Start Date Encounter Closed Date Diagnosis/Indication Diagnosis SNOMED-CT Code Diagnosis ICD10 Code Diagnosis IMO Codes Diagnosis Note [id number] Espinoza Grossman MD [facility] ED Medical [facility] [address] [place] [address] 12/16/2024 15:26:28 12/16/2024 22:08:59 Muscle spasm of cervical muscle of neck 2126070073 04 M62.297 [id number] Health Concerns Section Related Observation LastModified by Organization Rina wheatley LastModified Time None Recorded Concern Status LastModified by Organization Details LastModified Time None Recorded Payers Encounter Date Sequence Insurance Name Policy Number Policy Cutler Covered Member ID Cutler Member ID Guarantor Name 12/16/2024 1 [facility] - DOS ON OR AFTER 2022 - DUAL ELIGIBLE - LONG TERM OPTIONS AND ONE CARE (MEDICARE REPLACEMENT/ADV ANTAGE - HMO) Saadia Barker [id number] Saadia Barker Notes Date Note Type Note Provider Name and Address Organization Details Recorded Time 12/16/2024 text/html ROS as noted in the HPI This was a supervised home visit with ambulance paramedic Omkar Juan. [facility] Nurse Triage Notes (Anai Jones): Reason For Request: 2 weeks ago member fell, and now she has pain in her neck, and her neck is swollen.Denies: Falls with head strike and LOC Falls from a standing position, no LOC, patient is amnestic to the event Falls with isolated injury and deformity noted to limb Falls with inability to move post fall Cool extremities after fall or injury Chief Complaints: FallsPMH: Diabetes Mellitus Type 2, DepressionPMH Reviewed at 12/16/2024:58Allergies Reviewed at 12/16/2024:58Comments: 69 y.o female complains of Falls Self-referring via card doffer. Near fall 2 weeks ago, caught herself with L arm and felt pain in back and L shoulder due to strain. Now with significant pain in shoulder and minor swelling. Saw her PCP for shoulder, was prescribed a muscle relaxer. Helping with pain but disrupting sleep. Now rating pain 9/10. Limited ROM to shoulder due to pain. Hand is normal in appearance and color. Shoulder is otherwise normal in appearance aside from swelling. Has not taken NSAIDs today. Not on AC. No kidney issues. I provided information on the mobile health provider response time and advised the patient and/or caregiver to monitor reported signs and symptoms. I discussed the warning signs of when to seek emergency care. ................... ................... ................... ................... ................... ................... ................... ........ Leather Parts Matcher Note From Omkar Juan: Pt alert and oriented complains of shoulder/pain times two weeks. Patient reports she tripped and nearly fell, pulling a muscle in her left shoulder and reports having x-rays at PCP order at the time. Patient reports muscle relaxer has helped, but pain remains. Patient reports pain increases on movement of left arm, turning head. Patient denies any other recent falls, denies taking ibuprofen today, denies kidney disease or use of anticoagulant. Patient denies numbness or tingling in his feet. Patient denies any other pain complains. Patient pink warm dry ambulates with a steady even GAIT some tenderness noted left side neck/shoulder, no swelling or redness. Good ROM of neck left shoulder. Positive full sentences negative increased work of breathing abdomen soft non tender extremities unremarkable all well. Good CSM in left arm. Medication administered has ordered without complication using five rights. Red flags patient education discussed. Patient demonstrates understanding of care and plan. Patient with caregiver on departure. Patient has opportunity to ask questions, strong language barrier all information through medical research associate on phone. [facility] Medication Orders: ketorolac 30 mg/mL (1 mL) injection solution: Administered ................... ................... ................... ................... ................... ................... ................... ........ [facility] Consulted: Espinoza Grossman ................... ................... ................... ................... ................... ................... ................... ........ Disposition: Fulfilled Espinoza Grossman MD [address] [facility],[address] [facility], [place], [address], [employer] 12/16/2024 16:21:44 OBGyn Episode No OBEpisode recorded.
--- OUTSIDE RECORDS SUMMARY | 2024-12-30 07:15 | XMS_ITS | Encounter Summary ---
Author Organization [employer] Address [address] [facility] 7[address] [place] [address] Care Team Providers Care Medical Driver Name Role Phone Lina Ni MD Primary Care Provide r Encounter Details Date Type Department Care Team ([facility] st Contact Info) Description 11/01/2022 Orders Only [facility] MEDICINE [address] [place], [place] [phone] Provider, MD Curtis Social History Tobacco Use [...] on filedocumented in this encounter Care Teams Medical Driver Relationship Specialty Start Date End Date Lina Ni MD [address] [place], [place] [phone] PCP - General Family Medicine 09/29/20 03/05/23 documented as of this encounter
--- OUTSIDE RECORDS SUMMARY | 2024-12-30 07:15 | XMS_ITS | Encounter Summary ---
Author Organization [employer] Address [address] [facility] [address] [place] [address] Care Team Providers Care Help Desk Intern Name Role Phone Lina Ni MD Primary Care Provide r Encounter Details Date Type Department Care Team (Latest Contact Info) Description 09/16/2018 Abstract [facility] CONVERSIONS Dental, Provider, DDS Social History [...] on filedocumented in this encounter Care Teams Help Desk Intern Relationship Specialty Start Date End Date Lina Ni MD [address] [place] [address] PCP - General Family Medicine 09/29/20 03/05/23 documented as of this encounter
--- OUTSIDE RECORDS SUMMARY | 2024-12-30 07:15 | XMS_ITS | Encounter Summary ---
Author Organization [employer] Address [address] [facility] [address] [place] [address] Care Team Providers Care Account Financial Manager Name Role Phone Lina Ni MD Primary Care Provide r Encounter Details Date Type Department Care Team ([facility] st Contact Info) Description 03/09/[address] [facility] MED & PEDS [address] [place] [address] Porsche Dean LPN Social History Tobacco Use [...] on filedocumented in this encounter Care Teams Account Financial Manager Relationship Specialty Start Date End Date Lina Ni MD [address] [place] [address] PCP - General Family Medicine 09/29/20 03/05/23 documented as of this encounter
--- OUTSIDE RECORDS SUMMARY | 2024-12-30 07:15 | XMS_ITS | Encounter Summary ---
Author Organization [employer] Address [address] [facility] 7[address] [place] [address] Care Team Providers Care Periodontal Assistant Name Role Phone Unavailable Primary Care Provider Unavailabl e Reason for Visit * Reason Comments Med Refill Encounter Details Date Type Department Care Team (Late st Contact Info) Description 09/25/2024 Refill C [facility] [address] [place] [address] Lina Ni MD [address] [place] [address] Type 2 diabetes mellitus without complications (CMS/HCC) [...]
--- OUTSIDE RECORDS SUMMARY | 2024-12-30 07:15 | XMS_ITS | Encounter Summary ---
Author Organization [employer] Address [address] [facility] [address] [place] [address] Care Team Providers Care Black Top Spreader Machine Operator Name Role Phone Unavailable Primary Care Provider Unavailabl e Reason for Visit * Reason Comments Med Refill Encounter Details Date Type Department Care Team (Late st Contact Info) Description 08/20/2023 Refill C [facility] [address] [place] [address] Lina Ni MD [address] [place] [address] Dyslipidemia Social History Tobacco Use Types Packs/Day [...]
--- OUTSIDE RECORDS SUMMARY | 2024-12-30 07:15 | XMS_ITS | Data Portability ---
Author Organization [employer] [facility], [facility] Address [address] [place] [address] Care Team Providers Care Cake Mixer Name Role Phone HIM CCA OTHER Assessment Encounter Date Assessment Date Assessment LastModified by Organization Details LastModified Time 12/16/2024 12/16/2024 I have reviewed and agree with the assessment and plan as documented by the casting machine set up operator. I provided real time medical direction for this encounter and was immediately available to provide additional phone based assistance as needed. History as noted by casting machine set up operator. Pt with history of DM2. She reports [...] help of the medic and a phone training assistant. [facility] Not available 12/16/2024 15:46:52 Plan of Treatment Reminders Order Date Submit Date Provider Last Modified By Organization Details Last Modified Time Details Appointments None recorded. Lab BMP, serum or plasma 2024 [facility], [address] [place] [address], [id number] 21:48:18 culture, urine 2024 [facility] (Centralized Electronic Ordering - All Locations), Patient Can Go To The Location Of Their Choice, [id number] 12:06:39 urinalysis, dipstick 2024 [facility], [address] [place] [address], [id number] 21:48:36 Referral None recorded. Procedures None recorded. Surgeries None recorded. Imaging electrocard iogram 2024 [facility], [address] [place] [address], [id number] 18:19:19 Medication Orders ketorolac 30 mg/mL (1 mL) injection solution 2024 [facility], [address] [place] [address], [id number], 15:37:00 lactated Ringers intravenous solution 2024 025 [facility], [address] [place] [address], [id number], 17:38:59 Cipro 250 mg tablet 2024 [facility], [address] [place] [address], [id number], 17:50:59 ciprofloxac in 500 mg tablet 2024 025 [facility], [address] [place] [address], [id number], 10:15:26 Patient TargetsNo targets recorded. Patient InstructionsNo instructions recorded. Reason for Referral None Reported. Results Created Date Observation Date Name Description Value Unit Range Abnormal Flag Note LastModifiedBy Organization Detail LastModifiedTime 05/22/1905/24/2024 URINE CULTU RE,CO MPREH ENSIV E urine culture,comp rehensive Final report Not Available [facility] ([facility]) [address] [facility], [place], [address], 05/24/2024 08:10:41 05/22/1905/24/2024 URINE CULTU RE,CO MPREH ENSIV E result 1 COMMEN T No growt h in 36 - 48 hours . Not Available [facility] ([facility]) [address] [facility], [place], [address], 05/24/2024 08:10:41 05/22/1905/21/2024 elect yumiko nolan am No observ ation record ed. [facility] Main - [address], [id number] 05/21/2024 18:19:18 Result Notes None recorded. Medical Equipment None Reported. Allergies Allergen ID Allergen Name Allergen Category Reaction Reaction Severity Criticality Documentation Date Start Date Code Code System Note Provider Name and Address Organization Details Recorded Time 86568 aspirin medicatio n Not available Not available Not available 05/21/2024 1191 RxNorm Not Available [facility] - production 11:06:13 81173 aluminum aspirin Not available Not available Not available Not available 12/16/20242018 611 RxNorm Other react ion(s ): Abdom inal bloat ing Not Available [facility] - External Data Service - prod 15:41:35 [...] t Available Vitals Date Recorded Oxygen saturation Heart rate Body height Body weight Respiratory rate Body temperature Systolic And Diastolic Provider Name and Address Organization Details Last Updated DateTime 5 99 % 71 /min 157.48 cm 76958.8 g 14 /min 98.4 [degF] 112/68 mm[Hg] Not Available [facility] - production 5 17:48:15 Date Recorded Body temperature Body weight Heart rate Oxygen saturation Body height Respiratory rate Systolic And Diastolic Provider Name and Address Organization Details Last Updated DateTime 5 98 [degF] 19415.8 g 78 /min 97 % 157.48 cm [...] ICD10 Code Diagnosis IMO Codes Diagnosis Note [id number] JUAN CARLOS COATES MD Main - [facility] [address] [place] [phone] 05/21/2024 16:42:51 05/21/2024 21:10:25 Urinary symptoms 531985177 R39.9 02375 Evaluation in the field was performed by my casting machine set up operator colleague, as noted above, I provided real-time [...] time she was treated for a UTI. Khmer interprete r was used to communicat e [...] up with primary care provider within 48 7 2 hours or sooner if symptoms worsen.-Re d [...] vomiting, hematuria, or any other concerning symptoms. [id number] Espinoza Grossman MD [facility] ED Medical [address] [phone] 12/16/2024 15:26:28 12/16/2024 22:08:59 Muscle spasm of cervical muscle of neck 8605524304 04 M62.827 [id number] Health Concerns Section Related Observation LastModified by Organization Detai ls LastModified Time None Recorded Concern Status LastModified by Organization Details LastModified Time None Recorded Advance Directives Directive None Recorded Payers Insurance Date Sequence Insurance Name Policy Number Policy Cutler Covered Member ID Cutler Member ID Guarantor Name 12/16/2024 1 [facility] - DOS ON OR AFTER 2022 - DUAL ELIGIBLE - [facility] [employer] AND ONE CARE (MEDICARE REPLACEMENT/ADV ANTAGE - HMO) Saadia Barker [id number] Saadia Barker Notes Date Note Type Note Provider Name and Address Organization Details Recorded Time 05/21/2024 text/html ROS as noted in the HPI [facility] Nurse Triage Notes (Patsy Cummings): Reason [...] Type 2, Depression PMH Reviewed at 05/21/2024 Allergies Reviewed at 05/21/2024 Pain Assessment: Level 7 out of 10 Comments: 68 y.o female complains of Urinary Symptoms Call completed with training assistant. She has been having pain in her [...] signs of when to seek emergency care. [employer] Organization Information for Omkar Juan [employer] Legal Name: [facility] Transportation Address: [address] [place] [address], [employer] Business: Miles Muhammad MD CLIA No.: [id number] [employer] POC Test Results from Omkar Juan Urine [...] .................... .................... .................... .................... .................... .................... . [employer] Note From Omkar Juan: Patient alert and [...] extremities, unremarkable, positive CVA tenderness on left. [facility] orders EPOC, LR1 L IV, Cipro 500 mg PO now and will prescribe more to patient s local pharmacy. Patient advised to use Tylenol as needed. Medication administered as ordered without complication using five rights. Patient report she feels a little better after fluid administration. Red flags patient education discussed. Patient demonstrates understanding of care and plan. Culture to [facility]. [facility] Lab Orders: BMP, serum or plasma: Performed culture, urine: Performed urinalysis, dipstick: Performed [facility] Medication Orders: lactated Ringers intravenous solution: Administered Cipro 250 mg tablet: Administered .................... .................... .................... .................... .................... .................... .................... . [facility] Consulted: Juan Carlos Coates .................... .................... .................... .................... .................... .................... .................... . Disposition: Fulfilled JUAN CARLOS COATES MD [address] [place] [address],[address], [place], [address], [employer] 05/21/2024 20:14:15 12/16/2024 text/html ROS as noted in the HPI This was a supervised home visit with casting machine set up operator Omkar Juan. [facility] Nurse Triage Notes (Anai Jones): Reason [...] y.o female complains of Falls Self-referring via field liability generalist. Near fall 2 weeks ago, caught herself [...] signs of when to seek emergency care. .................... .................... .................... .................... .................... .................... .................... . [employer] Note From Omkar Juan: Pt alert and [...] strong language barrier all information through medical care administrator on phone. [facility] Medication Orders: ketorolac 30 mg/mL (1 mL) injection solution: Administered .................... .................... .................... .................... .................... .................... .................... . [facility] Consulted: Espinoza Grossman .................... .................... .................... .................... .................... .................... .................... . Disposition: Fulfilled Espinoza Grossman MD [address] [facility],[address], [place], [phone], [employer] 12/16/2024 16:21:44 OBGyn Episode No OBEpisode recorded.
--- OUTSIDE RECORDS SUMMARY | 2024-12-30 07:15 | XMS_ITS | Encounter Summary ---
Author Organization [employer] Address [address] [facility] [address] [place] [address] Care Team Providers Care Jack Winder Name Role Phone Lina Ni MD Primary Care Provide r Encounter Details Date Type Department Care Team (Latest Contact Info) Description 10/31/2019 Abstract [facility] CONVERSIONS Dental, Provider, DDS Social History [...] on filedocumented in this encounter Care Teams Jack Winder Relationship Specialty Start Date End Date Lina Ni MD [address] [place] [address] PCP - General Family Medicine 09/29/20 03/05/23 documented as of this encounter
--- OUTSIDE RECORDS SUMMARY | 2024-12-30 07:15 | XMS_ITS | Encounter Summary ---
Author Organization [employer] Address [address] [place] [address] Care Team Providers Care [employer] Name Role Phone Unavailable Primary Care Provider Unavailabl e Reason for Visit * Reason Comments Med Refill Encounter Details Date Type Department Care Team (Late st Contact Info) Description 10/22/2023 Refill [facility] [address] [place] [address] Lina Ni MD [address] [place] [address] Dyslipidemia Social History Tobacco Use Types Packs/Day [...]
[2024-12-30 07:33] LABS: MANUAL DIFF FLAG NO
[2024-12-30 07:50] LABS: Hematocrit 38.1 % (37.0-47.0); Hemoglobin 12.4 g/dl (12.0-16.0); Imm Gran Abs Auto 0.05 X10*3/uL (0.00-0.03); Imm Gran Pct Auto 0.8 % (0.0-0.4); Lymphocytes Absolute Auto 3.2 X10*3/uL (1.2-4.9); Mean Corpuscular HGB Conc 32.5 g/dl (31.0-35.0); Mean Corpuscular Hemoglobin 26.5 pg (27.0-33.0); Mean Corpuscular Volume 81.4 fL (80.0-98.0); NRBC Abs Auto 0.000 X10*3/uL (0.0-0.012); NRBC Pct Auto 0.0 /100WBC (0.0-0.2); Platelet Count 239 X10*3/uL (160-400); Red Blood Count 4.68 X10*6/uL (4.20-5.50); White Blood Count 6.5 X10*3/uL (4.8-10.8)
[2024-12-30 07:58] LABS: Appearance Urine Clear; Glucose Urine UA Negative (Negative); PH 6.5 (5.0-9.0); Specific Gravity - Urine 1.015 (1.005-1.025)
[2024-12-30 08:24] LABS: Alanine Aminotransferase 23 U/L (0-31); Albumin Level 4.6 g/dL (3.5-5.0); Alkaline Phosphatase 68 U/L (39-117); Anion Gap 14 (12-20); Aspartate Amino Transferase 26 U/L (5-31); Blood Urea Nitrogen 15 mg/dL (9-16); Calcium 8.6 mg/dL (8.4-10.2); Carbon Dioxide 26 mmol/L (22-29); Chloride 105 mmol/L (96-108); Cholesterol 137 mg/dL (<200); Estimated Glomerular Filt Rate > 60; HDL Cholesterol 69 mg/dL (>40); Potassium 3.9 mmol/L (3.3-5.1); Sodium 141 mmol/L (135-145); Total Protein 7.0 g/dL (6.5-8.0); Triglycerides 71 mg/dL (<150)
[2024-12-30 08:43] LABS: Free T4 (Free Thyroxine) 0.96 ng/dL (0.71-1.85); Thyroid Stimulating Hormone 6.74 uIU/mL (0.32-4.0)
[2024-12-30 08:55] LABS: Folate 15.5 ng/mL (> or = 4.0); Vitamin B12 479 pg/mL (200-900)
== END 2024-12-30 07:13 | disposition home or self-care (01) ==
LOC: HO.LAB 07:12
PROVIDERS: PCP Internal Medicine; Visit Provider Internal Medicine
DX: E11.9 Type 2 diabetes mellitus without complications (principal); E03.9 Hypothyroidism, unspecified; E55.9 Vitamin D deficiency, unspecified; E78.00 Pure hypercholesterolemia, unspecified; E53.8 Deficiency of other specified B group vitamins; D64.9 Anemia, unspecified; R30.0 Dysuria; R79.89 Other specified abnormal findings of blood chemistry
CPT/HCPCS: 36415; 80053; 80061; 81003; 82043; 82306; 82570; 82607; 82746; 83036; 84439; 84443; 85025

== ENCOUNTER 2024-12-31 15:17 | Outpatient (AMB) | payer OTHER, SELFPAY ==
[2024-12-31 15:22] VITALS: BP 110/68; PULSE 84; TEMP 36.2; O2SAT 98; BMI 29.7
--- NOTE | 2024-12-31 15:22 | MHC.PC.OV ---
Vital Signs 12/31/24 15:22 Height 4 ft 11 in Weight 147 lb 2 oz BMI 29.7 BP 110/68 Blood Pressure Location Lt brachial Position Sitting Pulse 84 Pulse Source Pulse Oximeter Temp 97.1 F Temp Source Temporal Artery Scan Pulse Oximetry (%) 98 Oxygen Delivery Method Room Air Intake Visit Reasons: 4 month Psychotherapist Counselor Required: Yes Psychotherapist Counselor Language: Irish Allergies aspirin (ASPIRIN) Allergy (Mild, Verified 12/31/24 15:31) UPSET STOMACH trazodone Adverse Reaction (Intermediate, Verified 12/31/24 15:31) tiredness Medication List - Last Reconciled 12/31/24 by Ramírez Leonard MD acetaminophen (Tylenol Extra Strength) 500 mg PO Q6-8H PRN alcohol swabs 1 pad topical .QD-BID amitriptyline 50 mg PO BEDTIME atorvastatin 20 mg PO DAILY [BATH MAT As directed] blood sugar diagnostic (FreeStyle Lite Strips) As directed once a day blood sugar diagnostic (OneTouch Ultra Test strips) As directed once a day blood-glucose meter (FreeStyle Lite Meter kit) As directed blood-glucose meter (OneTouch Ultra2 Meter) As directed once a day cholecalciferol (vitamin D3) (Vitamin D3) 25 mcg PO DAILY clotrimazole-betamethasone 1-0.05 % 1 appl topical BID 5 days clotrimazole-betamethasone 1-0.05 % 1 appl topical BID 5 days [DISPOSABLE WIPES (3 packages a month) As directed] [HAND HELD SHOWER HEAD As directed] hydrocortisone 2.5% 1 appl topical BID PRN ibuprofen 600 mg PO TID PRN 30 days lancets (FreeStyle Lancets) As directed once a day lancets (OneTouch UltraSoft 2 Lancet) As directed lidocaine 5% 1 patch topical DAILY lorazepam Take 1 tablet 30 minutes before procedure as needed for anxiety. May repeat x 1 dose after 10 to 15 minutes if needed. 1 day metformin ER 1,000 mg (2 x 500 mg) PO BID [PANTILINERS (3 / day) As directed] pantoprazole 40 mg PO DAILY [Shower chair As directed] simethicone 180 mg PO TID Synthroid (levothyroxine) 25 mcg PO DAILY 90 days NS tizanidine 4 mg PO Q8H PRN 30 days venlafaxine ER 75 mg PO DAILY [WASHABLE BED PADS (2 per month) As directed] Tobacco use date assessed: 12/31/24 Fall risk assessment: No Falls in past year Last assessed Fall Risk: 12/31/24 Dental Screening Dental Screen Date: 12/31/24 Did you have a dental visit in the last 12 months?: Yes Did you have a dental problem in the last 6 months where you did not have access to dental care?: No Was dental information given to patient?: Patient has dentist HPI 4 month HPI Details Patient comes in today for her follow-up visit States that she feels okay She is still experiencing increased pain over her lower back from her slip and fall last month States that she has not yet heard from physical therapy from when she was referred to them recently She denies any headaches or dizziness Denies any chest pains, no shortness of breath No nausea/vomiting, no abdominal pain No change in bowel habits noted She had her follow-up labs done yesterday - to discuss her results [facility] Medical History Obesity (BMI 30-39.9) Anxiety Insomnia Internal hemorrhoids Allergic rhinitis Constipation Vitamin D deficiency Acquired hypothyroidism Pure hypercholesterolemia Anal pain Type 2 diabetes mellitus with unspecified complications Hx of thyroid cyst Hiatal hernia Diverticulosis Depression with anxiety Hypothyroidism GERD (gastroesophageal reflux disease) Surgical History H/O tubal ligation History of History of appendectomy Hx of shoulder surgery History of colonoscopy Family History Father History of heart attack Mother History of heart attack Sister Breast cancer Social History Housing: Apartment Alcohol intake: never Patient Tobacco Use Status: Never used Tobacco e-Cigarette/Vaping Use: Never Used service: No Cognitive needs: No Hearing needs: No Vision needs: Yes Female Reproductive History Menstrual Age of Menarche: 13 Questionnaire PHQ-9 Over the last 2 weeks, how often have you been bothered by any of the following problems? 1. Little interest or pleasure in doing things: not at all 2. Feeling down, depressed, or hopeless: not at all 3. Trouble falling or staying asleep, or sleeping too much: several days 4. Feeling tired or having little energy: several days 5. Poor appetite or overeating: not at all 6. Feeling bad about yourself - or that you are a failure or have let yourself or your family down: not at all 7. Trouble concentrating on things, such as reading the newspaper or watching television: not at all 8. Moving or speaking so slowly that other people could have noticed. Or the opposite - being so fidgety or restless that you have been moving around a lot more than usual: not at all 9. Thoughts that you would be better off or of hurting yourself in some way: not at all Total score: 2 Depression Screening Interpretation: Negative Depression Screening Done: Yes 25770 - PHQ-9 Billing: Yes Source: Developed by Drs. Francois Rick, Chaya Villareal, Mj He and colleagues, with an educational nereida from [employer]. Thrive Questionnaire Date Thrive assessed: 11/13/24 I am a: Patient What is your living situation today?: I have a steady place to live Within the past 12 months, did the food you bought not last and you didn't have the money to get more?: Never true Within the past 12 months, did you worry whether your food would run out before you got money to buy more?: Never true Do you have trouble paying for medicines?: No Do you have trouble getting transportation to medical appointments?: No Do you have trouble paying your heating and electricity bill?: No Do you have trouble taking care of your child, family member or friend?: No Do you have trouble with day-to-day activities such as bathing, preparing meals, shopping, managing finances, etc.?: No Are you currently unemployed and looking for a job?: No Are you interested in more education?: No Please select the resources that you would like help with: None Currently or been in a relationship where the following occur: No concerns reported THRIVE Score: 0 AUDIT C Alcohol Use Questionnaire (AUDIT-C) 1. How often do you have a drink containing alcohol?: Never 3. How often do you have six or more drinks on one occasion?: Never Total Score: 0 Score Reviewed/Action Taken: Yes JAIDA-7 AMB Questionnaire JAIDA-7 Date JAIDA - 7 assessed: 08/29/24 Feeling nervous, anxious, or on edge: 0 = Not at all Not being able to stop or control worryin = Not at all Worrying too much about different things: 0 = Not at all Trouble relaxin = Not at all Being so restless that it is hard to sit still: 0 = Not at all Becoming easily annoyed or irritable: 0 = Not at all Feeling afraid as if something awful might happen: 0 = Not at all Total JAIDA-7 score (0-4 normal; 5-9 mild; 10-14 moderate; 15-21 severe): 0 Source: Developed by Drs. Francois Rick, Chaya Villareal, Mj He and colleagues, with an educational nereida from [employer]. Review of Systems Const Denies chills, Denies fatigue, Denies fever(s) and Denies headache(s) ENT Denies dysphagia, Denies dizziness, Denies otalgia, Denies headache(s), Denies neck pain, Denies odynophagia and Denies sore throat Card Denies chest pain, Denies rapid heart rate, Denies palpitations and Denies dyspnea Resp Denies chest congestion, Denies cough and Denies dyspnea GI Denies abdominal pain, Denies constipation, Denies dysphagia, Denies heartburn, Denies diarrhea, Denies nausea, Denies odynophagia and Denies vomiting Denies urinary frequency, Denies nocturia, Denies dysuria and Denies urinary urgency Musc Reports back pain (especially over the left lower back) and Denies neck pain Skin/Breast Denies rash Neuro Denies dizziness and Denies headache(s) Endo Denies fatigue and Denies palpitations Physical exam (Primary Care) Vital Signs: Last Vital Signs Temp 97.1 F 12/31/24 15:22 Pulse 84 12/31/24 15:22 BP 110/68 12/31/24 15:22 Pulse Ox 98 12/31/24 15:22 Oxygen Delivery Method Room Air 12/31/24 15:22 BMI result Body Mass Index 29.7 Tobacco/Smoking Status: Tobacco use Status Tobacco use date assessed 12/31/24 12/31/24 15:26 Patient Tobacco Use Status Never used Tobacco 12/31/24 15:26 e-Cigarette/Vaping Use Never Used 12/31/24 15:26 PHQ-9: PHQ-9 Score PHQ-9: Total score 2 12/31/24 15:33 Depression Screening Interpretation: Negative Thrive Assessment: Date of Thrive Assessment Date Thrive assessed 11/13/24 12/31/24 15:26 Currently or been in a relationship where the following occur: No concerns reported Const General: no acute distress and alert HENMT Ears: TM's normal bilaterally and EAC's normal Throat: Yes posterior oropharynx normal and Yes tonsils normal (no TP congestion) Neck Neck: Yes supple and No lymphadenopathy Thyroid: Thyroid normal Resp Auscultation: clear to auscultation bilaterally, no rales and no wheezes Cardio Rate: regular rate Rhythm: regular rhythm Heart sounds: no murmurs GI Palpation (GI): Soft to palpation and nontender Auscultation: normal bowel sounds General: Yes no CVA tenderness Back/Spine/Pelvis Back: no CVA tenderness Thoracic/Lumbar Spine: paraspinal muscle tenderness on the left in the upper thoracic, in the mid lumbar and in the lower lumbar and lumbar spinal tenderness Skin Rashes: no rashes Extrem General: Yes no clubbing, cyanosis or edema Results Reviewed Results Reviewed: Laboratory Tests 12/30/24 12/30/24 07:30 07:31 WBC 6.5 Hgb 12.4 Hct 38.1 Plt Count 239 Sodium 141 Potassium 3.9 Creatinine 0.63 Estimated GFR > 60 Fasting Glucose 104 H Hemoglobin A1c % 7.3 H Calcium 8.6 AST 26 ALT 23 Triglycerides 71 Cholesterol 137 LDL Cholesterol, Calc 54 HDL Cholesterol 69 25-OH Vitamin D Total 62.4 TSH 6.74 H Free T4 0.96 Ur Specific [place] 1.015 Urine Protein Negative Urine Glucose (UA) Negative Urine Blood Negative Urine Nitrite Negative Ur Leukocyte Esterase Negative Coding Level of Care Code Complex visit Add On G2211 Diagnoses Type 2 diabetes mellitus without complication, without long-term current use of insulin E11.9 Diabetes mellitus type: type 2 Diabetes mellitus terminal operations supervisor insulin use: without terminal operations supervisor use Diabetes mellitus complication status: without complication Pure hypercholesterolemia E78.00 Acquired hypothyroidism E03.9 Vitamin D deficiency E55.9 Gastroesophageal reflux disease without esophagitis K21.9 Esophagitis presence: without esophagitis Constipation, unspecified constipation type K59.00 Constipation type: unspecified constipation type Allergic rhinitis, unspecified seasonality, unspecified trigger J30.9 Allergic rhinitis trigger: unspecified Allergic rhinitis seasonality: unspecified Insomnia, unspecified type G47.00 Insomnia type: unspecified Anxiety F41.9 Episode of recurrent major depressive disorder, unspecified depression episode severity F33.9 Depression Type: major depressive disorder Major depression recurrence: recurrent Active/Remission status: currently active Major depression episode severity: unspecified Overweight (BMI 25.0-29.9) E66.3 Additional Codes PHQ-9 - 22823 - PHQ-9 Billing: Yes ([id number]) Assessment & Plan Assessment & Plan (1) Diabetes mellitus: Code(s): E11.9 - Type 2 diabetes mellitus without complications Category: Medical Qualifiers: Diabetes mellitus type: type 2 Diabetes mellitus terminal operations supervisor insulin use: without terminal operations supervisor use Diabetes mellitus complication status: without complication Qualified Code(s): E11.9 - Type 2 diabetes mellitus without complications Plan: Her HgbA1c was at 7.3% on her labs done yesterday (was previously at 7.1% a few months ago) - goal is <7.0% Reinforced diabetic diet Continue Metformin ER 1000 mg BID; she was also supposed to be on Farxiga 5 mg Q AM but her prescription log shows that this has not been refilled in a while now so it is likely that patient has not been taking this over the past year or so, perhaps because it is not covered by her insurance As her HgbA1c has been slowly but consistently inching up every few months over the past year, will go ahead and start her additionally on Glimepiride 2 mg QAM Follow up with senior asset manager as scheduled (2) Pure hypercholesterolemia: Code(s): E78.00 - Pure hypercholesterolemia, unspecified Category: Medical Plan: Results of her labs done yesterday reviewed and discussed with patient - her cholesterol levels have improved significantly from previous Reinforced low cholesterol diet Continue Atorvastatin 20 mg QD Will recheck her labs and fasting lipids in 4 months for follow up (3) Acquired hypothyroidism: Code(s): E03.9 - Hypothyroidism, unspecified Category: Medical Plan: Her TSH has been steadily rising and her free T4 level remains low normal Will increase her Levothyroxine now from 25 mcg to 50 mcg QD Will recheck her TFTs in 4 months for follow up (4) Vitamin D deficiency: Code(s): E55.9 - Vitamin D deficiency, unspecified Category: Medical Plan: Continue Vitamin D3 1000 units QD (5) GERD (gastroesophageal reflux disease): Code(s): K21.9 - Gastro-esophageal reflux disease without esophagitis Category: Medical Qualifiers: Esophagitis presence: without esophagitis Qualified Code(s): K21.9 - Gastro-esophageal reflux disease without esophagitis Plan: EGD done a couple of years ago revealed (+) moderate reactive changes in the gastric antral mucosa with minimal chronic inactive gastritis; she was negative for H. pylori, intestinal metaplasia and dysplasia Reinforced dietary restrictions Continue Pantoprazole 40 mg QD (6) Constipation: Code(s): K59.00 - Constipation, unspecified Category: Medical Qualifiers: Constipation type: unspecified constipation type Qualified Code(s): K59.00 - Constipation, unspecified Plan: Reinforced again increased oral fluids and dietary fiber intake Continue Citrucel 500 mg QD, Colace 100 mg QD PRN and Metamucil PRN (7) Allergic rhinitis: Code(s): J30.9 - Allergic rhinitis, unspecified Category: Medical Qualifiers: Allergic rhinitis trigger: unspecified Allergic rhinitis seasonality: unspecified Qualified Code(s): J30.9 - Allergic rhinitis, unspecified Plan: Continue Loratadine 10 mg QD PRN and Fluticasone 50 mcg nasal spray QD PRN (8) Insomnia: Code(s): G47.00 - Insomnia, unspecified Category: Medical Qualifiers: Insomnia type: unspecified Qualified Code(s): G47.00 - Insomnia, unspecified Plan: Sleep hygiene reinforced Continue Amitriptyline 50 mg Q HS PRN (she has taken Trazodone in the past) (9) Anxiety: Code(s): F41.9 - Anxiety disorder, unspecified Category: Medical Plan: Continue Venlafaxine 75 mg QD (10) Depression: Code(s): F32.A - Depression, unspecified Category: Medical Qualifiers: Depression Type: major depressive disorder Major depression recurrence: recurrent Active/Remission status: currently active Major depression episode severity: unspecified Qualified Code(s): F33.9 - Major depressive disorder, recurrent, unspecified Plan: Continue Venlafaxine 75 mg QD and Amitriptyline 50 mg Q HS; she was also on Mirtazapine 7.5 mg Q HS in the past but appears to have self-discontinued this some time ago Follow up with psychiatry as scheduled (11) Overweight (BMI 25.0-29.9): Code(s): E66.3 - Overweight Category: Medical Plan: Reinforced diet/exercise as tolerated/lose weight Plan Follow up in 4 months Orders: Orders Complete Blood Count Auto Diff 4 Months D64.9 - Anemia, unspecified Comprehensive [place]. Panel Fast 4 Months E78.00 - Pure hypercholesterolemia, unspecified Free T4 (Free Thyroxine) 4 Months E03.9 - Hypothyroidism, unspecified Vitamin D 25-OH Total 4 Months E55.9 - Vitamin D deficiency, unspecified Hemoglobin A1c 4 Months E11.9 - Type 2 diabetes mellitus without complications Lipid Panel 4 Months E78.00 - Pure hypercholesterolemia, unspecified Microalbumin, Random (w Creat) 4 Months E11.9 - Type 2 diabetes mellitus without complications Thyroid Stimulating Hormone 4 Months E03.9 - Hypothyroidism, unspecified UA CC w/rflx Micro + Cult 4 Months R30.0 - Dysuria Medications: New levothyroxine (Synthroid) 50 mcg PO DAILY 90 tabs 1RF 90 days glimepiride administer with breakfast 2 mg PO QAM 30 tabs 3RF 30 days
--- OUTSIDE RECORDS SUMMARY | 2024-12-31 17:44 | XMS_ITS | Encounter Summary ---
Author Organization [employer] Address [address] [facility] [address] [place] [address] Care Team Providers Care Production Consultant Name Role Phone Lina Ni MD Primary Care Provide r Encounter Details Date Type Department Care Team ([facility] st Contact Info) Description 03/09/2022 Orders Only [facility] [address] [place] [address] Porsche Dean LPN Social History Tobacco Use [...] on filedocumented in this encounter Care Teams Production Consultant Relationship Specialty Start Date End Date Lina Ni MD [address] [place] [address] PCP - General Family Medicine 09/29/20 03/05/23 documented as of this encounter
--- OUTSIDE RECORDS SUMMARY | 2024-12-31 17:44 | XMS_ITS | Encounter Summary ---
Author Organization [employer] Address [address] [facility] [address] [place] [address] Care Team Providers Care Four Slide Machine Setter Name Role Phone Unavailable Primary Care Provider Unavailabl e Reason for Visit * Reason Comments Med Refill Encounter Details Date Type Department Care Team (Late st Contact Info) Description 10/22/2023 Refill C [facility] [address] [place] [address] Lina Ni MD [address] [place] [address] Dyslipidemia Social History Tobacco Use Types Packs/Day [...]
--- OUTSIDE RECORDS SUMMARY | 2024-12-31 17:44 | XMS_ITS | Encounter Summary ---
Author Organization [employer] Address [address] [facility] [address] [place] [address] Care Team Providers Care Unemployment Insurance Hearing Officer Name Role Phone Lina Ni MD Primary Care Provide r Encounter Details Date Type Department Care Team (Latest Contact Info) Description 09/16/2018 Abstract [facility] CONVERSIONS Dental, Provider, DDS Social History [...] on filedocumented in this encounter Care Teams Unemployment Insurance Hearing Officer Relationship Specialty Start Date End Date Lina Ni MD [address] [place] [address] PCP - General Family Medicine 09/29/20 03/05/23 documented as of this encounter
--- OUTSIDE RECORDS SUMMARY | 2024-12-31 17:44 | XMS_ITS | Encounter Summary ---
Author Organization [employer] Address [address] [facility] [address] [place] [address] Care Team Providers Care Etcher Apprentice Name Role Phone Unavailable Primary Care Provider Unavailabl e Reason for Visit * Reason Comments Med Refill Encounter Details Date Type Department Care Team (Late st Contact Info) Description 10/15/2024 Refill C [facility] [address] [place] [address] Lina Ni MD [address] [place] [address] Type 2 diabetes mellitus without complications (CMS/HCC) [...]
--- OUTSIDE RECORDS SUMMARY | 2024-12-31 17:44 | XMS_ITS | Encounter Summary ---
Author Organization [employer] Address [address] [facility] [address] [place] [address] Care Team Providers Care Telephonic Nurse Case Manager Name Role Phone Lina Ni MD Primary Care Provide r Encounter Details Date Type Department Care Team (Latest Contact Info) Description 10/31/2019 Abstract [facility] CONVERSIONS Dental, Provider, DDS Social History [...] on filedocumented in this encounter Care Teams Telephonic Nurse Case Manager Relationship Specialty Start Date End Date Lina Ni MD [address] [place] [address] PCP - General Family Medicine 09/29/20 03/05/23 documented as of this encounter
--- OUTSIDE RECORDS SUMMARY | 2024-12-31 17:44 | XMS_ITS | Encounter Summary ---
Author Organization [employer] Address [address] [facility] [address] [place] [address] Care Team Providers Care Drywall Contractor Name Role Phone Unavailable Primary Care Provider Unavailabl e Reason for Visit * Reason Comments Med Refill Encounter Details Date Type Department Care Team (Late st Contact Info) Description 10/21/2024 Refill C [facility] [address] [place] [address] Lina Ni MD [address] [place] [address] Type 2 diabetes mellitus without complications (CMS/HCC) [...]
--- OUTSIDE RECORDS SUMMARY | 2024-12-31 17:44 | XMS_ITS | Encounter Summary ---
Author Organization [employer] Address [address] [facility] [address] [place] [address] Care Team Providers Care Casino Gaming Worker Name Role Phone Unavailable Primary Care Provider Unavailabl e Reason for Visit * Reason Comments Med Refill Encounter Details Date Type Department Care Team (Late st Contact Info) Description 09/25/2024 Refill C [facility] [address] [place] [address] Lina Ni MD [address] [place] [address] Type 2 diabetes mellitus without complications (CMS/HCC) [...]
--- OUTSIDE RECORDS SUMMARY | 2024-12-31 17:44 | XMS_ITS | Clinical Summary ---
Author Organization [employer] Address [address] [facility] [address] [place] [address] Care Team Providers Care Undercar Specialist Name Role Phone Unavailable Primary Care Provider [...] 11/04/19 23 Active Lancets (OneTouch Delica Plus [id number]) [facility] USE TEST BLOOD SUGAR ONCE DAILY DIRECTED [...] Type Department Care Team Description 10/21/2024 Refill [facility] [address] [place] [address] Lina Ni MD Type 2 diabetes mellitus without complications ([facility]) 10/15/2024 Refill [facility] [address] [place] [address] Lina Ni MD Type 2 diabetes mellitus without complications ([facility]) from Last 3 Months Immunizations Immunization Administration [...] AM EDT Narrative 10/02/2022 12:57 PM EDT [facility] [address] [place] [address] Mammography Report Signed Patient: Saadia Barker MR#: [id number] : 1955 Acct:[id number] Age/Sex: 67 / F ADM Date: 09/12/22 Loc: HO.MAMMO Attending Dr: Lina Wen MD Ordering Physician: Lina Ni MD Results: 1Negative Date of Service: 09/12/22 Follow Up: 1 Year From Orig ina Mammogram Procedure(s): MM tomosynthesis screening BI Accession Number(s): [id number] cc: Lina Ni MD EXAMINATION: MM SCREENING [...] in OV> 10/02/22 1254 DD/ 1120 TD/TT: Structural Engineering Drafting Officer: Procedure Note Donotuseinterpreter, Image - 10/02/2022 [facility] [address] [place] [address] Mammography Report Signed Patient: Evelia Barker#: [id number] : 6Acct:[id number] Age/Sex: 67 / FADM Date: 09/12/22 Loc: HO.MAMMO Attending Dr: Lina Wen MD Ordering Physician: Lina Ni MDResults: 1Negative Date of Service: 09/12/22Follow Up: 1 Year From Orig inal Mammogram Procedure(s): MM tomosynthesis screening BI Accession Number(s): [id number] cc: Lina Ni MD EXAMINATION: MM SCREENING [...] in OV> 10/02/22 1254 DD/ 1120 TD/TT: Structural Engineering Drafting Officer: Lina Wen MD IMG BI PROCEDURES Tj sonya Result - Final * (ABNORMAL) Hemoglobin A1c (10/06/2021) Hemoglobin A1C 7.4(A) 4.0 - 6.0 % Blood Venous blood specimen / Unknown [facility] Provider LAB BLOOD ORDERABLES Zaira l Result [...] Wen MD LAB URINE ORDERABLES Final Result [facility] [address] * LIPID PANEL, STANDARD (03/24/2021 9:44 AM EST) Chol/HDLC Ratio 2.2 <5.0 (calc) [facility] Cholesterol, Total 141 <200 mg/dL [facility] HDL Cholesterol 65 > OR = 50 mg/dL [facility] LDL Cholesterol 58 mg/dL (calc) [facility] Comment: Reference range: <100 Desirable range <100 mg/dL for primary prevention; <70 mg/dL for patients with CHD or diabetic patients with > or = 2 CHD risk factors. LDL-C is now calculated using the Santiago calculation, which is a validated novel method providing better accuracy than the Friedewald equation in the estimation of LDL-C. [place] HENDRICKSON et al. KATERIN. 2013;310(19): 7940-7316 (http://education.[employer]/faq/NUN837) Non-HDL Cholesterol 76 <130 mg/dL (calc) [facility] Comment: For patients with diabetes plus 1 major ASCVD risk factor, treating to a non-HDL-C goal of <100 mg/dL (LDL-C of <70 mg/dL) is considered a therapeutic option. Triglycerides 94 <150 mg/dL [facility] 03/24/2021 9:44 AM EST us Lina Wen MD LAB BLOOD ORDERABLES Final Result [facility] [address] * HPV E6/E7 RFLX FERNANDA 16 18/45 (03/02/2021 12:35 PM EST) HPV mRNA E6/E7 rflx Not Detected Not Detected [facility] Comment: Methodology: Electrical Prospecting Operator-Mediated Amplification This assay detects E6/E7 viral messenger RNA (mRNA) from 14 high-risk HPV types (16,18,31,33,35,39,45,51,52,56,58,59,66,68). The analytical performance characteristics of this assay have been determined by [employer]. The modifications have not been cleared or approved by the FDA. This assay has been validated pursuant to the CLIA regulations and is used for clinical purposes. For additional information, please refer to http://education.[employer]/faq/CMV738n0 (This link if provided for information/ educational purposes only.) THIS TEST WAS PERFORMED AT: [facility] [address] [facility] [address] [address] GISELLE FAIHT MD 03/02/2021 12:3 5 PM EST Rajendra Rankin MD HISTORICAL/NON ORDERABLE LABS Fi nal Result [facility] [address] * Pap Smear (03/02/2021) Historical Provider HEALTH MAINTENANCE Final Result from Last 3 Months or Most Recently Relevant to Health Maintenance Insurance [facility] STANDARD [facility] ONE CARE < 65 [place] [place] [id number]
--- OUTSIDE RECORDS SUMMARY | 2024-12-31 17:44 | XMS_ITS | Encounter Summary ---
Author Organization [email or web address] Address [address] [facility] [address] [place] [address] Care Team Providers Care Insurance Verification Representative Name Role Phone Lina Ni MD Primary Care Provide r Encounter Details Date Type Department Care Team (Latest Contact Info) Description 01/05/2021 Abstract [facility] CONVERSIONS Dental, Provider, DDS Social History Tobacco [...] on filedocumented in this encounter Care Teams Insurance Verification Representative Relationship Specialty Start Date End Date Lina Ni MD [address] [place] [address] PCP - General Family Medicine 09/29/20 03/05/23 documented as of this encounter
--- OUTSIDE RECORDS SUMMARY | 2024-12-31 17:44 | XMS_ITS | Encounter Summary ---
Author Organization [employer] Address [address] [facility] [address] [place] [address] Care Team Providers Care Radial Router Operator Name Role Phone Lina Ni MD Primary Care Provide r Encounter Details Date Type Department Care Team ([facility] st Contact Info) Description 11/01/2022 Orders Only [facility] [address] [place], [place] [phone] Provider, MD Curtis Social History Tobacco Use [...] on filedocumented in this encounter Care Teams Radial Router Operator Relationship Specialty Start Date End Date Lina Ni MD [address] [place], [place] [phone] PCP - General Family Medicine 09/29/20 03/05/23 documented as of this encounter
--- OUTSIDE RECORDS SUMMARY | 2024-12-31 17:44 | XMS_ITS | Encounter Summary ---
Author Organization [email or web address] Address [address] [facility] [address] [place] [address] Care Team Providers Care Rn Anesthesiology Name Role Phone Unavailable Primary Care Provider Unavailabl e Reason for Visit * Reason Comments Med Refill Encounter Details Date Type Department Care Team (Late st Contact Info) Description 08/20/2023 Refill [facility] [address] [place] [address] Lina Ni MD [address] [place] [address] Dyslipidemia Social History Tobacco Use Types Packs/Day [...]
== END 2024-12-31 15:47 | disposition home or self-care (01) ==
LOC: HO.HMCH 15:18
PROVIDERS: PCP Internal Medicine; Visit Provider Internal Medicine
DX: E11.9 Type 2 diabetes mellitus without complications (principal); E78.00 Pure hypercholesterolemia, unspecified; E03.9 Hypothyroidism, unspecified; E55.9 Vitamin D deficiency, unspecified; K21.9 Gastro-esophageal reflux disease without esophagitis; K59.00 Constipation, unspecified; J30.9 Allergic rhinitis, unspecified; G47.00 Insomnia, unspecified; F41.9 Anxiety disorder, unspecified; F33.9 Major depressive disorder, recurrent, unspecified; E66.3 Overweight

== ENCOUNTER → 2024-12-31 15:17 | Outpatient (BNVA) | payer OTHER, SELFPAY | PROVIDERS: PCP Internal Medicine; Visit Provider Internal Medicine | DX: E11.9 Type 2 diabetes mellitus without complications (principal); M54.50 Low back pain, unspecified; E78.00 Pure hypercholesterolemia, unspecified; E03.9 Hypothyroidism, unspecified; E55.9 Vitamin D deficiency, unspecified; K21.9 Gastro-esophageal reflux disease without esophagitis; K59.00 Constipation, unspecified; J30.9 Allergic rhinitis, unspecified; G47.00 Insomnia, unspecified; F41.9 Anxiety disorder, unspecified; F33.9 Major depressive disorder, recurrent, unspecified; E66.3 Overweight; Z68.29 Body mass index [BMI] 29.0-29.9, adult; Z91.81 History of falling | CPT/HCPCS: 96127; 99212 ==